=== PATIENT | female | born 1980 | race American Indian/Alaskan Native ===

== ENCOUNTER 2021-07-10 18:32 | Inpatient (IN) | payer SELFPAY ==
[2021-07-10] MEDS ORDERED: SODIUM CHLORIDE 0.9% 1000 ML 1,000 ML IV ONE (22:00)
[2021-07-10] MEDS ORDERED: PANTOPRAZOLE 40 MG INJ IV ONE (22:01)
[2021-07-10] MEDS ORDERED: ONDANSETRON 4 MG/2 ML INJ IV ONE (22:01)
[2021-07-10] MEDS ORDERED: MORPHINE 4 MG/1 ML INJ IV ONE (22:01)
--- NOTE | 2021-07-10 22:06 | Emergency Department Report ---
ED Abdominal Pain HPI - General Stated Complaint: ABD PAIN/VOMITING PUI?: No Time Seen by Provider: 07/10/21 21:55 Source: patient Mode of arrival: Ambulatory Limitations: No Limitations - History of Present Illness Initial Comments: CC: "My stomach hurts. I can't eat anything. It comes right back up." HPI: This is a 41 yo female with hx of COPD, marijuana and alcohol dependence who presents with vomiting and abdominal pain for one week. She is unable to tolerate food. She has moderately severe epigastric pain. Sharp pain worse with eating. +vomiting. No hematemesis. Mild diarrhea. Patient smokes marijuana and drinks alcohol daily. MD Complaint: abdominal pain -: Gradual, week(s) (1 week) Location: epigastric Radiation: none Severity: moderate Severity scale (0 -10): 8 Quality: aching, sharp Consistency: constant Improves With: nothing Worsens With: eating Associated Symptoms: nausea, vomiting, diarrhea - Related Data Home Medications Medication Instructions Recorded Confirmed Last Taken No Known Home Medications [No 09/08/18 09/08/18 Unknown Reported Home Medications] Allergies Allergy/AdvReac Type Severity Reaction Status Date / Time No Known Allergies Allergy Unverified 08/30/18 02:13 ED Review of Systems ROS: Stated complaint: ABD PAIN/VOMITING Other details as noted in HPI Comment: All other systems reviewed and negative Constitutional: malaise. denies: fever Respiratory: denies: cough, shortness of breath Gastrointestinal: abdominal pain, nausea, vomiting, diarrhea Musculoskeletal: denies: back pain ED Past Medical Hx - Past Medical History Previous Medical History?: Yes Hx Heart Attack/AMI: No Hx Liver Disease: No Hx Renal Disease: No Hx Seizures: No Hx Asthma: Yes Hx COPD: Yes (advanced COPD on chest CT) - Surgical History Past Surgical History?: Yes Additional Surgical History: Bronchoscopy - Social History Smoking Status: Current Every Day Smoker Substance Use Type: Alcohol, Marijuana - Medications Home Medications: Home Medications Medication Instructions Recorded Confirmed Last Taken Type No Known Home Medications [No 09/08/18 09/08/18 Unknown History Reported Home Medications] ED Physical Exam - General Limitations: No Limitations General appearance: alert, in no apparent distress, cachectic, other (tearful ) - Head Head exam: Present: atraumatic, normocephalic - Eye Eye exam: Present: normal appearance - ENT ENT exam: Present: mucous membranes moist - Neck Neck exam: Present: normal inspection - Respiratory Respiratory exam: Present: normal lung sounds bilaterally. Absent: respiratory distress, wheezes, rales, rhonchi, stridor - Cardiovascular Cardiovascular Exam: Present: regular rate, normal rhythm, normal heart sounds. Absent: systolic murmur, diastolic murmur, rubs, gallop - GI/Abdominal GI/Abdominal exam: Present: soft, tenderness, normal bowel sounds, other (Epigastric tenderness). Absent: distended, guarding - Extremities Exam Extremities exam: Present: normal inspection - Neurological Exam Neurological exam: Present: alert, oriented X3 - Psychiatric Psychiatric exam: Present: normal affect, normal mood - Skin Skin exam: Present: warm, dry, intact, normal color. Absent: rash ED Medical Decision Making - Lab Data Result diagrams: 07/10/21 22:54 07/10/21 22:54 - Radiology Data Radiology results: report reviewed Patient Name: ARIANNA SANCHEZ Gender: Female Date of : 1980 Referring Provider: YOKASTA MANUEL Organization: [facility] Accession Number: [id number] Requested Date: July 10, 2021 23:55 Report Status: Final Requested Procedure: 1 Procedure Description: CT abdomen pelvis wo con Modality: CT Findings Reporting MD: Quentin Navarro Dictation Time: July 10, 2021 23:15 Machine Stemmer: Not available Electronic Security Technician Date: CT ABDOMEN AND PELVIS WITHOUT CONTRAST HISTORY: Severe Epigastric Abdominal pain, hx of alcohol use.. COMPARISON: None. TECHNIQUE: CT images of the abdomen and pelvis were obtained without administration of intravenous contrast. All CT scans at this location are performed using CT dose reduction for ALARA by means of automated exposure control. FINDINGS: Lungs/bones: There is cavitary process with diffuse opacities within the left lower lung diffuse bronchiectasis is seen. Nodular appearing densities opacities within the right lower lung as well. Abdomen/pelvis: Within limits of a noncontrast exam the liver, spleen, adrenal glands, pancreas and gallbladder appear normal. No bowel obstruction is seen. Kidneys are prominent however unchanged since prior examination. Appendix is not well seen however no CT evidence for appendicitis. No free fluid in the pelvis. Degenerative changes seen throughout spine. IMPRESSION: 1. Marked abnormality within the lower chest. Cavitary process with diffuse opacities within the lower lungs left greater than right. Findings could represent atypical mycobacterial infection, prior infection/inflammation, malignancy cannot be excluded. Nodular densities are seen in the right lower lung. 2. No other acute findings are seen in the abdomen or pelvis. Signer Name: Quentin Navarro MD Signed: 07/10/2021 11:15 PM Workstation Name: [id number] Patient Name: ARIANNA SANCHEZ Gender: Female Date of : 1980 Referring Provider: YOKASTA MANUEL Organization: [facility] Accession Number: [id number] Requested Date: July 11, 2021 02:26 Report Status: Final Requested Procedure: 1 Procedure Description: CT chest w con Modality: CT Findings Reporting MD: Quentin Navarro Dictation Time: July 11, 2021 01:42 Machine Stemmer: Not available Electronic Security Technician Date: CT CHEST WITH CONTRAST INDICATION / CLINICAL INFORMATION: Cavitary lesions in the chest history of Pneumonia. TECHNIQUE: Axial CT images were obtained through the chest after IV contrast. All CT scans at this location are performed using CT dose reduction for ALARA by means of automated exposure control. COMPARISON: None available. FINDINGS: There is diffuse irregularity throughout the chest. Large cavitary lesions are seen in bilateral lungs. These cavitary lesions appear to have thickened barber with increased interstitial prominence and opacities surrounding the cavitary processes and associated bronchograms and bronchiectasis is noted. Chronic interstitial changes seen in bilateral lungs. Some nodular appearing densities are also seen within the lungs bilaterally. Heart and aorta appear normal. There are prominent mediastinal paratracheal nodes and paratracheal nodes measuring up to 1.1 cm. Some soft tissue density and fluid densities in the left lung base near the pleural surfaces IMPRESSION: 1. Diffuse bilateral pulmonary cavitary processes with multiple large cavities which appears thick walled with associated bronchiectasis. There is interstitial prominence with interstitial nodularity and opacities also in bilateral lungs. Differential considerations would include infectious etiology such as fungal,, TB, atypical mycobacterial, bacterial pneumonia. Other noninfectious etiologies such as carcinoma also cannot be excluded. Signer Name: Quentin Navarro MD Signed: 07/11/2021 1:42 AM Workstation Name: [employer] - Medical Decision Making 1. Abdominal pain nausea vomiting: Differential diagnosis includes alcoholic gastritis, cannabinoid hyperemesis syndrome, peptic ulcer disease, irritable bowel syndrome: CT abdomen pelvis ruled out acute inflammatory obstructive process. Anorexia cachexia likely due to lung process which has advanced over the last 3 years. 2. Cavitary lung process: Patient was evaluated for cavitary pneumonia 2018. Patient left AGAINST MEDICAL ADVICE before full evaluation could be completed. Previously in 2018 bronchial washings positive for MRSA and Veronika albicans Differential diagnosis includes tuberculosis, malignancy, Charbel's disease, aspergillus infection, PCP Broad-spectrum antibiotic Zosyn and vancomycin via IV initiated emergency department. Patient admitted to hospital service. Critical care attestation.: If time is entered above; I have spent that time in minutes in the direct care of this critically ill patient, excluding procedure time. ED Disposition Clinical Impression: Cavitary pneumonia, MRSA pneumonia, Abdominal pain Disposition: 09 ADMITTED INPATIENT Is pt being admited?: Yes Does the pt Need Aspirin: No Condition: Fair Instructions: Bacterial Pneumonia (ED) Referrals: PRIMARY CARE, [Primary Care Provider] - 3-5 Days
[2021-07-10 23:36] LABS: Alanine Aminotransferase 5 units/L (7-56); Albumin 2.8 g/dL (3.9-5); Blood Urea Nitrogen 5 mg/dL (7-17); Calcium 7.8 mg/dL (8.4-10.2); Hemolysis Index 13
[2021-07-10 23:37] LABS: BUN/Creatinine Ratio 13; Basophils # (Auto) 0.1 K/mm3 (0.0-0.1); Basophils % (Auto) 1.3 % (0.0-1.8); Bilirubin,Direct < 0.2 mg/dL (0-0.2); Eosinophils % (Auto) 0.4 % (0.0-4.3); Hematocrit 34.2 % (30.3-42.9); Hemoglobin 11.3 gm/dl (10.1-14.3); Lymphocytes # (Auto) 1.5 K/mm3 (1.2-5.4); Lymphocytes % (Auto) 20.6 % (13.4-35.0); Mean Corpuscular HGB Conc 33 % (30-34); Mean Corpuscular Volume 91 fl (79-97); Platelet Count 314 K/mm3 (140-440); Red Blood Count 3.75 M/mm3 (3.65-5.03); Red Cell Distribution Width 16.2 % (13.2-15.2)
--- NOTE | 2021-07-11 00:20 | Cat Scan Report ---
CT ABDOMEN AND PELVIS WITHOUT CONTRAST HISTORY: Severe Epigastric Abdominal pain, hx of alcohol use.. COMPARISON: None. TECHNIQUE: CT images of the abdomen and pelvis were obtained without administration of intravenous co ntrast. All CT scans at this location are performed using CT dose reduction for ALARA by means of au tomated exposure control. FINDINGS: Lungs/bones: There is cavitary process with diffuse opacities within the left lower lung diffuse bro nchiectasis is seen. Nodular appearing densities opacities within the right lower lung as well. Abdomen/pelvis: Within limits of a noncontrast exam the liver, spleen, adrenal glands, pancreas and gallbladder appear normal. No bowel obstruction is seen. Kidneys are prominent however unchanged sinc e prior examination. Appendix is not well seen however no CT evidence for appendicitis. No free fluid in the pelvis. Degenerative changes seen throughout spine. IMPRESSION: 1. Marked abnormality within the lower chest. Cavitary process with diffuse opacities within the lowe r lungs left greater than right. Findings could represent atypical mycobacterial infection, prior inf ection/inflammation, malignancy cannot be excluded. Nodular densities are seen in the right lower chance g. 2. No other acute findings are seen in the abdomen or pelvis. Signer Name: Quentin Navarro MD Signed: 07/11/2021 12:15 AM Workstation Name: [id number]
[2021-07-11] MEDS ORDERED: ONDANSETRON 4 MG/2 ML INJ IV ONE (01:24)
[2021-07-11] MEDS ORDERED: MORPHINE 4 MG/1 ML INJ IV ONE (01:24)
--- NOTE | 2021-07-11 02:46 | Cat Scan Report ---
CT CHEST WITH CONTRAST INDICATION / CLINICAL INFORMATION: Cavitary lesions in the chest history of Pneumonia. TECHNIQUE: Axial CT images were obtained through the chest after IV contrast. All CT scans at this location are performed using CT dose reduction for ALARA by means of automated exposure control. COMPARISON: None available. FINDINGS: There is diffuse irregularity throughout the chest. Large cavitary lesions are seen in bilateral lung s. These cavitary lesions appear to have thickened barber with increased interstitial prominence and o pacities surrounding the cavitary processes and associated bronchograms and bronchiectasis is noted. Chronic interstitial changes seen in bilateral lungs. Some nodular appearing densities are also seen within the lungs bilaterally. Heart and aorta appear normal. There are prominent mediastinal paratrac heal nodes and paratracheal nodes measuring up to 1.1 cm. Some soft tissue density and fluid densitie s in the left lung base near the pleural surfaces IMPRESSION: 1. Diffuse bilateral pulmonary cavitary processes with multiple large cavities which appears thick wa lled with associated bronchiectasis. There is interstitial prominence with interstitial nodularity an d opacities also in bilateral lungs. Differential considerations would include infectious etiology anderson ch as fungal,, TB, atypical mycobacterial, bacterial pneumonia. Other noninfectious etiologies such a s carcinoma also cannot be excluded. Signer Name: Quentin Navarro MD Signed: 07/11/2021 2:42 AM Workstation Name: [id number]
[2021-07-11] MEDS ORDERED: PIPERACIL/TAZOBACTA 4.5/NS 100 4.5 GM/100 ML VIAL IV ONE (02:57)
[2021-07-11] MEDS ORDERED: VANCOMYCIN/NS 1 GM/250 ML 1 GM/250 ML BAG IV ONE (02:57)
[2021-07-11] MEDS ORDERED: MORPHINE 4 MG/1 ML INJ IV PRN (02:58)
[2021-07-11] MEDS ORDERED: ACETAMINOPHEN 325 MG TAB PO PRN (02:58)
[2021-07-11] MEDS ORDERED: NALOXONE 0.4 MG/1 ML INJ IV PRN (02:58)
[2021-07-11] MEDS ORDERED: ONDANSETRON 4 MG/2 ML INJ IV PRN (02:58)
[2021-07-11] MEDS ORDERED: ALBUTEROL 8.5 GM MDI INHALATION IH PRN (03:48)
--- NOTE | 2021-07-11 03:54 | History and Physical Report ---
History of Present Illness Date of examination: 07/11/21 Date of admission: 07/11/2021 Chief complaint: Acute abdominal pain, nausea, vomiting History of present illness: 41-year-old -[place] female with history of COPD, marijuana and alcohol dependence, who presents [facility] ED with complaints of abdominal pain. Patient reports severe sharp epigastric 9/10 pain accompanied with nausea and vomiting x1 week. The pain is exacerbated with oral intake,and unable to keep anything down at this time. Endorses intermittent diarrhea x1 to 2 days. Reports unintentional weight loss of approximately 30 pounds over the past 1 to 2 months. Review of medical record shows patient was admitted in 2018 with pneumonia, underwent bronchoscopy by Dr. Pedersen, and bronchial washings were sent for culture. Patient left the hospital AMA following the procedure, but returned after being contacted regarding positive cultures and the need for additional treatment for left lower lobe MRSA pneumonia. Patient did start additional treatment however once again left AMA has not returned back to our facility until today. Endorses: Intermittent fever, chills, night sweats, cough with thick greenish sputum production, unintentional weight loss, decreased appetite Denies: Chest pain, shortness of breath, palpitations, constipation, hemoptysis, hematic emesis, melena, loss of smell and taste, generalized weakness, recent sick contacts Past History Past Medical History: COPD, other (PNA with MRSA,) Past Surgical History: Other (Bronchoscopy) Social history: lives with family (Father, uncle and brother), smoking (Daily marijuana use, denies tobacco/nicotine use), alcohol abuse, full code. denies: prescription drug abuse, IV drug use Family history: no significant family history Medications and Allergies Allergies Allergy/AdvReac Type Severity Reaction Status Date / Time No Known Allergies Allergy Unverified 08/30/18 02:13 Home Medications Medication Instructions Recorded Confirmed Last Taken Type No Known Home Medications [No 09/08/18 09/08/18 Unknown History Reported Home Medications] Active Meds: Active Medications Acetaminophen (Acetaminophen 325 Mg Tab) 650 mg PO Q4H PRN PRN Reason: Pain MILD(1-3)/Fever >100.5/[place] Albuterol (Albuterol 8.5 Gm Mdi Inhalation) 2 puff IH Q4HRT PRN PRN Reason: Shortness Of Breath Docusate Sodium (Docusate Sodium 100 Mg Cap) 100 mg PO BID [facility] Heparin Sodium (Porcine) (Heparin 5,000 Unit/1 Ml Vial) 5,000 unit SUB-Q Q12HR [facility] Vancomycin HCl (Vancomycin/Ns 1 Gm/250 Ml) 1 gm in 250 mls @ 167.007 mls/hr IV ONCE ONE; Protocol Stop: 07/11/21 04:26 Piperacillin Sod/Tazobactam Sod (Zosyn/Ns 4.5gm/100ml) 4.5 gm in 100 mls @ 200 mls/hr IV Q8H RAJANI; Protocol Potassium Chloride (Kcl 10meq/100ml) 10 meq in 100 mls @ 100 mls/hr IV Q1H RAJANI Stop: 07/11/21 05:59 Morphine Sulfate (Morphine 2 Mg/1 Ml Inj) 2 mg IV Q4H PRN PRN Reason: Pain, Moderate (4-6) Morphine Sulfate (Morphine 4 Mg/1 Ml Inj) 4 mg IV Q4H PRN PRN Reason: Pain , Severe (7-10) Naloxone HCl (Naloxone 0.4 Mg/1 Ml Inj) 0.1 mg IV Q2MIN PRN PRN Reason: Res Rate </= 8 or 02 SAT < 92% Ondansetron HCl (Ondansetron 4 Mg/2 Ml Inj) 4 mg IV Q6H PRN PRN Reason: Nausea And Vomiting Sodium Chloride (Sodium Chloride 0.9% 10 Ml Flush Syringe) 10 ml IV BID [facility] Sodium Chloride (Sodium Chloride 0.9% 10 Ml Flush Syringe) 10 ml IV PRN PRN PRN Reason: LINE FLUSH Review of Systems All systems: negative (As noted in HPI) Exam - Physical Exam Narrative exam: Physical exam General appearance: Present: Thin appearing, no acute distress, alert and oriented 3, adult female - EENT Eyes: Present: PERRL, EOM intact ENT: hearing intact, poor dentition - Neck Neck: Present: supple, normal ROM - Respiratory Respiratory effort: Non-labored Respiratory: Clear throughout - Cardiovascular Heart rate: 88 (bpm) Rhythm: Sinus Heart Sounds: Present: S1 & S2. Absent: rub, click - Extremities Extremities: no ischemia, pulses intact, - Peripheral Assessment Peripheral Pulses: within normal limits - Abdominal General gastrointestinal: soft, non-tender, normal bowel sounds - Integumentary Integumentary: Present: warm, dry - Musculoskeletal Musculoskeletal: Able to move all extremities -Neurological Neurological: CN II-XII intact - Psychiatric Psychiatric:cooperative HEART Score - HEART Score Troponin: WBC 7.3 K/mm3 (4.5-11.0) 07/10/21 22:54 RBC 3.75 M/mm3 (3.65-5.03) 07/10/21 22:54 Hgb 11.3 gm/dl (10.1-14.3) 07/10/21 22:54 Hct 34.2 % (30.3-42.9) 07/10/21 22:54 MCV 91 fl (79-97) 07/10/21 22:54 MCH 30 pg (28-32) 07/10/21 22:54 MCHC 33 % (30-34) 07/10/21 22:54 RDW 16.2 % (13.2-15.2) H 07/10/21 22:54 Plt Count 314 K/mm3 (140-440) 07/10/21 22:54 Lymph % (Auto) 20.6 % (13.4-35.0) 07/10/21 22:54 Toombs % (Auto) 14.0 % (0.0-7.3) H 07/10/21 22:54 Eos % (Auto) 0.4 % (0.0-4.3) 07/10/21 22:54 Baso % (Auto) 1.3 % (0.0-1.8) 07/10/21 22:54 Lymph # (Auto) 1.5 K/mm3 (1.2-5.4) 07/10/21 22:54 Toombs # (Auto) 1.0 K/mm3 (0.0-0.8) H 07/10/21 22:54 Eos # (Auto) 0.0 K/mm3 (0.0-0.4) 07/10/21 22:54 Baso # (Auto) 0.1 K/mm3 (0.0-0.1) 07/10/21 22:54 Seg Neutrophils % 63.7 % (40.0-70.0) 07/10/21 22:54 Seg Neutrophils # 4.6 K/mm3 (1.8-7.7) 07/10/21 22:54 Sodium 131 mmol/L (137-145) L 07/10/21 22:54 Potassium 3.3 mmol/L (3.6-5.0) L 07/10/21 22:54 Chloride 94.2 mmol/L (98-107) L 07/10/21 22:54 Carbon Dioxide 26 mmol/L (22-30) 07/10/21 22:54 Anion Gap 14 mmol/L 07/10/21 22:54 BUN 5 mg/dL (7-17) L 07/10/21 22:54 Creatinine 0.4 mg/dL (0.6-1.2) L 07/10/21 22:54 Estimated GFR > 60 ml/min 07/10/21 22:54 BUN/Creatinine Ratio 13 % 07/10/21 22:54 Glucose 73 mg/dL (65-100) 07/10/21 22:54 Calcium 7.8 mg/dL (8.4-10.2) L 07/10/21 22:54 Total Bilirubin 0.30 mg/dL (0.1-1.2) 07/10/21 22:54 Direct Bilirubin < 0.2 mg/dL (0-0.2) 07/10/21 22:54 Indirect Bilirubin 0.1 mg/dL 07/10/21 22:54 AST 20 units/L (5-40) 07/10/21 22:54 ALT 5 units/L (7-56) L 07/10/21 22:54 Alkaline Phosphatase 176 units/L (35-129) H 07/10/21 22:54 Total Protein 9.1 g/dL (6.3-8.2) H 07/10/21 22:54 Albumin 2.8 g/dL (3.9-5) L 07/10/21 22:54 Albumin/Globulin Ratio 0.4 % 07/10/21 22:54 Lipase 13 units/L (13-60) 07/10/21 22:54 HCG, Qual Negative (Negative) 07/10/21 22:54 Results - Labs CBC & Chem 7: 07/10/21 22:54 07/10/21 22:54 Labs: Laboratory Last Values WBC 7.3 K/mm3 (4.5-11.0) 07/10/21 22:54 RBC 3.75 M/mm3 (3.65-5.03) 07/10/21 22:54 Hgb 11.3 gm/dl (10.1-14.3) 07/10/21 22:54 Hct 34.2 % (30.3-42.9) 07/10/21 22:54 MCV 91 fl (79-97) 07/10/21 22:54 MCH 30 pg (28-32) 07/10/21 22:54 MCHC 33 % (30-34) 07/10/21 22:54 RDW 16.2 % (13.2-15.2) H 07/10/21 22:54 Plt Count 314 K/mm3 (140-440) 07/10/21 22:54 Lymph % (Auto) 20.6 % (13.4-35.0) 07/10/21 22:54 Toombs % (Auto) 14.0 % (0.0-7.3) H 07/10/21 22:54 Eos % (Auto) 0.4 % (0.0-4.3) 07/10/21 22:54 Baso % (Auto) 1.3 % (0.0-1.8) 07/10/21 22:54 Lymph # (Auto) 1.5 K/mm3 (1.2-5.4) 07/10/21 22:54 Toombs # (Auto) 1.0 K/mm3 (0.0-0.8) H 07/10/21 22:54 Eos # (Auto) 0.0 K/mm3 (0.0-0.4) 07/10/21 22:54 Baso # (Auto) 0.1 K/mm3 (0.0-0.1) 07/10/21 22:54 Seg Neutrophils % 63.7 % (40.0-70.0) 07/10/21 22:54 Seg Neutrophils # 4.6 K/mm3 (1.8-7.7) 07/10/21 22:54 Sodium 131 mmol/L (137-145) L 07/10/21 22:54 Potassium 3.3 mmol/L (3.6-5.0) L 07/10/21 22:54 Chloride 94.2 mmol/L (98-107) L 07/10/21 22:54 Carbon Dioxide 26 mmol/L (22-30) 07/10/21 22:54 Anion Gap 14 mmol/L 07/10/21 22:54 BUN 5 mg/dL (7-17) L 07/10/21 22:54 Creatinine 0.4 mg/dL (0.6-1.2) L 07/10/21 22:54 Estimated GFR > 60 ml/min 07/10/21 22:54 BUN/Creatinine Ratio 13 % 07/10/21 22:54 Glucose 73 mg/dL (65-100) 07/10/21 22:54 Calcium 7.8 mg/dL (8.4-10.2) L 07/10/21 22:54 Total Bilirubin 0.30 mg/dL (0.1-1.2) 07/10/21 22:54 Direct Bilirubin < 0.2 mg/dL (0-0.2) 07/10/21 22:54 Indirect Bilirubin 0.1 mg/dL 07/10/21 22:54 AST 20 units/L (5-40) 07/10/21 22:54 ALT 5 units/L (7-56) L 07/10/21 22:54 Alkaline Phosphatase 176 units/L (35-129) H 07/10/21 22:54 Total Protein 9.1 g/dL (6.3-8.2) H 07/10/21 22:54 Albumin 2.8 g/dL (3.9-5) L 07/10/21 22:54 Albumin/Globulin Ratio 0.4 % 07/10/21 22:54 Lipase 13 units/L (13-60) 07/10/21 22:54 HCG, Qual Negative (Negative) 07/10/21 22:54 - Imaging and Cardiology Imaging and Cardiology: CT Chest: FINDINGS: There is diffuse irregularity throughout the chest. Large cavitary lesions are seen in bilateral lungs. These cavitary lesions appear to have thickened barber with increased interstitial prominence and opacities surrounding the cavitary processes and associated bronchograms and bronchiectasis is noted. Chronic interstitial changes seen in bilateral lungs. Some nodular appearing densities are also seen within the lungs bilaterally. Heart and aorta appear normal. There are prominent mediastinal paratracheal nodes and paratracheal nodes measuring up to 1.1 cm. Some soft tissue density and fluid densities in the left lung base near the pleural surfaces IMPRESSION: 1. Diffuse bilateral pulmonary cavitary processes with multiple large cavities which appears thick walled with associated bronchiectasis. There is interstitial prominence with interstitial nodularity and opacities also in bilateral lungs. Differential considerations would include infectious etiology such as fungal,, TB, atypical mycobacterial, bacterial pneumonia. Other noninfectious etiologies such as carcinoma also cannot be excluded. CT Abd/Pelvis: FINDINGS: Lungs/bones: There is cavitary process with diffuse opacities within the left lower lung diffuse bronchiectasis is seen. Nodular appearing densities opacities within the right lower lung as well. Abdomen/pelvis: Within limits of a noncontrast exam the liver, spleen, adrenal glands, pancreas and gallbladder appear normal. No bowel obstruction is seen. Kidneys are prominent however unchanged since prior examination. Appendix is not well seen however no CT evidence for appendicitis. No free fluid in the pelvis. Degenerative changes seen throughout spine. IMPRESSION: 1. Marked abnormality within the lower chest. Cavitary process with diffuse opacities within the lower lungs left greater than right. Findings could represent atypical mycobacterial infection, prior infection/inflammation, malignancy cannot be excluded. Nodular densities are seen in the right lower lung. 2. No other acute findings are seen in the abdomen or pelvis. Assessment and Plan Assessment and plan: Cavitary pneumonia -CT Chest shows Diffuse bilateral pulmonary cavitary processes with multiple large cavities -On IV Zosyn and Vacomycin -ID and Pulmonary consulted Intractable nausea and vomiting -?? Due to marijuana induced hyperemesis -Diet as tolerated -Antiemetics -On IVF -Supportive care Acute abdominal pain -CT abdomen pelvis negative for acute findings in abdomen or pelvis, -Lower chest cavitary lesions seen on CT, unable to rule out malignancy at this time -?? Related to malignancy -Supportive care Hypokalemia -Moderate -3.3 on admission -Ordered potassium replacement -Continue to monitor replete prn Mild to moderate malnutrition -Albumin 2.8 -Nutrition consult pending History of advanced COPD -Albuterol as needed Marijuana abuse -Reports daily marijuana use -Counseled for cessation EtOH Abuse -Last drink 1-2 days ago -Initiate CIWA protocol -Start Thiamine and Folic Acid -Counseled for cessation abuse DVT PPx -On heparin Advance Directives: No VTE prophylaxis?: Chemical, Mechanical Plan of care discussed with patient/family: Yes
[2021-07-11] MEDS ORDERED: VANCOMYCIN PHARMACY TO DOSE IV SCH (04:00)
[2021-07-11] MEDS ORDERED: SODIUM CHLORIDE 0.9% 1000 ML 1,000 ML IV SCH (04:00)
[2021-07-11] MEDS ORDERED: LORazepam 2 MG/ML VIAL IV PRN (04:10)
[2021-07-11] MEDS ORDERED: diphenhydrAMINE 50 MG/ML VIAL IV ONE (04:46)
[2021-07-11] MEDS: POTASSIUM CHLORIDE 10 MEQ 10 MEQ/100 ML BAG IV SCH ×2 (05:00→05:54)
--- NOTE | 2021-07-11 08:48 | Event Note ---
Date: 07/11/21 41-year-old female with history of COPD, marijuana use, EtOH abuse presented today with abdominal pain described as sharp epigastric severe with nausea vomiting. Patient unable to hold food down. Also associated with 30 pound weight loss over the past several months. Over the past several months patient hospital course been complicated by 2 separate hospitalizations in which she left AMA both times. Most recent patient had bronchoscopy for what was being treated as a pneumonia cavitary lesion. Patient left AMA at that time. Patient returns this time with above complaints and concerns. CT findings upon admission on this visit shows large cavitary lesion throughout lungs. Patient was admitted for cavitary pneumonia. Started on Zosyn and vancomycin ID consult pending. Patient also has abdominal pain CT scan abdomen unremarkable most likely secondary to chronic EtOH use and abuse. Electrolytes are currently being corrected. Patient also was seen dietitian for supplementation malnutrition. Advanced COPD nebulizers and patient being covered CIWA protocol for alcohol abuse
--- NOTE | 2021-07-11 09:38 | Event Note ---
Date: 07/11/21 Chart reviewed along with imaging but unable to pull up CT from 2018. Impressive current CT of chest and patient presented only with abdominal sy mptoms. Per chart denies hemoptysis. She does endorse sputum production of green phelgm and shortness of breath. Had no elevation in white count on admission and no documented fever ( just spoke with nurse who is going to get recent vitals). Given her asymptomatic state, I presume this is residual damage from untreated MRSA 3 years ago. As stated earlier I cannot visualize the old CT, will see if Rads can pull up for me to compare. At this time, I don't feel bronch is warranted. If patient is able to produce sputum can send for culture, gram stain and cytology. Await ID recs but no plans pulm pineda at this time.
[2021-07-11] MEDS: DOCUSATE SODIUM 100 MG CAP PO SCH ×2 (12:11→21:22)
[2021-07-11] MEDS: FOLIC ACID 1 MG TAB PO SCH (12:11)
[2021-07-11] MEDS: HEPARIN 5,000 UNIT/1 ML VIAL SUB-Q SCH ×2 (12:12→21:22)
[2021-07-11] MEDS: THIAMINE 100 MG TAB PO SCH (12:12)
[2021-07-11] MEDS: MULTIVITAMINS ,THERAPEUTIC TAB PO SCH (12:12)
[2021-07-11] MEDS: MORPHINE 2 MG/1 ML INJ IV PRN ×2 (12:36→20:47)
[2021-07-11] MEDS: PIPERACIL/TAZOBACTA 4.5/NS 100 4.5 GM/100 ML VIAL IV SCH ×2 (13:48→20:49)
--- NOTE | 2021-07-11 14:45 | Consultation ---
History of Present Illness - Reason for Consult Consult date: 07/11/21 cavitary pneumonia - History of Present Illness 41-year-old female with history of COPD, marijuana use, alcohol abuse, previous MRSA pneumonia, which was not fully treated, admitted on 07/11/2021 secondary to a month history of worsening cough with green sputum production, weightloss, abdominal pain and nausea. She reports previous HIV test negative. Patient underwent BAL done in August 2018 + for MRSA. Patient left AMA. Reports intermittent diarrhea. On arrival, temperature 98, HR 94, RR 23, O2 sat 97%. Initial WBC 7.3. Hemoglobin 11.3. Platelets 314. Creatinine 0.4. Review of Systems: positive in bold print General: fever, chills, malaise, weight loss about 20L Cutaneous: rash, pruritus Head: headaches or injury Eyes: changes in vision, eye pain, double vision Ears: ear pain, ear discharge, ringing or hearing loss Nose: nose bleeding, stuffiness Mouth & throat: bleeding gums, horseness, no dental problems, or swollen glands Neck: no pain, node enlargement/lumps, tyroid enlargement or tenderness Respiratory: SOB, cough, VALDES, wheezing, sputum, hemoptysis, pleuritic chest pain Cardiovascular: chest pain, leg edema, cyanosis, VALDES, orthopnea Musculoskeletal: edema, deformities, pain Gastrointestinal: nausea, vomiting, hematemesis, diarrhea, constipation, melena, bright red blood in stools, fecal incontinence, jaundice Genitourinary/Reproductive: frequent urination, dysuria, hematuria, incontinence Neurogical: seizures, headaches, weakness, paresthesias, loss of speech or vision; memory loss, vertigo, tremors, numbness Psychiatric: stable mood; excessive anxiety, sadness or moodiness Past History Past Medical History: COPD, other (PNA with MRSA,) Past Surgical History: Other (Bronchoscopy) Social history: lives with family (Father, uncle and brother), smoking (Daily marijuana use, denies tobacco/nicotine use), alcohol abuse, full code. denies: prescription drug abuse, IV drug use Family history: no significant family history Medications and Allergies Allergies Allergy/AdvReac Type Severity Reaction Status Date / Time No Known Allergies Allergy Unverified 08/30/18 02:13 Home Medications Medication Instructions Recorded Confirmed Last Taken Type No Known Home Medications [No 09/08/18 09/08/18 Unknown History Reported Home Medications] Active Meds: Active Medications Acetaminophen (Acetaminophen 325 Mg Tab) 650 mg PO Q4H PRN PRN Reason: Pain MILD(1-3)/Fever >100.5/[place] Albuterol (Albuterol 8.5 Gm Mdi Inhalation) 2 puff IH Q4HRT PRN PRN Reason: Shortness Of Breath Docusate Sodium (Docusate Sodium 100 Mg Cap) 100 mg PO BID [facility] Last Admin: 07/11/21 12:11 Dose: 100 mg Documented by: Folic Acid (Folic Acid 1 Mg Tab) 1 mg PO QDAY [facility] Last Admin: 07/11/21 12:11 Dose: 1 mg Documented by: Heparin Sodium (Porcine) (Heparin 5,000 Unit/1 Ml Vial) 5,000 unit SUB-Q Q12HR [facility] Last Admin: 07/11/21 12:12 Dose: 5,000 unit Documented by: Piperacillin Sod/Tazobactam Sod (Zosyn/Ns 4.5gm/100ml) 4.5 gm in 100 mls @ 200 mls/hr IV Q8H [facility]; Protocol Last Admin: 07/11/21 13:48 Dose: 200 mls/hr Documented by: Vancomycin HCl 750 mg/ Sodium (Chloride) 265 mls @ 166.667 mls/hr IV Q8H [facility] Lorazepam (Lorazepam 2 Mg/Ml Vial) 2 mg IV Q1H PRN PRN Reason: CIWA-Ar 8-15 Morphine Sulfate (Morphine 2 Mg/1 Ml Inj) 2 mg IV Q4H PRN PRN Reason: Pain, Moderate (4-6) Last Admin: 07/11/21 12:36 Dose: 2 mg Documented by: Morphine Sulfate (Morphine 4 Mg/1 Ml Inj) 4 mg IV Q4H PRN PRN Reason: Pain , Severe (7-10) Morphine Sulfate (Morphine 2 Mg/1 Ml Inj) 2 mg IV Q6H PRN PRN Reason: Pain, Moderate (4-6) Multivitamins (Multivitamins ,Therapeutic Tab) 1 each PO QDAY [facility] Last Admin: 07/11/21 12:12 Dose: 1 each Documented by: Naloxone HCl (Naloxone 0.4 Mg/1 Ml Inj) 0.1 mg IV Q2MIN PRN PRN Reason: Res Rate </= 8 or 02 SAT < 92% Ondansetron HCl (Ondansetron 4 Mg/2 Ml Inj) 4 mg IV Q6H PRN PRN Reason: Nausea And Vomiting Sodium Chloride (Sodium Chloride 0.9% 10 Ml Flush Syringe) 10 ml IV BID RAJANI Sodium Chloride (Sodium Chloride 0.9% 10 Ml Flush Syringe) 10 ml IV PRN PRN PRN Reason: LINE FLUSH Thiamine HCl (Thiamine 100 Mg Tab) 100 mg PO QDAY [facility] Last Admin: 07/11/21 12:12 Dose: 100 mg Documented by: Physical Examination - Physical Exam Narrative exam: General appearance: Alert in NAD pleasant Eyes: anicteric sclerae, moist conjunctivae; no lid-lag; PERRLA HENT: Normocephalic, Atraumatic; normal external ears, nares open, oropharynx clear with moist mucous membranes and no oral thrush; normal hard and soft palate. Neck: supple, tracheal midline, no JVD Lungs: Bilateral rhonchi CV: RRR no murmur Abdomen: Soft, non-tender; no masses or hepatosplenomegaly Extremities: no edema, no cyanosis Skin: No rash. Psych: no agitated Neuro: alert and oriented x 3. Moving all extermities - Constitutional Vitals: Vital Signs Temp Pulse Resp BP Pulse Ox 98.0 F 95 H 17 117/67 99 07/11/21 09:55 07/11/21 09:55 07/11/21 09:55 07/11/21 09:55 07/11/21 09:55 Temperature -Last 24 Hours Temperature 98.0 F Results - Labs CBC & Chem 7: 07/10/21 22:54 07/10/21 22:54 Labs: Abnormal lab results 07/10/21 07/10/21 07/11/21 Range/Units 22:54 22:54 05:53 RDW 16.2 H (13.2-15.2) % Greene % (Auto) 14.0 H (0.0-7.3) % Greene # (Auto) 1.0 H (0.0-0.8) K/mm3 Sodium 131 L (137-145) mmol/L Potassium 3.3 L (3.6-5.0) mmol/L Chloride 94.2 L (98-107) mmol/L BUN 5 L (7-17) mg/dL Creatinine 0.4 L (0.6-1.2) mg/dL Calcium 7.8 L (8.4-10.2) mg/dL Magnesium 1.00 L (1.7-2.3) mg/dL ALT 5 L (7-56) units/L Alkaline Phosphatase 176 H (35-129) units/L Total Protein 9.1 H (6.3-8.2) g/dL Albumin 2.8 L (3.9-5) g/dL Assessment and Plan Cultures: Assessment: 41-year-old female with history of COPD, marijuana use, alcohol abuse, previous MRSA pneumonia, which was not fully treated, admitted on 07/11/2021 secondary to a month history of worsening cough with green sputum pr oduction, weightloss, abdominal pain and nause: #Bilaterally cavitary pneumonia: It is possible to be secondary to MRSA, however BAL positive for MRSA was in July 2018. MRSA usually rapidly progressed as it is virulent. Patient complaining of weight loss, marijuana use alcohol use. Suspect tuberculosis. #Significant weight loss: About 20 pounds. Recommendations: Airborne isolation HIV test, verbally consented Sputum AFB x 3 QuantiFERON-TB gold Okay to continue Zosyn and vancomycin for now Will follow. Cathleen Ross MD Infectious Diseases Temporary Help Agency Referral Clerk [facility] ([facility]) M [phone] O [phone]
[2021-07-11] MEDS: VANCOMYCIN 750 MG in SODIUM CHLORIDE 0.9% 250ML 250 ML IV SCH ×2 (15:00→22:06)
[2021-07-12] MEDS: diphenhydrAMINE 50 MG/ML VIAL IV PRN ×2 (00:16→22:06)
[2021-07-12] MEDS: MORPHINE 2 MG/1 ML INJ IV PRN ×4 (02:22→18:29)
[2021-07-12] MEDS: VANCOMYCIN 750 MG in SODIUM CHLORIDE 0.9% 250ML 250 ML IV SCH ×3 (06:51→20:34)
[2021-07-12] MEDS: PIPERACIL/TAZOBACTA 4.5/NS 100 4.5 GM/100 ML VIAL IV SCH (06:51)
--- NOTE | 2021-07-12 08:26 | Progress Note ---
Assessment and Plan - Patient Problems (1) Abdominal pain Current Visit: Yes Status: Acute Plan to address problem: Abdominal pain most likely was secondary to alcohol use versus gastritis. Resolved at this time with PPI. (2) Cavitary pneumonia Current Visit: Yes Status: Acute Plan to address problem: Patient currently being worked up for cavitary lung lesion. ID pulmonology following. Continue empiric antibiotics for potential staph pneumonia. Patient had positive cultures years ago on admission. Currently being ruled out for TB Continue isolation respiratory. At risk for TB given alcohol dependency. And also associated weight loss. (3) Nausea & vomiting Current Visit: No Status: Resolved (4) COPD (chronic obstructive pulmonary disease) Current Visit: Yes Status: Acute Plan to address problem: We will treat empirically with albuterol nebulizers. Currently patient not have any wheezing appears to be chronic COPD. After history most likely gold stage B (5) MRSA (methicillin resistant staphylococcus aureus) pneumonia Current Visit: No Status: Acute Plan to address problem: Unlikely. Patient is not that acutely ill. ID following. (6) Alcohol dependence Current Visit: Yes Status: Acute Plan to address problem: No evidence of withdrawal at this time. Subjective Date of service: 07/12/21 Principal diagnosis: Acute hypoxemic respiratory failure abdominal pain cavitary lung lesi Interval history: 41-year-old female with history of COPD, marijuana use, EtOH abuse presented today with abdominal pain described as sharp epigastric severe with nausea vomiting. Patient unable to hold food down. Also associated with 30 pound weight loss over the past several months. Over the past several months patient hospital course been complicated by 2 separate hospitalizations in which she left AMA both times. Most recent patient had bronchoscopy for what was being treated as a pneumonia cavitary lesion. Patient left AMA at that time. Patient returns this time with above complaints and concerns. CT findings upon admission on this visit shows large cavitary lesion throughout lungs. Patient was admitted for cavitary pneumonia. Started on Zosyn and vancomycin ID consult pending. Patient also has abdominal pain CT scan abdomen unremarkable most likely secondary to chronic EtOH use and abuse. Electrolytes are currently being corrected. Patient also was seen dietitian for supplementation malnutrition. Advanced COPD nebulizers and patient being covered CINH protocol for alcohol abuse 07/12/2021 patient feels better today no abdominal pain. Patient only complains of thick productive cough this afternoon. Currently in isolation room to rule out TB. Patient has completed 1 sputum there in front of me now. Denies any fever chills at this time. Has had 20 pound weight loss in the past. No evidence of DTs at this time. Objective - Constitutional Vitals: Vital Signs - 12hr 07/11/21 07/11/21 07/11/21 20:51 21:00 21:16 Temperature Pulse Rate 111 H 90 80 Respiratory 23 20 18 Rate Blood Pressure 109/76 109/76 109/76 O2 Sat by Pulse 98 98 Oximetry 07/11/21 07/11/21 07/11/21 21:30 21:46 22:00 Temperature Pulse Rate 92 H 95 H 91 H Respiratory 18 16 21 Rate Blood Pressure 106/78 106/78 99/69 O2 Sat by Pulse 100 99 98 Oximetry 07/11/21 07/11/21 07/11/21 22:16 22:30 22:46 Temperature Pulse Rate 87 82 116 H Respiratory 21 19 19 Rate Blood Pressure 99/69 107/67 107/67 O2 Sat by Pulse 98 97 100 Oximetry 07/11/21 07/11/21 07/11/21 23:00 23:16 23:30 Temperature Pulse Rate 75 78 92 H Respiratory 22 21 18 Rate Blood Pressure 112/81 112/81 105/75 O2 Sat by Pulse 100 99 98 Oximetry 07/11/21 07/12/21 07/12/21 23:46 00:00 00:16 Temperature Pulse Rate 78 86 82 Respiratory 16 18 20 Rate Blood Pressure 105/75 108/77 108/77 O2 Sat by Pulse 100 98 100 Oximetry 07/12/21 07/12/21 07/12/21 00:21 00:30 00:46 Temperature Pulse Rate 100 H 92 H Respiratory 21 17 Rate Blood Pressure 121/79 121/79 O2 Sat by Pulse 98 97 99 Oximetry 07/12/21 07/12/21 07/12/21 01:00 01:16 01:30 Temperature Pulse Rate 81 105 H 78 Respiratory 22 24 24 Rate Blood Pressure 116/83 116/83 152/136 O2 Sat by Pulse 99 98 99 Oximetry 07/12/21 07/12/21 07/12/21 01:40 01:50 02:00 Temperature Pulse Rate 86 88 88 Respiratory 25 H 24 24 Rate Blood Pressure 152/136 152/136 93/64 O2 Sat by Pulse 96 98 97 Oximetry 07/12/21 07/12/21 07/12/21 02:10 02:20 02:59 Temperature 98.2 F Pulse Rate 110 H 94 H 89 Respiratory 26 H 19 16 Rate Blood Pressure 93/64 93/64 108/79 O2 Sat by Pulse 96 98 100 Oximetry General appearance: Present: no acute distress, well-nourished, cachectic, other (Thin) - EENT Eyes: PERRL, EOM intact ENT: hearing intact, clear oral mucosa Ears: bilateral: normal - Neck Neck: supple, normal ROM - Respiratory Respiratory effort: normal Respiratory: bilateral: CTA - Breasts Breasts: normal - Cardiovascular Rhythm: regular Heart Sounds: Present: S1 & S2. Absent: gallop, rub Extremities: pulses intact, No edema, normal color, Full ROM - Gastrointestinal General gastrointestinal: Present: soft, non-tender, non-distended, normal bowel sounds - Genitourinary Female genitourinary: normal - Integumentary Integumentary: clear, warm, dry - Musculoskeletal Musculoskeletal: 1, strength equal bilaterally - Neurologic Neurologic: moves all extremities - Psychiatric Psychiatric: memory intact, appropriate mood/affect, intact judgment & insight - Labs CBC & Chem 7: 07/10/21 22:54 07/10/21 22:54
[2021-07-12] MEDS: DOCUSATE SODIUM 100 MG CAP PO SCH ×2 (09:37→22:05)
[2021-07-12] MEDS: FOLIC ACID 1 MG TAB PO SCH (09:38)
[2021-07-12] MEDS: MULTIVITAMINS ,THERAPEUTIC TAB PO SCH (09:38)
[2021-07-12] MEDS: HEPARIN 5,000 UNIT/1 ML VIAL SUB-Q SCH ×2 (09:38→22:06)
[2021-07-12] MEDS: THIAMINE 100 MG TAB PO SCH (09:39)
--- NOTE | 2021-07-12 12:19 | Progress Note ---
Assessment and Plan Cultures: None Assessment: 41-year-old female with history of COPD, marijuana use, alcohol abuse, previous MRSA pneumonia, which was not fully treated, admitted on 07/11/2021 secondary to a month history of worsening cough with green sputum production, weightloss, abdominal pain and nause: #Bilaterally cavitary pneumonia: It is possible to be secondary to MRSA, however BAL positive for MRSA was in July 2018. MRSA usually rapidly progressed as it is virulent. Patient complaining of weight loss, marijuana use alcohol use. Suspect tuberculosis. #Significant weight loss: About 20 pounds. HIV neg. Recommendations: Airborne isolation Sputum AFB x 3 - pending Sputum for regular culture QuantiFERON-TB gold Continue vancomycin with PK consult Stop Zosyn Start cefepime Will follow. Cathleen Ross MD Infectious Diseases Data Entry Processor [facility] ([facility]) M [phone] O [phone] Subjective Date of service: 07/12/21 Principal diagnosis: Acute hypoxemic respiratory failure abdominal pain cavitary lung lesi Interval history: Patient feels okay. Continues to have cough no fever. Objective - Exam Narrative Exam: General appearance: Alert in NAD pleasant Eyes: anicteric sclerae, moist conjunctivae; no lid-lag; PERRLA HENT: Normocephalic, Atraumatic; normal external ears, nares open, oropharynx clear with moist mucous membranes and no oral thrush; normal hard and soft palate. Neck: supple, tracheal midline, no JVD Lungs: Bilateral crackles CV: RRR no murmur Abdomen: Soft, non-tender; no masses or hepatosplenomegaly Extremities: no edema, no cyanosis Skin: No rash. Psych: no agitated Neuro: alert and oriented x 3. Moving all extermities - Constitutional Vitals: Vital Signs Temp Pulse Resp BP Pulse Ox 98.0 F 87 18 107/62 98 07/12/21 09:49 07/12/21 09:49 07/12/21 09:49 07/12/21 09:49 07/12/21 09:49 Temperature -Last 24 Hours Temperature 98.0 F Temperature 98.2 F - Labs CBC & Chem 7: 07/10/21 22:54 07/10/21 22:54
[2021-07-12] MEDS: CEFEPIME/NS 1 GM/100 ML 1 GM/100 ML BAG IV SCH ×2 (15:15→22:05)
[2021-07-13] MEDS: MORPHINE 2 MG/1 ML INJ IV PRN ×4 (00:24→17:59)
[2021-07-13 02:34] LABS: Basophils # (Auto) 0.1 K/mm3 (0.0-0.1); Basophils % (Auto) 0.8 % (0.0-1.8); Eosinophils # (Auto) 0.1 K/mm3 (0.0-0.4); Eosinophils % (Auto) 1.5 % (0.0-4.3); Hematocrit 31.8 % (30.3-42.9); Hemoglobin 10.8 gm/dl (10.1-14.3); Lymphocytes # (Auto) 0.9 K/mm3 (1.2-5.4); Lymphocytes % (Auto) 11.9 % (13.4-35.0); Mean Corpuscular HGB Conc 34 % (30-34); Mean Corpuscular Volume 91 fl (79-97); Monocytes # (Auto) 0.9 K/mm3 (0.0-0.8); Monocytes % (Auto) 11.9 % (0.0-7.3); Platelet Count 287 K/mm3 (140-440); Red Blood Count 3.49 M/mm3 (3.65-5.03); Red Cell Distribution Width 15.5 % (13.2-15.2)
[2021-07-13 02:53] LABS: Albumin 2.3 g/dL (3.9-5); Blood Urea Nitrogen 6 mg/dL (7-17); Calcium 7.6 mg/dL (8.4-10.2); Hemolysis Index 4
[2021-07-13 02:54] LABS: Alanine Aminotransferase < 5 units/L (7-56); BUN/Creatinine Ratio 12
[2021-07-13] MEDS: VANCOMYCIN 750 MG in SODIUM CHLORIDE 0.9% 250ML 250 ML IV SCH (03:14)
[2021-07-13] MEDS: CEFEPIME/NS 1 GM/100 ML 1 GM/100 ML BAG IV SCH ×3 (06:16→22:27)
--- NOTE | 2021-07-13 09:19 | Progress Note ---
Assessment and Plan Assessment and plan: 41-year-old female with history of COPD, marijuana use, EtOH abuse presented today with abdominal pain described as sharp epigastric severe with nausea vomiting. Patient unable to hold food down. Also associated with 30 pound weight loss over the past several months. Over the past several months patient hospital course been complicated by 2 separate hospitalizations in which she left AMA both times. Most recent patient had bronchoscopy for what was being treated as a pneumonia cavitary lesion. Patient left AMA at that time. Patient returns this time with above complaints and concerns. CT findings upon admission on this visit shows large cavitary lesion throughout lungs. Patient was admitted for cavitary pneumonia. Started on Zosyn and vancomycin ID consult pending. Patient also has abdominal pain CT scan abdomen unremarkable most likely secondary to chronic EtOH use and abuse. Electrolytes are currently being corrected. Patient also was seen dietitian for supplementation malnut rition. Advanced COPD nebulizers and patient being covered CIWI protocol for alcohol abuse Acute hypoxic respiratory failure. Bilateral cavitary pneumonia. MRSA Significant weight loss Nausea and vomiting COPD. Compensated EtOH dependence 07/13/2021. Continue airborne isolation. Follow-up sputum culture and AFB sputum x3. Follow QuantiFERON-TB gold. Continue vancomycin per ID recom mendations. ID and pulmonary following History Interval history: No new issues overnight Hospitalist Physical - Constitutional Vitals: Temp Pulse Resp BP Pulse Ox 98.0 F 68 18 140/66 100 07/13/21 07:59 07/13/21 07:59 07/13/21 07:59 07/13/21 07:59 07/13/21 07:59 General appearance: Present: no acute distress, well-nourished, cachectic, other (Thin) - EENT Eyes: Present: PERRL, EOM intact ENT: hearing intact, clear oral mucosa, dentition normal - Neck Neck: Present: supple, normal ROM - Respiratory Respiratory effort: normal Respiratory: bilateral: CTA - Cardiovascular Rhythm: regular Heart Sounds: Present: S1 & S2. Absent: gallop, rub - Extremities Extremities: no ischemia, No edema, Full ROM - Abdominal General gastrointestinal: soft, non-tender, non-distended, normal bowel sounds - Integumentary Integumentary: Present: clear, warm, dry - Neurologic Neurologic: CNII-XII intact, moves all extremities Results - Labs CBC & Chem 7: 07/13/21 02:11 07/13/21 02:11 Labs: Laboratory Last Values WBC 7.3 K/mm3 (4.5-11.0) 07/13/21 02:11 RBC 3.49 M/mm3 (3.65-5.03) L 07/13/21 02:11 Hgb 10.8 gm/dl (10.1-14.3) 07/13/21 02:11 Hct 31.8 % (30.3-42.9) 07/13/21 02:11 MCV 91 fl (79-97) 07/13/21 02:11 MCH 31 pg (28-32) 07/13/21 02:11 MCHC 34 % (30-34) 07/13/21 02:11 RDW 15.5 % (13.2-15.2) H 07/13/21 02:11 Plt Count 287 K/mm3 (140-440) 07/13/21 02:11 Lymph % (Auto) 11.9 % (13.4-35.0) L 07/13/21 02:11 [place] % (Auto) 11.9 % (0.0-7.3) H 07/13/21 02:11 Eos % (Auto) 1.5 % (0.0-4.3) 07/13/21 02:11 Baso % (Auto) 0.8 % (0.0-1.8) 07/13/21 02:11 Lymph # (Auto) 0.9 K/mm3 (1.2-5.4) L 07/13/21 02:11 [place] # (Auto) 0.9 K/mm3 (0.0-0.8) H 07/13/21 02:11 Eos # (Auto) 0.1 K/mm3 (0.0-0.4) 07/13/21 02:11 Baso # (Auto) 0.1 K/mm3 (0.0-0.1) 07/13/21 02:11 Seg Neutrophils % 73.9 % (40.0-70.0) H 07/13/21 02:11 Seg Neutrophils # 5.4 K/mm3 (1.8-7.7) 07/13/21 02:11 Sodium 131 mmol/L (137-145) L 07/13/21 02:11 Potassium 3.6 mmol/L (3.6-5.0) 07/13/21 02:11 Chloride 98.0 mmol/L (98-107) 07/13/21 02:11 Carbon Dioxide 26 mmol/L (22-30) 07/13/21 02:11 Anion Gap 11 mmol/L 07/13/21 02:11 BUN 6 mg/dL (7-17) L 07/13/21 02:11 Creatinine 0.5 mg/dL (0.6-1.2) L 07/13/21 02:11 Estimated GFR > 60 ml/min 07/13/21 02:11 BUN/Creatinine Ratio 12 % 07/13/21 02:11 Glucose 121 mg/dL (65-100) H 07/13/21 02:11 Calcium 7.6 mg/dL (8.4-10.2) L 07/13/21 02:11 Phosphorus 3.00 mg/dL (2.5-4.5) 07/11/21 05:53 Magnesium 1.00 mg/dL (1.7-2.3) L 07/11/21 05:53 Total Bilirubin 0.30 mg/dL (0.1-1.2) 07/13/21 02:11 Direct Bilirubin < 0.2 mg/dL (0-0.2) 07/10/21 22:54 Indirect Bilirubin 0.1 mg/dL 07/10/21 22:54 AST 15 units/L (5-40) 07/13/21 02:11 ALT < 5 units/L (7-56) L 07/13/21 02:11 Alkaline Phosphatase 128 units/L (35-129) 07/13/21 02:11 Total Protein 7.1 g/dL (6.3-8.2) D 07/13/21 02:11 Albumin 2.3 g/dL (3.9-5) L 07/13/21 02:11 Albumin/Globulin Ratio 0.5 % 07/13/21 02:11 Lipase 13 units/L (13-60) 07/10/21 22:54 HCG, Qual Negative (Negative) 07/10/21 22:54 Vancomycin Trough 30.0 ug/mL (5.0-20.0) H 07/13/21 02:11 HIV 1&2 Antibody Rapid Non react (Non React) 07/11/21 19:05 HIV P24 Antigen Non react (Non React) 07/11/21 19:05 Martinez/IV: Voiding Method Toilet Active Medications - Current Medications Current Medications: Generic Name Dose Route Start Last Admin Trade Name Freq PRN Reason Stop Dose Admin Acetaminophen 650 mg 07/11/21 02:58 Acetaminophen 325 Mg Tab PO Q4H PRN Pain MILD(1-3)/Fever >100.5/WILKERSON Albuterol 2 puff 07/11/21 03:48 Albuterol 8.5 Gm Mdi Inhalation IH Q4HRT PRN Shortness Of Breath Diphenhydramine HCl 25 mg 07/11/21 23:57 07/12/21 22:06 Diphenhydramine 50 Mg/Ml Vial IV 25 mg Q6H PRN Administration Itching Docusate Sodium 100 mg 07/11/21 10:00 07/12/21 22:05 Docusate Sodium 100 Mg Cap PO Not Given BID RAJANI Folic Acid 1 mg 07/11/21 10:00 07/12/21 09:38 Folic Acid 1 Mg Tab PO 1 mg QDAY RAJANI Administration Heparin Sodium (Porcine) 5,000 unit 07/11/21 10:00 07/12/21 22:06 Heparin 5,000 Unit/1 Ml Vial SUB-Q Not Given Q12HR RAJANI Cefepime HCl 1 gm in 100 mls @ 200 mls/hr 07/12/21 14:00 07/13/21 06:16 Cefepime/Ns 1 Gm/100 Ml IV 200 mls/hr Q8H RAJANI Administration Protocol Lorazepam 2 mg 07/11/21 04:10 Lorazepam 2 Mg/Ml Vial IV Q1H PRN CIWA-Ar 8-15 Morphine Sulfate 4 mg 07/11/21 02:58 Morphine 4 Mg/1 Ml Inj IV Q4H PRN Pain , Severe (7-10) Morphine Sulfate 2 mg 07/11/21 12:28 07/13/21 06:15 Morphine 2 Mg/1 Ml Inj IV 2 mg Q6H PRN Administration Pain, Moderate (4-6) Multivitamins 1 each 07/11/21 10:00 07/12/21 09:38 Multivitamins ,Therapeutic Tab PO 1 each QDAY RAJANI Administration Naloxone HCl 0.1 mg 07/11/21 02:58 Naloxone 0.4 Mg/1 Ml Inj IV Q2MIN PRN Res Rate </= 8 or 02 SAT < 92% Ondansetron HCl 4 mg 07/11/21 02:58 Ondansetron 4 Mg/2 Ml Inj IV Q6H PRN Nausea And Vomiting Sodium Chloride 10 ml 07/11/21 10:00 07/12/21 22:06 Sodium Chloride 0.9% 10 Ml Flush Syringe IV 10 ml BID RAJANI Administration Sodium Chloride 10 ml 07/11/21 02:58 07/13/21 00:25 Sodium Chloride 0.9% 10 Ml Flush Syringe IV 10 ml PRN PRN Administration LINE FLUSH Thiamine HCl 100 mg 07/11/21 10:00 07/12/21 09:39 Thiamine 100 Mg Tab PO 100 mg QDAY RAJANI Administration Nutrition/Malnutrition Assess - Dietary Evaluation Nutrition/Malnutrition Findings: Nutrition Notes Start: 07/11/21 10:49 Freq: Status: Active Protocol: Document 07/12/21 15:21 (Rec: 07/12/21 15:29 [id number]) Nutrition Notes Need for Assessment generated from: MD Order Initial or Follow up Reassessment Current Diagnosis COPD Other Pertinent Diagnosis EtOH abuse, cavitary pneu Current Diet cardiac,ONS Labs/Tests 07/11 Mag 1 Pertinent Medications reviewed Height 5 ft 3 in Weight 43.3 kg Usual Body Weight 63.63 kg [place] Body Weight (kg) 52.27 BMI 16.9 Intake Prior to Admission Poor Weight change and time frame 21% wt loss in 1-2 months Weight Status Underweight Subjective/Other Information MD consult for poor oral intake. Pt not answering phone . Pt room TB precaution. Pt nurse reports pt is currently eating 50% of meals and 50 % of ONS Burn Absent Trauma Absent Current % PO Fair (50-74%) Minimum of two criteria Yes Energy Intake (severe) < or equal to 50% Estimated Energy Requirement > or equal to 5 days Interpretation of Weight Loss (severe) >7.5% in 3 months #1 Nutrition Diagnosis Malnutrition Etiology abd pain, N/V As Evidenced by Signs and Symptoms >7.5% wt loss in 3 months, <50 % of EER in >5 days Is patient on ventilator? No Is Patient Ambulatory and/or Out of Bed Yes REE-([place]-[facility]. Jeor-ambulatory/OOB) [ 1374.269 NUTR.MSJOOB] Calculation Used for Recommendations [place]-[facility]or Additional Notes Protein: (1.2-1.5g/kg) 60-75g Fluid: 1 ml/kcal or per MD Nutrition Intervention Change Diet Order: continue Add Supplement/Snack (indicate name/kcal Ensure Enlive BID /protein ) Provides kCal: 700 Provides Protein (gm) 40 Goal #1 Meet at least 75% of protein and kcal needs via PO and ONS intakes Goal #2 Weight gain/maintenance Follow-Up By: 07/14/21 Additional Comments F/u: intakes
[2021-07-13] MEDS: THIAMINE 100 MG TAB PO SCH (10:55)
[2021-07-13] MEDS: FOLIC ACID 1 MG TAB PO SCH (10:55)
[2021-07-13] MEDS: MULTIVITAMINS ,THERAPEUTIC TAB PO SCH (10:55)
[2021-07-13] MEDS: DOCUSATE SODIUM 100 MG CAP PO SCH ×2 (10:56→21:16)
[2021-07-13] MEDS: HEPARIN 5,000 UNIT/1 ML VIAL SUB-Q SCH ×2 (11:01→21:16)
--- NOTE | 2021-07-13 16:03 | Progress Note ---
Assessment and Plan Cultures: None Assessment: 41-year-old female with history of COPD, marijuana use, alcohol abuse, previous MRSA pneumonia, which was not fully treated, admitted on 07/11/2021 secondary to a month history of worsening cough with green sputum production, weightloss, abdominal pain and nause: #Bilaterally cavitary pneumonia: It is possible to be secondary to MRSA, however BAL positive for MRSA was in July 2018. MRSA usually rapidly progressed as it is virulent. Patient complaining of weight loss, marijuana use alcohol use. Suspect tuberculosis. #Significant weight loss: About 20 pounds. HIV neg. Recommendations: Airborne isolation Sputum AFB x 3 - 2 of 3 specimen has been sent Sputum for regular culture QuantiFERON-TB gold -pending Continue vancomycin with PK consult Continue cefepime cefepime Keep vancomycin trough 10-20 Patient wants to go home Will follow. Cathleen Ross MD Infectious Diseases Educational Assistant [facility] ([facility]) M [phone] O [phone] Subjective Date of service: 07/13/21 Principal diagnosis: Acute hypoxemic respiratory failure abdominal pain cavitary lung lesi Interval history: feeling much better, wants to go home, no fever. Objective - Exam Narrative Exam: General appearance: Alert in NAD pleasant Eyes: anicteric sclerae, moist conjunctivae; no lid-lag; PERRLA HENT: Normocephalic, Atraumatic; normal external ears, nares open, oropharynx clear Neck: supple, tracheal midline, no JVD Lungs: Bilateral crackles CV: RRR no murmur Abdomen: Soft, non-tender; no masses or hepatosplenomegaly Extremities: no edema, no cyanosis Skin: No rash. Psych: no agitated Neuro: alert and oriented x 3. Moving all extermities - Constitutional Vitals: Vital Signs Temp Pulse Resp BP Pulse Ox 98.1 F 83 16 102/61 97 07/13/21 11:59 07/13/21 11:59 07/13/21 11:59 07/13/21 11:59 07/13/21 11:59 Temperature -Last 24 Hours Temperature 98.1 F Temperature 98.0 F Temperature 99 F Temperature 98.3 F Temperature 98.6 F Temperature 98.2 F - Labs CBC & Chem 7: 07/13/21 02:11 07/13/21 02:11 Labs: Abnormal lab results 07/13/21 07/13/21 07/13/21 Range/Units 02:11 02:11 02:11 RBC 3.49 L (3.65-5.03) M/mm3 RDW 15.5 H (13.2-15.2) % Lymph % (Auto) 11.9 L (13.4-35.0) % [place] % (Auto) 11.9 H (0.0-7.3) % Lymph # (Auto) 0.9 L (1.2-5.4) K/mm3 [place] # (Auto) 0.9 H (0.0-0.8) K/mm3 Seg Neutrophils % 73.9 H (40.0-70.0) % Sodium 131 L (137-145) mmol/L BUN 6 L (7-17) mg/dL Creatinine 0.5 L (0.6-1.2) mg/dL Glucose 121 H (65-100) mg/dL Calcium 7.6 L (8.4-10.2) mg/dL ALT < 5 L (7-56) units/L Albumin 2.3 L (3.9-5) g/dL Vancomycin Trough 30.0 H (5.0-20.0) ug/mL
[2021-07-13] MEDS: diphenhydrAMINE 50 MG/ML VIAL IV PRN (22:34)
[2021-07-14] MEDS: MORPHINE 2 MG/1 ML INJ IV PRN ×4 (01:09→20:38)
[2021-07-14] MEDS: CEFEPIME/NS 1 GM/100 ML 1 GM/100 ML BAG IV SCH ×3 (05:28→21:49)
--- NOTE | 2021-07-14 08:27 | Progress Note ---
Assessment and Plan Assessment and plan: 41-year-old female with history of COPD, marijuana use, EtOH abuse presented today with abdominal pain described as sharp epigastric severe with nausea vomiting. Patient unable to hold food down. Also associated with 30 pound weight loss over the past several months. Over the past several months patient hospital course been complicated by 2 separate hospitalizations in which she left AMA both times. Most recent patient had bronchoscopy for what was being treated as a pneumonia cavitary lesion. Patient left AMA at that time. Patient returns this time with above complaints and concerns. CT findings upon admission on this visit shows large cavitary lesion throughout lungs. Patient was admitted for cavitary pneumonia. Started on Zosyn and vancomycin ID consult pending. Patient also has abdominal pain CT scan abdomen unremarkable most likely secondary to chronic EtOH use and abuse. Electrolytes are currently being corrected. Patient also was seen dietitian for supplementation malnut rition. Advanced COPD nebulizers and patient being covered CIVT protocol for alcohol abuse Acute hypoxic respiratory failure. Bilateral cavitary pneumonia. MRSA Significant weight loss Nausea and vomiting COPD. Compensated EtOH dependence 07/13/2021. Continue airborne isolation. Follow-up sputum culture and AFB sputum x3. Follow QuantiFERON-TB gold. Continue vancomycin per ID recom mendations. ID and pulmonary following 07/14/2021. Continue airborne isolation. Follow-up Sputum AFB x 3 - 2 of 3 specimen has been sent and sputum for regular culture. QuantiFERON-TB gold -pending. Continue vancomycin and cefepime per ID recommendations. History Interval history: No new issues overnight Hospitalist Physical - Constitutional Vitals: Temp Pulse Resp BP Pulse Ox 98.5 F 80 20 109/77 95 07/14/21 08:05 07/14/21 08:05 07/14/21 08:05 07/14/21 08:05 07/14/21 08:05 General appearance: Present: no acute distress, well-nourished, cachectic, other (Thin) - EENT Eyes: Present: PERRL, EOM intact ENT: hearing intact, clear oral mucosa, dentition normal - Neck Neck: Present: supple, normal ROM - Respiratory Respiratory effort: normal Respiratory: bilateral: CTA - Cardiovascular Rhythm: regular Heart Sounds: Present: S1 & S2. Absent: gallop, rub - Extremities Extremities: no ischemia, No edema, Full ROM - Abdominal General gastrointestinal: soft, non-tender, non-distended, normal bowel sounds - Integumentary Integumentary: Present: clear, warm, dry - Neurologic Neurologic: CNII-XII intact, moves all extremities Results - Labs CBC & Chem 7: 07/13/21 02:11 07/13/21 02:11 Labs: Laboratory Last Values WBC 7.3 K/mm3 (4.5-11.0) 07/13/21 02:11 RBC 3.49 M/mm3 (3.65-5.03) L 07/13/21 02:11 Hgb 10.8 gm/dl (10.1-14.3) 07/13/21 02:11 Hct 31.8 % (30.3-42.9) 07/13/21 02:11 MCV 91 fl (79-97) 07/13/21 02:11 MCH 31 pg (28-32) 07/13/21 02:11 MCHC 34 % (30-34) 07/13/21 02:11 RDW 15.5 % (13.2-15.2) H 07/13/21 02:11 Plt Count 287 K/mm3 (140-440) 07/13/21 02:11 Lymph % (Auto) 11.9 % (13.4-35.0) L 07/13/21 02:11 [place] % (Auto) 11.9 % (0.0-7.3) H 07/13/21 02:11 Eos % (Auto) 1.5 % (0.0-4.3) 07/13/21 02:11 Baso % (Auto) 0.8 % (0.0-1.8) 07/13/21 02:11 Lymph # (Auto) 0.9 K/mm3 (1.2-5.4) L 07/13/21 02:11 [place] # (Auto) 0.9 K/mm3 (0.0-0.8) H 07/13/21 02:11 Eos # (Auto) 0.1 K/mm3 (0.0-0.4) 07/13/21 02:11 Baso # (Auto) 0.1 K/mm3 (0.0-0.1) 07/13/21 02:11 Seg Neutrophils % 73.9 % (40.0-70.0) H 07/13/21 02:11 Seg Neutrophils # 5.4 K/mm3 (1.8-7.7) 07/13/21 02:11 Sodium 131 mmol/L (137-145) L 07/13/21 02:11 Potassium 3.6 mmol/L (3.6-5.0) 07/13/21 02:11 Chloride 98.0 mmol/L (98-107) 07/13/21 02:11 Carbon Dioxide 26 mmol/L (22-30) 07/13/21 02:11 Anion Gap 11 mmol/L 07/13/21 02:11 BUN 6 mg/dL (7-17) L 07/13/21 02:11 Creatinine 0.5 mg/dL (0.6-1.2) L 07/13/21 02:11 Estimated GFR > 60 ml/min 07/13/21 02:11 BUN/Creatinine Ratio 12 % 07/13/21 02:11 Glucose 121 mg/dL (65-100) H 07/13/21 02:11 Calcium 7.6 mg/dL (8.4-10.2) L 07/13/21 02:11 Phosphorus 3.00 mg/dL (2.5-4.5) 07/11/21 05:53 Magnesium 1.00 mg/dL (1.7-2.3) L 07/11/21 05:53 Total Bilirubin 0.30 mg/dL (0.1-1.2) 07/13/21 02:11 Direct Bilirubin < 0.2 mg/dL (0-0.2) 07/10/21 22:54 Indirect Bilirubin 0.1 mg/dL 07/10/21 22:54 AST 15 units/L (5-40) 07/13/21 02:11 ALT < 5 units/L (7-56) L 07/13/21 02:11 Alkaline Phosphatase 128 units/L (35-129) 07/13/21 02:11 Total Protein 7.1 g/dL (6.3-8.2) D 07/13/21 02:11 Albumin 2.3 g/dL (3.9-5) L 07/13/21 02:11 Albumin/Globulin Ratio 0.5 % 07/13/21 02:11 Lipase 13 units/L (13-60) 07/10/21 22:54 HCG, Qual Negative (Negative) 07/10/21 22:54 Vancomycin Trough 30.0 ug/mL (5.0-20.0) H 07/13/21 02:11 HIV 1&2 Antibody Rapid Non react (Non React) 07/11/21 19:05 HIV P24 Antigen Non react (Non React) 07/11/21 19:05 AFB Identification Negative 07/12/21 10:00 Martinez/IV: Voiding Method Toilet Active Medications - Current Medications Current Medications: Generic Name Dose Route Start Last Admin Trade Name Freq PRN Reason Stop Dose Admin Acetaminophen 650 mg 07/11/21 02:58 Acetaminophen 325 Mg Tab PO Q4H PRN Pain MILD(1-3)/Fever >100.5/[place]IL[place]ERSON Albuterol 2 puff 07/11/21 03:48 Albuterol 8.5 Gm Mdi Inhalation IH Q4HRT PRN Shortness Of Breath Diphenhydramine HCl 25 mg 07/11/21 23:57 07/13/21 22:34 Diphenhydramine 50 Mg/Ml Vial IV 25 mg Q6H PRN Administration Itching Docusate Sodium 100 mg 07/11/21 10:00 07/13/21 21:16 Docusate Sodium 100 Mg Cap PO Not Given BID RAJANI Folic Acid 1 mg 07/11/21 10:00 07/13/21 10:55 Folic Acid 1 Mg Tab PO 1 mg QDAY RAJANI Administration Heparin Sodium (Porcine) 5,000 unit 07/11/21 10:00 07/13/21 21:16 Heparin 5,000 Unit/1 Ml Vial SUB-Q Not Given Q12HR RAJANI Cefepime HCl 1 gm in 100 mls @ 200 mls/hr 07/12/21 14:00 07/14/21 05:28 Cefepime/Ns 1 Gm/100 Ml IV 200 mls/hr Q8H RAJANI Administration Protocol Lorazepam 2 mg 07/11/21 04:10 Lorazepam 2 Mg/Ml Vial IV Q1H PRN CIWA-Ar 8-15 Morphine Sulfate 4 mg 07/11/21 02:58 Morphine 4 Mg/1 Ml Inj IV Q4H PRN Pain , Severe (7-10) Morphine Sulfate 2 mg 07/11/21 12:28 07/14/21 01:09 Morphine 2 Mg/1 Ml Inj IV 2 mg Q6H PRN Administration Pain, Moderate (4-6) Multivitamins 1 each 07/11/21 10:00 07/13/21 10:55 Multivitamins ,Therapeutic Tab PO 1 each QDAY RAJANI Administration Naloxone HCl 0.1 mg 07/11/21 02:58 Naloxone 0.4 Mg/1 Ml Inj IV Q2MIN PRN Res Rate </= 8 or 02 SAT < 92% Ondansetron HCl 4 mg 07/11/21 02:58 Ondansetron 4 Mg/2 Ml Inj IV Q6H PRN Nausea And Vomiting Sodium Chloride 10 ml 07/11/21 10:00 07/13/21 22:27 Sodium Chloride 0.9% 10 Ml Flush Syringe IV 10 ml BID RAJANI Administration Sodium Chloride 10 ml 07/11/21 02:58 07/14/21 01:10 Sodium Chloride 0.9% 10 Ml Flush Syringe IV 10 ml PRN PRN Administration LINE FLUSH Thiamine HCl 100 mg 07/11/21 10:00 07/13/21 10:55 Thiamine 100 Mg Tab PO 100 mg QDAY RAJANI Administration Nutrition/Malnutrition Assess - Dietary Evaluation Nutrition/Malnutrition Findings: Nutrition Notes Start: 07/11/21 10:49 Freq: Status: Active Protocol: Document 07/12/21 15:21 (Rec: 07/12/21 15:29 [id number]) Nutrition Notes Need for Assessment generated from: MD Order Initial or Follow up Reassessment Current Diagnosis COPD Other Pertinent Diagnosis EtOH abuse, cavitary pneu Current Diet cardiac,ONS Labs/Tests 07/11 Mag 1 Pertinent Medications reviewed Height 5 ft 3 in Weight 43.3 kg Usual Body Weight 63.63 kg [place] Body Weight (kg) 52.27 BMI 16.9 Intake Prior to Admission Poor Weight change and time frame 21% wt loss in 1-2 months Weight Status Underweight Subjective/Other Information MD consult for poor oral intake. Pt not answering phone . Pt room TB precaution. Pt nurse reports pt is currently eating 50% of meals and 50 % of ONS Burn Absent Trauma Absent Current % PO Fair (50-74%) Minimum of two criteria Yes Energy Intake (severe) < or equal to 50% Estimated Energy Requirement > or equal to 5 days Interpretation of Weight Loss (severe) >7.5% in 3 months #1 Nutrition Diagnosis Malnutrition Etiology abd pain, N/V As Evidenced by Signs and Symptoms >7.5% wt loss in 3 months, <50 % of EER in >5 days Is patient on ventilator? No Is Patient Ambulatory and/or Out of Bed Yes REE-([facility]-ambulatory/OOB) [ 1374.269 NUTR.MSJOOB] Calculation Used for Recommendations [facility] Additional Notes Protein: (1.2-1.5g/kg) 60-75g Fluid: 1 ml/kcal or per MD Nutrition Intervention Change Diet Order: continue Add Supplement/Snack (indicate name/kcal Ensure Enlive BID /protein ) Provides kCal: 700 Provides Protein (gm) 40 Goal #1 Meet at least 75% of protein and kcal needs via PO and ONS intakes Goal #2 Weight gain/maintenance Follow-Up By: 07/14/21 Additional Comments F/u: intakes
[2021-07-14] MEDS: MULTIVITAMINS ,THERAPEUTIC TAB PO SCH (10:07)
[2021-07-14] MEDS: DOCUSATE SODIUM 100 MG CAP PO SCH ×2 (10:07→21:42)
[2021-07-14] MEDS: HEPARIN 5,000 UNIT/1 ML VIAL SUB-Q SCH ×2 (10:08→21:42)
[2021-07-14] MEDS: FOLIC ACID 1 MG TAB PO SCH (10:08)
[2021-07-14] MEDS: THIAMINE 100 MG TAB PO SCH (10:08)
[2021-07-14] MEDS: VANCOMYCIN 500 MG in SODIUM CHLORIDE 0.9% 100 ML IV SCH (16:15)
--- NOTE | 2021-07-14 18:16 | Progress Note ---
Assessment and Plan Cultures: AFB x1 - Assessment: 41-year-old female with history of COPD, marijuana use, alcohol abuse, previous MRSA pneumonia, which was not fully treated, admitted on 07/11/2021 secondary to a month history of worsening cough with green sputum production, weightloss, abdominal pain and nause: #Bilaterally cavitary pneumonia: It is possible to be secondary to MRSA, however BAL positive for MRSA was in July 2018. MRSA usually rapidly progressed as it is virulent. Patient complaining of weight loss, marijuana use alcohol use. Suspect tuberculosis. #Significant weight loss: About 20 pounds. HIV neg. Recommendations: Airborne isolation Sputum AFB x 3 discussed with charge nurse Sputum for regular culture QuantiFERON-TB gold -pending Continue vancomycin with PK consult Continue cefepime cefepime Keep vancomycin trough 10-20 Patient wants to go home Will follow. Cathleen Ross MD Infectious Diseases Note [facility] ([facility]) M [phone] O [phone] Subjective Date of service: 07/14/21 Principal diagnosis: Acute hypoxemic respiratory failure abdominal pain cavitary lung lesi Interval history: Patient feels okay. No complaints. No fever. Objective - Exam Narrative Exam: General appearance: Alert in NAD pleasant Eyes: anicteric sclerae, moist conjunctivae; no lid-lag; PERRLA HENT: Normocephalic, Atraumatic; normal external ears, nares open, oropharynx clear Neck: supple, tracheal midline, no JVD Lungs: Bilateral crackles CV: RRR no murmur Abdomen: Soft, non-tender; no masses or hepatosplenomegaly Extremities: no edema, no cyanosis Skin: No rash. Psych: no agitated Neuro: alert and oriented x 3. Moving all extermities - Constitutional Vitals: Vital Signs Temp Pulse Resp BP Pulse Ox 98.5 F 83 18 100/75 98 07/14/21 15:59 07/14/21 15:59 07/14/21 15:59 07/14/21 15:59 07/14/21 15:59 Temperature -Last 24 Hours Temperature 98.5 F Temperature 97.4 F Temperature 98.5 F Temperature 98.2 F Temperature 98.8 F Temperature 97.2 F - Labs CBC & Chem 7: 07/13/21 02:11 07/13/21 02:11
[2021-07-14] MEDS: diphenhydrAMINE 50 MG/ML VIAL IV PRN (22:25)
[2021-07-15] MEDS: VANCOMYCIN 500 MG in SODIUM CHLORIDE 0.9% 100 ML IV SCH ×2 (02:19→13:47)
[2021-07-15] MEDS: MORPHINE 2 MG/1 ML INJ IV PRN ×4 (02:19→21:38)
[2021-07-15] MEDS: CEFEPIME/NS 1 GM/100 ML 1 GM/100 ML BAG IV SCH ×3 (05:50→21:38)
[2021-07-15 06:27] LABS: Hematocrit 30.7 % (30.3-42.9); Hemoglobin 10.4 gm/dl (10.1-14.3); Mean Corpuscular HGB Conc 34 % (30-34); Mean Corpuscular Volume 91 fl (79-97); Platelet Count 303 K/mm3 (140-440); Red Blood Count 3.36 M/mm3 (3.65-5.03); Red Cell Distribution Width 15.2 % (13.2-15.2)
[2021-07-15 06:42] LABS: Blood Urea Nitrogen 9 mg/dL (7-17); Calcium 7.7 mg/dL (8.4-10.2); Hemolysis Index 10
[2021-07-15 07:30] LABS: BUN/Creatinine Ratio 15
[2021-07-15] MEDS: DOCUSATE SODIUM 100 MG CAP PO SCH ×2 (09:29→21:37)
[2021-07-15] MEDS: HEPARIN 5,000 UNIT/1 ML VIAL SUB-Q SCH ×2 (09:30→21:37)
[2021-07-15] MEDS: FOLIC ACID 1 MG TAB PO SCH (09:30)
[2021-07-15] MEDS: THIAMINE 100 MG TAB PO SCH (09:30)
[2021-07-15] MEDS: MULTIVITAMINS ,THERAPEUTIC TAB PO SCH (09:30)
[2021-07-15 10:50] LABS: Total Cells Counted 100
[2021-07-15 10:51] LABS: Platelet Estimate Consistent w Auto; Target Cells Few
--- NOTE | 2021-07-15 10:51 | Progress Note ---
Assessment and Plan - Patient Problems (1) Cavitary pneumonia Current Visit: Yes Status: Acute Plan to address problem: First AFB is negative Continue IV vancomycin and cefepime (2) Alcohol dependence Current Visit: Yes Status: Acute Plan to address problem: Patient on CIWA protocol (3) COPD (chronic obstructive pulmonary disease) Current Visit: Yes Status: Acute Plan to address problem: Continue nebulizers treatments (4) Hypokalemia Current Visit: No Status: Acute Plan to address problem: Resolved (5) Hypocalcemia Current Visit: Yes Status: Acute Plan to address problem: Calcium supplemented (6) DVT prophylaxis Current Visit: Yes Status: Acute Plan to address problem: On anticoagulation and GI prophylaxis Subjective Date of service: 07/15/21 Principal diagnosis: Acute hypoxemic respiratory failure abdominal pain cavitary lung lesi Interval history: 41-year-old female with history of COPD, marijuana use, EtOH abuse presented today with abdominal pain described as sharp epigastric severe with nausea vomiting. Patient unable to hold food down. Also associated with 30 pound weight loss over the past several months. Over the past several months patient hospital course been complicated by 2 separate hospitalizations in which she left AMA both times. Most recent patient had bronchoscopy for what was being treated as a pneumonia cavitary lesion. Patient left AMA at that time. Patient returns this time with above complaints and concerns. CT findings upon admission on this visit shows large cavitary lesion throughout lungs. Patient was admitted for cavitary pneumonia. Started on Zosyn and vancomycin ID consult pending. Patient also has abdominal pain CT scan abdomen unremarkable most likely secondary to chronic EtOH use and abuse. Electrolytes are currently being corrected. Patient also was seen dietitian for supplementation malnutrition. Advanced COPD nebulizers and patient being covered CIWA protocol for alcohol abuse 07/12/2021 patient feels better today no abdominal pain. Patient only complains of thick productive cough this afternoon. Currently in isolation room to rule out TB. Patient has completed 1 sputum there in front of me now. Denies any fever chills at this time. Has had 20 pound weight loss in the past. No kyle dence of DTs at this time. 07/13/2021. Continue airborne isolation. Follow-up sputum culture and AFB sputum x3. Follow QuantiFERON-TB gold. Continue vancomycin per ID recommendations. ID and pulmonary following 07/14/2021. Continue airborne isolation. Follow-up Sputum AFB x 3 - 2 of 3 specimen has been sent and sputum for regular culture. QuantiFERON-TB gold - pending. Continue vancomycin and cefepime per ID recommendations. 07/15/2021 AFB x1 sample negative 2 samples are pending Patient otherwise comfortable Objective - Constitutional Vitals: Vital Signs - 12hr 07/14/21 07/15/21 07/15/21 23:00 03:41 07:20 Temperature 98.2 F 98.4 F Pulse Rate 98 H 90 54 L Respiratory 14 18 18 Rate Blood Pressure 114/82 98/57 111/68 O2 Sat by Pulse 99 99 92 Oximetry 07/15/21 07/15/21 09:30 10:00 Temperature Pulse Rate Respiratory 17 17 Rate Blood Pressure O2 Sat by Pulse Oximetry General appearance: Present: no acute distress, well-nourished - EENT Eyes: PERRL, EOM intact ENT: hearing intact, clear oral mucosa Ears: bilateral: normal - Neck Neck: supple, normal ROM - Respiratory Respiratory effort: normal Respiratory: bilateral: CTA - Breasts Breasts: normal - Cardiovascular Heart rate: 78 Rhythm: regular Heart Sounds: Present: S1 & S2. Absent: gallop, rub Extremities: pulses intact, No edema, normal color, Full ROM - Gastrointestinal General gastrointestinal: Present: soft, non-tender, non-distended, normal bowel sounds - Genitourinary Female genitourinary: normal - Integumentary Integumentary: clear, warm, dry - Musculoskeletal Musculoskeletal: 1, strength equal bilaterally - Neurologic Neurologic: moves all extremities - Psychiatric Psychiatric: memory intact, appropriate mood/affect, intact judgment & insight - Labs CBC & Chem 7: 07/15/21 05:22 07/15/21 05:22 Labs: Abnormal lab results 07/15/21 07/15/21 Range/Units 05:22 05:22 RBC 3.36 L (3.65-5.03) M/mm3 Sodium 130 L (137-145) mmol/L Chloride 95.8 L (98-107) mmol/L Carbon Dioxide 31 H (22-30) mmol/L Calcium 7.7 L (8.4-10.2) mg/dL
[2021-07-15] MEDS: diphenhydrAMINE 50 MG/ML VIAL IV PRN (21:38)
[2021-07-16] MEDS: VANCOMYCIN 500 MG in SODIUM CHLORIDE 0.9% 100 ML IV SCH ×2 (02:00→16:14)
[2021-07-16] MEDS: SODIUM CHLORIDE 0.9% 1000 ML 1,000 ML IV SCH (03:06)
[2021-07-16] MEDS: MORPHINE 2 MG/1 ML INJ IV PRN ×4 (03:10→21:26)
[2021-07-16] MEDS: CEFEPIME/NS 1 GM/100 ML 1 GM/100 ML BAG IV SCH ×3 (05:59→21:37)
[2021-07-16] MEDS: HEPARIN 5,000 UNIT/1 ML VIAL SUB-Q SCH ×2 (09:13→21:26)
[2021-07-16] MEDS: THIAMINE 100 MG TAB PO SCH (09:14)
[2021-07-16] MEDS: MULTIVITAMINS ,THERAPEUTIC TAB PO SCH (09:14)
[2021-07-16] MEDS: DOCUSATE SODIUM 100 MG CAP PO SCH ×2 (09:14→21:25)
[2021-07-16] MEDS: FOLIC ACID 1 MG TAB PO SCH (09:14)
--- NOTE | 2021-07-16 14:21 | Progress Note ---
Assessment and Plan - Patient Problems (1) Cavitary pneumonia Current Visit: Yes Status: Acute Plan to address problem: First AFB is negative Continue IV vancomycin and cefepime (2) Alcohol dependence Current Visit: Yes Status: Acute Plan to address problem: Patient on CIWA protocol (3) COPD (chronic obstructive pulmonary disease) Current Visit: Yes Status: Acute Plan to address problem: Continue nebulizers (4) Hypokalemia Current Visit: No Status: Acute Plan to address problem: Resolved (5) Hypocalcemia Current Visit: Yes Status: Acute Plan to address problem: Calcium supplemented (6) DVT prophylaxis Current Visit: Yes Status: Acute Plan to address problem: On anticoagulation and GI prophylaxis Subjective Date of service: 07/16/21 Principal diagnosis: Acute hypoxemic respiratory failure abdominal pain cavitary lung lesi Interval history: 41-year-old female with history of COPD, marijuana use, EtOH abuse presented today with abdominal pain described as sharp epigastric severe with nausea vomiting. Patient unable to hold food down. Also associated with 30 pound weight loss over the past several months. Over the past several months patient hospital course been complicated by 2 separate hospitalizations in which she left AMA both times. Most recent patient had bronchoscopy for what was being treated as a pneumonia cavitary lesion. Patient left AMA at that time. Patient returns this time with above complaints and concerns. CT findings upon admissi on on this visit shows large cavitary lesion throughout lungs. Patient was admitted for cavitary pneumonia. Started on Zosyn and vancomycin ID consult pending. Patient also has abdominal pain CT scan abdomen unremarkable most likely secondary to chronic EtOH use and abuse. Electrolytes are currently being corrected. Patient also was seen dietitian for supplementation malnutrition. Advanced COPD nebulizers and patient being covered CIWA protocol for alcohol abuse 07/12/2021 patient feels better today no abdominal pain. Patient only complains of thick productive cough this afternoon. Currently in isolation room to rule out TB. Patient has completed 1 sputum there in front of me now. Denies any fever chills at this time. Has had 20 pound weight loss in the past. No evidence of DTs at this time. 07/13/2021. Continue airborne isolation. Follow-up sputum culture and AFB sputum x3. Follow QuantiFERON-TB gold. Continue vancomycin per ID recommendations. ID and pulmonary following 07/14/2021. Continue airborne isolation. Follow-up Sputum AFB x 3 - 2 of 3 specimen has been sent and sputum for regular culture. QuantiFERON-TB gold - pending. Continue vancomycin and cefepime per ID recommendations. 07/15/2021 AFB x1 sample negative 2 samples are pending Patient otherwise comfortable 07/16/2021 AFB samples x2 - Quantiferon test pending Objective - Constitutional Vitals: Vital Signs - 12hr 07/16/21 07/16/21 07/16/21 03:09 04:00 08:25 Temperature 98.5 F 98.8 F Pulse Rate 94 H 106 H Respiratory 18 18 Rate Blood Pressure 110/66 102/79 O2 Sat by Pulse 100 98 99 Oximetry 07/16/21 07/16/21 10:00 12:28 Temperature 98.5 F Pulse Rate 111 H Respiratory 18 18 Rate Blood Pressure 99/71 O2 Sat by Pulse 97 99 Oximetry General appearance: Present: no acute distress, well-nourished - EENT Eyes: PERRL, EOM intact ENT: hearing intact, clear oral mucosa Ears: bilateral: normal - Neck Neck: supple, normal ROM - Respiratory Respiratory effort: normal Respiratory: bilateral: CTA - Breasts Breasts: normal - Cardiovascular Heart rate: 78 Rhythm: regular Heart Sounds: Present: S1 & S2. Absent: gallop, rub Extremities: pulses intact, No edema, normal color, Full ROM - Gastrointestinal General gastrointestinal: Present: soft, non-tender, non-distended, normal bowel sounds - Genitourinary Female genitourinary: normal - Integumentary Integumentary: clear, warm, dry - Musculoskeletal Musculoskeletal: 1, strength equal bilaterally - Neurologic Neurologic: moves all extremities - Psychiatric Psychiatric: memory intact, appropriate mood/affect, intact judgment & insight - Labs CBC & Chem 7: 07/15/21 05:22 07/15/21 05:22
[2021-07-16] MEDS: diphenhydrAMINE 50 MG/ML VIAL IV PRN (21:25)
[2021-07-17] MEDS: VANCOMYCIN 500 MG in SODIUM CHLORIDE 0.9% 100 ML IV SCH (04:24)
[2021-07-17] MEDS: CEFEPIME/NS 1 GM/100 ML 1 GM/100 ML BAG IV SCH ×2 (05:28→13:46)
[2021-07-17 09:35] LABS: Hematocrit 29.9 % (30.3-42.9); Hemoglobin 10.4 gm/dl (10.1-14.3); Mean Corpuscular HGB Conc 35 % (30-34); Mean Corpuscular Volume 89 fl (79-97); Red Blood Count 3.34 M/mm3 (3.65-5.03); Red Cell Distribution Width 15.5 % (13.2-15.2)
[2021-07-17 10:10] LABS: Alanine Aminotransferase 6 units/L (7-56); Albumin 2.4 g/dL (3.9-5); Blood Urea Nitrogen 9 mg/dL (7-17); Calcium 8.1 mg/dL (8.4-10.2); Hemolysis Index 5
[2021-07-17 10:22] LABS: BUN/Creatinine Ratio 18
[2021-07-17] MEDS: FOLIC ACID 1 MG TAB PO SCH (10:23)
[2021-07-17] MEDS: DOCUSATE SODIUM 100 MG CAP PO SCH ×2 (10:23→22:30)
[2021-07-17] MEDS: HEPARIN 5,000 UNIT/1 ML VIAL SUB-Q SCH ×2 (10:23→22:30)
[2021-07-17] MEDS: THIAMINE 100 MG TAB PO SCH (10:23)
[2021-07-17] MEDS: MORPHINE 2 MG/1 ML INJ IV PRN ×3 (10:23→22:32)
[2021-07-17] MEDS: MULTIVITAMINS ,THERAPEUTIC TAB PO SCH (10:23)
--- NOTE | 2021-07-17 10:34 | Progress Note ---
Assessment and Plan Assessment and plan: --Bilateral cavitary pneumonia Current Visit: Yes Status: Acute AFBx2 negative, follow AFB cultures Continue IV vancomycin and cefepime ID following -- chronic alcohol use ; Current Visit: Yes Status: Acute Monitor for alcohol withdrawal symptoms patient on CIWA protocol --Severe protein calorie malnutrition ; Current Visit: Yes Status: Chronic Nutrition supplements, nutrition consult --acute exacerbation COPD (chronic obstructive pulmonary disease) Current Visit: Yes Status: Acute Continue nebulizers Oxygen titrate O2 sats to more than 90% Nebulizers, IV steroids, inhalation steroids. --Hyponatremia; Current Visit: Yes Status: Acute Monitor for alcohol withdrawal symptoms patient on CIWA protocol --Severe protein calorie malnutrition ; Current Visit: Yes Status: Chronic Continue IV normal saline, closely monitor electrolytes --Hypokalemia Current Visit: No Status: Acute Resolved, follow electrolytes --Hypocalcemia Current Visit: Yes Status: Acute Calcium supplemented, monitor electrolytes --DVT prophylaxis Current Visit: Yes Status: Acute On anticoagulation and GI prophylaxis Subjective Date of service: 07/16/21 Principal diagnosis: Acute hypoxemic respiratory failure abdominal pain cavitary lung lesi Interval history: 41-year-old female with history of COPD, marijuana use, EtOH abuse presented today with abdominal pain described as sharp epigastric severe with nausea vomiting. Patient unable to hold food down. Also associated with 30 pound weight loss over the past several months. Over the past several months patient hospital course been complicated by 2 separate hospitalizations in which she left AMA both times. Most recent patient had bronchoscopy for what was being treated as a pneumonia cavitary lesion. Patient left AMA at that time. Patient returns this time with above complaints and concerns. CT findings upon admission on this visit shows large cavitary lesion throughout lungs. Patient was admitted for cavitary pneumonia. Started on Zosyn and vancomycin ID consult pending. Patient also has abdominal pain CT scan abdomen unremarkable most likely secondary to chronic EtOH use and abuse. Electrolytes are currently being corrected. Patient also was seen dietitian for supplementation malnutrition. Advanced COPD nebulizers and patient being covered [facility] protocol for alcohol abuse 07/12/2021 patient feels better today no abdominal pain. Patient only complains of thick productive cough this afternoon. Currently in isolation room to rule out TB. Patient has completed 1 sputum there in front of me now. Denies any fever chills at this time. Has had 20 pound weight loss in the past. No evidence of DTs at this time. 07/13/2021. Continue airborne isolation. Follow-up sputum culture and AFB sputum x3. Follow QuantiFERON-TB gold. Continue vancomycin per ID recommendations. ID and pulmonary following 07/14/2021. Continue airborne isolation. Follow-up Sputum AFB x 3 - 2 of 3 specimen has been sent and sputum for regular culture. QuantiFERON-TB gold - pending. Continue vancomycin and cefepime per ID recommendations. 07/15/2021 AFB x1 sample negative 2 samples are pending Patient otherwise comfortable 07/16/2021 AFB samples x2 - Quantiferon test pending 07/17/2021; work-up in progress ID following History Interval history: I have seen and examined the patient at the bedside this morning Patient is in isolation, to rule out tuberculosis/to evaluate cavitary lung [facility] Hospitalist Physical - Constitutional Vitals: Temp Pulse Resp BP Pulse Ox 98.6 F 68 17 110/64 94 07/17/21 04:30 07/17/21 04:30 07/17/21 10:23 07/17/21 04:30 07/17/21 04:30 General appearance: Present: no acute distress, well-nourished - EENT Eyes: Present: PERRL, EOM intact - Neck Neck: Present: supple, normal ROM - Respiratory Respiratory effort: labored Respiratory: bilateral: diminished, rhonchi, negative: rales, wheezing - Cardiovascular Rhythm: regular Heart Sounds: Present: S1 & S2 - Extremities Extremities: no ischemia, No edema - Abdominal General gastrointestinal: soft, non-tender, non-distended, normal bowel sounds - Integumentary Integumentary: Present: clear, warm - Psychiatric Psychiatric: appropriate mood/affect, cooperative - Neurologic Neurologic: CNII-XII intact, moves all extremities Results - Labs CBC & Chem 7: 07/17/21 08:32 07/17/21 08:32 Labs: Laboratory Last Values WBC 8.6 K/mm3 (4.5-11.0) 07/17/21 08:32 RBC 3.34 M/mm3 (3.65-5.03) L 07/17/21 08:32 Hgb 10.4 gm/dl (10.1-14.3) 07/17/21 08:32 Hct 29.9 % (30.3-42.9) L 07/17/21 08:32 MCV 89 fl (79-97) 07/17/21 08:32 MCH 31 pg (28-32) 07/17/21 08:32 MCHC 35 % (30-34) H 07/17/21 08:32 RDW 15.5 % (13.2-15.2) H 07/17/21 08:32 Plt Count 303 K/mm3 (140-440) 07/15/21 05:22 Lymph % (Auto) 11.9 % (13.4-35.0) L 07/13/21 02:11 [place] % (Auto) President And Chief Operating Officer 07/17/21 08:32 Eos % (Auto) 1.5 % (0.0-4.3) 07/13/21 02:11 Baso % (Auto) 0.8 % (0.0-1.8) 07/13/21 02:11 Lymph # (Auto) 0.9 K/mm3 (1.2-5.4) L 07/13/21 02:11 [place] # (Auto) 0.9 K/mm3 (0.0-0.8) H 07/13/21 02:11 Eos # (Auto) 0.1 K/mm3 (0.0-0.4) 07/13/21 02:11 Baso # (Auto) 0.1 K/mm3 (0.0-0.1) 07/13/21 02:11 Add Manual Diff Complete 07/15/21 05:22 Total Counted 100 07/15/21 05:22 Seg Neutrophils % 73.9 % (40.0-70.0) H 07/13/21 02:11 Seg Neuts % (Manual) 79.0 % (40.0-70.0) H 07/15/21 05:22 Lymphocytes % (Manual) 10.0 % (13.4-35.0) L 07/15/21 05:22 Reactive Lymphs % (Man) 1.0 % 07/15/21 05:22 Monocytes % (Manual) 8.0 % (0.0-7.3) H 07/15/21 05:22 Eosinophils % (Manual) 2.0 % (0.0-4.3) 07/15/21 05:22 Nucleated RBC % Not Reportable 07/15/21 05:22 Seg Neutrophils # 5.4 K/mm3 (1.8-7.7) 07/13/21 02:11 Seg Neutrophils # Man 5.1 K/mm3 (1.8-7.7) 07/15/21 05:22 Band Neutrophils # 0.0 K/mm3 07/15/21 05:22 Lymphocytes # (Manual) 0.7 K/mm3 (1.2-5.4) L 07/15/21 05:22 Abs React Lymphs (Man) 0.1 K/mm3 07/15/21 05:22 Monocytes # (Manual) 0.5 K/mm3 (0.0-0.8) 07/15/21 05:22 Eosinophils # (Manual) 0.1 K/mm3 (0.0-0.4) 07/15/21 05:22 Basophils # (Manual) 0.0 K/mm3 (0.0-0.1) 07/15/21 05:22 Metamyelocytes # 0.0 K/mm3 07/15/21 05:22 Myelocytes # 0.0 K/mm3 07/15/21 05:22 Promyelocytes # 0.0 K/mm3 07/15/21 05:22 Blast Cells # 0.0 K/mm3 07/15/21 05:22 WBC Morphology Not Reportable 07/15/21 05:22 Hypersegmented Neuts Not Reportable 07/15/21 05:22 Hyposegmented Neuts Not Reportable 07/15/21 05:22 Hypogranular Neuts Not Reportable 07/15/21 05:22 Smudge Cells Not Reportable 07/15/21 05:22 Toxic Granulation Not Reportable 07/15/21 05:22 Toxic Vacuolation Not Reportable 07/15/21 05:22 Dohle Bodies Not Reportable 07/15/21 05:22 Pelger-Huet Anomaly Not Reportable 07/15/21 05:22 Perico Rods Not Reportable 07/15/21 05:22 Platelet Estimate Consistent w auto 07/15/21 05:22 Clumped Platelets Not Reportable 07/15/21 05:22 Plt Clumps, EDTA Not Reportable 07/15/21 05:22 Large Platelets Not Reportable 07/15/21 05:22 Giant Platelets Not Reportable 07/15/21 05:22 Platelet Satelliting Not Reportable 07/15/21 05:22 Plt Morphology Comment Not Reportable 07/15/21 05:22 RBC Morphology Not Reportable 07/15/21 05:22 Dimorphic RBCs Not Reportable 07/15/21 05:22 Polychromasia Not Reportable 07/15/21 05:22 Hypochromasia Not Reportable 07/15/21 05:22 Poikilocytosis Not Reportable 07/15/21 05:22 Anisocytosis Not Reportable 07/15/21 05:22 Microcytosis Not Reportable 07/15/21 05:22 Macrocytosis Not Reportable 07/15/21 05:22 Spherocytes Not Reportable 07/15/21 05:22 Pappenheimer Bodies Not Reportable 07/15/21 05:22 Sickle Cells Not Reportable 07/15/21 05:22 Target Cells Few 07/15/21 05:22 Tear Drop Cells Not Reportable 07/15/21 05:22 Ovalocytes Not Reportable 07/15/21 05:22 Helmet Cells Not Reportable 07/15/21 05:22 [place] Bodies Not Reportable 07/15/21 05:22 Suches Rings Not Reportable 07/15/21 05:22 Juda Cells Not Reportable 07/15/21 05:22 Bite Cells Not Reportable 07/15/21 05:22 Crenated Cell Not Reportable 07/15/21 05:22 Elliptocytes Not Reportable 07/15/21 05:22 Acanthocytes (Spur) Not Reportable 07/15/21 05:22 Rouleaux Not Reportable 07/15/21 05:22 Hemoglobin C Crystals Not Reportable 07/15/21 05:22 Schistocytes Not Reportable 07/15/21 05:22 Malaria parasites Not Reportable 07/15/21 05:22 Roel Bodies Not Reportable 07/15/21 05:22 Hem Pathologist Commnt No 07/15/21 05:22 Sodium 131 mmol/L (137-145) L 07/17/21 08:32 Potassium 4.2 mmol/L (3.6-5.0) 07/17/21 08:32 Chloride 96.5 mmol/L (98-107) L 07/17/21 08:32 Carbon Dioxide 25 mmol/L (22-30) 07/17/21 08:32 Anion Gap 14 mmol/L 07/17/21 08:32 BUN 9 mg/dL (7-17) 07/17/21 08:32 Creatinine 0.5 mg/dL (0.6-1.2) L 07/17/21 08:32 Estimated GFR > 60 ml/min 07/17/21 08:32 BUN/Creatinine Ratio 18 % 07/17/21 08:32 Glucose 78 mg/dL (65-100) 07/17/21 08:32 Calcium 8.1 mg/dL (8.4-10.2) L 07/17/21 08:32 Phosphorus 3.00 mg/dL (2.5-4.5) 07/11/21 05:53 Magnesium 1.00 mg/dL (1.7-2.3) L 07/11/21 05:53 Total Bilirubin 0.20 mg/dL (0.1-1.2) 07/17/21 08:32 Direct Bilirubin < 0.2 mg/dL (0-0.2) 07/10/21 22:54 Indirect Bilirubin 0.1 mg/dL 07/10/21 22:54 AST 17 units/L (5-40) 07/17/21 08:32 ALT 6 units/L (7-56) L 07/17/21 08:32 Alkaline Phosphatase 101 units/L (35-129) 07/17/21 08:32 Total Protein 7.4 g/dL (6.3-8.2) 07/17/21 08:32 Albumin 2.4 g/dL (3.9-5) L 07/17/21 08:32 Albumin/Globulin Ratio 0.5 % 07/17/21 08:32 Lipase 13 units/L (13-60) 07/10/21 22:54 HCG, Qual Negative (Negative) 07/10/21 22:54 Vancomycin Trough 11.4 ug/mL (5.0-20.0) 07/16/21 14:08 Random Vancomycin 8.1 ug/mL (0-40.0) 07/14/21 10:13 HIV 1&2 Antibody Rapid Non react (Non React) 07/11/21 19:05 HIV P24 Antigen Non react (Non React) 07/11/21 19:05 AFB Identification 07/13/21 14:00 Martinez/IV: Voiding Method Toilet Active Medications - Current Medications Current Medications: Generic Name Dose Route Start Last Admin Trade Name Freq PRN Reason Stop Dose Admin Acetaminophen 650 mg 07/11/21 02:58 Acetaminophen 325 Mg Tab PO Q4H PRN Pain MILD(1-3)/Fever >100.5/WILKERSON Albuterol 2 puff 07/11/21 03:48 Albuterol 8.5 Gm Mdi Inhalation IH Q4HRT PRN Shortness Of Breath Diphenhydramine HCl 25 mg 07/11/21 23:57 07/16/21 21:25 Diphenhydramine 50 Mg/Ml Vial IV 25 mg Q6H PRN Administration Itching Docusate Sodium 100 mg 07/11/21 10:00 07/17/21 10:23 Docusate Sodium 100 Mg Cap PO Not Given BID RAJANI Folic Acid 1 mg 07/11/21 10:00 07/17/21 10:23 Folic Acid 1 Mg Tab PO 1 mg QDAY RAJANI Administration Heparin Sodium (Porcine) 5,000 unit 07/11/21 10:00 07/17/21 10:23 Heparin 5,000 Unit/1 Ml Vial SUB-Q 5,000 unit Q12HR RAJANI Administration Cefepime HCl 1 gm in 100 mls @ 200 mls/hr 07/12/21 14:00 07/17/21 05:28 Cefepime/Ns 1 Gm/100 Ml IV 200 mls/hr Q8H RAJANI Administration Protocol Vancomycin HCl 500 mg/ Sodium 110 mls @ 66.667 mls/hr 07/14/21 14:00 07/17/21 04:24 Chloride IV 66.667 mls/hr Q12H RAJANI Administration Sodium Chloride 1,000 mls @ 75 mls/hr 07/15/21 11:00 07/16/21 03:06 Nacl 0.9% 1000 Ml IV 75 mls/hr DIRECT RAJANI Administration Lorazepam 2 mg 07/11/21 04:10 Lorazepam 2 Mg/Ml Vial IV Q1H PRN CIWA-Ar 8-15 Morphine Sulfate 4 mg 07/11/21 02:58 07/17/21 04:19 Morphine 4 Mg/1 Ml Inj IV 4 mg Q4H PRN Administration Pain , Severe (7-10) Morphine Sulfate 2 mg 07/11/21 12:28 07/17/21 10:23 Morphine 2 Mg/1 Ml Inj IV 2 mg Q6H PRN Administration Pain, Moderate (4-6) Multivitamins 1 each 07/11/21 10:00 07/17/21 10:23 Multivitamins ,Therapeutic Tab PO 1 each QDAY RAJANI Administration Naloxone HCl 0.1 mg 07/11/21 02:58 Naloxone 0.4 Mg/1 Ml Inj IV Q2MIN PRN Res Rate </= 8 or 02 SAT < 92% Ondansetron HCl 4 mg 07/11/21 02:58 Ondansetron 4 Mg/2 Ml Inj IV Q6H PRN Nausea And Vomiting Sodium Chloride 10 ml 07/11/21 10:00 07/17/21 10:23 Sodium Chloride 0.9% 10 Ml Flush Syringe IV 10 ml BID RAJANI Administration Sodium Chloride 10 ml 07/11/21 02:58 07/16/21 21:26 Sodium Chloride 0.9% 10 Ml Flush Syringe IV 10 ml PRN PRN Administration LINE FLUSH Thiamine HCl 100 mg 07/11/21 10:00 07/17/21 10:23 Thiamine 100 Mg Tab PO 100 mg QDAY RAJANI Administration Nutrition/Malnutrition Assess - Dietary Evaluation Nutrition/Malnutrition Findings: Nutrition Notes Start: 07/11/21 10:49 Freq: Status: Active Protocol: Document 07/14/21 12:20 (Rec: 07/14/21 12:38 [id number]) Nutrition Notes Initial or Follow up Reassessment Current Diagnosis COPD Other Pertinent Diagnosis EtOH abuse, cavitary pneu Current Diet cardiac,ONS Labs/Tests 07/13: Na 131 BUN 6 Cr 0.5 Pertinent Medications Thiamine MVI Folic acid Height 5 ft 3 in Weight 44.8 kg [place] [facility] Body Weight (kg) 52.27 BMI 17.4 Weight Status Underweight Subjective/Other Information RN reports pt is eating well. Percent of energy/protein needs met: 100%/100% Burn Absent Trauma Absent Current % PO Good (75-100%) Minimum of two criteria Yes Energy Intake (severe) < or equal to 50% Estimated Energy Requirement > or equal to 5 days Interpretation of Weight Loss (severe) >7.5% in 3 months #1 Nutrition Diagnosis Malnutrition Diagnosis Progress(for reassessment Continues documentation) Is patient on ventilator? No Is Patient Ambulatory and/or Out of Bed Yes REE-([place]-ambulatory/OOB) [ [id number] [id number]] Calculation Used for Recommendations [facility] Additional Notes Protein: (1.2-1.5g/kg) 60-75g Fluid: 1 ml/kcal or per MD Nutrition Intervention Change Diet Order: continue Add Supplement/Snack (indicate name/kcal Ensure Enlive BID /protein ) Provides kCal: 700 Provides Protein (gm) 40 Goal #1 Meet at least 75% of protein and kcal needs via PO and ONS intakes Goal #2 Weight gain/maintenance Follow-Up By: 07/18/21 Additional Comments F/u: intakes
[2021-07-17 11:54] LABS: Band Neutrophils # (Manual) 0.1 K/mm3; Giant Platelets Rare; Hypochromasia 1+; Platelet Clumps 1+; Platelet Estimate Consistent w Auto; Total Cells Counted 100
[2021-07-17 11:55] LABS: Platelet Count 144 K/mm3 (140-440)
--- NOTE | 2021-07-17 13:41 | Progress Note ---
Assessment and Plan Cultures: AFB x2 neg Assessment: 41-year-old female with history of COPD, marijuana use, alcohol abuse, previous MRSA pneumonia, which was not fully treated, admitted on 07/11/2021 secondary to a month history of worsening cough with green sputum production, weightloss, abdominal pain and nause: #Bilaterally cavitary pneumonia: It is possible to be secondary to MRSA, however BAL positive for MRSA was in July 2018. MRSA usually rapidly progressed as it is virulent. Patient complaining of weight loss, marijuana use alcohol use. Suspect tuberculosis. #Significant weight loss: About 20 pounds. HIV neg. Recommendations: Airborne isolation until AFB x 3 neg, so far x2 neg Sputum AFB x 3 discussed with charge nurse Sputum for regular culture, never sent QuantiFERON-TB gold -pending Stop vancomycin and cefepime start linezolid 600 mg po bid total 14 days until 07/25. Patient is demanding to go home, understandably. Still awaiting for AFB x 3 requested a week ago Will follow. Cathleen Ross MD Infectious Diseases Non Profit Director [facility] ([facility]) M [phone] O [phone] Subjective Date of service: 07/17/21 Principal diagnosis: Acute hypoxemic respiratory failure abdominal pain cavitary lung lesi Interval history: Patient with no new complaints. She is very frustrated she wants to go home. No fever. Objective - Exam Narrative Exam: General appearance: Alert in NAD pleasant Eyes: anicteric sclerae, moist conjunctivae; no lid-lag; PERRLA HENT: Normocephalic, Atraumatic; normal external ears, nares open, oropharynx clear Neck: supple, tracheal midline, no JVD Lungs: Scattered rhonchi sirena CV: RRR no murmur Abdomen: Soft, non-tender; no masses or hepatosplenomegaly Extremities: no edema, no cyanosis Skin: No rash. Psych: no agitated Neuro: alert and oriented x 3. Moving all extermities - Constitutional Vitals: Vital Signs Temp Pulse Resp BP Pulse Ox 98.6 F 68 17 110/64 97 07/17/21 04:30 07/17/21 04:30 07/17/21 11:00 07/17/21 04:30 07/17/21 10:00 Temperature -Last 24 Hours Temperature 98.6 F Temperature 98.4 F Temperature 97.6 F Temperature 98.4 F - Labs CBC & Chem 7: 07/17/21 08:32 07/17/21 08:32 Labs: Abnormal lab results 07/17/2121 Range/Units 08:32 08:32 RBC 3.34 L (3.65-5.03) M/mm3 Hct 29.9 L (30.3-42.9) % MCHC 35 H (30-34) % RDW 15.5 H (13.2-15.2) % Seg Neuts % (Manual) 76.0 H (40.0-70.0) % Lymphocytes % (Manual) 12.0 L (13.4-35.0) % Monocytes % (Manual) 10.0 H (0.0-7.3) % Lymphocytes # (Manual) 1.0 L (1.2-5.4) K/mm3 Monocytes # (Manual) 0.9 H (0.0-0.8) K/mm3 Sodium 131 L (137-145) mmol/L Chloride 96.5 L (98-107) mmol/L Creatinine 0.5 L (0.6-1.2) mg/dL Calcium 8.1 L (8.4-10.2) mg/dL ALT 6 L (7-56) units/L Albumin 2.4 L (3.9-5) g/dL
[2021-07-17] MEDS: LINEZOLID 600 MG TAB PO SCH ×2 (16:12→22:31)
[2021-07-17] MEDS: diphenhydrAMINE 50 MG/ML VIAL IV PRN (23:11)
[2021-07-17] MEDS: SODIUM CHLORIDE 0.9% 1000 ML 1,000 ML IV SCH (23:15)
[2021-07-18] MEDS: MORPHINE 2 MG/1 ML INJ IV PRN ×2 (05:51→11:23)
[2021-07-18 08:31] VITALS: BP 95/73
--- NOTE | 2021-07-18 09:34 | Progress Note ---
Assessment and Plan Assessment and plan: --Bilateral cavitary pneumonia Current Visit: Yes Status: Acute AFBx3 negative, ,, follow AFB cultures.ID following Continue IV vancomycin and cefepime --acute exacerbation COPD (chronic obstructive pulmonary disease) Current Visit: Yes Status: Acute Continue nebulizers Oxygen titrate O2 sats to more than 90% Nebulizers, IV steroids, inhalation steroids. -- chronic alcohol use ; Current Visit: Yes Status: Acute Monitor for alcohol withdrawal symptoms patient on CIWA protocol --Severe protein calorie malnutrition ; Current Visit: Yes Status: Chronic Nutrition supplements, nutrition consult --Hyponatremia; Current Visit: Yes Status: Acute Monitor for alcohol withdrawal symptoms patient on CIWA protocol --Severe protein calorie malnutrition ; Current Visit: Yes Status: Chronic Continue IV normal saline, closely monitor electrolytes --Hypokalemia Current Visit: No Status: Acute Resolved, follow electrolytes --Hypocalcemia Current Visit: Yes Status: Acute Calcium supplemented, monitor electrolytes --DVT prophylaxis Current Visit: Yes Status: Acute On anticoagulation and GI prophylaxis Subjective Date of service: 07/16/21 Principal diagnosis: Acute hypoxemic respiratory failure abdominal pain cavitary lung lesi Interval history: 41-year-old female with history of COPD, marijuana use, EtOH abuse presented today with abdominal pain described as sharp epigastric severe with nausea vomiting. Patient unable to hold food down. Also associated with 30 pound weight loss over the past several months. Over the past several months patient hospital course been complicated by 2 separate hospitalizations in which she left AMA both times. Most recent patient had bronchoscopy for what was being treated as a pneumonia cavitary lesion. Patient left AMA at that time. Patient returns this time with above complaints and concerns. CT findings upon admission on this visit shows large cavitary lesion throughout lungs. Patient was admitted for cavitary pneumonia. Started on Zosyn and vancomycin ID consult pending. Patient also has abdominal pain CT scan abdomen unremarkable most likely secondary to chronic EtOH use and abuse. Electrolytes are currently being corrected. Patient also was seen dietitian for supplementation malnutrition. Advanced COPD nebulizers and patient being covered [facility] protocol for alcohol abuse 07/12/2021 patient feels better today no abdominal pain. Patient only complains of thick productive cough this afternoon. Currently in isolation room to rule out TB. Patient has completed 1 sputum there in front of me now. Denies any fever chills at this time. Has had 20 pound weight loss in the past. No evidence of DTs at this time. 07/13/2021. Continue airborne isolation. Follow-up sputum culture and AFB sputum x3. Follow QuantiFERON-TB gold. Continue vancomycin per ID recommendations. ID and pulmonary following 07/14/2021. Continue airborne isolation. Follow-up Sputum AFB x 3 - 2 of 3 specimen has been sent and sputum for regular culture. QuantiFERON-TB gold - pending. Continue vancomycin and cefepime per ID recommendations. 07/15/2021 AFB x1 sample negative 2 samples are pending Patient otherwise comfortable 07/16/2021 AFB samples x2 - Quantiferon test pending 07/17/2021; work-up in progress ID following 07/18/2021; AFB X3 negative[07/12, 07/13, 07/14] Patient feels better anxious to go home Follow ID recommendations History Interval history: I have seen and examined the patient at the bedside Patient's chart and medications reviewed Patient is in isolation for evaluation of cavitary lesions Work-up in progress Hospitalist Physical - Constitutional Vitals: Temp Pulse Resp BP Pulse Ox 98.2 F 111 H 18 95/73 97 07/18/21 08:02 07/18/21 08:02 07/18/21 08:02 07/18/21 08:02 07/18/21 08:02 General appearance: Present: no acute distress, well-nourished - EENT Eyes: Present: PERRL, EOM intact - Neck Neck: Present: supple, normal ROM - Respiratory Respiratory effort: normal Respiratory: bilateral: diminished, rhonchi, negative: rales, wheezing - Cardiovascular Rhythm: regular Heart Sounds: Present: S1 & S2 - Extremities Extremities: no ischemia, No edema - Abdominal General gastrointestinal: soft, non-tender, non-distended, normal bowel sounds - Integumentary Integumentary: Present: clear, warm - Psychiatric Psychiatric: appropriate mood/affect, cooperative - Neurologic Neurologic: CNII-XII intact, moves all extremities Results - Labs CBC & Chem 7: 07/17/21 08:32 07/17/21 08:32 Labs: Laboratory Last Values WBC 8.6 K/mm3 (4.5-11.0) 07/17/21 08:32 RBC 3.34 M/mm3 (3.65-5.03) L 07/17/21 08:32 Hgb 10.4 gm/dl (10.1-14.3) 07/17/21 08:32 Hct 29.9 % (30.3-42.9) L 07/17/21 08:32 MCV 89 fl (79-97) 07/17/21 08:32 MCH 31 pg (28-32) 07/17/21 08:32 MCHC 35 % (30-34) H 07/17/21 08:32 RDW 15.5 % (13.2-15.2) H 07/17/21 08:32 Plt Count 144 K/mm3 (140-440) 07/17/21 08:32 Lymph % (Auto) 11.9 % (13.4-35.0) L 07/13/21 02:11 Faulk % (Auto) Pocket Operator 07/17/21 08:32 Eos % (Auto) 1.5 % (0.0-4.3) 07/13/21 02:11 Baso % (Auto) 0.8 % (0.0-1.8) 07/13/21 02:11 Lymph # (Auto) 0.9 K/mm3 (1.2-5.4) L 07/13/21 02:11 Faulk # (Auto) 0.9 K/mm3 (0.0-0.8) H 07/13/21 02:11 Eos # (Auto) 0.1 K/mm3 (0.0-0.4) 07/13/21 02:11 Baso # (Auto) 0.1 K/mm3 (0.0-0.1) 07/13/21 02:11 Add Manual Diff Complete 07/17/21 08:32 Total Counted 100 07/17/21 08:32 Seg Neutrophils % 73.9 % (40.0-70.0) H 07/13/21 02:11 Seg Neuts % (Manual) 76.0 % (40.0-70.0) H 07/17/21 08:32 Band Neutrophils % 1.0 % 07/17/21 08:32 Lymphocytes % (Manual) 12.0 % (13.4-35.0) L 07/17/21 08:32 Reactive Lymphs % (Man) 1.0 % 07/15/21 05:22 Monocytes % (Manual) 10.0 % (0.0-7.3) H 07/17/21 08:32 Eosinophils % (Manual) 1.0 % (0.0-4.3) 07/17/21 08:32 Nucleated RBC % Not Reportable 07/17/21 08:32 Seg Neutrophils # 5.4 K/mm3 (1.8-7.7) 07/13/21 02:11 Seg Neutrophils # Man 6.5 K/mm3 (1.8-7.7) 07/17/21 08:32 Band Neutrophils # 0.1 K/mm3 07/17/21 08:32 Lymphocytes # (Manual) 1.0 K/mm3 (1.2-5.4) L 07/17/21 08:32 Abs React Lymphs (Man) 0.0 K/mm3 07/17/21 08:32 Monocytes # (Manual) 0.9 K/mm3 (0.0-0.8) H 07/17/21 08:32 Eosinophils # (Manual) 0.1 K/mm3 (0.0-0.4) 07/17/21 08:32 Basophils # (Manual) 0.0 K/mm3 (0.0-0.1) 07/17/21 08:32 Metamyelocytes # 0.0 K/mm3 07/17/21 08:32 Myelocytes # 0.0 K/mm3 07/17/21 08:32 Promyelocytes # 0.0 K/mm3 07/17/21 08:32 Blast Cells # 0.0 K/mm3 07/17/21 08:32 WBC Morphology Not Reportable 07/17/21 08:32 Hypersegmented Neuts Not Reportable 07/17/21 08:32 Hyposegmented Neuts Not Reportable 07/17/21 08:32 Hypogranular Neuts Not Reportable 07/17/21 08:32 Smudge Cells Not Reportable 07/17/21 08:32 Toxic Granulation Not Reportable 07/17/21 08:32 Toxic Vacuolation Not Reportable 07/17/21 08:32 Dohle Bodies Not Reportable 07/17/21 08:32 Pelger-Huet Anomaly Not Reportable 07/17/21 08:32 Perico Rods Not Reportable 07/17/21 08:32 Platelet Estimate Consistent w auto 07/17/21 08:32 Clumped Platelets 1+ 07/17/21 08:32 Plt Clumps, EDTA Not Reportable 07/17/21 08:32 Large Platelets Not Reportable 07/17/21 08:32 Giant Platelets Rare 07/17/21 08:32 Platelet Satelliting Not Reportable 07/17/21 08:32 Plt Morphology Comment Not Reportable 07/17/21 08:32 RBC Morphology Not Reportable 07/17/21 08:32 Dimorphic RBCs Not Reportable 07/17/21 08:32 Polychromasia Not Reportable 07/17/21 08:32 Hypochromasia 1+ 07/17/21 08:32 Poikilocytosis Not Reportable 07/17/21 08:32 Anisocytosis Not Reportable 07/17/21 08:32 Microcytosis Not Reportable 07/17/21 08:32 Macrocytosis Not Reportable 07/17/21 08:32 Spherocytes Not Reportable 07/17/21 08:32 Pappenheimer Bodies Not Reportable 07/17/21 08:32 Sickle Cells Not Reportable 07/17/21 08:32 Target Cells Not Reportable 07/17/21 08:32 Tear Drop Cells Not Reportable 07/17/21 08:32 Ovalocytes Not Reportable 07/17/21 08:32 Helmet Cells Not Reportable 07/17/21 08:32 Carmona-Warrior Bodies Not Reportable 07/17/21 08:32 [place] Rings Not Reportable 07/17/21 08:32 [place] Cells Not Reportable 07/17/21 08:32 Bite Cells Not Reportable 07/17/21 08:32 Crenated Cell Not Reportable 07/17/21 08:32 Elliptocytes Not Reportable 07/17/21 08:32 Acanthocytes (Spur) Not Reportable 07/17/21 08:32 Rouleaux Not Reportable 07/17/21 08:32 Hemoglobin C Crystals Not Reportable 07/17/21 08:32 Schistocytes Not Reportable 07/17/21 08:32 Malaria parasites Not Reportable 07/17/21 08:32 Roel Bodies Not Reportable 07/17/21 08:32 Hem Pathologist Commnt No 07/17/21 08:32 Sodium 131 mmol/L (137-145) L 07/17/21 08:32 Potassium 4.2 mmol/L (3.6-5.0) 07/17/21 08:32 Chloride 96.5 mmol/L (98-107) L 07/17/21 08:32 Carbon Dioxide 25 mmol/L (22-30) 07/17/21 08:32 Anion Gap 14 mmol/L 07/17/21 08:32 BUN 9 mg/dL (7-17) 07/17/21 08:32 Creatinine 0.5 mg/dL (0.6-1.2) L 07/17/21 08:32 Estimated GFR > 60 ml/min 07/17/21 08:32 BUN/Creatinine Ratio 18 % 07/17/21 08:32 Glucose 78 mg/dL (65-100) 07/17/21 08:32 Calcium 8.1 mg/dL (8.4-10.2) L 07/17/21 08:32 Phosphorus 3.00 mg/dL (2.5-4.5) 07/11/21 05:53 Magnesium 1.00 mg/dL (1.7-2.3) L 07/11/21 05:53 Total Bilirubin 0.20 mg/dL (0.1-1.2) 07/17/21 08:32 Direct Bilirubin < 0.2 mg/dL (0-0.2) 07/10/21 22:54 Indirect Bilirubin 0.1 mg/dL 07/10/21 22:54 AST 17 units/L (5-40) 07/17/21 08:32 ALT 6 units/L (7-56) L 07/17/21 08:32 Alkaline Phosphatase 101 units/L (35-129) 07/17/21 08:32 Total Protein 7.4 g/dL (6.3-8.2) 07/17/21 08:32 Albumin 2.4 g/dL (3.9-5) L 07/17/21 08:32 Albumin/Globulin Ratio 0.5 % 07/17/21 08:32 Lipase 13 units/L (13-60) 07/10/21 22:54 HCG, Qual Negative (Negative) 07/10/21 22:54 Vancomycin Trough 11.4 ug/mL (5.0-20.0) 07/16/21 14:08 Random Vancomycin 8.1 ug/mL (0-40.0) 07/14/21 10:13 HIV 1&2 Antibody Rapid Non react (Non React) 07/11/21 19:05 HIV P24 Antigen Non react (Non React) 07/11/21 19:05 AFB Identification 07/14/21 12:25 Martinez/IV: Voiding Method Toilet Active Medications - Current Medications Current Medications: Generic Name Dose Route Start Last Admin Trade Name Freq PRN Reason Stop Dose Admin Acetaminophen 650 mg 07/11/21 02:58 07/17/21 20:35 Acetaminophen 325 Mg Tab PO 650 mg Q4H PRN Administration Pain MILD(1-3)/Fever >100.5/WILKERSON Albuterol 2 puff 07/11/21 03:48 Albuterol 8.5 Gm Mdi Inhalation IH Q4HRT PRN Shortness Of Breath Diphenhydramine HCl 25 mg 07/11/21 23:57 07/17/21 23:11 Diphenhydramine 50 Mg/Ml Vial IV 25 mg Q6H PRN Administration Itching Docusate Sodium 100 mg 07/11/21 10:00 07/17/21 22:30 Docusate Sodium 100 Mg Cap PO Not Given BID RAJANI Folic Acid 1 mg 07/11/21 10:00 07/17/21 10:23 Folic Acid 1 Mg Tab PO 1 mg QDAY RAJANI Administration Heparin Sodium (Porcine) 5,000 unit 07/11/21 10:00 07/17/21 22:30 Heparin 5,000 Unit/1 Ml Vial SUB-Q Not Given Q12HR RAJANI Sodium Chloride 1,000 mls @ 75 mls/hr 07/15/21 11:00 07/17/21 23:15 Nacl 0.9% 1000 Ml IV 75 mls/hr DIRECT RAJANI Administration Linezolid 600 mg 07/17/21 14:00 07/17/21 22:31 Linezolid 600 Mg Tab PO 07/25/21 22:01 600 mg Q12HR RAJANI Administration Protocol Lorazepam 2 mg 07/11/21 04:10 Lorazepam 2 Mg/Ml Vial IV Q1H PRN CIWA-Ar 8-15 Morphine Sulfate 4 mg 07/11/21 02:58 07/17/21 04:19 Morphine 4 Mg/1 Ml Inj IV 4 mg Q4H PRN Administration Pain , Severe (7-10) Morphine Sulfate 2 mg 07/11/21 12:28 07/18/21 05:51 Morphine 2 Mg/1 Ml Inj IV 2 mg Q6H PRN Administration Pain, Moderate (4-6) Multivitamins 1 each 07/11/21 10:00 07/17/21 10:23 Multivitamins ,Therapeutic Tab PO 1 each QDAY RAJANI Administration Naloxone HCl 0.1 mg 07/11/21 02:58 Naloxone 0.4 Mg/1 Ml Inj IV Q2MIN PRN Res Rate </= 8 or 02 SAT < 92% Sodium Chloride 10 ml 07/11/21 10:00 07/17/21 22:31 Sodium Chloride 0.9% 10 Ml Flush Syringe IV 10 ml BID RAJANI Administration Sodium Chloride 10 ml 07/11/21 02:58 07/16/21 21:26 Sodium Chloride 0.9% 10 Ml Flush Syringe IV 10 ml PRN PRN Administration LINE FLUSH Thiamine HCl 100 mg 07/11/21 10:00 07/17/21 10:23 Thiamine 100 Mg Tab PO 100 mg QDAY RAJANI Administration Nutrition/Malnutrition Assess - Dietary Evaluation Nutrition/Malnutrition Findings: Nutrition Notes Start: 07/11/21 10:49 Freq: Status: Active Protocol: Document 07/14/21 12:20 (Rec: 07/14/21 12:38 [id number]) Nutrition Notes Initial or Follow up Reassessment Current Diagnosis COPD Other Pertinent Diagnosis EtOH abuse, cavitary pneu Current Diet cardiac,ONS Labs/Tests 07/13: Na 131 BUN 6 Cr 0.5 Pertinent Medications Thiamine MVI Folic acid Height 5 ft 3 in Weight 44.8 kg [place] Body Weight (kg) 52.27 BMI 17.4 Weight Status Underweight Subjective/Other Information RN reports pt is eating well. Percent of energy/protein needs met: 100%/100% Burn Absent Trauma Absent Current % PO Good (75-100%) Minimum of two criteria Yes Energy Intake (severe) < or equal to 50% Estimated Energy Requirement > or equal to 5 days Interpretation of Weight Loss (severe) >7.5% in 3 months #1 Nutrition Diagnosis Malnutrition Diagnosis Progress(for reassessment Continues documentation) Is patient on ventilator? No Is Patient Ambulatory and/or Out of Bed Yes [place] [place] [ 1393.769 [id number]] Calculation Used for Recommendations Karina Nima Additional Notes Protein: (1.2-1.5g/kg) 60-75g Fluid: 1 ml/kcal or per MD Nutrition Intervention Change Diet Order: continue Add Supplement/Snack (indicate name/kcal Ensure Enlive BID /protein ) Provides kCal: 700 Provides Protein (gm) 40 Goal #1 Meet at least 75% of protein and kcal needs via PO and ONS intakes Goal #2 Weight gain/maintenance Follow-Up By: 07/18/21 Additional Comments F/u: intakes
[2021-07-18] MEDS: DOCUSATE SODIUM 100 MG CAP PO SCH (11:22)
[2021-07-18] MEDS: HEPARIN 5,000 UNIT/1 ML VIAL SUB-Q SCH (11:23)
[2021-07-18] MEDS: THIAMINE 100 MG TAB PO SCH (11:23)
[2021-07-18] MEDS: FOLIC ACID 1 MG TAB PO SCH (11:23)
[2021-07-18] MEDS: MULTIVITAMINS ,THERAPEUTIC TAB PO SCH (11:23)
[2021-07-18] MEDS: LINEZOLID 600 MG TAB PO SCH (11:27)
[2021-07-18] MEDS ORDERED: guaiFENesin/CODEINE 100-10MG ORAL LIQD 5 ML PO PRN (12:00)
--- NOTE | 2021-07-18 15:35 | Progress Note ---
Assessment and Plan Cultures: AFB x3neg Assessment: 41-year-old female with history of COPD, marijuana use, alcohol abuse, previous MRSA pneumonia, which was not fully treated, admitted on 07/11/2021 secondary to a month history of worsening cough with green sputum production, weightloss, abdominal pain and nause: #Bilaterally cavitary pneumonia: It is possible to be secondary to MRSA, however BAL positive for MRSA was in July 2018. MRSA usually rapidly progressed as it is virulent. Patient complaining of weight loss, marijuana use alcohol use. Suspect tuberculosis. #Significant weight loss: About 20 pounds. HIV neg. Recommendations: QuantiFERON-TB gold -pending Continue linezolid 600 mg po bid total 14 days until 07/25. ID f/u in 2 weeks Pulm f/u Ok to dc Cathleen Ross MD Infectious Diseases Front End Developer [facility] ([facility]) M [phone] O [phone] Subjective Date of service: 07/18/21 Principal diagnosis: Acute hypoxemic respiratory failure abdominal pain cavitary lung lesi Interval history: Feels ok, no complaints. Objective - Exam Narrative Exam: General appearance: Alert in NAD pleasant Eyes: anicteric sclerae, moist conjunctivae; no lid-lag; PERRLA HENT: Normocephalic, Atraumatic; normal external ears, nares open, oropharynx clear Neck: supple, tracheal midline, no JVD Lungs: Scattered rhonchi sirena CV: RRR no murmur Abdomen: Soft, non-tender; no masses or hepatosplenomegaly Extremities: no edema, no cyanosis Skin: No rash. Psych: no agitated Neuro: alert and oriented x 3. Moving all extermities - Constitutional Vitals: Vital Signs Temp Pulse Resp BP Pulse Ox 98.2 F 111 H 14 95/73 97 07/18/21 08:02 07/18/21 08:02 07/18/21 11:53 07/18/21 08:02 07/18/21 10:00 Temperature -Last 24 Hours Temperature 98.2 F Temperature 98.3 F Temperature 98.5 F Temperature 98.6 F - Labs CBC & Chem 7: 07/17/21 08:32 07/17/21 08:32
--- NOTE | 2021-07-18 16:01 | Discharge Summary ---
Providers - Providers Date of Admission: 07/11/21 02:58 Date of discharge: 07/18/21 Attending physician: APGE KHAN 07/11/21 03:03 Consult to Physician [CONS] Routine Comment: Consulting Provider: SATHISH VALADEZ Physician Instructions: Reason For Exam: PNA c cavitary lesion, hx PNA with MRSA 07/11/21 04:08 Consult to Dietitian/Nutrition [CONS] Routine Physician Instructions: Reason For Exam: Reason for Consult: Malnutrition 07/12/21 10:00 Consult to Dietitian/Nutrition [CONS] Routine Physician Instructions: Reason For Exam: Reason for Consult: Poor oral intake Primary care physician: COUNSELING DIRECTOR Hospitalization Reason for admission: Worsening shortness of breath/productive cough/bilateral cavitary pneumonia Condition: Fair Pertinent studies: CT chest: revealed diffuse bilateral pulmonary cavitary process with multiple large cavities which appears thick-walled with associated bronchiectasis There is interstitial prominence with interstitial nodularity and opacities in bilateral lungs differential includes infectious etiology such as fungal TB atypical mycobacterial bacterial pneumonia other noninfectious etiologies such as carcinoma also cannot be excluded CT abdomen and pelvis :marked abnormality within the lower chest cavitary process with diffuse opacities within the lower lungs left greater than the right could represent a nipple atypical mycobacterial infection prior infection inflammation malignancy cannot be excluded no other acute abnormalities and Hospital course: 41-year-old female patient with significant past medical history of COPD marijuana use, chronic alcohol use, ongoing tobacco use with previous history of MRSA pneumonia which was not completely treated was admitted through emergency room on 07/11/2021 with worsening shortness of breath productive cough with greenish sputum and unintentional weight loss abdominal pain and nausea. Initial work-up in the emergency room with CT chest revealed diffuse bilateral pulmonary cavitary process with multiple large cavities which appears thick-walled with associated bronchiectasis There is interstitial prominence with interstitial nodularity and opacities in bilateral lungs differential includes infectious etiology such as fungal TB atypical mycobacterial bacterial pneumonia other noninfectious etiologies such as carcinoma also cannot be excluded CT abdomen and pelvis marked abnormality within the lower chest cavitary process with diffuse opacities within the lower lungs left greater than the right could represent a nipple atypical mycobacterial infection prior infection inflammation malignancy cannot be excluded no other acute abnormalities and a bdominal or pelvis CT scan abdominal pelvis CT scan. Patient was evaluated by ID started on empiric antibiotics as well as evaluation for to rule out pulmonary tuberculosis, however patient's [id number] was negative and TB test gold interferon is still pending Patient was evaluated by pulmonary Dr. Pedersen however felt no pulmonary process at this point and no indication of bronchoscopy Patient was treated with antibiotics for 1 week, showed significant improvement in general condition and patient symptomatology Patient's cough is significantly improved patient remains afebrile Today ID has evaluated the patient and cleared for discharge and recommended total 2 weeks of Zyvox 600 mg of twice a day Stop date 07/25/2021. Patient counseled smoking cessation and advised nicotine patch Patient strongly counseled to quit alcohol intake and advised alcohol rehabilitation program and seek alcohol Anonymous support . Patient verbalized understanding Patient is hemodynamically and clinically stable at discharge Discharge diagnosis: --Bilateral cavitary pneumonia Current Visit: Yes Status: Acute AFBx3 negative, Continue antibiotics per ID Advised to continue Zyvox for 7 more days[total 2 weeks] --H/O incompletely treated MRSA pneumonia: Current Visit: Yes Status: Chronic In 2018 -- chronic alcohol use ; Current Visit: Yes Status: Acute Strongly advised to quit alcohol intake Advised thiamine folic acid, recommend alcohol rehabilitation --Severe protein calorie malnutrition ; Current Visit: Yes Status: Chronic Nutrition supplements, nutrition consult --acute bronchitis Current Visit: Yes Status: Acute Albuterol inhaler, supportive care --Hyponatremia; Current Visit: Yes Status: Acute Resolved --Hypokalemia Current Visit: No Status: Acute Resolved, follow electrolytes --Hypocalcemia Current Visit: Yes Status: Acute Calcium supplemented, monitor electrolytes --Ongoing tobacco use Smoking cessation advised, nicotine patch as needed --DVT prophylaxis Current Visit: Yes Status: Acute On anticoagulation and GI prophylaxis Bilateral cavitary pneumonia Disposition: 01 HOME / SELF CARE / HOMELESS Final Discharge Diagnosis (Prints w/discharge instructions): Bilateral cavitary pneumonia. AFB x3 neg. History of incompletely treated MRSA pneumonia 2018. Acute bronchitis. Ongoing tobacco use. Chronic alcohol use. Severe protein calorie malnutrition. Hypokalemia resolved. Hypocalcemia/improved Time spent for discharge: 35 min Core Measure Documentation - Palliative Care Palliative Care/ Comfort Measures: Not Applicable - Core Measures Any of the following diagnoses?: none Exam - Constitutional Vitals: Temp Pulse Resp BP Pulse Ox 98.2 F 111 H 14 95/73 97 07/18/21 08:02 07/18/21 08:02 07/18/21 11:53 07/18/21 08:02 07/18/21 10:00 General appearance: Present: no acute distress, well-nourished - EENT Eyes: Present: PERRL, EOM intact - Neck Neck: Present: supple, normal ROM - Respiratory Respiratory effort: normal Respiratory: bilateral: diminished, rhonchi, negative: rales, wheezing - Cardiovascular Rhythm: regular Heart Sounds: Present: S1 & S2 - Extremities Extremities: no ischemia, No edema - Abdominal General gastrointestinal: Present: soft, non-tender, non-distended, normal bowel sounds - Integumentary Integumentary: Present: clear, warm - Musculoskeletal Musculoskeletal: strength equal bilaterally, generalized weakness - Psychiatric Psychiatric: appropriate mood/affect, cooperative - Neurologic Neurologic: CNII-XII intact, moves all extremities Plan Activity: no restrictions Diet: regular Special Instructions: smoking cessation, other (Strongly advised to quit alcohol use, advised to seek alcohol rehabilitation) Additional Instructions: Patient strongly advised to comply with medications and follow-up visits. Advised to follow ID Dr. Peña in 2 weeks. Advised to follow pulmonary Dr. Pedersen in 2 weeks. Advised to follow primary care physician within 1 week. If you have worsening symptoms contact MD or go to the nearest emergency room as needed. Smoking cessation counseling done advised to quit Follow up with: PRIMARY CARE, [Primary Care Provider] - 3-5 Days SATHISH VALADEZ MD [Staff Physician] - 14 Days NOHEMI PEDERSEN MD [Staff Physician] - 14 Days Prescriptions: Folic Acid [Folvite] 1 mg PO QDAY #30 tablet Nicotine [Habitrol] 14 mg TD DAILY #30 patch Albuterol Mdi (or & Nicu Only) [ProAir HFA Inhaler] 2 puff IH Q4HRT PRN #1 inha PRN Reason: Shortness Of Breath Benzonatate [Tessalon Perles] 100 mg PO Q8HR #30 capsule Thiamine [Vitamin B-1] 100 mg PO QDAY #30 tablet Linezolid [Zyvox] 600 mg PO Q12HR #15 tablet
== END 2021-07-18 21:54 | disposition home or self-care (01) | DRG 177 ==
LOC: ED 18:32 → 4A 07-11 02:58
PROVIDERS: ADMIT Internal Medicine Geriatric Medicine; ATTEND Internal Medicine
DX: J15.212 Pneumonia due to Methicillin resistant Staphylococcus aureus (principal); E43 Unspecified severe protein-calorie malnutrition; J96.01 Acute respiratory failure with hypoxia; Z68.1 Body mass index [BMI] 19.9 or less, adult; E87.1 Hypo-osmolality and hyponatremia; J44.0 Chronic obstructive pulmonary disease with (acute) lower respiratory infection; F12.10 Cannabis abuse, uncomplicated; F17.200 Nicotine dependence, unspecified, uncomplicated; E87.6 Hypokalemia; Y90.9 Presence of alcohol in blood, level not specified; E83.51 Hypocalcemia; J20.9 Acute bronchitis, unspecified; F10.20 Alcohol dependence, uncomplicated
CPT/HCPCS: 36415; 71260; 74176; 80048; 80053; 80076; 80202; 82164; 83690; 83735; 84100; 84703; 85007; 85025; 87806; 88112; 88312; 94640; G0378; C9113; J0692; J1200; J1644; J2270; J2405; J2543; J3370; J3480; J7030; J7050; Q9967

== ENCOUNTER 2021-08-04 12:47 | Inpatient (IN) | payer SELFPAY ==
[2021-08-04] MEDS ORDERED: MORPHINE 4 MG/1 ML INJ IV ONE (13:02)
[2021-08-04] MEDS ORDERED: ONDANSETRON 4 MG/2 ML INJ IV ONE (13:02)
[2021-08-04] MEDS ORDERED: SODIUM CHLORIDE 0.9% 1000 ML 1,000 ML IV ONE (13:02)
--- NOTE | 2021-08-04 13:40 | Emergency Department Report ---
ED Abdominal Pain HPI - General Chief Complaint: Abdominal Pain Stated Complaint: ABD PAIN Time Seen by Provider: 08/04/21 12:56 Source: patient Mode of arrival: Stretcher Limitations: No Limitations - History of Present Illness Initial Comments: Patient is a 41-year-old female presents emergency room complaints of diffuse abdominal pain that began 2 days ago. She has associated nausea and vomiting. She states that she has been having loose stools. She denies any fever, urinary symptoms, hematochezia, melena, hematemesis. She has a past medical history of UTI. No allergies to medications. She denies any past abdominal surgical history. Patient endorses marijuana use and states that she did smoke marijuana today. Patient states that she has been advised that her abdominal pain could be related to marijuana in the past. Severity scale (0 -10): 10 - Related Data Previous Rx's Medication Instructions Recorded Last Taken Type Albuterol Mdi (or & Nicu Only) 2 puff IH Q4HRT PRN #1 inha 07/18/21 Unknown Rx [ProAir HFA Inhaler] Benzonatate [Tessalon Perles] 100 mg PO Q8HR #30 capsule 07/18/21 Unknown Rx Folic Acid [Folvite] 1 mg PO QDAY #30 tablet 07/18/21 Unknown Rx Linezolid [Zyvox] 600 mg PO Q12HR #15 tablet 07/18/21 Unknown Rx Nicotine [Habitrol] 14 mg TD DAILY #30 patch 07/18/21 Unknown Rx Thiamine [Vitamin B-1] 100 mg PO QDAY #30 tablet 07/18/21 Unknown Rx Allergies Allergy/AdvReac Type Severity Reaction Status Date / Time No Known Allergies Allergy Unverified 08/30/18 02:13 ED Review of Systems ROS: Stated complaint: ABD PAIN Other details as noted in HPI Comment: All other systems reviewed and negative ED Past Medical Hx - Past Medical History Hx Heart Attack/AMI: No Hx Liver Disease: No Hx Renal Disease: No Hx Seizures: No Hx Asthma: Yes Hx COPD: Yes (advanced COPD on chest CT) - Surgical History Additional Surgical History: Bronchoscopy - Social History Smoking Status: Never Smoker Substance Use Type: Marijuana - Medications Home Medications: Home Medications Medication Instructions Recorded Confirmed Last Taken Type Albuterol Mdi (or & Nicu Only) 2 puff IH Q4HRT PRN #1 inha 07/18/21 Unknown Rx [ProAir HFA Inhaler] Benzonatate [Tessalon Perles] 100 mg PO Q8HR #30 capsule 07/18/21 Unknown Rx Folic Acid [Folvite] 1 mg PO QDAY #30 tablet 07/18/21 Unknown Rx Linezolid [Zyvox] 600 mg PO Q12HR #15 tablet 07/18/21 Unknown Rx Nicotine [Habitrol] 14 mg TD DAILY #30 patch 07/18/21 Unknown Rx Thiamine [Vitamin B-1] 100 mg PO QDAY #30 tablet 07/18/21 Unknown Rx ED Physical Exam - General Limitations: No Limitations General appearance: alert, in no apparent distress - Head Head exam: Present: atraumatic, normocephalic - Eye Eye exam: Present: normal appearance - ENT ENT exam: Present: mucous membranes moist - Respiratory Respiratory exam: Present: normal lung sounds bilaterally. Absent: respiratory distress, wheezes, rales, rhonchi, stridor, chest wall tenderness, accessory muscle use, decreased breath sounds, prolonged expiratory - Cardiovascular Cardiovascular Exam: Present: normal rhythm, tachycardia, normal heart sounds. Absent: systolic murmur, diastolic murmur, rubs, gallop - GI/Abdominal GI/Abdominal exam: Present: soft, tenderness (diffuse), guarding (voluntary ), normal bowel sounds. Absent: distended, rebound, rigid - Neurological Exam Neurological exam: Present: alert, oriented X3 - Psychiatric Psychiatric exam: Present: normal affect, normal mood - Skin Skin exam: Present: warm, dry, intact ED Course Vital Signs 08/04/21 08/04/21 08/04/21 12:52 13:06 13:47 Temperature 98.9 F Pulse Rate 125 H 103 H Respiratory 16 18 18 Rate Blood Pressure 126/91 Blood Pressure 136/98 [Left] O2 Sat by Pulse 96 Oximetry 08/04/21 19:00 Temperature Pulse Rate 82 Respiratory 17 Rate Blood Pressure 92/66 Blood Pressure [Left] O2 Sat by Pulse 97 Oximetry - Consultations Consultation #1: 08/04/21 17:[address] Antonio, hospitalist who will accept and resume care of patient, will admit to hospitalist service ED Medical Decision Making - Lab Data Result diagrams: 08/04/21 13:26 08/04/21 14:35 Lab Results 1008/04/21 08/04/21 Range/Units 13:26 13:26 13:26 WBC 8.2 (4.5-11.0) K/mm3 RBC 3.72 (3.65-5.03) M/mm3 Hgb 11.3 (10.1-14.3) gm/dl Hct 33.1 (30.3-42.9) % MCV 89 (79-97) fl MCH 30 (28-32) pg MCHC 34 (30-34) % RDW 15.1 (13.2-15.2) % Plt Count 366 (140-440) K/mm3 Lymph % (Auto) 10.8 L (13.4-35.0) % Callahan % (Auto) 7.4 H (0.0-7.3) % Eos % (Auto) 0.2 (0.0-4.3) % Baso % (Auto) 0.5 (0.0-1.8) % Lymph # (Auto) 0.9 L (1.2-5.4) K/mm3 Callahan # (Auto) 0.6 (0.0-0.8) K/mm3 Eos # (Auto) 0.0 (0.0-0.4) K/mm3 Baso # (Auto) 0.0 (0.0-0.1) K/mm3 Seg Neutrophils % 81.1 H (40.0-70.0) % Seg Neutrophils # 6.7 (1.8-7.7) K/mm3 Sodium 124 L (137-145) mmol/L Potassium TNR Chloride 88.9 L (98-107) mmol/L Carbon Dioxide 20 L (22-30) mmol/L Anion Gap 25 mmol/L BUN 12 (7-17) mg/dL Creatinine 0.7 (0.6-1.2) mg/dL Estimated GFR > 60 ml/min BUN/Creatinine Ratio 17 % Glucose 64 L (65-100) mg/dL Calcium 8.1 L (8.4-10.2) mg/dL Magnesium (1.7-2.3) mg/dL Total Bilirubin 0.60 (0.1-1.2) mg/dL AST 94 H (5-40) units/L ALT < 5 L (7-56) units/L Alkaline Phosphatase 158 H (35-129) units/L Total Protein 10.6 H (6.3-8.2) g/dL Albumin 3.0 L (3.9-5) g/dL Albumin/Globulin Ratio 0.4 % Lipase 20 (13-60) units/L HCG, Qual Negative (Negative) 08/04/21 08/04/21 Range/Units 14:35 15:06 WBC (4.5-11.0) K/mm3 RBC (3.65-5.03) M/mm3 Hgb (10.1-14.3) gm/dl Hct (30.3-42.9) % MCV (79-97) fl MCH (28-32) pg MCHC (30-34) % RDW (13.2-15.2) % Plt Count (140-440) K/mm3 Lymph % (Auto) (13.4-35.0) % Callahan % (Auto) (0.0-7.3) % Eos % (Auto) (0.0-4.3) % Baso % (Auto) (0.0-1.8) % Lymph # (Auto) (1.2-5.4) K/mm3 Callahan # (Auto) (0.0-0.8) K/mm3 Eos # (Auto) (0.0-0.4) K/mm3 Baso # (Auto) (0.0-0.1) K/mm3 Seg Neutrophils % (40.0-70.0) % Seg Neutrophils # (1.8-7.7) K/mm3 Sodium 129 L (137-145) mmol/L Potassium 6.5 H* Chloride 95.2 L (98-107) mmol/L Carbon Dioxide 20 L (22-30) mmol/L Anion Gap 20 mmol/L BUN 12 (7-17) mg/dL Creatinine 0.7 (0.6-1.2) mg/dL Estimated GFR > 60 ml/min BUN/Creatinine Ratio 17 % Glucose 61 L (65-100) mg/dL Calcium 7.5 L (8.4-10.2) mg/dL Magnesium 1.00 L (1.7-2.3) mg/dL Total Bilirubin 0.30 (0.1-1.2) mg/dL AST 30 (5-40) units/L ALT 7 (7-56) units/L Alkaline Phosphatase 158 H (35-129) units/L Total Protein 8.3 H D (6.3-8.2) g/dL Albumin 2.8 L (3.9-5) g/dL Albumin/Globulin Ratio 0.5 % Lipase (13-60) units/L HCG, Qual (Negative) Vital Signs 08/04/21 08/04/21 08/04/21 12:52 13:06 13:47 Temperature 98.9 F Pulse Rate 125 H 103 H Respiratory 16 18 18 Rate Blood Pressure 126/91 Blood Pressure 136/98 [Left] O2 Sat by Pulse 96 Oximetry 08/04/21 19:00 Temperature Pulse Rate 82 Respiratory 17 Rate Blood Pressure 92/66 Blood Pressure [Left] O2 Sat by Pulse 97 Oximetry - Radiology Data Radiology results: report reviewed Ordering Physician: KEVIN GARCIA Date of Service: 08/04/21 Procedure(s): CT abdomen pelvis w con Accession Number(s): [id number] cc: KEVIN GARCIA CT ABDOMEN AND PELVIS WITH CONTRAST INDICATION / CLINICAL INFORMATION: Diffuse abdominal pain. Nausea and vomiting. TECHNIQUE: Axial CT images were obtained through the abdomen and pelvis after Isovue-300, 100 [address] scans at this location are performed using CT dose reduction for ALARA by means of automated exposure control. COMPARISON: None available. FINDINGS: LOWER CHEST: Patchy nodularity at the right base and cavitary infiltrate at the left base remain with mild worsening. LIVER: No significant abnormality. GALLBLADDER: No significant abnormality. BILE DUCTS: No significant abnormality. PANCREAS: No significant abnormality. SPLEEN: No significant abnormality. ADRENALS: No significant abnormality. RIGHT KIDNEY / URETER: No significant abnormality. LEFT KIDNEY / URETER: No significant abnormality. STOMACH / SMALL BOWEL: No significant abnormality. COLON: No significant abnormality. APPENDIX: Nonvisualized. PERITONEUM: No free fluid. No free air. No fluid collection. LYMPH NODES: No significant adenopathy. VASCULAR STRUCTURES: No significant abnormality. URINARY BLADDER: No significant abnormality. REPRODUCTIVE ORGANS: No significant abnormality. ADDITIONAL FINDINGS: None. SKELETAL SYSTEM: No significant abnormality. IMPRESSION: 1. Worsening cavitary infiltrate at the lung bases left greater than right worrisome for atypical infection such as MAC. 2. No active inflammatory process at the abdomen or pelvis. Signer Name: Mohamud Cruz MD Signed: 08/04/2021 4:51 PM Workstation Name: [id number] Transcribed By: ES Dictated By: Mohamud Cruz MD Electronically Authenticated By: Mohamud Cruz MD Signed Date/Time: 08/04/21 1651 DD/ 1635 TD/TT: - Medical Decision Making Patient is a 41-year-old female presents emergency room complaints of diffuse abdominal pain that began 2 days ago. She has associated nausea and vomiting. She states that she has been having loose stools. She denies any fever, urinary symptoms, hematochezia, melena, hematemesis. She has a past medical history of UTI. No allergies to medications. She denies any past abdominal surgical hi story. Patient endorses marijuana use and states that she did smoke marijuana today. Patient states that she has been advised that her abdominal pain could be related to marijuana in the past. Initial vitals with tachycardia, otherwise stable. On exam patient has diffuse abdominal tenderness with voluntary guarding, no rigidity, normal bowel sounds. Labs with dehydration, hyperkalemia, hypoglycemia, hypomagnesium, and decreased bicarb. Chest x-ray: 1. Worsening cavitary infiltrate at the lung bases left greater than right worrisome for atypical infection such as MAC. 2. No active inflammatory process at the abdomen or pelvis. Discussed case with Dr. Ramses Sigala, ER attending who recommended ordering 10 mg albuterol, sodium bicarbonate, ceftriaxone, azithromycin and admit to hospitalist service.Spoke to Dr. Antonio, hospitalist who will accept and resume care of patient, will admit to hospitalist service. Discussed results with patient and she is agreeable with admission. Critical care attestation.: If time is entered above; I have spent that time in minutes in the direct care of this critically ill patient, excluding procedure time. ED Disposition Clinical Impression: Cavitary pneumonia, Hyponatremia, Hyperkalemia, Hypomagnesemia, Hypocalcemia Disposition: ADMITTED INPATIENT Is pt being admited?: Yes Does the pt Need Aspirin: No Condition: Fair Time of Disposition: 17:22
[2021-08-04 13:50] LABS: Basophils % (Auto) 0.5 % (0.0-1.8); Eosinophils % (Auto) 0.2 % (0.0-4.3); Hematocrit 33.1 % (30.3-42.9); Hemoglobin 11.3 gm/dl (10.1-14.3); Lymphocytes # (Auto) 0.9 K/mm3 (1.2-5.4); Lymphocytes % (Auto) 10.8 % (13.4-35.0); Mean Corpuscular HGB Conc 34 % (30-34); Mean Corpuscular Volume 89 fl (79-97); Monocytes # (Auto) 0.6 K/mm3 (0.0-0.8); Monocytes % (Auto) 7.4 % (0.0-7.3); Platelet Count 366 K/mm3 (140-440); Red Blood Count 3.72 M/mm3 (3.65-5.03); Red Cell Distribution Width 15.1 % (13.2-15.2)
[2021-08-04 14:17] LABS: Blood Urea Nitrogen 12 mg/dL (7-17); Calcium 8.1 mg/dL (8.4-10.2); Hemolysis Index 942
[2021-08-04 14:19] LABS: BUN/Creatinine Ratio 17
[2021-08-04 14:37] LABS: Alanine Aminotransferase < 5 units/L (7-56)
[2021-08-04 15:11] LABS: Alanine Aminotransferase 7 units/L (7-56); Albumin 2.8 g/dL (3.9-5); Blood Urea Nitrogen 12 mg/dL (7-17); Calcium 7.5 mg/dL (8.4-10.2); Hemolysis Index 187
[2021-08-04 15:12] LABS: BUN/Creatinine Ratio 17
[2021-08-04] MEDS ORDERED: SODIUM POLYSTYRENE 15 GM/60 ML ORAL LIQD PO ONE (15:34)
[2021-08-04] MEDS ORDERED: CALCIUM GLUCONATE 1,000 MG in SODIUM CHLORIDE 0.9% 100 ML IV ONE (15:39)
[2021-08-04] MEDS ORDERED: MAGNESIUM SULFATE 2 GM/50 ML BAG IV ONE (15:39)
[2021-08-04] MEDS ORDERED: DEXTROSE 50% IN WATER (25GM) 50 ML VIAL IV ONE (15:41)
[2021-08-04] MEDS ORDERED: DEXTROSE 50% IN WATER (25GM) 50 ML SYRINGE IV ONE (16:00)
[2021-08-04] MEDS ORDERED: ALBUTEROL 2.5 MG/3 ML NEBU IH ONE ×2 (16:03→18:16)
[2021-08-04] MEDS ORDERED: SODIUM BICARB 8.4% 50 MEQ/50 ML SYRINGE IV ONE (16:03)
--- NOTE | 2021-08-04 16:55 | Cat Scan Report ---
CT ABDOMEN AND PELVIS WITH CONTRAST INDICATION / CLINICAL INFORMATION: Diffuse abdominal pain. Nausea and vomiting. TECHNIQUE: Axial CT images were obtained through the abdomen and pelvis after Isovue-300, 100 cc IV c ontrast. All CT scans at this location are performed using CT dose reduction for ALARA by means of a utomated exposure control. COMPARISON: None available. FINDINGS: LOWER CHEST: Patchy nodularity at the right base and cavitary infiltrate at the left base remain with mild worsening. LIVER: No significant abnormality. GALLBLADDER: No significant abnormality. BILE DUCTS: No significant abnormality. PANCREAS: No significant abnormality. SPLEEN: No significant abnormality. ADRENALS: No significant abnormality. RIGHT KIDNEY / URETER: No significant abnormality. LEFT KIDNEY / URETER: No significant abnormality. STOMACH / SMALL BOWEL: No significant abnormality. COLON: No significant abnormality. APPENDIX: Nonvisualized. PERITONEUM: No free fluid. No free air. No fluid collection. LYMPH NODES: No significant adenopathy. VASCULAR STRUCTURES: No significant abnormality. URINARY BLADDER: No significant abnormality. REPRODUCTIVE ORGANS: No significant abnormality. ADDITIONAL FINDINGS: None. SKELETAL SYSTEM: No significant abnormality. IMPRESSION: 1. Worsening cavitary infiltrate at the lung bases left greater than right worrisome for atypical inf ection such as MAC. 2. No active inflammatory process at the abdomen or pelvis. Signer Name: Mohamud Cruz MD Signed: 08/04/2021 4:51 PM Workstation Name: [id number]
[2021-08-04] MEDS ORDERED: cefTRIAXone/NS 2 GM/100 ML 2 GM/100 ML BAG IV ONE (17:18)
[2021-08-04] MEDS ORDERED: AZITHROMYCIN/NS 500 MG/250 ML 500 MG/250 ML BAG IV ONE (17:18)
[2021-08-04] MEDS ORDERED: MORPHINE 2 MG/1 ML INJ IV ONE (17:23)
[2021-08-04 19:51] LABS: Bilirubin,Urine NEG (Negative); Blood,Urine MOD (Negative); Color,Urine Straw (Yellow); Protein,Urine <15 mg/dL mg/dL (Negative); Urobilinogen,Urine < 2.0 mg/dL (<2.0)
[2021-08-04] MEDS ORDERED: SENNOSIDES 8.6 MG TAB PO PRN (19:57)
[2021-08-04] MEDS ORDERED: oxyCODONE /ACETAMINOPHEN 5-325MG TAB PO PRN (19:57)
[2021-08-04] MEDS ORDERED: NALOXONE 0.4 MG/1 ML INJ IV PRN (19:57)
[2021-08-04] MEDS ORDERED: ALBUTEROL 2.5 MG/3 ML NEBU IH PRN (19:57)
[2021-08-04] MEDS ORDERED: MAGNESIUM HYDROXIDE (MOM) ORAL LIQD UDC PO PRN (19:57)
[2021-08-04] MEDS ORDERED: MORPHINE 4 MG/1 ML INJ IV PRN (19:57)
[2021-08-04] MEDS ORDERED: ALUM-MAG HYDROXIDE-SIMETHICONE 200-200-20MG/5ML ORAL LIQD 30 ML PO PRN (19:57)
[2021-08-04] MEDS ORDERED: METOCLOPRAMIDE 10 MG/2 ML INJ IV PRN (19:57)
[2021-08-04] MEDS ORDERED: ONDANSETRON 4 MG/2 ML INJ IV PRN (19:57)
--- NOTE | 2021-08-04 20:08 | History and Physical Report ---
History of Present Illness Date of examination: 08/04/21 Date of admission: 08/04/21 17:22 Chief complaint: abdominal pain History of present illness: This is a 41-year-old female seen in Ed at bedside. She presents to emergency room with chief complaints of diffuse abdominal pain that began 2 days ago. She has associated nausea and vomiting. She states that she has been having loose stools. She denies any fever, urinary symptoms, hematochezia, melena, hemate mesis. She has a past medical history of UTI. No allergies to medications. She denies any past abdominal surgical history. Patient endorses marijuana use and states that she did smoke marijuana today. Patient states that she has been advised that her abdominal pain could be related to marijuana and alcohol use. Chest area done-shows worsening cavitation infiltrate both lungs-worse on the right than left lung. Past History Past Medical History: COPD Past Surgical History: No surgical history Social history: lives with family, smoking, alcohol abuse, full code. denies: prescription drug abuse, IV drug use Family history: no significant family history Medications and Allergies Allergies Allergy/AdvReac Type Severity Reaction Status Date / Time No Known Allergies Allergy Unverified 08/30/18 02:13 Home Medications Medication Instructions Recorded Confirmed Last Taken Type Albuterol Mdi (or & Nicu Only) 2 puff IH Q4HRT PRN #1 inha 07/18/21 Unknown Rx [ProAir HFA Inhaler] Benzonatate [Tessalon Perles] 100 mg PO Q8HR #30 capsule 07/18/21 Unknown Rx Folic Acid [Folvite] 1 mg PO QDAY #30 tablet 07/18/21 Unknown Rx Linezolid [Zyvox] 600 mg PO Q12HR #15 tablet 07/18/21 Unknown Rx Nicotine [Habitrol] 14 mg TD DAILY #30 patch 07/18/21 Unknown Rx Thiamine [Vitamin B-1] 100 mg PO QDAY #30 tablet 07/18/21 Unknown Rx Active Meds: Active Medications Acetaminophen (Acetaminophen 325 Mg Tab) 650 mg PO Q4H PRN PRN Reason: Pain MILD(1-3)/Fever >100.5/WILKERSON Al Hydrox/Mg Hydrox/Simethicone (Alum-Mag Hydroxide-Simethicone [id number]/5ml Oral Liqd 30 Ml) 30 ml PO Q4H PRN PRN Reason: Indigestion Albuterol (Albuterol 2.5 Mg/3 Ml Nebu) 2.5 mg IH Q4HRT PRN PRN Reason: Shortness Of Breath Enoxaparin Sodium (Enoxaparin 40 Mg/0.4 Ml Inj) 40 mg SUB-Q QDAY [facility] Famotidine (Famotidine 20 Mg/2 Ml Inj) 20 mg IV BID [facility] Folic Acid (Folic Acid 1 Mg Tab) 1 mg PO QDAY [facility] Azithromycin (Zithromax/Ns) 500 mg in 250 mls @ 250 mls/hr IV Q24H [facility] Ceftriaxone Sodium (Rocephin/Ns 1 Gm/50 Ml) 1 gm in 50 mls @ 100 mls/hr IV Q24H [facility]; Protocol Sodium Chloride (Nacl 0.9% 1000 Ml) 1,000 mls @ 75 mls/hr IV DIRECT RAJANI Magnesium Hydroxide (Magnesium Hydroxide (Mom) Oral Liqd Udc) 30 ml PO Q4H PRN PRN Reason: Constipation Metoclopramide HCl (Metoclopramide 10 Mg/2 Ml Inj) 10 mg IV Q6H PRN PRN Reason: Nausea And Vomiting Morphine Sulfate (Morphine 2 Mg/1 Ml Inj) 2 mg IV Q4H PRN PRN Reason: Pain, Moderate (4-6) Morphine Sulfate (Morphine 4 Mg/1 Ml Inj) 4 mg IV Q4H PRN PRN Reason: Pain , Severe (7-10) Naloxone HCl (Naloxone 0.4 Mg/1 Ml Inj) 0.1 mg IV Q2MIN PRN PRN Reason: Res Rate </= 8 or 02 SAT < 92% Nicotine (Nicotine 14 Mg/24 Hr Patch) 14 mg TD DAILY [facility] Ondansetron HCl (Ondansetron 4 Mg/2 Ml Inj) 4 mg IV Q8H PRN PRN Reason: Nausea And Vomiting Oxycodone/Acetaminophen (Oxycodone /Acetaminophen 5-325mg Tab) 1 tab PO Q6H PRN PRN Reason: Pain, Moderate (4-6) Senna (Sennosides 8.6 Mg Tab) 8.6 mg PO Q12HR PRN PRN Reason: Constipation Sodium Chloride (Sodium Chloride 0.9% 10 Ml Flush Syringe) 10 ml IV BID [facility] Thiamine HCl (Thiamine 100 Mg Tab) 100 mg PO QDAY [facility] Review of Systems Constitutional: anorexia, fatigue, weakness Ears, nose, mouth and throat: no epistaxis, no bleeding gums Respiratory: no wheezing Gastrointestinal: abdominal pain, nausea Musculoskeletal: muscle weakness, no morning stiffness Integumentary: no rash, no pruritis, no redness Neurological: no vertigo Psychiatric: anxiety, depression Hematologic/Lymphatic: no easy bruising, no easy bleeding, no lymphadenopathy, no lymphedema Allergic/Immunologic: no urticaria Exam - Constitutional Vitals: Temp Pulse Resp BP Pulse Ox 98.9 F 103 H 18 126/91 96 08/04/21 12:52 08/04/21 13:06 08/04/21 13:47 08/04/21 13:06 08/04/21 13:06 General appearance: Present: mild distress, well-nourished - EENT Eyes: Present: PERRL ENT: hearing intact, clear oral mucosa - Neck Neck: Present: supple, normal ROM - Respiratory Respiratory effort: normal Respiratory: bilateral: CTA - Cardiovascular Heart Sounds: Present: S1 & S2. Absent: rub, click - Extremities Extremities: pulses symmetrical, No edema Peripheral Pulses: within normal limits - Abdominal General gastrointestinal: Present: soft, non-tender, non-distended, normal bowel sounds Female genitourinary: Present: normal - Integumentary Integumentary: Present: clear, warm, dry - Musculoskeletal Musculoskeletal: gait normal, strength equal bilaterally - Psychiatric Psychiatric: appropriate mood/affect, intact judgment & insight, cooperative - Neurologic Neurologic: CNII-XII intact, moves all extremities - Allied Health Allied health notes reviewed: nursing, PT Results - Labs CBC & Chem 7: 08/04/21 13:26 08/04/21 20:42 Labs: Abnormal lab results 08/04/21 08/04/21 08/04/21 Range/Units 13:26 13:26 14:35 Lymph % (Auto) 10.8 L (13.4-35.0) % [place] % (Auto) 7.4 H (0.0-7.3) % Lymph # (Auto) 0.9 L (1.2-5.4) K/mm3 Seg Neutrophils % 81.1 H (40.0-70.0) % Sodium 124 L 129 L (137-145) mmol/L Potassium 6.5 H* (3.6-5.0) mmol/L Chloride 88.9 L 95.2 L (98-107) mmol/L Carbon Dioxide 20 L 20 L (22-30) mmol/L Glucose 64 L 61 L (65-100) mg/dL Calcium 8.1 L 7.5 L (8.4-10.2) mg/dL Magnesium (1.7-2.3) mg/dL AST 94 H (5-40) units/L ALT < 5 L (7-56) units/L Alkaline Phosphatase 158 H 158 H (35-129) units/L Total Protein 10.6 H 8.3 H D (6.3-8.2) g/dL Albumin 3.0 L 2.8 L (3.9-5) g/dL 08/04/21 Range/Units 15:06 Lymph % (Auto) (13.4-35.0) % [place] % (Auto) (0.0-7.3) % Lymph # (Auto) (1.2-5.4) K/mm3 Seg Neutrophils % (40.0-70.0) % Sodium (137-145) mmol/L Potassium (3.6-5.0) mmol/L Chloride (98-107) mmol/L Carbon Dioxide (22-30) mmol/L Glucose (65-100) mg/dL Calcium (8.4-10.2) mg/dL Magnesium 1.00 L (1.7-2.3) mg/dL AST (5-40) units/L ALT (7-56) units/L Alkaline Phosphatase (35-129) units/L Total Protein (6.3-8.2) g/dL Albumin (3.9-5) g/dL Assessment and Plan - Patient Problems (1) Cavitary pneumonia Current Visit: Yes Status: Acute Plan to address problem: ID /pulmonology following consulted empiric antibiotics . Continue isolation respiratory. At risk for TB given alcohol dependency. Chest x-ray showed worsening cavity infiltrates of the lung-left worse than the right. (2) Hyperkalemia Current Visit: Yes Status: Acute Plan to address problem: [place] given in ED Monitor potassium level (3) Hypomagnesemia Current Visit: Yes Status: Acute Plan to address problem: Relaced in ED Monitor electrolyte and replace PRN (4) Hyponatremia Current Visit: Yes Status: Acute Plan to address problem: Likely 2/2 to dehydration-patient is alcohol user Continue gentle IV hydration Monitor sodium level (5) Abdominal pain Current Visit: No Status: Acute Plan to address problem: Abdominal pain most likely was secondary to alcohol use versus gastritis. Continue PPI. (6) Alcohol dependence Current Visit: No Status: Acute Plan to address problem: Discussed alcohol use cessation No evidence of withdrawal at this time. Monitor for withdrawal (7) COPD (chronic obstructive pulmonary disease) Current Visit: No Status: Acute Plan to address problem: Bronchodialator PRN Oxygen supplement PRN Dividing Machine Operator consult (8) DVT prophylaxis Current Visit: Yes Status: Acute Plan to address problem: scd
[2021-08-04] MEDS: MORPHINE 2 MG/1 ML INJ IV PRN (21:20)
[2021-08-04 21:26] LABS: Blood Urea Nitrogen 14 mg/dL (7-17); Calcium 8.1 mg/dL (8.4-10.2); Hemolysis Index 138
[2021-08-04 21:31] LABS: BUN/Creatinine Ratio 20
[2021-08-04] MEDS: FAMOTIDINE 20 MG/2 ML INJ IV SCH (22:14)
[2021-08-04] MEDS: SODIUM CHLORIDE 0.9% 1000 ML 1,000 ML IV SCH (22:14)
[2021-08-04] MEDS: ACETAMINOPHEN 325 MG TAB PO PRN (22:53)
[2021-08-05] MEDS: MORPHINE 2 MG/1 ML INJ IV PRN ×2 (01:02→06:13)
[2021-08-05] MEDS ORDERED: diphenhydrAMINE 25 MG CAP PO ONE (01:31)
--- NOTE | 2021-08-05 10:07 | Progress Note ---
Assessment and Plan - Patient Problems (1) Cavitary pneumonia Current Visit: Yes Status: Acute Plan to address problem: Infectious disease service consulted, continue medical management. Prior admission records reviewed. Patient reports compliance with outpatient medication as well as outpatient infectious disease follow-up. (2) Severe malnutrition Current Visit: Yes Status: Acute Plan to address problem: Increase protein intake, dietary supplementation. (3) DVT prophylaxis Current Visit: Yes Status: Acute Plan to address problem: SCD to bilateral lower extremities while in bed, patient is ambulatory. History Interval history: 41 YO Female with cavitary lung lesion suspicious for tuberculosis as per infectious disease service. Continue supportive care, patient resting comfortably. Patient denies pain. No reported nursing events overnight. Hospitalist Physical - Constitutional Vitals: Temp Pulse Resp BP Pulse Ox 98 F 81 20 96/55 99 08/05/21 09:15 08/05/21 09:15 08/05/21 09:15 08/05/21 09:15 08/05/21 09:15 General appearance: Present: mild distress, well-nourished - EENT Eyes: Present: PERRL, EOM intact ENT: hearing intact - Neck Neck: Present: supple - Respiratory Respiratory effort: normal Respiratory: bilateral: diminished - Cardiovascular Rhythm: regular Heart Sounds: Present: S1 & S2 Peripheral Pulses: within normal limits - Abdominal General gastrointestinal: soft, non-tender, non-distended - Integumentary Integumentary: Present: clear, dry - Psychiatric Psychiatric: appropriate mood/affect, cooperative - Neurologic Neurologic: CNII-XII intact Results - Labs CBC & Chem 7: 08/04/21 13:26 08/04/21 20:42 Labs: Laboratory Last Values WBC 8.2 K/mm3 (4.5-11.0) 08/04/21 13:26 RBC 3.72 M/mm3 (3.65-5.03) 08/04/21 13:26 Hgb 11.3 gm/dl (10.1-14.3) 08/04/21 13:26 Hct 33.1 % (30.3-42.9) 08/04/21 13:26 MCV 89 fl (79-97) 08/04/21 13:26 MCH 30 pg (28-32) 08/04/21 13:26 MCHC 34 % (30-34) 08/04/21 13:26 RDW 15.1 % (13.2-15.2) 08/04/21 13:26 Plt Count 366 K/mm3 (140-440) 08/04/21 13:26 Lymph % (Auto) 10.8 % (13.4-35.0) L 08/04/21 13:26 [place] % (Auto) 7.4 % (0.0-7.3) H 08/04/21 13:26 Eos % (Auto) 0.2 % (0.0-4.3) 08/04/21 13:26 Baso % (Auto) 0.5 % (0.0-1.8) 08/04/21 13:26 Lymph # (Auto) 0.9 K/mm3 (1.2-5.4) L 08/04/21 13:26 [place] # (Auto) 0.6 K/mm3 (0.0-0.8) 08/04/21 13:26 Eos # (Auto) 0.0 K/mm3 (0.0-0.4) 08/04/21 13:26 Baso # (Auto) 0.0 K/mm3 (0.0-0.1) 08/04/21 13:26 Seg Neutrophils % 81.1 % (40.0-70.0) H 08/04/21 13:26 Seg Neutrophils # 6.7 K/mm3 (1.8-7.7) 08/04/21 13:26 Sodium 135 mmol/L (137-145) L 08/04/21 20:42 Potassium 4.6 mmol/L (3.6-5.0) D 08/04/21 20:42 Chloride 97.1 mmol/L (98-107) L 08/04/21 20:42 Carbon Dioxide 22 mmol/L (22-30) 08/04/21 20:42 Anion Gap 21 mmol/L 08/04/21 20:42 BUN 14 mg/dL (7-17) 08/04/21 20:42 Creatinine 0.7 mg/dL (0.6-1.2) 08/04/21 20:42 Estimated GFR > 60 ml/min 08/04/21 20:42 BUN/Creatinine Ratio 20 % 08/04/21 20:42 Glucose 74 mg/dL (65-100) 08/04/21 20:42 POC Glucose 72 mg/dL (70-105) 08/04/21 17:57 Hemoglobin A1c 5.7 % (4-6) 08/04/21 20:42 Calcium 8.1 mg/dL (8.4-10.2) L 08/04/21 20:42 Phosphorus 3.00 mg/dL (2.5-4.5) 08/04/21 20:42 Magnesium 1.00 mg/dL (1.7-2.3) L 08/04/21 15:06 Total Bilirubin 0.30 mg/dL (0.1-1.2) 08/04/21 14:35 AST 30 units/L (5-40) 08/04/21 14:35 ALT 7 units/L (7-56) 08/04/21 14:35 Alkaline Phosphatase 158 units/L (35-129) H 08/04/21 14:35 Total Protein 8.3 g/dL (6.3-8.2) H D 08/04/21 14:35 Albumin 2.8 g/dL (3.9-5) L 08/04/21 14:35 Albumin/Globulin Ratio 0.5 % 08/04/21 14:35 Lipase 20 units/L (13-60) 08/04/21 13:26 HCG, Qual Negative (Negative) 08/04/21 13:26 Urine Color Straw (Yellow) 08/04/21 Unknown Urine Turbidity Clear (Clear) 08/04/21 Unknown Urine pH 5.0 (5.0-7.0) 08/04/21 Unknown Ur Specific [place] 1.048 (1.003-1.030) H 08/04/21 Unknown Urine Protein <15 mg/dl mg/dL (Negative) 08/04/21 Unknown Urine Glucose (UA) Neg mg/dL (Negative) 08/04/21 Unknown Urine Ketones Neg mg/dL (Negative) 08/04/21 Unknown Urine Blood Mod (Negative) 08/04/21 Unknown Urine Nitrite Neg (Negative) 08/04/21 Unknown Urine Bilirubin Neg (Negative) 08/04/21 Unknown Urine Urobilinogen < 2.0 mg/dL (<2.0) 08/04/21 Unknown Ur Leukocyte Esterase Neg (Negative) 08/04/21 Unknown Urine WBC (Auto) 1.0 /HPF (0.0-6.0) 08/04/21 Unknown Urine RBC (Auto) 2.0 /HPF (0.0-6.0) 08/04/21 Unknown U Epithel Cells (Auto) 6.0 /HPF (0-13.0) 08/04/21 Unknown [place]/IV: Voiding Method Toilet Active Medications - Current Medications Current Medications: Generic Name Dose Route Start Last Admin Trade Name Freq PRN Reason Stop Dose Admin Acetaminophen 650 mg 08/04/21 19:57 08/04/21 22:53 Acetaminophen 325 Mg Tab PO 650 mg Q4H PRN Administration Pain MILD(1-3)/Fever >100.5/WILKERSON Al Hydrox/Mg Hydrox/Simethicone 30 ml 08/04/21 19:57 Alum-Mag Hydroxide-Simethicone [phone]/5ml Oral Liqd 30 Ml PO Q4H PRN Indigestion Albuterol 2.5 mg 08/04/21 19:57 Albuterol 2.5 Mg/3 Ml Nebu IH Q4HRT PRN Shortness Of Breath Enoxaparin Sodium 40 mg 08/05/21 10:00 Enoxaparin 40 Mg/0.4 Ml Inj SUB-Q QDAY [facility] Famotidine 20 mg 08/04/21 22:00 08/04/21 22:14 Famotidine 20 Mg/2 Ml Inj IV 20 mg BID RAJANI Administration Folic Acid 1 mg 08/05/21 10:00 Folic Acid 1 Mg Tab PO QDAY [facility] Azithromycin 500 mg in 250 mls @ 250 mls/hr 08/05/21 18:00 Zithromax/Ns IV Q24H [facility] Ceftriaxone Sodium 1 gm in 50 mls @ 100 mls/hr 08/05/21 18:00 Rocephin/Ns 1 Gm/50 Ml IV Q24H [facility] Protocol Sodium Chloride 1,000 mls @ 75 mls/hr 08/04/21 20:00 08/04/21 22:14 Nacl 0.9% 1000 Ml IV 75 mls/hr DIRECT RAJANI Administration Magnesium Hydroxide 30 ml 08/04/21 19:57 Magnesium Hydroxide (Mom) Oral Liqd Udc PO Q4H PRN Constipation Metoclopramide HCl 10 mg 08/04/21 19:57 Metoclopramide 10 Mg/2 Ml Inj IV Q6H PRN Nausea And Vomiting Morphine Sulfate 2 mg 08/04/21 19:57 08/05/21 06:13 Morphine 2 Mg/1 Ml Inj IV 2 mg Q4H PRN Administration Pain, Moderate (4-6) Naloxone HCl 0.1 mg 08/04/21 19:57 Naloxone 0.4 Mg/1 Ml Inj IV Q2MIN PRN Res Rate </= 8 or 02 SAT < 92% Nicotine 14 mg 08/05/21 10:00 Nicotine 14 Mg/24 Hr Patch TD DAILY [facility] Ondansetron HCl 4 mg 08/04/21 19:57 08/04/21 21:20 Ondansetron 4 Mg/2 Ml Inj IV 4 mg Q8H PRN Administration Nausea And Vomiting Oxycodone/Acetaminophen 1 tab 08/04/21 19:57 Oxycodone /Acetaminophen 5-325mg Tab PO Q6H PRN Pain, Moderate (4-6) Senna 8.6 mg 08/04/21 19:57 Sennosides 8.6 Mg Tab PO Q12HR PRN Constipation Sodium Chloride 10 ml 08/04/21 22:00 08/04/21 22:14 Sodium Chloride 0.9% 10 Ml Flush Syringe IV 10 ml BID [facility]JANI Administration Thiamine HCl 100 mg 08/05/21 10:00 Thiamine 100 Mg Tab PO QDAY [facility]
[2021-08-05] MEDS: FOLIC ACID 1 MG TAB PO SCH (10:11)
[2021-08-05] MEDS: THIAMINE 100 MG TAB PO SCH (10:11)
[2021-08-05] MEDS: ENOXAPARIN 40 MG/0.4 ML INJ SUB-Q SCH (10:12)
[2021-08-05] MEDS: FAMOTIDINE 20 MG/2 ML INJ IV SCH ×2 (10:12→21:42)
[2021-08-05] MEDS: NICOTINE 14 MG/24 HR PATCH TD SCH (10:12)
--- NOTE | 2021-08-05 10:53 | Event Note ---
Date: 08/05/21 Patient known to me as I did her bronch 3 years ago and saw her when she came in with the same complaint of abdominal pain last month. She has no respiratory complaints or symptoms. If ID feels patient needs another bronch, will attempt to arrange for next week. I would suggest making asking GI to see patient and consider EDG given recurrent bouts of nausea and vomiting along with persistent abdominal pain. I know the abdominal CT is benign but something is giving her pain and I doubt the source is the lung. quantiferon gold was negative on last admit. please alert me if bronch is wanted, otherwise will sign off. Patient does not carry a diagnosis of COPD and has no PFT's to prove this.
[2021-08-05] MEDS: SODIUM CHLORIDE 0.9% 1000 ML 1,000 ML IV SCH (15:47)
[2021-08-05] MEDS: ACETAMINOPHEN 325 MG TAB PO PRN ×2 (17:26→21:41)
[2021-08-05] MEDS ORDERED: AZITHROMYCIN/NS 500 MG/250 ML 500 MG/250 ML BAG IV SCH (18:00)
[2021-08-05] MEDS ORDERED: cefTRIAXone/NS 1 GM/50 ML 1 GM/50 ML BAG IV SCH (18:00)
[2021-08-06] MEDS: ACETAMINOPHEN 325 MG TAB PO PRN ×4 (03:08→18:13)
--- NOTE | 2021-08-06 09:24 | Discharge Summary ---
Providers - Providers Date of Admission: 08/04/21 17:22 Attending physician: GIUSEPPE ARTEAGA 08/04/21 19:57 Consult to Physician [CONS] Routine Comment: Consulting Provider: NOHEMI WATSON Physician Instructions: Reason For Exam: acute respiratory failure/pna 08/04/21 20:45 Consult to Physician [CONS] Routine Comment: Consulting Provider: RUBIA CHEN Physician Instructions: Reason For Exam: cavity of the lung Primary care physician: FLIGHT/TRANSPORT NURSE Hospitalization Condition: Fair - Discharge Diagnoses (1) Cavitary pneumonia Status: Acute (2) Severe malnutrition Status: Acute (3) DVT prophylaxis Status: Acute Exam - Constitutional Vitals: Temp Pulse Resp BP Pulse Ox 97.3 F L 102 H 20 107/86 98 08/06/21 04:34 08/06/21 04:34 08/06/21 04:34 08/06/21 04:34 08/06/21 05:00 Plan Follow up with: NAM SALMERON MD [Primary Care Provider] - 3-5 Days
[2021-08-06] MEDS: FAMOTIDINE 20 MG/2 ML INJ IV SCH ×2 (09:25→23:15)
[2021-08-06] MEDS: THIAMINE 100 MG TAB PO SCH (09:25)
[2021-08-06] MEDS: ENOXAPARIN 40 MG/0.4 ML INJ SUB-Q SCH (09:26)
[2021-08-06] MEDS: FOLIC ACID 1 MG TAB PO SCH (09:26)
[2021-08-06] MEDS: NICOTINE 14 MG/24 HR PATCH TD SCH (09:26)
--- NOTE | 2021-08-06 11:28 | Consultation ---
History of Present Illness - Reason for Consult Consult date: 08/06/21 Cavitary pneumonia Requesting physician: GIUSEPPE ARTEAGA - History of Present Illness The patient is a 41-year-old female with COPD, marijuana use, alcohol abuse, previous MRSA pneumonia which was not fully treated, recently seen by ID in June 2021 when admitted with worsening cough, greenish sputum production, weight loss and abdominal pain. Sputum AFB x3 and QuantiFERON gold were negative, she was treated with linezolid for a presumed MRSA pneumonia. She has now been admitted with diffuse abdominal pain. A chest CT on admission has revealed worsening disease and cavitary lesions in both lungs, she has otherwise been afebrile. Infectious diseases was consulted. Still having cough, produces greenish sputum, denies hemoptysis. Review of Systems: As per HPI Past History Past Medical History: COPD Past Surgical History: No surgical history Social history: lives with family, smoking, alcohol abuse, full code. denies: prescription drug abuse, IV drug use Family history: no significant family history Medications and Allergies Allergies Allergy/AdvReac Type Severity Reaction Status Date / Time No Known Allergies Allergy Unverified 08/30/18 02:13 Home Medications Medication Instructions Recorded Confirmed Last Taken Type Albuterol Mdi (or & Nicu Only) 2 puff IH Q4HRT PRN #1 inha 07/18/21 08/05/21 Unknown Rx [ProAir HFA Inhaler] Benzonatate [Tessalon Perles] 100 mg PO Q8HR #30 capsule 07/18/21 08/05/21 Unknown Rx Folic Acid [Folvite] 1 mg PO QDAY #30 tablet 07/18/21 08/05/21 Unknown Rx Linezolid [Zyvox] 600 mg PO Q12HR #15 tablet 07/18/21 08/05/21 Unknown Rx Nicotine [Habitrol] 14 mg TD DAILY #30 patch 07/18/21 08/05/21 Unknown Rx Thiamine [Vitamin B-1] 100 mg PO QDAY #30 tablet 07/18/21 08/05/21 Unknown Rx Active Meds: Active Medications Acetaminophen (Acetaminophen 325 Mg Tab) 650 mg PO Q4H PRN PRN Reason: Pain MILD(1-3)/Fever >100.5/WILKERSON Last Admin: 08/06/21 07:43 Dose: 650 mg Documented by: Al Hydrox/Mg Hydrox/Simethicone (Alum-Mag Hydroxide-Simethicone [phone]/5ml Oral Liqd 30 Ml) 30 ml PO Q4H PRN PRN Reason: Indigestion Albuterol (Albuterol 2.5 Mg/3 Ml Nebu) 2.5 mg IH Q4HRT PRN PRN Reason: Shortness Of Breath Enoxaparin Sodium (Enoxaparin 40 Mg/0.4 Ml Inj) 40 mg SUB-Q QDAY [facility] Last Admin: 08/06/21 09:26 Dose: Not Given Documented by: Famotidine (Famotidine 20 Mg/2 Ml Inj) 20 mg IV BID [facility] Last Admin: 08/06/21 09:25 Dose: 20 mg Documented by: Folic Acid (Folic Acid 1 Mg Tab) 1 mg PO QDAY [facility] Last Admin: 08/06/21 09:26 Dose: 1 mg Documented by: Sodium Chloride (Nacl 0.9% 1000 Ml) 1,000 mls @ 75 mls/hr IV DIRECT [facility] Last Admin: 08/05/21 15:47 Dose: 75 mls/hr Documented by: Magnesium Hydroxide (Magnesium Hydroxide (Mom) Oral Liqd Udc) 30 ml PO Q4H PRN PRN Reason: Constipation Metoclopramide HCl (Metoclopramide 10 Mg/2 Ml Inj) 10 mg IV Q6H PRN PRN Reason: Nausea And Vomiting Naloxone HCl (Naloxone 0.4 Mg/1 Ml Inj) 0.1 mg IV Q2MIN PRN PRN Reason: Res Rate </= 8 or 02 SAT < 92% Nicotine (Nicotine 14 Mg/24 Hr Patch) 14 mg TD DAILY [facility] Last Admin: 08/06/21 09:26 Dose: 14 mg Documented by: Ondansetron HCl (Ondansetron 4 Mg/2 Ml Inj) 4 mg IV Q8H PRN PRN Reason: Nausea And Vomiting Last Admin: 08/04/21 21:20 Dose: 4 mg Documented by: Senna (Sennosides 8.6 Mg Tab) 8.6 mg PO Q12HR PRN PRN Reason: Constipation Sodium Chloride (Sodium Chloride 0.9% 10 Ml Flush Syringe) 10 ml IV BID [facility] Last Admin: 08/06/21 09:25 Dose: 10 ml Documented by: Thiamine HCl (Thiamine 100 Mg Tab) 100 mg PO QDAY [facility] Last Admin: 08/06/21 09:25 Dose: 100 mg Documented by: Physical Examination - Physical Exam Narrative exam: Physical Exam: Constitutional: Alert, cooperative. No acute distress Head, Ears, Nose: Normocephalic, atraumatic. External ears, nose normal Eyes: Conjunctivae/corneas clear. No icterus. No ptosis. Neck: Supple, no meningeal signs Oral: dentition fair, no thrush Cardiovascular: S1, S2 + Respiratory: Good air entry, clear to auscultation bilaterally GI: Soft, non-tender; bowel sounds normal. No peritoneal signs Musculoskeletal: No pedal edema, no cyanosis. Skin: No rash or abscess Hem/Lymphatic: No palpable cervical or supraclavicular nodes. No lymphangitis Psych: Mood ok. Affect normal Neurological: Awake, alert, oriented. No gross abnormality - Constitutional Vitals: Vital Signs Temp Pulse Resp BP Pulse Ox 97.3 F L 102 H 20 107/86 99 08/06/21 04:34 08/06/21 04:34 08/06/21 04:34 08/06/21 04:34 08/06/21 10:00 Temperature -Last 24 Hours Temperature 97.3 F Temperature 122.0 F Temperature 97.3 F Temperature 97.7 F Results - Labs CBC & Chem 7: 08/04/21 13:26 08/04/21 20:42 - Imaging and Cardiology CT scan - abdomen: report reviewed, image reviewed Assessment and Plan Cultures: Previous cultures reviewed, see below A/P: 41-year-old female with COPD, marijuana use, alcohol abuse, previous MRSA pneumonia which was not fully treated, recently seen by ID in June 2021 when admitted with worsening cough, greenish sputum production, weight loss and abdominal pain. Sputum AFB x3 and QuantiFERON gold were negative, she was treated with linezolid for a presumed MRSA pneumonia: #Bilateral cavitary pulmonary lesions with progression on CT: Recent admission in June 2021 with negative AFB smears, negative QuantiFERON gold. However, it does not seem like AFB cultures were obtained during that hospitalization. As per review of her previous cultures, 09/03/2018 BAL AFB culture it seems was positive for AFB in broth culture, however, it does not appear like they were able to identify the organism. HIV negative in June 2021. Considering her COPD, ongoing marijuana smoking and chronicity, differential for the cavitary disease is wide and includes nontuberculous mycobacteria, fungal infections. #Cachexia: ?pulmonary cachexia from advanced COPD/lung disease Recs: -I would recommend a bronchoscopy with BAL, please send cultures for routine Gram stain plus culture, AFB stain plus culture, fungal stain and culture, BAL Aspergillus Galactomannan. Also consider BAL cytology. -No antibiotics at this time -Fungitell and serum Aspergillus Galactomannan ordered Discussed with Dr. Pedersen, he will hopefully bronc the patient in the near future. Discussed with RN to cancel discharge. Mariel Ta MD, FACP [facility] ([facility] O: [phone] F: [phone]
--- NOTE | 2021-08-06 12:22 | Event Note ---
Date: 08/06/21 Called by ID as they wish for bronch to happen. Will call GI lab in the AM to see if this an be done tomorrow. Will make patient NPO for now for bronch with washing tomorrow (potentially) if room on the schedule allows.
[2021-08-06 13:46] LABS: INR 1.15 (0.87-1.13)
[2021-08-06 13:47] LABS: Partial Thromboplastin Time 33.6 Sec. (24.2-36.6)
[2021-08-06] MEDS ORDERED: ZOLPIDEM 5 MG TAB PO ONE (23:00)
[2021-08-06] MEDS: oxyCODONE /ACETAMINOPHEN 5-325MG TAB PO PRN (23:14)
[2021-08-07] MEDS ORDERED: FAMOTIDINE 20 MG TAB PO SCH (10:00)
[2021-08-07] MEDS ORDERED: KETAMINE/STERILE WATER 50 MG/ML SYRINGE ONE (10:23)
[2021-08-07] MEDS ORDERED: MIDAZOLAM 2 MG/2 ML INJ ONE (10:24)
[2021-08-07] MEDS ORDERED: LIDOCAINE MPF (2%) 20 MG/1 ML VIAL 5 ML ONE (10:24)
[2021-08-07] MEDS ORDERED: WATER FOR IRRIG STERILE 1,000 ML BOTTLE ONE (10:25)
[2021-08-07] MEDS ORDERED: WATER FOR IRRIG STERILE 250 ML BOTTLE IR ONE (10:25)
[2021-08-07] MEDS ORDERED: propofoL 200 MG/20 ML VIAL IV ONE (10:25)
[2021-08-07] MEDS ORDERED: LIDOCAINE (1%) 10 MG/1 ML VIAL 20 ML MDV ONE (10:26)
[2021-08-07] MEDS ORDERED: LIDOCAINE (2%) 20 MG/1 ML VIAL 20 ML MDV INFILTRATI ONE (10:26)
[2021-08-07] MEDS ORDERED: BENZOCAINE 20% TOP SPRAY 0.5 ML UNIT DOSE MM ONE (10:26)
[2021-08-07] MEDS ORDERED: EPINEPHrine 1 MG/10 ML SYRINGE ONE (10:27)
[2021-08-07] MEDS ORDERED: GLYCOPYRROLATE 0.4 MG/2 ML INJ ONE (10:30)
[2021-08-07] MEDS ORDERED: LIDOCAINE VISCOUS 2% 15 ML ORAL LIQD ONE (10:44)
--- NOTE | 2021-08-07 10:49 | Anesthesia Consultation ---
Anesthesia Consult and Med Hx Date of service: 08/07/21 - Airway Anesthetic Teeth Evaluation: Poor ROM Head & Neck: Adequate Mental/Hyoid Distance: Adequate Mallampati Class: Class II Intubation Access Assessment: Good - Pulmonary Exam CTA: Yes - Cardiac Exam Cardiac Exam: RRR - Pre-Operative Health Status ASA Pre-Surgery Classification: ASA3 Proposed Anesthetic Plan: MAC - Pulmonary Hx Smoking: Yes (current smoker) Hx Asthma: No Hx Respiratory Symptoms: Yes (cough + sputum) COPD: Yes Hx Pneumonia: No Hx Sleep Apnea: No - Cardiovascular System Hx Heart Attack/AMI: No Hx Angina: Yes (unlikely cardiac etiology) Hx Percutaneous Transluminal Coronary Angioplasty (PTCA): No - Central Nervous System Hx Seizures: No CVA: No Hx Psychiatric Problems: No - Endocrine Hx Renal Disease: No Hx End Stage Renal Disease: No Hx Liver Disease: No Hx Insulin Dependent Diabetes: No Hx Thyroid Disease: No - Hematic Hx Anemia: Yes - Other Systems Hx Alcohol Use: Yes Hx Substance Use: Yes Hx Cancer: No Hx Obesity: No
--- NOTE | 2021-08-07 10:49 | Anesthesia Day of Surgery ---
Anesthesia Day of Surgery - Day of Surgery Patient Examined: Yes Patient H&P Reviewed: Yes Patient is NPO: Yes
--- NOTE | 2021-08-07 10:50 | Electrocardiograph Report ---
[facility] Test Date: 2021-08-04 Test Time: 17:17:17 Pat Name: QUINN SANCHEZ Department: Room: A383 1 Gender: F Vamp Liner: GEETA : 1980 Requested By: JESSICA PINEDA Order Number: [id number] Reading MD: Ld Jernigan Measurements Intervals [place] Rate: 77 P: 73 KS: 144 QRS: 112 QRSD: 81 T: 111 QT: 472 QTc: 536 Interpretive Statements Sinus rhythm LAE, consider biatrial enlargement Probable lateral infarct, age indeterminate non specific st-t No previous ECG available for comparison Electronically Signed On 08-07-2021 10:50:39 EDT by Ld Jernigan
--- NOTE | 2021-08-07 11:16 | Progress Note ---
Assessment and Plan Cultures: Previous cultures reviewed, see below A/P: 41-year-old female with COPD, marijuana use, alcohol abuse, previous MRSA pneumonia which was not fully treated, recently seen by ID in June 2021 when admitted with worsening cough, greenish sputum production, weight loss and abdominal pain. Sputum AFB x3 and QuantiFERON gold were negative, she was treated with linezolid for a presumed MRSA pneumonia: #Bilateral cavitary pulmonary lesions with progression on CT: Recent admission in June 2021 with negative AFB smears, negative QuantiFERON gold. However, it does not seem like AFB cultures were obtained during that hospitalization. As per review of her previous cultures, 09/03/2018 BAL AFB culture it seems was positive for AFB in broth culture, however, it does not appear like they were able to identify the organism. HIV negative in June 2021. Considering her COPD, ongoing marijuana smoking and chronicity, differential for the cavitary disease is wide and includes nontuberculous mycobacteria, fungal infections. #Cachexia: ?pulmonary cachexia from advanced COPD/lung disease Recs: -I would recommend a bronchoscopy with BAL, please send cultures for routine Gram stain plus culture, AFB stain plus culture, fungal stain and culture, BAL Aspergillus Galactomannan. Also consider BAL cytology. -No antibiotics at this time -Fungitell and serum Aspergillus Galactomannan ordered. Could take at least a week to return. Jo Palafox MD [facility] ([facility] O: [phone] F: [phone] Subjective Date of service: 08/07/21 Interval history: Afebrile, normal white count. No acute issues. Objective - Exam Narrative Exam: Constitutional: Alert, cooperative. No acute distress Head, Ears, Nose: Normocephalic, atraumatic. External ears, nose normal Eyes: Conjunctivae/corneas clear. No icterus. No ptosis. Neck: Supple, no meningeal signs Oral: dentition fair, no thrush Cardiovascular: S1, S2 + Respiratory: Good air entry, clear to auscultation bilaterally GI: Soft, non-tender; bowel sounds normal. No peritoneal signs Musculoskeletal: No pedal edema, no cyanosis. Skin: No rash or abscess Hem/Lymphatic: No palpable cervical or supraclavicular nodes. No lymphangitis Psych: Mood ok. Affect normal Neurological: Awake, alert, oriented. No gross abnormality - Constitutional Vitals: Vital Signs Temp Pulse Resp BP Pulse Ox 99.4 F 96 H 20 123/94 99 08/07/21 10:34 08/07/21 10:34 08/07/21 10:34 08/07/21 10:34 08/07/21 10:34 Temperature -Last 24 Hours Temperature 99.4 F Temperature 98.3 F Temperature 98.7 F Temperature 98.3 F - Labs CBC & Chem 7: 08/04/21 13:26 08/04/21 20:42 Labs: Abnormal lab results 08/06/21 Range/Units 13:13 PT 15.2 H (12.2-14.9) Sec. INR 1.15 H (0.87-1.13)
--- NOTE | 2021-08-07 11:25 | Procedure Note ---
Date of procedure: 08/07/21 Pre-op diagnosis: Abnormal CT Post-op diagnosis: same Procedure: Flexibile bronch with washing of left lower lobe After obtaining informed consent, patient taken to endo and prepped supine. Scope passed through right nare without difficulty. Cords seen and lidocaine used. Passed and thick yellow secretions seen in proximal and distal airways. Diverticulum still present on right. Scoped passed into left lower lobe after lidocaine used and washing taken. Cleaned out right side as well. No endobronchial lesions. Tolerated procedure with no issues. Anesthesia: MAC Surgeon: NOHEMI WATSON Estimated blood loss: none Specimen disposition: to lab Condition: stable Disposition: floor
[2021-08-07] MEDS: oxyCODONE /ACETAMINOPHEN 5-325MG TAB PO PRN (13:20)
[2021-08-07] MEDS: THIAMINE 100 MG TAB PO SCH (13:21)
[2021-08-07] MEDS: FOLIC ACID 1 MG TAB PO SCH (13:21)
[2021-08-07] MEDS: NICOTINE 14 MG/24 HR PATCH TD SCH (13:21)
[2021-08-07] MEDS: ENOXAPARIN 40 MG/0.4 ML INJ SUB-Q SCH (13:21)
--- NOTE | 2021-08-07 16:03 | Post Anesthesia Evaluation ---
- Post Anesthesia Evaluation Patient Participated: Yes Airway Patent: Yes Stable Respiratory Function: Yes Nausea/Vomiting: No Temp > 96.8F: Yes Pain Manageable: Yes Adequeate Hydration: Yes Anesthesia Complications: No
--- NOTE | 2021-08-07 17:55 | Progress Note ---
Assessment and Plan Assessment and plan: The patient is a 41-year-old female with COPD, marijuana use, alcohol abuse, previous MRSA pneumonia which was not fully treated, recently seen by ID in June 2021 when admitted with worsening cough, greenish sputum production, weight loss and abdominal pain. Sputum AFB x3 and QuantiFERON gold were negative, she was treated with linezolid for a presumed MRSA pneumonia. She has now been admitted with diffuse abdominal pain. CT on admission has revealed worsening disease and cavitary lesions in both lungs, she has otherwise been afebrile. Infectious diseases was consulted. Still having cough, produces greenish sputum, denies hemoptysis. #Bilateral cavitary pulmonary lesions with progression on CT: Recent admission in June 2021 with negative AFB smears, negative QuantiFERON gold. However, it does not seem like AFB cultures were obtained during that hospitalization. As per review of her previous cultures, 09/03/2018 BAL AFB culture it seems was positive for AFB in broth culture, however, it does not appear like they were able to identify the organism. HIV negative in June 2021. Considering her COPD, ongoing marijuana smoking and chronicity, differential for the cavitary disease is wide and includes nontuberculous mycobacteria, fungal infections. COPD Alcohol abuse #Cachexia: ?pulmonary cachexia from advanced COPD/lung disease ID recommends the following: - bronchoscopy with BAL, please send cultures for routine Gram stain plus culture, AFB stain plus culture, fungal stain and culture, BAL Aspergillus Galactomannan. Also consider BAL cytology. -No antibiotics at this time -Fungitell and serum Aspergillus Galactomannan ordered Patient underwent bronchoscopy by Dr. Pedersen this morning. She is alert and comfortable other than some cough was bronchoscopy. Her discharge was deferred for bronchoscopy yesterday with the plan for going home after bronchoscopy. She will see infectious disease service in 10 days for follow-up. History Interval history: Discharge was deferred yesterday for bronchoscopy and BAL cultures as per ID recommendations. Patient did undergo bronchoscopy earlier this morning. Patient is alert and oriented having frequent brief cough post bronchoscopy. She is to be discharged post-bronchoscopy today. ID recommends no antibiotic therapy until cultures become available. Hospitalist Physical - Constitutional Vitals: Temp Pulse Resp BP Pulse Ox 98.2 F 114 H 18 104/80 97 08/07/21 11:23 08/07/21 11:38 08/07/21 11:38 08/07/21 11:38 08/07/21 13:02 General appearance: Present: no acute distress, disheveled - EENT Eyes: Present: PERRL ENT: clear oral mucosa - Neck Neck: Present: supple - Respiratory Respiratory effort: normal Respiratory: bilateral: diminished - Cardiovascular Rhythm: regular - Extremities Extremities: No edema - Abdominal General gastrointestinal: soft, non-tender - Integumentary Integumentary: Absent: rash - Neurologic Neurologic: moves all extremities Results - Labs CBC & Chem 7: 08/04/21 13:26 08/04/21 20:42 Labs: Laboratory Last Values WBC 8.2 K/mm3 (4.5-11.0) 08/04/21 13:26 RBC 3.72 M/mm3 (3.65-5.03) 08/04/21 13:26 Hgb 11.3 gm/dl (10.1-14.3) 08/04/21 13:26 Hct 33.1 % (30.3-42.9) 08/04/21 13:26 MCV 89 fl (79-97) 08/04/21 13:26 MCH 30 pg (28-32) 08/04/21 13:26 MCHC 34 % (30-34) 08/04/21 13:26 RDW 15.1 % (13.2-15.2) 08/04/21 13:26 Plt Count 366 K/mm3 (140-440) 08/04/21 13:26 Lymph % (Auto) 10.8 % (13.4-35.0) L 08/04/21 13:26 [place] % (Auto) 7.4 % (0.0-7.3) H 08/04/21 13:26 Eos % (Auto) 0.2 % (0.0-4.3) 08/04/21 13:26 Baso % (Auto) 0.5 % (0.0-1.8) 08/04/21 13:26 Lymph # (Auto) 0.9 K/mm3 (1.2-5.4) L 08/04/21 13:26 [place] # (Auto) 0.6 K/mm3 (0.0-0.8) 08/04/21 13:26 Eos # (Auto) 0.0 K/mm3 (0.0-0.4) 08/04/21 13:26 Baso # (Auto) 0.0 K/mm3 (0.0-0.1) 08/04/21 13:26 Seg Neutrophils % 81.1 % (40.0-70.0) H 08/04/21 13:26 Seg Neutrophils # 6.7 K/mm3 (1.8-7.7) 08/04/21 13:26 PT 15.2 Sec. (12.2-14.9) H 08/06/21 13:13 INR 1.15 (0.87-1.13) H 08/06/21 13:13 APTT 33.6 Sec. (24.2-36.6) 08/06/21 13:13 Sodium 135 mmol/L (137-145) L 08/04/21 20:42 Potassium 4.6 mmol/L (3.6-5.0) D 08/04/21 20:42 Chloride 97.1 mmol/L (98-107) L 08/04/21 20:42 Carbon Dioxide 22 mmol/L (22-30) 08/04/21 20:42 Anion Gap 21 mmol/L 08/04/21 20:42 BUN 14 mg/dL (7-17) 08/04/21 20:42 Creatinine 0.7 mg/dL (0.6-1.2) 08/04/21 20:42 Estimated GFR > 60 ml/min 08/04/21 20:42 BUN/Creatinine Ratio 20 % 08/04/21 20:42 Glucose 74 mg/dL (65-100) 08/04/21 20:42 POC Glucose 72 mg/dL (70-105) 08/04/21 17:57 Hemoglobin A1c 5.7 % (4-6) 08/04/21 20:42 Calcium 8.1 mg/dL (8.4-10.2) L 08/04/21 20:42 Phosphorus 3.00 mg/dL (2.5-4.5) 08/04/21 20:42 Magnesium 1.00 mg/dL (1.7-2.3) L 08/04/21 15:06 Total Bilirubin 0.30 mg/dL (0.1-1.2) 08/04/21 14:35 AST 30 units/L (5-40) 08/04/21 14:35 ALT 7 units/L (7-56) 08/04/21 14:35 Alkaline Phosphatase 158 units/L (35-129) H 08/04/21 14:35 Total Protein 8.3 g/dL (6.3-8.2) H D 08/04/21 14:35 Albumin 2.8 g/dL (3.9-5) L 08/04/21 14:35 Albumin/Globulin Ratio 0.5 % 08/04/21 14:35 Lipase 20 units/L (13-60) 08/04/21 13:26 HCG, Qual Negative (Negative) 08/04/21 13:26 Urine Color Straw (Yellow) 08/04/21 Unknown Urine Turbidity Clear (Clear) 08/04/21 Unknown Urine pH 5.0 (5.0-7.0) 08/04/21 Unknown Ur Specific [place] 1.048 (1.003-1.030) H 08/04/21 Unknown Urine Protein <15 mg/dl mg/dL (Negative) 08/04/21 Unknown Urine Glucose (UA) Neg mg/dL (Negative) 08/04/21 Unknown Urine Ketones Neg mg/dL (Negative) 08/04/21 Unknown Urine Blood Mod (Negative) 08/04/21 Unknown Urine Nitrite Neg (Negative) 08/04/21 Unknown Urine Bilirubin Neg (Negative) 08/04/21 Unknown Urine Urobilinogen < 2.0 mg/dL (<2.0) 08/04/21 Unknown Ur Leukocyte Esterase Neg (Negative) 08/04/21 Unknown Urine WBC (Auto) 1.0 /HPF (0.0-6.0) 08/04/21 Unknown Urine RBC (Auto) 2.0 /HPF (0.0-6.0) 08/04/21 Unknown U Epithel Cells (Auto) 6.0 /HPF (0-13.0) 08/04/21 Unknown Microbiology: Microbiology 08/07/21 Unknown Bronchial Washings - Left Lower Lobe Respiratory Culture - Preliminary Martinez/IV: Voiding Method Toilet Active Medications - Current Medications Current Medications: Generic Name Dose Route Start Last Admin Trade Name Freq PRN Reason Stop Dose Admin Acetaminophen 650 mg 08/04/21 19:57 08/06/21 18:13 Acetaminophen 325 Mg Tab PO 650 mg Q4H PRN Administration Pain MILD(1-3)/Fever >100.5/WILKERSON Al Hydrox/Mg Hydrox/Simethicone 30 ml 08/04/21 19:57 Alum-Mag Hydroxide-Simethicone [phone]/5ml Oral Liqd 30 Ml PO Q4H PRN Indigestion Albuterol 2.5 mg 08/04/21 19:57 Albuterol 2.5 Mg/3 Ml Nebu IH Q4HRT PRN Shortness Of Breath Enoxaparin Sodium 40 mg 08/05/21 10:00 08/07/21 13:21 Enoxaparin 40 Mg/0.4 Ml Inj SUB-Q 40 mg QDAY RAJANI Administration Famotidine 20 mg 08/07/21 10:00 08/07/21 13:22 Famotidine 20 Mg Tab PO 20 mg BID RAJANI Administration Folic Acid 1 mg 08/05/21 10:00 08/07/21 13:21 Folic Acid 1 Mg Tab PO 1 mg QDAY RAJANI Administration Sodium Chloride 1,000 mls @ 75 mls/hr 08/04/21 20:00 08/05/21 15:47 Nacl 0.9% 1000 Ml IV 75 mls/hr DIRECT RAJANI Administration Magnesium Hydroxide 30 ml 08/04/21 19:57 Magnesium Hydroxide (Mom) Oral Liqd Udc PO Q4H PRN Constipation Metoclopramide HCl 10 mg 08/04/21 19:57 Metoclopramide 10 Mg/2 Ml Inj IV Q6H PRN Nausea And Vomiting Naloxone HCl 0.1 mg 08/04/21 19:57 Naloxone 0.4 Mg/1 Ml Inj IV Q2MIN PRN Res Rate </= 8 or 02 SAT < 92% Nicotine 14 mg 08/05/21 10:00 08/07/21 13:21 Nicotine 14 Mg/24 Hr Patch TD 14 mg DAILY RAJANI Administration Ondansetron HCl 4 mg 08/04/21 19:57 08/04/21 21:20 Ondansetron 4 Mg/2 Ml Inj IV 4 mg Q8H PRN Administration Nausea And Vomiting Oxycodone/Acetaminophen 1 tab 08/06/21 20:23 08/07/21 13:20 Oxycodone /Acetaminophen 5-325mg Tab PO 1 tab Q6H PRN Administration Pain, Moderate (4-6) Senna 8.6 mg 08/04/21 19:57 Sennosides 8.6 Mg Tab PO Q12HR PRN Constipation Sodium Chloride 10 ml 08/04/21 22:00 08/07/21 13:22 Sodium Chloride 0.9% 10 Ml Flush Syringe IV 10 ml BID RAJANI Administration Thiamine HCl 100 mg 08/05/21 10:00 08/07/21 13:21 Thiamine 100 Mg Tab PO 100 mg QDAY RAJANI Administration Nutrition/Malnutrition Assess - Dietary Evaluation Nutrition/Malnutrition Findings: Nutrition Notes Start: 08/07/21 10:46 Freq: Status: Active Protocol: Document 08/07/21 10:46 GB (Rec: 08/07/21 11:06 GB [id number]) Nutrition Notes Need for Assessment generated from: Low BMI Initial or Follow up Assessment Current Diagnosis COPD Other Pertinent Diagnosis possible bronch procedure , PNA, marijuana use, ETOH abuse Current Diet NPO Labs/Tests 08/04: Na 135, Ca 8.1 Pertinent Medications Folic Acid, Thiamine HCl, NaCl Height 5 ft 3 in Weight 41.12 kg [place] Body Weight (kg) 52.27 BMI 16.0 Intake Prior to Admission Good Weight change and time frame Reported weight change w/ downtrend per MD note Current admit, weight trend is stable. Weight Status Underweight Subjective/Other Information Per MD note: cachexia: r/t pulmonary from advanced COPD/ lung disease 79% IBW Percent of energy/protein needs met: 0% - NPO Burn Absent Trauma Absent GI Symptoms None Food Allergy No Skin Integrity/Comment No reported complications Current % PO Good (75-100%) Minimum of two criteria No #1 Nutrition Diagnosis Underweight Etiology Low BMI As Evidenced by Signs and Symptoms BMI: 16.1 Is patient on ventilator? No Is Patient Ambulatory and/or Out of Bed Yes REE-([facility]-ambulatory/OOB) [ 1345.929 NUTR.[id number]] Kcal/Kg value to use for calculation 35 Approximate Energy Requirements Using 1439 kcal/Kg Calculation Used for Recommendations Kcal/kg Additional Notes Protein: 1-1.5 g/kg @ 41k -62g Fluids: 1ml/kcal or per MD Nutrition Intervention Change Diet Order: Restart on regular Nutrition Support: n/a Add Supplement/Snack (indicate name/kcal n/a /protein ) Goal #1 Diet to restart at Regular by F/U Goal #2 PO intake to maintain at 75% or greater TID daily during LOS Follow-Up By: 08/11/21 Additional Comments F/U: diet restarted, PO intake
[2021-08-07] MEDS: ACETAMINOPHEN 325 MG TAB PO PRN (18:32)
[2021-08-07 19:38] VITALS: BP 104/72
== END 2021-08-07 20:15 | disposition home or self-care (01) | DRG 193 ==
LOC: ED 12:47 → 3A 17:22
PROVIDERS: ADMIT Internal Medicine; ATTEND Internal Medicine
PROC: 0B9J8ZZ Drainage of Left Lower Lung Lobe, Via Natural or Artificial Opening Endoscopic (ICD-10-PCS; principal; 2021-08-07)
DX: J18.9 Pneumonia, unspecified organism (principal); E43 Unspecified severe protein-calorie malnutrition; E87.1 Hypo-osmolality and hyponatremia; Z68.1 Body mass index [BMI] 19.9 or less, adult; E87.5 Hyperkalemia; E83.42 Hypomagnesemia; E83.51 Hypocalcemia; J44.9 Chronic obstructive pulmonary disease, unspecified; F10.20 Alcohol dependence, uncomplicated; Z20.822 Contact with and (suspected) exposure to COVID-19
CPT/HCPCS: 36415; 74177; 80048; 80053; 81001; 82962; 83036; 83690; 83735; 84100; 84703; 85025; 85610; 85730; 87102; 87116; 88112; 88312; 93005; 94640; G0378; J0171; J0456; J0610; J0696; J1650; J2250; J2270; J2405; J2704; J3475; J3490; J7030; Q9967

== ENCOUNTER 2021-10-11 17:54 | Inpatient (IN) | payer SELFPAY ==
[2021-10-11] MEDS ORDERED: SODIUM CHLORIDE 0.9% 1000 ML 1,000 ML IV ONE (19:55)
[2021-10-11] MEDS ORDERED: ONDANSETRON 4 MG/2 ML INJ IV ONE (19:55)
--- NOTE | 2021-10-11 19:55 | Event Note ---
ED Screening Note Date of service: 10/11/21 Time: 19:53 ED Screening Note: 41-year-old female who denies any significant past medical history presents to the ER today with complaints of low abdominal pain and right flank pain with associated chills, productive cough, vomiting, wheezing and shortness of breath. She states that symptoms started about 2 days ago. She states that she has had similar symptoms before, she actually had an endoscopy 1 month ago and that was normal. She states that no one has been able to tell her the problem in the past. She denies any recent travel. She denies any fever at home. She denies any apparent ill contacts. She is not chronic any control. She does smoke. She denies any history of PE or DVTs in the past. This initial assessment/diagnostic orders/clinical plan/treatment(s) is/are subject to change based on patients health status, clinical progression and re- assessment by fellow clinical providers in the ED. Further treatment and workup at subsequent clinical providers discretion. Patient/guardian urged not to elope from the ED as their condition may be serious if not clinically assessed and managed. Initial orders include: EKG, chest x-ray, labs, IV fluids
[2021-10-11 20:54] LABS: Hematocrit 37.5 % (30.3-42.9); Hemoglobin 12.1 gm/dl (10.1-14.3); Mean Corpuscular HGB Conc 32 % (30-34); Mean Corpuscular Volume 91 fl (79-97); Platelet Count 507 K/mm3 (140-440); Red Blood Count 4.15 M/mm3 (3.65-5.03); Red Cell Distribution Width 15.7 % (13.2-15.2)
[2021-10-11 21:12] LABS: Alanine Aminotransferase 560 units/L (7-56); Albumin 3.2 g/dL (3.9-5); Blood Urea Nitrogen 10 mg/dL (7-17); Calcium 9.2 mg/dL (8.4-10.2); Hemolysis Index 8
[2021-10-11 21:15] LABS: BUN/Creatinine Ratio 17
[2021-10-11] MEDS ORDERED: FAMOTIDINE 20 MG/2 ML INJ IV ONE (21:41)
[2021-10-11] MEDS ORDERED: SODIUM CHLORIDE 0.9% 1000 ML IV SOLN IV ONE (21:41)
--- NOTE | 2021-10-11 21:47 | Emergency Department Report ---
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 intake. Patient continues to drink beer approximately four 16 ounce cans daily. Patient has not had alcohol in 3 days due to onset of symptoms. She denies a history of previous alcohol withdrawal tremors or seizures she complains of 20/10 sharp co nstant pain to the upper and lower abdomen that is worse with palpation without alleviating factors. She complains of feeling hot and cold without documented fever. She continues to have ongoing chronic cough productive of greenish sputum with intermittent shortness of breath and wheezing. Patient has been out of an inhaler for the last 2 days and is not currently prescribed a nebulizer. Denies previous abdominal surgeries or dysuria. Patient was admitted here in July for worsening cavitary lesion in the chest incidentally found during abdominal pain CT work-up. Patient has not had a previous endoscopy despite what is mentioned in the medical screening note. She actually had a bron choscopy for reevaluation of these cavitary lesions. She followed up with infectious disease as scheduled. She states they told her to come back to the hospital 1 month ago. She is not currently on antibiotics at this time. - Related Data Previous Rx's Medication Instructions Recorded Last Taken Type Albuterol Mdi (or & Nicu Only) 2 puff IH Q4HRT PRN #1 inha 07/18/21 Unknown Rx [ProAir HFA Inhaler] Allergies Allergy/AdvReac Type Severity Reaction Status Date / Time chocolate flavor Allergy Hives Verified 10/13/21 12:18 ED Review of Systems ROS: Stated complaint: SHORT OF BREATH Other details as noted in HPI Comment: All other systems reviewed and negative ED Past Medical Hx - Past Medical History Hx Heart Attack/AMI: No Hx Congestive Heart Failure: No Hx Diabetes: No Hx Liver Disease: No Hx Renal Disease: No Hx Seizures: No Hx Asthma: No Hx COPD: Yes Hx HIV: No Additional medical history: Cavitary lung lesions - Surgical History Additional Surgical History: Bronchoscopy - Social History Smoking Status: Current Every Day Smoker Substance Use Type: Alcohol (Alcohol abuse, beer day), Marijuana - Medications Home Medications: Home Medications Medication Instructions Recorded Confirmed Last Taken Type Albuterol Mdi (or & Nicu Only) 2 puff IH Q4HRT PRN #1 inha 07/18/21 10/13/21 Unknown Rx [ProAir HFA Inhaler] ED Physical Exam - General Limitations: No Limitations - Other Other exam information: General: No acute distress Head: Atraumatic Eyes: normal appearance ENT: Moist mucous membranes Neck: Normal appearance, no midline tenderness Chest: Clear to auscultation bilaterally CV: Tachycardic regular rhythm Abdomen: Soft, normal bowel sounds, epigastric tenderness, lower abdominal 10, nondistended, no rebound or guarding Back: Normal inspection Extremity: Normal inspection, full range of motion, no calf tenderness or leg Neuro: Alert O x 3, no facial asymmetry, speech clear, no gross motor sensory deficit, no tremor Psych: Appropriate behavior Skin: No rash ED Course Vital Signs 10/11/21 10/12/21 10/12/21 17:56 00:01 01:15 Temperature 98.5 F 98.8 F Pulse Rate 138 H 121 H 121 H Pulse Rate [ Bilateral Throughout] Respiratory 20 24 24 Rate Respiratory Rate [Bilateral Throughout] Blood Pressure Blood Pressure 90/60 105/77 105/77 [Right] O2 Sat by Pulse 99 97 97 Oximetry 10/12/21 10/12/21 10/12/21 01:30 01:45 02:00 Temperature Pulse Rate 118 H 122 H 107 H Pulse Rate [ Bilateral Throughout] Respiratory 18 20 26 H Rate Respiratory Rate [Bilateral Throughout] Blood Pressure Blood Pressure 104/75 99/67 105/71 [Right] O2 Sat by Pulse 95 96 93 Oximetry 10/12/21 10/12/21 10/12/21 02:09 02:15 02:30 Temperature Pulse Rate 108 H 101 H 107 H Pulse Rate [ Bilateral Throughout] Respiratory 19 24 25 H Rate Respiratory Rate [Bilateral Throughout] Blood Pressure Blood Pressure 96/66 103/74 107/71 [Right] O2 Sat by Pulse 96 97 97 Oximetry 10/12/21 10/12/21 10/12/21 05:23 08:10 08:55 Temperature 98.7 F Pulse Rate 98 H 106 H Pulse Rate [ 105 H Bilateral Throughout] Respiratory 20 18 Rate Respiratory 12 Rate [Bilateral Throughout] Blood Pressure Blood Pressure 95/65 100/72 [Right] O2 Sat by Pulse 97 99 Oximetry 10/12/21 10/12/21 10/12/21 10:21 10:24 10:51 Temperature Pulse Rate 81 95 H Pulse Rate [ Bilateral Throughout] Respiratory 22 Rate Respiratory Rate [Bilateral Throughout] Blood Pressure Blood Pressure 92/63 [Right] O2 Sat by Pulse 97 99 Oximetry 10/12/21 10/12/21 10/12/21 15:31 16:01 16:31 Temperature Pulse Rate 99 H 91 H 92 H Pulse Rate [ Bilateral Throughout] Respiratory 22 22 19 Rate Respiratory Rate [Bilateral Throughout] Blood Pressure 100/70 100/70 100/70 Blood Pressure [Right] O2 Sat by Pulse 99 99 100 Oximetry 10/12/21 10/12/21 10/12/21 17:01 17:31 17:41 Temperature Pulse Rate 85 91 H 98 H Pulse Rate [ Bilateral Throughout] Respiratory 19 18 18 Rate Respiratory Rate [Bilateral Throughout] Blood Pressure 121/93 121/93 121/93 Blood Pressure [Right] O2 Sat by Pulse 98 97 94 Oximetry 10/12/21 10/12/21 17:51 18:01 Temperature Pulse Rate 90 86 Pulse Rate [ Bilateral Throughout] Respiratory 14 15 Rate Respiratory Rate [Bilateral Throughout] Blood Pressure 121/93 103/75 Blood Pressure [Right] O2 Sat by Pulse 98 98 Oximetry - Central Line Placement Right Femoral Consent Obtained: written consent Time Out Performed: Yes Patient Placed on Monitor/Pulse Ox: Yes Prep: mask, gown, gloves Central Line Prep: Chlorhexidine scrub, sterile drapes applied Local Anesthesia Used: Lidocaine 1% Amount of Anesthesia Used (mls): 5 Ultrasound Used for Placement: No Central Line Lumen Inserted: triple Reason for Insertion: Emergency Venous Access Bloods Obtained for Lab: Yes Central Line Position: good blood return, all ports aspirated, flus, sutured in place with nyl Dressing Applied: Tegaderm Patient Tolerated Procedure: well, no complications Complications: none - EJ/Peripheral Line Neck L Time Out Performed: Yes Indications: nurses unable to establis Skin Cleansed in Sterile Fashion: Yes Size: 20 Patient Tolerated Procedure: other (unable to flush so removed) Neck R Time Out Performed: Yes Indications: nurses unable to establis Skin Cleansed in Sterile Fashion: No Size: 18 Patient Tolerated Procedure: other (Used 18g long angiocath with ultrasound guidance cannulation of right IJ, unable to flush line despite blood return therefore removed) Additional Comments: Long 18 Angiocath catheter ultrasound-guided cannulation of left and right IJ was also attempted by Dr Guevara who also had blood return however, had difficulty flushing the line and therefore removed. Decision made to move forward with right femoral central line since multiple access attempts have failed. ED Medical Decision Making - Lab Data Result diagrams: 10/13/21 06:00 10/13/21 06:00 Lab Results 10/11/21 10/11/21 10/11/21 Range/Units 20:34 20:34 20:34 WBC 7.6 (4.5-11.0) K/mm3 RBC 4.15 (3.65-5.03) M/mm3 Hgb 12.1 (10.1-14.3) gm/dl Hct 37.5 (30.3-42.9) % MCV 91 (79-97) fl MCH 29 (28-32) pg MCHC 32 (30-34) % RDW 15.7 H (13.2-15.2) % Plt Count 507 H (140-440) K/mm3 Add Manual Diff Complete Total Counted 100 Seg Neuts % (Manual) 87.0 H (40.0-70.0) % Band Neutrophils % 1.0 % Lymphocytes % (Manual) 4.0 L (13.4-35.0) % Monocytes % (Manual) 8.0 H (0.0-7.3) % Nucleated RBC % Not Reportable Seg Neutrophils # Man 6.6 (1.8-7.7) K/mm3 Band Neutrophils # 0.1 K/mm3 Lymphocytes # (Manual) 0.3 L (1.2-5.4) K/mm3 Abs React Lymphs (Man) 0.0 K/mm3 Monocytes # (Manual) 0.6 (0.0-0.8) K/mm3 Eosinophils # (Manual) 0.0 (0.0-0.4) K/mm3 Basophils # (Manual) 0.0 (0.0-0.1) K/mm3 Metamyelocytes # 0.0 K/mm3 Myelocytes # 0.0 K/mm3 Promyelocytes # 0.0 K/mm3 Blast Cells # 0.0 K/mm3 WBC Morphology Not Reportable Hypersegmented Neuts Not Reportable Hyposegmented Neuts Not Reportable Hypogranular Neuts Not Reportable Smudge Cells Not Reportable Toxic Granulation Not Reportable Toxic Vacuolation Not Reportable Dohle Bodies Not Reportable Pelger-Huet Anomaly Not Reportable Perico Rods Not Reportable Platelet Estimate Consistent w auto Clumped Platelets Not Reportable Plt Clumps, EDTA Not Reportable Large Platelets Few Giant Platelets Not Reportable Platelet Satelliting Not Reportable Plt Morphology Comment Not Reportable RBC Morphology Not Reportable Dimorphic RBCs Not Reportable Polychromasia Not Reportable Hypochromasia Not Reportable Poikilocytosis Few Anisocytosis Not Reportable Microcytosis Not Reportable Macrocytosis Not Reportable Spherocytes Not Reportable Pappenheimer Bodies Not Reportable Sickle Cells Not Reportable Target Cells Few Tear Drop Cells Not Reportable Ovalocytes Few Helmet Cells Not Reportable [place] Bodies Not Reportable [place] Rings Not Reportable [place] Cells Not Reportable Bite Cells Not Reportable Crenated Cell Not Reportable Elliptocytes Not Reportable Acanthocytes (Spur) Not Reportable Rouleaux Not Reportable Hemoglobin C Crystals Not Reportable Schistocytes Not Reportable Malaria parasites Not Reportable Roel Bodies Not Reportable Hem Pathologist Commnt No PT (12.2-14.9) Sec. INR (0.87-1.13) APTT (24.2-36.6) Sec. Sodium 129 L (137-145) mmol/L Potassium 4.5 (3.6-5.0) mmol/L Chloride 91.5 L (98-107) mmol/L Carbon Dioxide 23 (22-30) mmol/L Anion Gap 19 mmol/L BUN 10 (7-17) mg/dL Creatinine 0.6 (0.6-1.2) mg/dL Estimated GFR > 60 ml/min BUN/Creatinine Ratio 17 % Glucose 115 H (65-100) mg/dL Lactic Acid (0.7-2.0) mmol/L Calcium 9.2 (8.4-10.2) mg/dL Magnesium (1.7-2.3) mg/dL Total Bilirubin 0.90 (0.1-1.2) mg/dL Direct Bilirubin (0-0.2) mg/dL Indirect Bilirubin mg/dL AST 2172 H (5-40) units/L ALT 560 H (7-56) units/L Alkaline Phosphatase 259 H (35-129) units/L Total Creatine Kinase (30-135) units/L Troponin T (0.00-0.029) ng/mL Total Protein 9.4 H (6.3-8.2) g/dL Albumin 3.2 L (3.9-5) g/dL Albumin/Globulin Ratio 0.5 % Lipase (13-60) units/L HCG, Qual Negative (Negative) Urine Color (Yellow) Urine Turbidity (Clear) Urine pH (5.0-7.0) Ur Specific [place] (1.003-1.030) Urine Protein (Negative) mg/dL Urine Glucose (UA) (Negative) mg/dL Urine Ketones (Negative) mg/dL Urine Blood (Negative) Urine Nitrite (Negative) Urine Bilirubin (Negative) Urine Ictotest (Negative) Urine Urobilinogen (<2.0) mg/dL Ur Leukocyte Esterase (Negative) Urine WBC (Auto) (0.0-6.0) /HPF Urine RBC (Auto) (0.0-6.0) /HPF U Epithel Cells (Auto) (0-13.0) /HPF Urine Bacteria (Auto) (Negative) /HPF Urine Mucus /HPF Urine Yeast (Budding) /HPF Urine Opiates Screen Urine Methadone Screen Acetaminophen (10.0-30.0) ug/mL Ur Barbiturates Screen Ur Phencyclidine Scrn Ur Amphetamines Screen U Benzodiazepines Scrn Urine Cocaine Screen U Marijuana (THC) Screen Drugs of Abuse Note Plasma/Serum Alcohol (0-0.07) % Hepatitis A IgM Ab (NonReactive) Hep Bs Antigen (Negative) Hep B Core IgM Ab (NonReactive) Hepatitis C Antibody (NonReactive) 10/11/21 10/11/21 10/11/21 Range/Units 20:34 22:55 22:55 WBC (4.5-11.0) K/mm3 RBC (3.65-5.03) M/mm3 Hgb (10.1-14.3) gm/dl Hct (30.3-42.9) % MCV (79-97) fl MCH (28-32) pg MCHC (30-34) % RDW (13.2-15.2) % Plt Count (140-440) K/mm3 Add Manual Diff Total Counted Seg Neuts % (Manual) (40.0-70.0) % Band Neutrophils % % Lymphocytes % (Manual) (13.4-35.0) % Monocytes % (Manual) (0.0-7.3) % Nucleated RBC % Seg Neutrophils # Man (1.8-7.7) K/mm3 Band Neutrophils # K/mm3 Lymphocytes # (Manual) (1.2-5.4) K/mm3 Abs React Lymphs (Man) K/mm3 Monocytes # (Manual) (0.0-0.8) K/mm3 Eosinophils # (Manual) (0.0-0.4) K/mm3 Basophils # (Manual) (0.0-0.1) K/mm3 Metamyelocytes # K/mm3 Myelocytes # K/mm3 Promyelocytes # K/mm3 Blast Cells # K/mm3 WBC Morphology Hypersegmented Neuts Hyposegmented Neuts Hypogranular Neuts Smudge Cells Toxic Granulation Toxic Vacuolation Dohle Bodies Pelger-Huet Anomaly Perico Rods Platelet Estimate Clumped Platelets Plt Clumps, EDTA Large Platelets Giant Platelets Platelet Satelliting Plt Morphology Comment RBC Morphology Dimorphic RBCs Polychromasia Hypochromasia Poikilocytosis Anisocytosis Microcytosis Macrocytosis Spherocytes Pappenheimer Bodies Sickle Cells Target Cells Tear Drop Cells Ovalocytes Helmet Cells [place] Bodies [place] Rings [place] Cells Bite Cells Crenated Cell Elliptocytes Acanthocytes (Spur) Rouleaux Hemoglobin C Crystals Schistocytes Malaria parasites Roel Bodies Hem Pathologist Commnt PT (12.2-14.9) Sec. INR (0.87-1.13) APTT (24.2-36.6) Sec. Sodium (137-145) mmol/L Potassium (3.6-5.0) mmol/L Chloride (98-107) mmol/L Carbon Dioxide (22-30) mmol/L Anion Gap mmol/L BUN (7-17) mg/dL Creatinine (0.6-1.2) mg/dL Estimated GFR ml/min BUN/Creatinine Ratio % Glucose (65-100) mg/dL Lactic Acid (0.7-2.0) mmol/L Calcium (8.4-10.2) mg/dL Magnesium (1.7-2.3) mg/dL Total Bilirubin (0.1-1.2) mg/dL Direct Bilirubin (0-0.2) mg/dL Indirect Bilirubin mg/dL AST (5-40) units/L ALT (7-56) units/L Alkaline Phosphatase (35-129) units/L Total Creatine Kinase (30-135) units/L Troponin T (0.00-0.029) ng/mL Total Protein (6.3-8.2) g/dL Albumin (3.9-5) g/dL Albumin/Globulin Ratio % Lipase 15 (13-60) units/L HCG, Qual (Negative) Urine Color [place] (Yellow) Urine Turbidity Slightly-cloudy (Clear) Urine pH 5.0 (5.0-7.0) Ur Specific [place] 1.025 (1.003-1.030) Urine Protein 100 mg/dl (Negative) mg/dL Urine Glucose (UA) Neg (Negative) mg/dL Urine Ketones Tr (Negative) mg/dL Urine Blood Neg (Negative) Urine Nitrite Neg (Negative) Urine Bilirubin Sm (Negative) Urine Ictotest Positive (Negative) Urine Urobilinogen 4.0 (<2.0) mg/dL Ur Leukocyte Esterase Sm (Negative) Urine WBC (Auto) 22.0 H (0.0-6.0) /HPF Urine RBC (Auto) 12.0 (0.0-6.0) /HPF U Epithel Cells (Auto) 36.0 H (0-13.0) /HPF Urine Bacteria (Auto) 2+ (Negative) /HPF Urine Mucus 3+ /HPF Urine Yeast (Budding) 1+ /HPF Urine Opiates Screen Presumptive negative Urine Methadone Screen Presumptive negative Acetaminophen (10.0-30.0) ug/mL Ur Barbiturates Screen Presumptive negative Ur Phencyclidine Scrn Presumptive negative Ur Amphetamines Screen Presumptive negative U Benzodiazepines Scrn Presumptive negative Urine Cocaine Screen Presumptive positive U Marijuana (THC) Screen Presumptive positive Drugs of Abuse Note Disclamer Plasma/Serum Alcohol (0-0.07) % Hepatitis A IgM Ab (NonReactive) Hep Bs Antigen (Negative) Hep B Core IgM Ab (NonReactive) Hepatitis C Antibody (NonReactive) 10/11/21 10/11/21 10/11/21 Range/Units 23:24 23:27 23:27 WBC (4.5-11.0) K/mm3 RBC (3.65-5.03) M/mm3 Hgb (10.1-14.3) gm/dl Hct (30.3-42.9) % MCV (79-97) fl MCH (28-32) pg MCHC (30-34) % RDW (13.2-15.2) % Plt Count (140-440) K/mm3 Add Manual Diff Total Counted Seg Neuts % (Manual) (40.0-70.0) % Band Neutrophils % % Lymphocytes % (Manual) (13.4-35.0) % Monocytes % (Manual) (0.0-7.3) % Nucleated RBC % Seg Neutrophils # Man (1.8-7.7) K/mm3 Band Neutrophils # K/mm3 Lymphocytes # (Manual) (1.2-5.4) K/mm3 Abs React Lymphs (Man) K/mm3 Monocytes # (Manual) (0.0-0.8) K/mm3 Eosinophils # (Manual) (0.0-0.4) K/mm3 Basophils # (Manual) (0.0-0.1) K/mm3 Metamyelocytes # K/mm3 Myelocytes # K/mm3 Promyelocytes # K/mm3 Blast Cells # K/mm3 WBC Morphology Hypersegmented Neuts Hyposegmented Neuts Hypogranular Neuts Smudge Cells Toxic Granulation Toxic Vacuolation Dohle Bodies Pelger-Huet Anomaly Perico Rods Platelet Estimate Clumped Platelets Plt Clumps, EDTA Large Platelets Giant Platelets Platelet Satelliting Plt Morphology Comment RBC Morphology Dimorphic RBCs Polychromasia Hypochromasia Poikilocytosis Anisocytosis Microcytosis Macrocytosis Spherocytes Pappenheimer Bodies Sickle Cells Target Cells Tear Drop Cells Ovalocytes Helmet Cells [place] Bodies [place] Rings [place] Cells Bite Cells Crenated Cell Elliptocytes Acanthocytes (Spur) Rouleaux Hemoglobin C Crystals Schistocytes Malaria parasites Roel Bodies Hem Pathologist Commnt PT (12.2-14.9) Sec. INR (0.87-1.13) APTT (24.2-36.6) Sec. Sodium (137-145) mmol/L Potassium (3.6-5.0) mmol/L Chloride (98-107) mmol/L Carbon Dioxide (22-30) mmol/L Anion Gap mmol/L BUN (7-17) mg/dL Creatinine (0.6-1.2) mg/dL Estimated GFR ml/min BUN/Creatinine Ratio % Glucose (65-100) mg/dL Lactic Acid (0.7-2.0) mmol/L Calcium (8.4-10.2) mg/dL Magnesium 1.20 L (1.7-2.3) mg/dL Total Bilirubin (0.1-1.2) mg/dL Direct Bilirubin (0-0.2) mg/dL Indirect Bilirubin mg/dL AST (5-40) units/L ALT (7-56) units/L Alkaline Phosphatase (35-129) units/L Total Creatine Kinase (30-135) units/L Troponin T (0.00-0.029) ng/mL Total Protein (6.3-8.2) g/dL Albumin (3.9-5) g/dL Albumin/Globulin Ratio % Lipase (13-60) units/L HCG, Qual (Negative) Urine Color (Yellow) Urine Turbidity (Clear) Urine pH (5.0-7.0) Ur Specific [place] (1.003-1.030) Urine Protein (Negative) mg/dL Urine Glucose (UA) (Negative) mg/dL Urine Ketones (Negative) mg/dL Urine Blood (Negative) Urine Nitrite (Negative) Urine Bilirubin (Negative) Urine Ictotest (Negative) Urine Urobilinogen (<2.0) mg/dL Ur Leukocyte Esterase (Negative) Urine WBC (Auto) (0.0-6.0) /HPF Urine RBC (Auto) (0.0-6.0) /HPF U Epithel Cells (Auto) (0-13.0) /HPF Urine Bacteria (Auto) (Negative) /HPF Urine Mucus /HPF Urine Yeast (Budding) /HPF Urine Opiates Screen Urine Methadone Screen Acetaminophen (10.0-30.0) ug/mL Ur Barbiturates Screen Ur Phencyclidine Scrn Ur Amphetamines Screen U Benzodiazepines Scrn Urine Cocaine Screen U Marijuana (THC) Screen Drugs of Abuse Note Plasma/Serum Alcohol < 0.01 (0-0.07) % Hepatitis A IgM Ab Non-reactive (NonReactive) Hep Bs Antigen Nonreactive (Negative) Hep B Core IgM Ab Non-reactive (NonReactive) Hepatitis C Antibody Non-reactive (NonReactive) 10/11/21 10/11/21 10/11/21 Range/Units 23:31 23:31 23:31 WBC (4.5-11.0) K/mm3 RBC (3.65-5.03) M/mm3 Hgb (10.1-14.3) gm/dl Hct (30.3-42.9) % MCV (79-97) fl MCH (28-32) pg MCHC (30-34) % RDW (13.2-15.2) % Plt Count (140-440) K/mm3 Add Manual Diff Total Counted Seg Neuts % (Manual) (40.0-70.0) % Band Neutrophils % % Lymphocytes % (Manual) (13.4-35.0) % Monocytes % (Manual) (0.0-7.3) % Nucleated RBC % Seg Neutrophils # Man (1.8-7.7) K/mm3 Band Neutrophils # K/mm3 Lymphocytes # (Manual) (1.2-5.4) K/mm3 Abs React Lymphs (Man) K/mm3 Monocytes # (Manual) (0.0-0.8) K/mm3 Eosinophils # (Manual) (0.0-0.4) K/mm3 Basophils # (Manual) (0.0-0.1) K/mm3 Metamyelocytes # K/mm3 Myelocytes # K/mm3 Promyelocytes # K/mm3 Blast Cells # K/mm3 WBC Morphology Hypersegmented Neuts Hyposegmented Neuts Hypogranular Neuts Smudge Cells Toxic Granulation Toxic Vacuolation Dohle Bodies Pelger-Huet Anomaly Perico Rods Platelet Estimate Clumped Platelets Plt Clumps, EDTA Large Platelets Giant Platelets Platelet Satelliting Plt Morphology Comment RBC Morphology Dimorphic RBCs Polychromasia Hypochromasia Poikilocytosis Anisocytosis Microcytosis Macrocytosis Spherocytes Pappenheimer Bodies Sickle Cells Target Cells Tear Drop Cells Ovalocytes Helmet Cells [place] Bodies [place] Rings [place] Cells Bite Cells Crenated Cell Elliptocytes Acanthocytes (Spur) Rouleaux Hemoglobin C Crystals Schistocytes Malaria parasites Roel Bodies Hem Pathologist Commnt PT 17.1 H (12.2-14.9) Sec. INR 1.26 H (0.87-1.13) APTT 37.5 H (24.2-36.6) Sec. Sodium (137-145) mmol/L Potassium (3.6-5.0) mmol/L Chloride (98-107) mmol/L Carbon Dioxide (22-30) mmol/L Anion Gap mmol/L BUN (7-17) mg/dL Creatinine (0.6-1.2) mg/dL Estimated GFR ml/min BUN/Creatinine Ratio % Glucose (65-100) mg/dL Lactic Acid (0.7-2.0) mmol/L Calcium (8.4-10.2) mg/dL Magnesium (1.7-2.3) mg/dL Total Bilirubin 1.00 (0.1-1.2) mg/dL Direct Bilirubin 0.5 H (0-0.2) mg/dL Indirect Bilirubin 0.5 mg/dL AST 2177 H (5-40) units/L ALT 538 H (7-56) units/L Alkaline Phosphatase 253 H (35-129) units/L Total Creatine Kinase 51 (30-135) units/L Troponin T (0.00-0.029) ng/mL Total Protein 8.8 H (6.3-8.2) g/dL Albumin 3.2 L (3.9-5) g/dL Albumin/Globulin Ratio 0.6 % Lipase (13-60) units/L HCG, Qual (Negative) Urine Color (Yellow) Urine Turbidity (Clear) Urine pH (5.0-7.0) Ur Specific [place] (1.003-1.030) Urine Protein (Negative) mg/dL Urine Glucose (UA) (Negative) mg/dL Urine Ketones (Negative) mg/dL Urine Blood (Negative) Urine Nitrite (Negative) Urine Bilirubin (Negative) Urine Ictotest (Negative) Urine Urobilinogen (<2.0) mg/dL Ur Leukocyte Esterase (Negative) Urine WBC (Auto) (0.0-6.0) /HPF Urine RBC (Auto) (0.0-6.0) /HPF U Epithel Cells (Auto) (0-13.0) /HPF Urine Bacteria (Auto) (Negative) /HPF Urine Mucus /HPF Urine Yeast (Budding) /HPF Urine Opiates Screen Urine Methadone Screen Acetaminophen 5.0 L (10.0-30.0) ug/mL Ur Barbiturates Screen Ur Phencyclidine Scrn Ur Amphetamines Screen U Benzodiazepines Scrn Urine Cocaine Screen U Marijuana (THC) Screen Drugs of Abuse Note Plasma/Serum Alcohol (0-0.07) % Hepatitis A IgM Ab (NonReactive) Hep Bs Antigen (Negative) Hep B Core IgM Ab (NonReactive) Hepatitis C Antibody (NonReactive) 10/12/21 10/12/21 Range/Units 00:00 01:22 WBC (4.5-11.0) K/mm3 RBC (3.65-5.03) M/mm3 Hgb (10.1-14.3) gm/dl Hct (30.3-42.9) % MCV (79-97) fl MCH (28-32) pg MCHC (30-34) % RDW (13.2-15.2) % Plt Count (140-440) K/mm3 Add Manual Diff Total Counted Seg Neuts % (Manual) (40.0-70.0) % Band Neutrophils % % Lymphocytes % (Manual) (13.4-35.0) % Monocytes % (Manual) (0.0-7.3) % Nucleated RBC % Seg Neutrophils # Man (1.8-7.7) K/mm3 Band Neutrophils # K/mm3 Lymphocytes # (Manual) (1.2-5.4) K/mm3 Abs React Lymphs (Man) K/mm3 Monocytes # (Manual) (0.0-0.8) K/mm3 Eosinophils # (Manual) (0.0-0.4) K/mm3 Basophils # (Manual) (0.0-0.1) K/mm3 Metamyelocytes # K/mm3 Myelocytes # K/mm3 Promyelocytes # K/mm3 Blast Cells # K/mm3 WBC Morphology Hypersegmented Neuts Hyposegmented Neuts Hypogranular Neuts Smudge Cells Toxic Granulation Toxic Vacuolation Dohle Bodies Pelger-Huet Anomaly Perico Rods Platelet Estimate Clumped Platelets Plt Clumps, EDTA Large Platelets Giant Platelets Platelet Satelliting Plt Morphology Comment RBC Morphology Dimorphic RBCs Polychromasia Hypochromasia Poikilocytosis Anisocytosis Microcytosis Macrocytosis Spherocytes Pappenheimer Bodies Sickle Cells Target Cells Tear Drop Cells Ovalocytes Helmet Cells [place] Bodies [place] Rings [place] Cells Bite Cells Crenated Cell Elliptocytes Acanthocytes (Spur) Rouleaux Hemoglobin C Crystals Schistocytes Malaria parasites Roel Bodies Hem Pathologist Commnt PT (12.2-14.9) Sec. INR (0.87-1.13) APTT (24.2-36.6) Sec. Sodium (137-145) mmol/L Potassium (3.6-5.0) mmol/L Chloride (98-107) mmol/L Carbon Dioxide (22-30) mmol/L Anion Gap mmol/L BUN (7-17) mg/dL Creatinine (0.6-1.2) mg/dL Estimated GFR ml/min BUN/Creatinine Ratio % Glucose (65-100) mg/dL Lactic Acid 1.20 (0.7-2.0) mmol/L Calcium (8.4-10.2) mg/dL Magnesium (1.7-2.3) mg/dL Total Bilirubin (0.1-1.2) mg/dL Direct Bilirubin (0-0.2) mg/dL Indirect Bilirubin mg/dL AST (5-40) units/L ALT (7-56) units/L Alkaline Phosphatase (35-129) units/L Total Creatine Kinase (30-135) units/L Troponin T < 0.010 (0.00-0.029) ng/mL Total Protein (6.3-8.2) g/dL Albumin (3.9-5) g/dL Albumin/Globulin Ratio % Lipase (13-60) units/L HCG, Qual (Negative) Urine Color (Yellow) Urine Turbidity (Clear) Urine pH (5.0-7.0) Ur Specific [place] (1.003-1.030) Urine Protein (Negative) mg/dL Urine Glucose (UA) (Negative) mg/dL Urine Ketones (Negative) mg/dL Urine Blood (Negative) Urine Nitrite (Negative) Urine Bilirubin (Negative) Urine Ictotest (Negative) Urine Urobilinogen (<2.0) mg/dL Ur Leukocyte Esterase (Negative) Urine WBC (Auto) (0.0-6.0) /HPF Urine RBC (Auto) (0.0-6.0) /HPF U Epithel Cells (Auto) (0-13.0) /HPF Urine Bacteria (Auto) (Negative) /HPF Urine Mucus /HPF Urine Yeast (Budding) /HPF Urine Opiates Screen Urine Methadone Screen Acetaminophen (10.0-30.0) ug/mL Ur Barbiturates Screen Ur Phencyclidine Scrn Ur Amphetamines Screen U Benzodiazepines Scrn Urine Cocaine Screen U Marijuana (THC) Screen Drugs of Abuse Note Plasma/Serum Alcohol (0-0.07) % Hepatitis A IgM Ab (NonReactive) Hep Bs Antigen (Negative) Hep B Core IgM Ab (NonReactive) Hepatitis C Antibody (NonReactive) - EKG Data -: EKG Interpreted by [place] EKG shows normal: sinus rhythm, intervals (Normal interval), QRS complexes (Normal QRS duration), ST-T waves (No STEMI) Rate: tachycardia (110) - Radiology Data Radiology results: report reviewed XR chest routine 2V INDICATION / CLINICAL INFORMATION: Cough, shortness of breath, tachycardia. COMPARISON: 07/11/2021 FINDINGS: SUPPORT DEVICES: None. HEART /PULMONARY VASCULATURE: No significant abnormality. LUNGS / PLEURA: Stable appearance of the lungs when compared to CT from . Extensive distortion of the lung parenchyma with cavitary changes, most pronounced within the left mid and lower lung and right upper lung. No definite new or increasing airspace consolidation. No pneumothorax. ADDITIONAL FINDINGS: No significant additional findings. IMPRESSION: Stable appearance of the chest with extensive chronic cavitary lung changes. No definite superimposed acute infiltrate. CT chest w con, CT abdomen pelvis w con INDICATION / CLINICAL INFORMATION: Cough and shortness of breath. Abdominal pain TECHNIQUE: Axial CT images were obtained through the chest, abdomen, pelvis after 100 cc of Omnipaque [address] scans at this location are performed using CT dose reduction for ALARA by means of automated exposure control. COMPARISON: CT of the chest dated 07/11/2021. CT of the abdomen and pelvis from 08/04/2021. FINDINGS: CHEST: THORACIC AORTA: No significant abnormality. PULMONARY ARTERIES: No gross pulmonary embolus. HEART: No significant abnormality. MEDIASTINUM / CHRISTIE: Inflammatory changes of the upper mediastinum, as below. No new or increasing thoracic adenopathy. LUNGS/PLEURA: Redemonstration of extensive cavitary lung changes and diffuse interstitial prominence. There are new areas of patchy nodular opacities within the right lower lobe with associated groundglass attenuation. There is also progressive severe consolidation of the left lower lobe. OTHER FINDINGS: Soft tissue inflammation and soft tissue gas extending along the right common carotid artery in the right lower neck. This extends to involve the upper mediastinum. No well organized collection is identified. ABDOMEN/PELVIS: LIVER: No significant abnormality GALLBLADDER/BILIARY TREE: No significant abnormality PANCREAS: No significant abnormality SPLEEN: No significant abnormality ADRENALS: No significant abnormality KIDNEYS / URETER: No significant abnormality URINARY BLADDER: No significant abnormality REPRODUCTIVE ORGANS: No significant abnormality STOMACH / BOWEL: Small hiatal hernia. No significant abnormality. The appendix is normal in caliber. LYMPH NODES: No significant adenopathy. VASCULATURE: No significant abnormality. Right inguinal venous catheter terminates in the right common iliac vein. OTHER: No free air, free fluid, or focal fluid collection is identified. SKELETAL SYSTEM: No acute osseous findings. IMPRESSION: 1. New area of soft tissue inflammation with gas in the right lower neck extending along the right common carotid artery, involving a portion of the upper mediastinum. This could possibly related to recent surgical intervention/catheter placement; however, gas forming soft tissue infection of the neck is the diagnosis of exclusion. Recommend dedicated CT soft tissue neck with contrast, as clinically indicated. No organized collection is identified in the visualized lower neck. 2. Progressive airspace disease within the lung bases with dense airspace consolidation now present within the left lower lobe. Extensive chronic cavitary infiltrate of the lungs appears otherwise unchanged. 3. No acute abnormality of the abdomen or pelvis. - Medical Decision Making 41-year-old female presents to the hospital tachycardia, abdominal pain, nausea, vomiting, diarrhea, and cough. CT report noted. Patient be treated with antibiotics for hospital-acquired pneumonia given recent hospitalizations. UA also appears infected versus contamination. Patient initially hypotensive with significant tachycardia improving with IV fluid hydration. Patient is alcoholic at risk for withdrawals however, no signs of tremor upon ED evaluation. Patient area significant for cocaine and marijuana abuse which may also be the cause of tachycardia. Significant LFT elevation noted. Hepatitis panel normal. CT abdomen pelvis unremarkable for acute pathology in the abdomen. GI consulted. CT chest results regarding air tracking right side and neck noted. This is likely iatrogenic secondary to IV line attempts to cannulate the right IJ with long 18-gauge Angiocath. Patient subsequently required right femoral line placement secondary to lack of peripheral access with persistent hypotension and tachycardia Critical Care Time: Yes Critical care time in (mins) excluding proc time.: 35 Critical care attestation.: If time is entered above; I have spent that time in minutes in the direct care of this critically ill patient, excluding procedure time. ED Disposition Clinical Impression: Alcohol dependence, Abdominal pain, Cavitary pneumonia, Tachycardia, Hypomagnesemia, Elevated LFTs, Nausea vomiting and diarrhea, Cocaine abuse, Marijuana abuse, UTI (urinary tract infection) Disposition: ADMITTED INPATIENT Is pt being admited?: Yes Does the pt Need Aspirin: No Condition: Stable Time of Disposition: 03:27
--- NOTE | 2021-10-11 21:53 | XRay Report ---
XR chest routine 2V INDICATION / CLINICAL INFORMATION: Cough, shortness of breath, tachycardia. COMPARISON: 07/11/2021 FINDINGS: SUPPORT DEVICES: None. HEART /PULMONARY VASCULATURE: No significant abnormality. LUNGS / PLEURA: Stable appearance of the lungs when compared to CT from 07/11/2021. Extensive distorti on of the lung parenchyma with cavitary changes, most pronounced within the left mid and lower lung a nd right upper lung. No definite new or increasing airspace consolidation. No pneumothorax. ADDITIONAL FINDINGS: No significant additional findings. IMPRESSION: Stable appearance of the chest with extensive chronic cavitary lung changes. No definite superimposed acute infiltrate. Signer Name: Pop Monae MD Signed: 10/11/2021 9:48 PM Workstation Name: [id number]
[2021-10-11 22:40] LABS: Band Neutrophils # (Manual) 0.1 K/mm3; Total Cells Counted 100
[2021-10-11 22:41] LABS: Large Platelets Few; Ovalocytes Few; Platelet Estimate Consistent w Auto; Poikilocytosis Few; Target Cells Few
[2021-10-11 23:25] LABS: Amphetamine Screen,Urine PRESUMPTIVE NEGATIVE; Benzodiazepines Screen,Urine PRESUMPTIVE NEGATIVE; Cannabinoid Screen,Urine PRESUMPTIVE POSITIVE; Cocaine Screen,Urine PRESUMPTIVE POSITIVE; Methadone Screen,Urine PRESUMPTIVE NEGATIVE; Opiate Screen,Urine PRESUMPTIVE NEGATIVE
[2021-10-11 23:40] LABS: Bacteria,Urine 2+ /HPF (Negative); Bilirubin,Urine SM (Negative); Blood,Urine NEG (Negative); Color,Urine Amber (Yellow); Mucus,Urine 3+ /HPF
[2021-10-12 00:02] LABS: Hepatitis C Virus Antibody Non-Reactive (NonReactive)
[2021-10-12 00:02] LABS: Albumin 3.2 g/dL (3.9-5); Bilirubin,Direct 0.5 mg/dL (0-0.2)
[2021-10-12 00:07] LABS: INR 1.26 (0.87-1.13)
[2021-10-12 00:08] LABS: Partial Thromboplastin Time 37.5 Sec. (24.2-36.6)
[2021-10-12 00:08] LABS: Hepatitis B Surface Antigen Nonreactive (Negative)
[2021-10-12 00:13] LABS: Ictotest,Urine Positive (Negative)
[2021-10-12] MEDS ORDERED: MAGNESIUM SULFATE 2 GM/50 ML BAG IV ONE (00:18)
--- NOTE | 2021-10-12 01:00 | Cat Scan Report ---
CT chest w con, CT abdomen pelvis w con INDICATION / CLINICAL INFORMATION: Cough and shortness of breath. Abdominal pain TECHNIQUE: Axial CT images were obtained through the chest, abdomen, pelvis after 100 cc of Omnipaque [address] scans at this location are performed using CT dose reduction for ALARA by means of auto mated exposure control. COMPARISON: CT of the chest dated 07/11/2021. CT of the abdomen and pelvis from 08/04/2021. FINDINGS: CHEST: THORACIC AORTA: No significant abnormality. PULMONARY ARTERIES: No gross pulmonary embolus. HEART: No significant abnormality. MEDIASTINUM / CHRISTIE: Inflammatory changes of the upper mediastinum, as below. No new or increasing tho racic adenopathy. LUNGS/PLEURA: Redemonstration of extensive cavitary lung changes and diffuse interstitial prominence. There are new areas of patchy nodular opacities within the right lower lobe with associated groundgl ass attenuation. There is also progressive severe consolidation of the left lower lobe. OTHER FINDINGS: Soft tissue inflammation and soft tissue gas extending along the right common carotid artery in the right lower neck. This extends to involve the upper mediastinum. No well organized col lection is identified. ABDOMEN/PELVIS: LIVER: No significant abnormality GALLBLADDER/BILIARY TREE: No significant abnormality PANCREAS: No significant abnormality SPLEEN: No significant abnormality ADRENALS: No significant abnormality KIDNEYS / URETER: No significant abnormality URINARY BLADDER: No significant abnormality REPRODUCTIVE ORGANS: No significant abnormality STOMACH / BOWEL: Small hiatal hernia. No significant abnormality. The appendix is normal in caliber. LYMPH NODES: No significant adenopathy. VASCULATURE: No significant abnormality. Right inguinal venous catheter terminates in the right commo n iliac vein. OTHER: No free air, free fluid, or focal fluid collection is identified. SKELETAL SYSTEM: No acute osseous findings. IMPRESSION: 1. New area of soft tissue inflammation with gas in the right lower neck extending along the right co mmon carotid artery, involving a portion of the upper mediastinum. This could possibly related to rec ent surgical intervention/catheter placement; however, gas forming soft tissue infection of the neck is the diagnosis of exclusion. Recommend dedicated CT soft tissue neck with contrast, as clinically i ndicated. No organized collection is identified in the visualized lower neck. 2. Progressive airspace disease within the lung bases with dense airspace consolidation now present w ithin the left lower lobe. Extensive chronic cavitary infiltrate of the lungs appears otherwise uncha nged. 3. No acute abnormality of the abdomen or pelvis. Signer Name: Pop Monae MD Signed: 10/12/2021 12:55 AM Workstation Name: [id number]
[2021-10-12] MEDS ORDERED: HYDROmorphone 1 MG/1 ML INJ IV ONE (01:03)
[2021-10-12] MEDS ORDERED: cefTRIAXone/NS 1 GM/50 ML 1 GM/50 ML BAG IV ONE (01:04)
[2021-10-12] MEDS ORDERED: CEFEPIME/NS 2 GM/100 ML 2 GM/100 ML BAG IV ONE (01:09)
[2021-10-12] MEDS ORDERED: SODIUM CHLORIDE 0.9% 1000 ML 1,000 ML IV ONE (01:45)
[2021-10-12] MEDS ORDERED: VANCOMYCIN PHARMACY TO DOSE IV SCH (02:00)
[2021-10-12] MEDS ORDERED: VANCOMYCIN 1,250 MG in SODIUM CHLORIDE 0.9% 500 ML 500 ML IV ONE (02:00)
[2021-10-12] MEDS ORDERED: VANCOMYCIN 1,250 MG in SODIUM CHLORIDE 0.9% 250ML 250 ML IV ONE (02:00)
[2021-10-12] MEDS ORDERED: LORazepam 2 MG/ML VIAL IV PRN ×2 (05:39)
[2021-10-12] MEDS ORDERED: HALOPERIDOL LACTATE 5 MG/1 ML INJ IV PRN (05:39)
[2021-10-12] MEDS ORDERED: ACETAMINOPHEN 325 MG TAB PO PRN (05:39)
[2021-10-12] MEDS ORDERED: ALBUTEROL 2.5 MG/3 ML NEBU IH PRN (05:39)
--- NOTE | 2021-10-12 05:49 | History and Physical Report ---
History of Present Illness Date of examination: 10/12/21 Date of admission: 10/12/21 03:30 Chief complaint: Dyspnea Respiratory distress Abdominal pain History of present illness: 41-year-old female with a past medical history of COPD, marijuana use, alcohol abuse, previous MRSA pneumonia diagnosed in 2018 not fully treated, and recent admission in July for worsening bilateral cavitary lesions with suspected TB (subsequently ruled out) presents to the hospital with complaints of abdominal pain, nausea, vomiting, and diarrhea x 2 days with poor p.o. intake. Patient continues to drink beer approximately four 16 ounce cans daily. Patient has not had alcohol in 3 days due to onset of symptoms. she complains of 20/10 sharp constant pain to the upper and lower abdomen that is worse with palpation without alleviating factors. She complains of feeling hot and cold without documented fever. She continues to have ongoing chronic cough productive of greenish sputum with intermittent shortness of breath and wheezing. Patient has been out of an inhaler for the last 2 days and is not currently prescribed a nebulizer. Denies previous abdominal surgeries or dysuria. Patient was admitted here in July for worsening cavitary lesion in the chest incidentally found during abdominal pain CT work-up. Patient has not had a previous endoscopy despite what is mentioned in the medical screening note. She actually had a bronchoscopy for reevaluation of these cavitary lesions. She followed up with infectious disease as scheduled. She states they told her to come back to the hospital 1 month ago. She is not currently on antibiotics at this time. In the emergency room CT scan of the abdomen pelvis and chest showed 1. New area of soft tissue inflammation with gas in the right lower neck extending along the right common carotid artery, involving a portion of the upper mediastinum. This could possibly related to recent surgical intervention/catheter placement; however, gas forming soft tissue infection of the neck is the diagnosis of exclusion. Recommend dedicated CT soft tissue neck with contrast, as clinically indicated. No organized collection is identified in the visualized lower neck. 2. Progressive airspace disease within the lung bases with dense airspace consolidation now present within the left lower lobe. Extensive chronic cavitary infiltrate of the lungs appears otherwise unchanged. 3. No acute abnormality of the abdomen or pelvis. Also in the emergency room patient's sodium is 129 magnesium is 1.20 AST 2172, ALT 560, alkaline phosphatase 259. We are going to admit the patient to consult GI as well as pulmonary as well as infectious disease for evaluation Med rec is done Past History Past Medical History: COPD, other (Alcohol abuse, cavitary lung lesions tobacco abuser) Medications and Allergies Allergies Allergy/AdvReac Type Severity Reaction Status Date / Time No Known Allergies Allergy Unverified 08/30/18 02:13 Home Medications Medication Instructions Recorded Confirmed Last Taken Type Albuterol Mdi (or & Nicu Only) 2 puff IH Q4HRT PRN #1 inha 07/18/21 08/05/21 Unknown Rx [ProAir HFA Inhaler] Benzonatate [Tessalon Perles] 100 mg PO Q8HR #30 capsule 07/18/21 08/05/21 Unknown Rx Folic Acid [Folvite] 1 mg PO QDAY #30 tablet 07/18/21 08/05/21 Unknown Rx Linezolid [Zyvox] 600 mg PO Q12HR #15 tablet 07/18/21 08/05/21 Unknown Rx Nicotine [Habitrol] 14 mg TD DAILY #30 patch 07/18/21 08/05/21 Unknown Rx Thiamine [Vitamin B-1] 100 mg PO QDAY #30 tablet 07/18/21 08/05/21 Unknown Rx Review of Systems All systems: negative Cardiovascular: shortness of breath, dyspnea on exertion Respiratory: shortness of breath, dyspnea on exertion Gastrointestinal: abdominal pain, nausea, vomiting, diarrhea, other (Poor p.o. intake) Exam - Constitutional Vitals: Temp Pulse Resp BP Pulse Ox 98.7 F 98 H 20 95/65 97 10/12/21 05:23 10/12/21 05:23 10/12/21 05:23 10/12/21 05:23 10/12/21 05:23 General appearance: Present: no acute distress, mild distress, well-nourished - EENT Eyes: Present: PERRL ENT: hearing intact, clear oral mucosa - Neck Neck: Present: supple, normal ROM - Respiratory Respiratory effort: normal Respiratory: bilateral: diminished - Cardiovascular Heart Sounds: Present: S1 & S2. Absent: rub, click - Extremities Extremities: pulses symmetrical, No edema Peripheral Pulses: within normal limits - Abdominal General gastrointestinal: Present: soft, non-tender, non-distended, normal bowel sounds Female genitourinary: Present: normal - Integumentary Integumentary: Present: clear, warm, dry - Musculoskeletal Musculoskeletal: gait normal, strength equal bilaterally - Psychiatric Psychiatric: appropriate mood/affect, intact judgment & insight - Neurologic Neurologic: CNII-XII intact, moves all extremities HEART Score - HEART Score Troponin: Troponin T < 0.010 ng/mL (0.00-0.029) 10/12/21 00:00 Results - Labs CBC & Chem 7: 10/11/21 20:34 10/11/21 20:34 Labs: Laboratory Last Values WBC 7.6 K/mm3 (4.5-11.0) 10/11/21 20:34 RBC 4.15 M/mm3 (3.65-5.03) 10/11/21 20:34 Hgb 12.1 gm/dl (10.1-14.3) 10/11/21 20:34 Hct 37.5 % (30.3-42.9) 10/11/21 20:34 MCV 91 fl (79-97) 10/11/21 20:34 MCH 29 pg (28-32) 10/11/21 20:34 MCHC 32 % (30-34) 10/11/21 20:34 RDW 15.7 % (13.2-15.2) H 10/11/21 20:34 Plt Count 507 K/mm3 (140-440) H 10/11/21 20:34 Add Manual Diff Complete 10/11/21 20:34 Total Counted 100 10/11/21 20:34 Seg Neuts % (Manual) 87.0 % (40.0-70.0) H 10/11/21 20:34 Band Neutrophils % 1.0 % 10/11/21 20:34 Lymphocytes % (Manual) 4.0 % (13.4-35.0) L 10/11/21 20:34 Monocytes % (Manual) 8.0 % (0.0-7.3) H 10/11/21 20:34 Nucleated RBC % Not Reportable 10/11/21 20:34 Seg Neutrophils # Man 6.6 K/mm3 (1.8-7.7) 10/11/21 20:34 Band Neutrophils # 0.1 K/mm3 10/11/21 20:34 Lymphocytes # (Manual) 0.3 K/mm3 (1.2-5.4) L 10/11/21 20:34 Abs React Lymphs (Man) 0.0 K/mm3 10/11/21 20:34 Monocytes # (Manual) 0.6 K/mm3 (0.0-0.8) 10/11/21 20:34 Eosinophils # (Manual) 0.0 K/mm3 (0.0-0.4) 10/11/21 20:34 Basophils # (Manual) 0.0 K/mm3 (0.0-0.1) 10/11/21 20:34 Metamyelocytes # 0.0 K/mm3 10/11/21 20:34 Myelocytes # 0.0 K/mm3 10/11/21 20:34 Promyelocytes # 0.0 K/mm3 10/11/21 20:34 Blast Cells # 0.0 K/mm3 10/11/21 20:34 WBC Morphology Not Reportable 10/11/21 20:34 Hypersegmented Neuts Not Reportable 10/11/21 20:34 Hyposegmented Neuts Not Reportable 10/11/21 20:34 Hypogranular Neuts Not Reportable 10/11/21 20:34 Smudge Cells Not Reportable 10/11/21 20:34 Toxic Granulation Not Reportable 10/11/21 20:34 Toxic Vacuolation Not Reportable 10/11/21 20:34 Dohle Bodies Not Reportable 10/11/21 20:34 Pelger-Huet Anomaly Not Reportable 10/11/21 20:34 Perico Rods Not Reportable 10/11/21 20:34 Platelet Estimate Consistent w auto 10/11/21 20:34 Clumped Platelets Not Reportable 10/11/21 20:34 Plt Clumps, EDTA Not Reportable 10/11/21 20:34 Large Platelets Few 10/11/21 20:34 Giant Platelets Not Reportable 10/11/21 20:34 Platelet Satelliting Not Reportable 10/11/21 20:34 Plt Morphology Comment Not Reportable 10/11/21 20:34 RBC Morphology Not Reportable 10/11/21 20:34 Dimorphic RBCs Not Reportable 10/11/21 20:34 Polychromasia Not Reportable 10/11/21 20:34 Hypochromasia Not Reportable 10/11/21 20:34 Poikilocytosis Few 10/11/21 20:34 Anisocytosis Not Reportable 10/11/21 20:34 Microcytosis Not Reportable 10/11/21 20:34 Macrocytosis Not Reportable 10/11/21 20:34 Spherocytes Not Reportable 10/11/21 20:34 Pappenheimer Bodies Not Reportable 10/11/21 20:34 Sickle Cells Not Reportable 10/11/21 20:34 Target Cells Few 10/11/21 20:34 Tear Drop Cells Not Reportable 10/11/21 20:34 Ovalocytes Few 10/11/21 20:34 Helmet Cells Not Reportable 10/11/21 20:34 [place] Bodies Not Reportable 10/11/21 20:34 [place] Rings Not Reportable 10/11/21 20:34 [place] Cells Not Reportable 10/11/21 20:34 Bite Cells Not Reportable 10/11/21 20:34 Crenated Cell Not Reportable 10/11/21 20:34 Elliptocytes Not Reportable 10/11/21 20:34 Acanthocytes (Spur) Not Reportable 10/11/21 20:34 Rouleaux Not Reportable 10/11/21 20:34 Hemoglobin C Crystals Not Reportable 10/11/21 20:34 Schistocytes Not Reportable 10/11/21 20:34 Malaria parasites Not Reportable 10/11/21 20:34 Roel Bodies Not Reportable 10/11/21 20:34 Hem Pathologist Commnt No 10/11/21 20:34 PT 17.1 Sec. (12.2-14.9) H 10/11/21 23:31 INR 1.26 (0.87-1.13) H 10/11/21 23:31 APTT 37.5 Sec. (24.2-36.6) H 10/11/21 23:31 Sodium 129 mmol/L (137-145) L 10/11/21 20:34 Potassium 4.5 mmol/L (3.6-5.0) 10/11/21 20:34 Chloride 91.5 mmol/L (98-107) L 10/11/21 20:34 Carbon Dioxide 23 mmol/L (22-30) 10/11/21 20:34 Anion Gap 19 mmol/L 10/11/21 20:34 BUN 10 mg/dL (7-17) 10/11/21 20:34 Creatinine 0.6 mg/dL (0.6-1.2) 10/11/21 20:34 Estimated GFR > 60 ml/min 10/11/21 20:34 BUN/Creatinine Ratio 17 % 10/11/21 20:34 Glucose 115 mg/dL (65-100) H 10/11/21 20:34 Lactic Acid 1.20 mmol/L (0.7-2.0) 10/12/21 01:22 Calcium 9.2 mg/dL (8.4-10.2) 10/11/21 20:34 Magnesium 1.20 mg/dL (1.7-2.3) L 10/11/21 23:27 Total Bilirubin 1.00 mg/dL (0.1-1.2) 10/11/21 23:31 Direct Bilirubin 0.5 mg/dL (0-0.2) H 10/11/21 23:31 Indirect Bilirubin 0.5 mg/dL 10/11/21 23:31 AST 2177 units/L (5-40) H 10/11/21 23:31 ALT 538 units/L (7-56) H 10/11/21 23:31 Alkaline Phosphatase 253 units/L (35-129) H 10/11/21 23:31 Total Creatine Kinase 51 units/L (30-135) 10/11/21 23:31 Troponin T < 0.010 ng/mL (0.00-0.029) 10/12/21 00:00 Total Protein 8.8 g/dL (6.3-8.2) H 10/11/21 23:31 Albumin 3.2 g/dL (3.9-5) L 10/11/21 23:31 Albumin/Globulin Ratio 0.6 % 10/11/21 23:31 Lipase 15 units/L (13-60) 10/11/21 20:34 HCG, Qual Negative (Negative) 10/11/21 20:34 Urine Color [place] (Yellow) 10/11/21 22:55 Urine Turbidity Slightly-cloudy (Clear) 10/11/21 22:55 Urine pH 5.0 (5.0-7.0) 10/11/21 22:55 Ur Specific [place] 1.025 (1.003-1.030) 10/11/21 22:55 Urine Protein 100 mg/dl mg/dL (Negative) 10/11/21 22:55 Urine Glucose (UA) Neg mg/dL (Negative) 10/11/21 22:55 Urine Ketones Tr mg/dL (Negative) 10/11/21 22:55 Urine Blood Neg (Negative) 10/11/21 22:55 Urine Nitrite Neg (Negative) 10/11/21 22:55 Urine Bilirubin Sm (Negative) 10/11/21 22:55 Urine Ictotest Positive (Negative) 10/11/21 22:55 Urine Urobilinogen 4.0 mg/dL (<2.0) 10/11/21 22:55 Ur Leukocyte Esterase Sm (Negative) 10/11/21 22:55 Urine WBC (Auto) 22.0 /HPF (0.0-6.0) H 10/11/21 22:55 Urine RBC (Auto) 12.0 /HPF (0.0-6.0) 10/11/21 22:55 U Epithel Cells (Auto) 36.0 /HPF (0-13.0) H 10/11/21 22:55 Urine Bacteria (Auto) 2+ /HPF (Negative) 10/11/21 22:55 Urine Mucus 3+ /HPF 10/11/21 22:55 Urine Yeast (Budding) 1+ /HPF 10/11/21 22:55 Urine Opiates Screen Presumptive negative 10/11/21 22:55 Urine Methadone Screen Presumptive negative 10/11/21 22:55 Acetaminophen 5.0 ug/mL (10.0-30.0) L 10/11/21 23:31 Ur Barbiturates Screen Presumptive negative 10/11/21 22:55 Ur Phencyclidine Scrn Presumptive negative 10/11/21 22:55 Ur Amphetamines Screen Presumptive negative 10/11/21 22:55 U Benzodiazepines Scrn Presumptive negative 10/11/21 22:55 Urine Cocaine Screen Presumptive positive 10/11/21 22:55 U Marijuana (THC) Screen Presumptive positive 10/11/21 22:55 Drugs of Abuse Note Disclamer 10/11/21 22:55 Plasma/Serum Alcohol < 0.01 % (0-0.07) 10/11/21 23:27 Hepatitis A IgM Ab Non-reactive (NonReactive) 10/11/21 23:24 Hep Bs Antigen Nonreactive (Negative) 10/11/21 23:24 Hep B Core IgM Ab Non-reactive (NonReactive) 10/11/21 23:24 Hepatitis C Antibody Non-reactive (NonReactive) 10/11/21 23:24 - Imaging and Cardiology CT scan - abdomen: report reviewed CT scan - chest: report reviewed Assessment and Plan VTE prophylaxis?: Mechanical Plan of care discussed with patient/family: Yes - Patient Problems (1) Alcohol dependence Current Visit: Yes Status: Acute Plan to address problem: Admit the patient to the medical floor. Cardiac diet. We counseled regarding quit drinking and quitting smoking. Folic acid 1 mg p.o. daily. Thiamine 100 mg p.o. daily. Banana bag 1 pack daily. Reconsult GI for evaluation. (2) Abdominal pain Current Visit: Yes Status: Acute Plan to address problem: Pepcid 20 mg IV every 12 hours. Zofran 4 mg IV every 6 hours as needed. Morphine 2 mg IV every 4 hours as needed. Will consult GI for evaluation. Recheck CMP in the morning (3) Cavitary pneumonia Current Visit: Yes Status: Acute Plan to address problem: Oxygen via nasal penetrator per minute. DuoNeb by nebulizer every 4 hours. Rocephin 2 g IV daily. Zithromax 500 mg IV daily. We will do the blood cultures sputum culture. Will consult pulmonary and infectious disease for evaluation (4) Cocaine abuse Current Visit: Yes Status: Acute Plan to address problem: We counseled the patient regarding quit taking cocaine (5) Elevated LFTs Current Visit: Yes Status: Acute Plan to address problem: Pepcid 20 mg IV every 12 hours. Zofran 4 mg IV every 6 hours as needed. Counseled the patient regarding quit drinking. Will consult GI for evaluation. Recheck CMP in the morning (6) Hypomagnesemia Current Visit: Yes Status: Acute Plan to address problem: We are giving 2 g of IV magnesium. Recheck magnesium in the morning (7) Marijuana abuse Current Visit: Yes Status: Acute Plan to address problem: Counseled the patient regarding quit taking marijuana (8) Nausea vomiting and diarrhea Current Visit: Yes Status: Acute Plan to address problem: Pepcid 20 mg IV every 12 hours. Zofran 4 mg IV every 6 hours as needed. Will consult GI for evaluation. Recheck CMP in the morning (9) DVT prophylaxis Current Visit: Yes Status: Acute Plan to address problem: SCD for DVT prophylaxis. Pepcid 20 mg IV every 12 hours for GI prophylaxis. Patient is a full code
[2021-10-12] MEDS ORDERED: THIAMINE 100 MG, FOLIC ACID 1 MG, MULTIPLE VITAMIN INJ, ADULT 10 ML in SODIUM CHLORIDE ... IV ONE (06:30)
[2021-10-12] MEDS ORDERED: MAGNESIUM SULFATE 2 GM/50 ML BAG IV SCH (06:30)
[2021-10-12] MEDS: AZITHROMYCIN/NS 500 MG/250 ML 500 MG/250 ML BAG IV SCH (06:33)
[2021-10-12] MEDS: BENZONATATE 100 MG CAP PO SCH ×3 (06:33→22:03)
[2021-10-12] MEDS: MORPHINE 2 MG/1 ML INJ IV PRN ×2 (06:40→15:19)
[2021-10-12] MEDS: ONDANSETRON 4 MG/2 ML INJ IV PRN (08:29)
[2021-10-12] MEDS: IPRATROPIUM/ALBUTEROL SULFATE 3 ML AMPUL.NEB IH SCH ×3 (08:53→20:38)
[2021-10-12] MEDS ORDERED: LINEZOLID 600 MG TAB PO SCH (10:00)
[2021-10-12] MEDS: FAMOTIDINE 20 MG/2 ML INJ IV SCH ×2 (10:20→22:03)
--- NOTE | 2021-10-12 10:37 | Electrocardiograph Report ---
[facility] Test Date: 2021-10-12 Test Time: 02:54:23 Pat Name: QUINN SANCHEZ Department: Room: [place] [address] Gender: F Manager Administrative: YUE : 1980 Requested By: SHA ELDRIDGE Order Number: [id number] Reading MD: Ld Jernigan Measurements Intervals [place] Rate: 98 P: 66 MN: 173 QRS: 55 QRSD: 80 T: 54 QT: 353 QTc: 451 Interpretive Statements Sinus rhythm Compared to ECG 08/04/2021 17:17:17 Myocardial infarct finding no longer present Electronically Signed On 10-12-2021 10:37:23 EST by Ld Jernigan
--- NOTE | 2021-10-12 11:41 | Gastroenterology Consultation ---
History of Present Illness - Reason for Consult Consult date: 10/12/21 elevated liver enzymes Requesting physician: BETH CHAPPELL - History of Present Illness This is a 41 yo female with known cavitary lung lesion, MRSA pneumonia, and chronic alcohol use presenting with 3 days of abdominal pain, nausea/vomiting, and diarrhea. GI consulted for elevated liver enzymes. Reports having 3-4 days of RUQ pain and nausea/vomiting. Nonbloody diarrhea. CT a/p showed worsening of cavitary lung pneumonia and airspace opacity. Reports drinking alcohol every other day for several years. UDS positive for cocaine and marijauna. No prior h/o liver disease per patient. CT chest revealed progressive airspace disease within the lung bases with dense airspace consolidation in the left lower lobe, extensive chronic cavitary infiltrate of the lungs which is unchanged. CT abdomen and pelvis revealed no acute abnormality. Labs have revealed normal WBC, platelets elevated at 507, INR 1.26, AST ALT are significantly elevated with AST of 2177, ALT 538, alk phos 253 . Urinary toxicology screen was positive for cocaine, marijuana. Prior labs from last admission with normal liver enzymes Medication list reviewed. Past History Past Medical History: COPD, other (Alcohol abuse, cavitary lung lesions tobacco abuser) Medications and Allergies Allergies Allergy/AdvReac Type Severity Reaction Status Date / Time No Known Allergies Allergy Unverified 08/30/18 02:13 Home Medications Medication Instructions Recorded Confirmed Last Taken Type Albuterol Mdi (or & Nicu Only) 2 puff IH Q4HRT PRN #1 inha 07/18/21 08/05/21 Unknown Rx [ProAir HFA Inhaler] Benzonatate [Tessalon Perles] 100 mg PO Q8HR #30 capsule 07/18/21 08/05/21 Unknown Rx Folic Acid [Folvite] 1 mg PO QDAY #30 tablet 07/18/21 08/05/21 Unknown Rx Linezolid [Zyvox] 600 mg PO Q12HR #15 tablet 07/18/21 08/05/21 Unknown Rx Nicotine [Habitrol] 14 mg TD DAILY #30 patch 07/18/21 08/05/21 Unknown Rx Thiamine [Vitamin B-1] 100 mg PO QDAY #30 tablet 07/18/21 08/05/21 Unknown Rx Active Meds: Active Medications Acetaminophen (Acetaminophen 325 Mg Tab) 650 mg PO Q4H PRN PRN Reason: Pain MILD(1-3)/Fever >100.5/[facility] Last Admin: 10/12/21 07:59 Dose: 650 mg Documented by: Albuterol (Albuterol 2.5 Mg/3 Ml Nebu) 2.5 mg IH Q4HRT PRN PRN Reason: Shortness Of Breath Albuterol/Ipratropium (Ipratropium/Albuterol Sulfate 3 Ml Ampul.Neb) 1 ampul IH Q6HRT [facility] Last Admin: 10/12/21 08:53 Dose: 1 ampul Documented by: Benzonatate (Benzonatate 100 Mg Cap) 100 mg PO Q8HR [facility] Last Admin: 10/12/21 06:33 Dose: 100 mg Documented by: Famotidine (Famotidine 20 Mg/2 Ml Inj) 20 mg IV BID [facility] Last Admin: 10/12/21 10:20 Dose: 20 mg Documented by: Folic Acid (Folic Acid 1 Mg Tab) 1 mg PO QDAY [facility] Haloperidol Lactate (Haloperidol Lactate 5 Mg/1 Ml Inj) 5 mg IV Q1H PRN PRN Reason: Unrespon. to mult. doses BZD's Hydromorphone HCl (Hydromorphone 1 Mg/1 Ml Inj) 0.5 mg IV Q3H PRN PRN Reason: Pain , Severe (7-10) Ceftriaxone Sodium (Rocephin/Ns 2 Gm/100 Ml) 2 gm in 100 mls @ 200 mls/hr IV Q24H [facility]; Protocol Azithromycin (Zithromax/Ns) 500 mg in 250 mls @ 250 mls/hr IV Q24H [facility]; Protocol Last Admin: 10/12/21 06:33 Dose: 250 mls/hr Documented by: Lorazepam (Lorazepam 2 Mg/Ml Vial) 2 mg IV Q1H PRN PRN Reason: CIWA-Ar 8-15 Lorazepam (Lorazepam 2 Mg/Ml Vial) 4 mg IV Q1H PRN PRN Reason: CIWA-Ar 16-25 Morphine Sulfate (Morphine 2 Mg/1 Ml Inj) 2 mg IV Q4H PRN PRN Reason: Pain, Moderate (4-6) Last Admin: 10/12/21 06:40 Dose: 2 mg Documented by: Nicotine (Nicotine 14 Mg/24 Hr Patch) 14 mg TD DAILY [facility] Ondansetron HCl (Ondansetron 4 Mg/2 Ml Inj) 4 mg IV Q8H PRN PRN Reason: Nausea And Vomiting Last Admin: 10/12/21 08:29 Dose: 4 mg Documented by: Sodium Chloride (Sodium Chloride 0.9% 10 Ml Flush Syringe) 10 ml IV BID [facility] Last Admin: 10/12/21 10:20 Dose: 10 ml Documented by: Sodium Chloride (Sodium Chloride 0.9% 10 Ml Flush Syringe) 10 ml IV PRN PRN PRN Reason: LINE FLUSH Thiamine HCl (Thiamine 100 Mg Tab) 100 mg PO QDAY [facility] Review of Systems - Review of Systems All systems: negative Constitutional: weight loss, no fever, no chills Cardiovascular: no chest pain Gastrointestinal: abdominal pain, nausea, vomiting, diarrhea, no BRBPR, no melena, no hematochezia Neurological: weakness Psychiatric: no anxiety Hematologic/Lymphatic: no easy bruising Allergic/Immunologic: no wheezing Exam - Constitutional Vital Signs: Temp Pulse Resp BP Pulse Ox 98.7 F 95 H 22 92/63 99 10/12/21 05:23 10/12/21 10:51 10/12/21 10:51 10/12/21 10:51 10/12/21 10:51 General appearance: no acute distress - EENT Eyes: EOM intact - Neck Neck: supple - Cardiovascular Rhythm: regular Heart Sounds: Present: S1 & S2 - Gastrointestinal General gastrointestinal: Present: soft, tender, normal bowel sounds - Integumentary Integumentary: Present: clear, warm - Neurologic Neurological: alert and oriented x3 - Psychiatric Psychiatric: appropriate mood/affect - Labs CBC & Chem 7: 10/11/21 20:34 10/12/21 15:59 Lab Results: Laboratory Results - last 24 hr 10/11/21 10/11/21 10/11/21 20:34 20:34 20:34 WBC 7.6 RBC 4.15 Hgb 12.1 Hct 37.5 MCV 91 MCH 29 MCHC 32 RDW 15.7 H Plt Count 507 H Add Manual Diff Complete Total Counted 100 Seg Neuts % (Manual) 87.0 H Band Neutrophils % 1.0 Lymphocytes % (Manual) 4.0 L Monocytes % (Manual) 8.0 H Nucleated RBC % Not Reportable Seg Neutrophils # Man 6.6 Band Neutrophils # 0.1 Lymphocytes # (Manual) 0.3 L Abs React Lymphs (Man) 0.0 Monocytes # (Manual) 0.6 Eosinophils # (Manual) 0.0 Basophils # (Manual) 0.0 Metamyelocytes # 0.0 Myelocytes # 0.0 Promyelocytes # 0.0 Blast Cells # 0.0 WBC Morphology Not Reportable Hypersegmented Neuts Not Reportable Hyposegmented Neuts Not Reportable Hypogranular Neuts Not Reportable Smudge Cells Not Reportable Toxic Granulation Not Reportable Toxic Vacuolation Not Reportable Dohle Bodies Not Reportable Pelger-Huet Anomaly Not Reportable Perico Rods Not Reportable Platelet Estimate Consistent w auto Clumped Platelets Not Reportable Plt Clumps, EDTA Not Reportable Large Platelets Few Giant Platelets Not Reportable Platelet Satelliting Not Reportable Plt Morphology Comment Not Reportable RBC Morphology Not Reportable Dimorphic RBCs Not Reportable Polychromasia Not Reportable Hypochromasia Not Reportable Poikilocytosis Few Anisocytosis Not Reportable Microcytosis Not Reportable Macrocytosis Not Reportable Spherocytes Not Reportable Pappenheimer Bodies Not Reportable Sickle Cells Not Reportable Target Cells Few Tear Drop Cells Not Reportable Ovalocytes Few Helmet Cells Not Reportable [place] Bodies Not Reportable [place] Rings Not Reportable [place] Cells Not Reportable Bite Cells Not Reportable Crenated Cell Not Reportable Elliptocytes Not Reportable Acanthocytes (Spur) Not Reportable Rouleaux Not Reportable Hemoglobin C Crystals Not Reportable Schistocytes Not Reportable Malaria parasites Not Reportable Roel Bodies Not Reportable Hem Pathologist Commnt No PT INR APTT Sodium 129 L Potassium 4.5 Chloride 91.5 L Carbon Dioxide 23 Anion Gap 19 BUN 10 Creatinine 0.6 Estimated GFR > 60 BUN/Creatinine Ratio 17 Glucose 115 H Lactic Acid Calcium 9.2 Magnesium Total Bilirubin 0.90 Direct Bilirubin Indirect Bilirubin AST 2172 H ALT 560 H Alkaline Phosphatase 259 H Total Creatine Kinase Troponin T Total Protein 9.4 H Albumin 3.2 L Albumin/Globulin Ratio 0.5 Lipase HCG, Qual Negative Urine Color Urine Turbidity Urine pH Ur Specific [place] Urine Protein Urine Glucose (UA) Urine Ketones Urine Blood Urine Nitrite Urine Bilirubin Urine Ictotest Urine Urobilinogen Ur Leukocyte Esterase Urine WBC (Auto) Urine RBC (Auto) U Epithel Cells (Auto) Urine Bacteria (Auto) Urine Mucus Urine Yeast (Budding) Urine Opiates Screen Urine Methadone Screen Acetaminophen Ur Barbiturates Screen Ur Phencyclidine Scrn Ur Amphetamines Screen U Benzodiazepines Scrn Urine Cocaine Screen U Marijuana (THC) Screen Drugs of Abuse Note Plasma/Serum Alcohol Hepatitis A IgM Ab Hep Bs Antigen Hep B Core IgM Ab Hepatitis C Antibody 10/11/21 10/11/21 10/11/21 20:34 22:55 22:55 WBC RBC Hgb Hct MCV MCH MCHC RDW Plt Count Add Manual Diff Total Counted Seg Neuts % (Manual) Band Neutrophils % Lymphocytes % (Manual) Monocytes % (Manual) Nucleated RBC % Seg Neutrophils # Man Band Neutrophils # Lymphocytes # (Manual) Abs React Lymphs (Man) Monocytes # (Manual) Eosinophils # (Manual) Basophils # (Manual) Metamyelocytes # Myelocytes # Promyelocytes # Blast Cells # WBC Morphology Hypersegmented Neuts Hyposegmented Neuts Hypogranular Neuts Smudge Cells Toxic Granulation Toxic Vacuolation Dohle Bodies Pelger-Huet Anomaly Perico Rods Platelet Estimate Clumped Platelets Plt Clumps, EDTA Large Platelets Giant Platelets Platelet Satelliting Plt Morphology Comment RBC Morphology Dimorphic RBCs Polychromasia Hypochromasia Poikilocytosis Anisocytosis Microcytosis Macrocytosis Spherocytes Pappenheimer Bodies Sickle Cells Target Cells Tear Drop Cells Ovalocytes Helmet Cells [place] Bodies [place] Rings [place] Cells Bite Cells Crenated Cell Elliptocytes Acanthocytes (Spur) Rouleaux Hemoglobin C Crystals Schistocytes Malaria parasites Roel Bodies Hem Pathologist Commnt PT INR APTT Sodium Potassium Chloride Carbon Dioxide Anion Gap BUN Creatinine Estimated GFR BUN/Creatinine Ratio Glucose Lactic Acid Calcium Magnesium Total Bilirubin Direct Bilirubin Indirect Bilirubin AST ALT Alkaline Phosphatase Total Creatine Kinase Troponin T Total Protein Albumin Albumin/Globulin Ratio Lipase 15 HCG, Qual Urine Color [place] Urine Turbidity Slightly-cloudy Urine pH 5.0 Ur Specific [place] 1.025 Urine Protein 100 mg/dl Urine Glucose (UA) Neg Urine Ketones Tr Urine Blood Neg Urine Nitrite Neg Urine Bilirubin Sm Urine Ictotest Positive Urine Urobilinogen 4.0 Ur Leukocyte Esterase Sm Urine WBC (Auto) 22.0 H Urine RBC (Auto) 12.0 U Epithel Cells (Auto) 36.0 H Urine Bacteria (Auto) 2+ Urine Mucus 3+ Urine Yeast (Budding) 1+ Urine Opiates Screen Presumptive negative Urine Methadone Screen Presumptive negative Acetaminophen Ur Barbiturates Screen Presumptive negative Ur Phencyclidine Scrn Presumptive negative Ur Amphetamines Screen Presumptive negative U Benzodiazepines Scrn Presumptive negative Urine Cocaine Screen Presumptive positive U Marijuana (THC) Screen Presumptive positive Drugs of Abuse Note Disclamer Plasma/Serum Alcohol Hepatitis A IgM Ab Hep Bs Antigen Hep B Core IgM Ab Hepatitis C Antibody 10/11/21 10/11/21 10/11/21 23:24 23:27 23:27 WBC RBC Hgb Hct MCV MCH MCHC RDW Plt Count Add Manual Diff Total Counted Seg Neuts % (Manual) Band Neutrophils % Lymphocytes % (Manual) Monocytes % (Manual) Nucleated RBC % Seg Neutrophils # Man Band Neutrophils # Lymphocytes # (Manual) Abs React Lymphs (Man) Monocytes # (Manual) Eosinophils # (Manual) Basophils # (Manual) Metamyelocytes # Myelocytes # Promyelocytes # Blast Cells # WBC Morphology Hypersegmented Neuts Hyposegmented Neuts Hypogranular Neuts Smudge Cells Toxic Granulation Toxic Vacuolation Dohle Bodies Pelger-Huet Anomaly Perico Rods Platelet Estimate Clumped Platelets Plt Clumps, EDTA Large Platelets Giant Platelets Platelet Satelliting Plt Morphology Comment RBC Morphology Dimorphic RBCs Polychromasia Hypochromasia Poikilocytosis Anisocytosis Microcytosis Macrocytosis Spherocytes Pappenheimer Bodies Sickle Cells Target Cells Tear Drop Cells Ovalocytes Helmet Cells [place] Bodies [place] Rings Carmen Cells Bite Cells Crenated Cell Elliptocytes Acanthocytes (Spur) Rouleaux Hemoglobin C Crystals Schistocytes Malaria parasites Roel Bodies Hem Pathologist Commnt PT INR APTT Sodium Potassium Chloride Carbon Dioxide Anion Gap BUN Creatinine Estimated GFR BUN/Creatinine Ratio Glucose Lactic Acid Calcium Magnesium 1.20 L Total Bilirubin Direct Bilirubin Indirect Bilirubin AST ALT Alkaline Phosphatase Total Creatine Kinase Troponin T Total Protein Albumin Albumin/Globulin Ratio Lipase HCG, Qual Urine Color Urine Turbidity Urine pH Ur Specific [place] Urine Protein Urine Glucose (UA) Urine Ketones Urine Blood Urine Nitrite Urine Bilirubin Urine Ictotest Urine Urobilinogen Ur Leukocyte Esterase Urine WBC (Auto) Urine RBC (Auto) U Epithel Cells (Auto) Urine Bacteria (Auto) Urine Mucus Urine Yeast (Budding) Urine Opiates Screen Urine Methadone Screen Acetaminophen Ur Barbiturates Screen Ur Phencyclidine Scrn Ur Amphetamines Screen U Benzodiazepines Scrn Urine Cocaine Screen U Marijuana (THC) Screen Drugs of Abuse Note Plasma/Serum Alcohol < 0.01 Hepatitis A IgM Ab Non-reactive Hep Bs Antigen Nonreactive Hep B Core IgM Ab Non-reactive Hepatitis C Antibody Non-reactive 10/11/21 10/11/21 10/11/21 23:31 23:31 23:31 WBC RBC Hgb Hct MCV MCH MCHC RDW Plt Count Add Manual Diff Total Counted Seg Neuts % (Manual) Band Neutrophils % Lymphocytes % (Manual) Monocytes % (Manual) Nucleated RBC % Seg Neutrophils # Man Band Neutrophils # Lymphocytes # (Manual) Abs React Lymphs (Man) Monocytes # (Manual) Eosinophils # (Manual) Basophils # (Manual) Metamyelocytes # Myelocytes # Promyelocytes # Blast Cells # WBC Morphology Hypersegmented Neuts Hyposegmented Neuts Hypogranular Neuts Smudge Cells Toxic Granulation Toxic Vacuolation Dohle Bodies Pelger-Huet Anomaly Perico Rods Platelet Estimate Clumped Platelets Plt Clumps, EDTA Large Platelets Giant Platelets Platelet Satelliting Plt Morphology Comment RBC Morphology Dimorphic RBCs Polychromasia Hypochromasia Poikilocytosis Anisocytosis Microcytosis Macrocytosis Spherocytes Pappenheimer Bodies Sickle Cells Target Cells Tear Drop Cells Ovalocytes Helmet Cells [place] Bodies [place] Rings [place] Cells Bite Cells Crenated Cell Elliptocytes Acanthocytes (Spur) Rouleaux Hemoglobin C Crystals Schistocytes Malaria parasites Roel Bodies Hem Pathologist Commnt PT 17.1 H INR 1.26 H APTT 37.5 H Sodium Potassium Chloride Carbon Dioxide Anion Gap BUN Creatinine Estimated GFR BUN/Creatinine Ratio Glucose Lactic Acid Calcium Magnesium Total Bilirubin 1.00 Direct Bilirubin 0.5 H Indirect Bilirubin 0.5 AST 2177 H ALT 538 H Alkaline Phosphatase 253 H Total Creatine Kinase 51 Troponin T Total Protein 8.8 H Albumin 3.2 L Albumin/Globulin Ratio 0.6 Lipase HCG, Qual Urine Color Urine Turbidity Urine pH Ur Specific [place] Urine Protein Urine Glucose (UA) Urine Ketones Urine Blood Urine Nitrite Urine Bilirubin Urine Ictotest Urine Urobilinogen Ur Leukocyte Esterase Urine WBC (Auto) Urine RBC (Auto) U Epithel Cells (Auto) Urine Bacteria (Auto) Urine Mucus Urine Yeast (Budding) Urine Opiates Screen Urine Methadone Screen Acetaminophen 5.0 L Ur Barbiturates Screen Ur Phencyclidine Scrn Ur Amphetamines Screen U Benzodiazepines Scrn Urine Cocaine Screen U Marijuana (THC) Screen Drugs of Abuse Note Plasma/Serum Alcohol Hepatitis A IgM Ab Hep Bs Antigen Hep B Core IgM Ab Hepatitis C Antibody 10/12/21 10/12/21 10/12/21 00:00 01:22 05:17 WBC RBC Hgb Hct MCV MCH MCHC RDW Plt Count Add Manual Diff Total Counted Seg Neuts % (Manual) Band Neutrophils % Lymphocytes % (Manual) Monocytes % (Manual) Nucleated RBC % Seg Neutrophils # Man Band Neutrophils # Lymphocytes # (Manual) Abs React Lymphs (Man) Monocytes # (Manual) Eosinophils # (Manual) Basophils # (Manual) Metamyelocytes # Myelocytes # Promyelocytes # Blast Cells # WBC Morphology Hypersegmented Neuts Hyposegmented Neuts Hypogranular Neuts Smudge Cells Toxic Granulation Toxic Vacuolation Dohle Bodies Pelger-Huet Anomaly Perico Rods Platelet Estimate Clumped Platelets Plt Clumps, EDTA Large Platelets Giant Platelets Platelet Satelliting Plt Morphology Comment RBC Morphology Dimorphic RBCs Polychromasia Hypochromasia Poikilocytosis Anisocytosis Microcytosis Macrocytosis Spherocytes Pappenheimer Bodies Sickle Cells Target Cells Tear Drop Cells Ovalocytes Helmet Cells [place] Bodies [place] Rings Carm[place] Cells Bite Cells Crenated Cell Elliptocytes Acanthocytes (Spur) Rouleaux Hemoglobin C Crystals Schistocytes Malaria parasites Roel Bodies Hem Pathologist Commnt PT INR APTT Sodium Potassium Chloride Carbon Dioxide Anion Gap BUN Creatinine Estimated GFR BUN/Creatinine Ratio Glucose Lactic Acid 1.20 1.60 Calcium Magnesium Total Bilirubin Direct Bilirubin Indirect Bilirubin AST ALT Alkaline Phosphatase Total Creatine Kinase Troponin T < 0.010 Total Protein Albumin Albumin/Globulin Ratio Lipase HCG, Qual Urine Color Urine Turbidity Urine pH Ur Specific [place] Urine Protein Urine Glucose (UA) Urine Ketones Urine Blood Urine Nitrite Urine Bilirubin Urine Ictotest Urine Urobilinogen Ur Leukocyte Esterase Urine WBC (Auto) Urine RBC (Auto) U Epithel Cells (Auto) Urine Bacteria (Auto) Urine Mucus Urine Yeast (Budding) Urine Opiates Screen Urine Methadone Screen Acetaminophen Ur Barbiturates Screen Ur Phencyclidine Scrn Ur Amphetamines Screen U Benzodiazepines Scrn Urine Cocaine Screen U Marijuana (THC) Screen Drugs of Abuse Note Plasma/Serum Alcohol Hepatitis A IgM Ab Hep Bs Antigen Hep B Core IgM Ab Hepatitis C Antibody - Imaging CT Scan: report reviewed Assessment and Plan # Elevated liver enzymes - suspect multifactorial. acute alcoholic hepatitis vs 2/2 sepsis vs ischemia. - CT chest revealed progressive airspace disease within the lung bases with dense airspace consolidation in the left lower lobe, extensive chronic cavitary infiltrate of the lungs which is unchanged. CT abdomen and pelvis revealed no acute abnormality. Labs have revealed normal WBC, platelets elevated at 507, INR 1.26, AST ALT are significantly elevated with AST of 2177, ALT 538, alk phos 253. Urinary toxicology screen was positive for cocaine, marijuana. Rec - monitor CMP and INR - not a candidate for steroids given pulmonary TB. - supportive care - avoid hepatotoxins. - will follow.
[2021-10-12] MEDS: HYDROmorphone 1 MG/1 ML INJ IV PRN ×2 (11:54→20:43)
--- NOTE | 2021-10-12 13:47 | Consultation ---
History of Present Illness - Reason for Consult Consult date: 10/12/21 Cavitary lung lesions, pneumonia Requesting physician: BETH CHAPPELL - History of Present Illness The patient is a 41-year-old female with COPD, marijuana use, alcohol abuse, previous MRSA pneumonia, cavitary lesions in both lungs worked up during her previous hospitalizations, has not followed up in the ID clinic since her bronchoscopy and BAL done in July 2021 was admitted to the hospital with abdominal pain, nausea, vomiting and diarrhea. She continues to have heavy alcohol consumption in the form of beer. Now found to have significant transaminitis. CT chest revealed progressive airspace disease within the lung bases with dense airspace consolidation in the left lower lobe, extensive chronic cavitary infiltrate of the lungs which is unchanged. CT abdomen and pelvis revealed no acute abnormality. Labs have revealed normal WBC, platelets elevated at 507, INR 1.26, AST ALT are significantly elevated with AST of 2177, ALT 538, alk phos 253. Urinary toxicology screen was positive for cocaine, marijuana. Review of Systems: as above Past History Past Medical History: COPD, other (Alcohol abuse, cavitary lung lesions tobacco abuser) Medications and Allergies Allergies Allergy/AdvReac Type Severity Reaction Status Date / Time No Known Allergies Allergy Unverified 08/30/18 02:13 Home Medications Medication Instructions Recorded Confirmed Last Taken Type Albuterol Mdi (or & Nicu Only) 2 puff IH Q4HRT PRN #1 inha 07/18/21 08/05/21 Unknown Rx [ProAir HFA Inhaler] Benzonatate [Tessalon Perles] 100 mg PO Q8HR #30 capsule 07/18/21 08/05/21 Unknown Rx Folic Acid [Folvite] 1 mg PO QDAY #30 tablet 07/18/21 08/05/21 Unknown Rx Linezolid [Zyvox] 600 mg PO Q12HR #15 tablet 07/18/21 08/05/21 Unknown Rx Nicotine [Habitrol] 14 mg TD DAILY #30 patch 07/18/21 08/05/21 Unknown Rx Thiamine [Vitamin B-1] 100 mg PO QDAY #30 tablet 07/18/21 08/05/21 Unknown Rx Active Meds: Active Medications Acetaminophen (Acetaminophen 325 Mg Tab) 650 mg PO Q4H PRN PRN Reason: Pain MILD(1-3)/Fever >100.5/[place]ILKERSON Last Admin: 10/12/21 07:59 Dose: 650 mg Documented by: Albuterol (Albuterol 2.5 Mg/3 Ml Nebu) 2.5 mg IH Q4HRT PRN PRN Reason: Shortness Of Breath Albuterol/Ipratropium (Ipratropium/Albuterol Sulfate 3 Ml Ampul.Neb) 1 ampul IH Q6HRT [facility] Last Admin: 10/12/21 08:53 Dose: 1 ampul Documented by: Benzonatate (Benzonatate 100 Mg Cap) 100 mg PO Q8HR [facility] Last Admin: 10/12/21 06:33 Dose: 100 mg Documented by: Famotidine (Famotidine 20 Mg/2 Ml Inj) 20 mg IV BID [facility] Last Admin: 10/12/21 10:20 Dose: 20 mg Documented by: Folic Acid (Folic Acid 1 Mg Tab) 1 mg PO QDAY [facility] Haloperidol Lactate (Haloperidol Lactate 5 Mg/1 Ml Inj) 5 mg IV Q1H PRN PRN Reason: Unrespon. to mult. doses BZD's Hydromorphone HCl (Hydromorphone 1 Mg/1 Ml Inj) 0.5 mg IV Q3H PRN PRN Reason: Pain , Severe (7-10) Last Admin: 10/12/21 11:54 Dose: 0.5 mg Documented by: Ceftriaxone Sodium (Rocephin/Ns 2 Gm/100 Ml) 2 gm in 100 mls @ 200 mls/hr IV Q24H [facility]; Protocol Azithromycin (Zithromax/Ns) 500 mg in 250 mls @ 250 mls/hr IV Q24H RAJANI; Protocol Last Admin: 10/12/21 06:33 Dose: 250 mls/hr Documented by: Lorazepam (Lorazepam 2 Mg/Ml Vial) 2 mg IV Q1H PRN PRN Reason: CIWA-Ar 8-15 Lorazepam (Lorazepam 2 Mg/Ml Vial) 4 mg IV Q1H PRN PRN Reason: CIWA-Ar 16-25 Morphine Sulfate (Morphine 2 Mg/1 Ml Inj) 2 mg IV Q4H PRN PRN Reason: Pain, Moderate (4-6) Last Admin: 10/12/21 06:40 Dose: 2 mg Documented by: Nicotine (Nicotine 14 Mg/24 Hr Patch) 14 mg TD DAILY [facility] Ondansetron HCl (Ondansetron 4 Mg/2 Ml Inj) 4 mg IV Q8H PRN PRN Reason: Nausea And Vomiting Last Admin: 10/12/21 08:29 Dose: 4 mg Documented by: Sodium Chloride (Sodium Chloride 0.9% 10 Ml Flush Syringe) 10 ml IV BID [facility] Last Admin: 10/12/21 10:20 Dose: 10 ml Documented by: Sodium Chloride (Sodium Chloride 0.9% 10 Ml Flush Syringe) 10 ml IV PRN PRN PRN Reason: LINE FLUSH Thiamine HCl (Thiamine 100 Mg Tab) 100 mg PO QDAY [facility] Physical Examination - Physical Exam Narrative exam: Constitutional: Alert, cooperative. No acute distress Head, Ears, Nose: Normocephalic, atraumatic. External ears, nose normal Eyes: Conjunctivae/corneas clear. No icterus. No ptosis. Neck: Supple, no meningeal signs Cardiovascular: S1, S2 + Respiratory: b/l rhonchi GI: tenderness +; bowel sounds normal. No peritoneal signs Musculoskeletal: No pedal edema, no cyanosis. Skin: No rash or abscess Hem/Lymphatic: No palpable cervical or supraclavicular nodes. No lymphangitis Psych: Mood ok. Affect normal Neurological: Awake, alert, oriented. No gross abnormality - Constitutional Vitals: Vital Signs Temp Pulse Resp BP Pulse Ox 98.7 F 95 H 22 92/63 99 10/12/21 05:23 10/12/21 10:51 10/12/21 10:51 10/12/21 10:51 10/12/21 10:51 Temperature -Last 24 Hours Temperature 98.7 F Temperature 98.8 F Temperature 98.5 F Results - Labs CBC & Chem 7: 10/11/21 20:34 10/11/21 20:34 Labs: Abnormal lab results 10/11/21 10/11/21 10/11/21 Range/Units 20:34 20:34 22:55 RDW 15.7 H (13.2-15.2) % Plt Count 507 H (140-440) K/mm3 Seg Neuts % (Manual) 87.0 H (40.0-70.0) % Lymphocytes % (Manual) 4.0 L (13.4-35.0) % Monocytes % (Manual) 8.0 H (0.0-7.3) % Lymphocytes # (Manual) 0.3 L (1.2-5.4) K/mm3 PT (12.2-14.9) Sec. INR (0.87-1.13) APTT (24.2-36.6) Sec. Sodium 129 L (137-145) mmol/L Chloride 91.5 L (98-107) mmol/L Glucose 115 H (65-100) mg/dL Magnesium (1.7-2.3) mg/dL Direct Bilirubin (0-0.2) mg/dL AST 2172 H (5-40) units/L ALT 560 H (7-56) units/L Alkaline Phosphatase 259 H (35-129) units/L Total Protein 9.4 H (6.3-8.2) g/dL Albumin 3.2 L (3.9-5) g/dL Urine WBC (Auto) 22.0 H (0.0-6.0) /HPF U Epithel Cells (Auto) 36.0 H (0-13.0) /HPF Acetaminophen (10.0-30.0) ug/mL 10/11/21 10/11/21 10/11/21 Range/Units 23:27 23:31 23:31 RDW (13.2-15.2) % Plt Count (140-440) K/mm3 Seg Neuts % (Manual) (40.0-70.0) % Lymphocytes % (Manual) (13.4-35.0) % Monocytes % (Manual) (0.0-7.3) % Lymphocytes # (Manual) (1.2-5.4) K/mm3 PT 17.1 H (12.2-14.9) Sec. INR 1.26 H (0.87-1.13) APTT 37.5 H (24.2-36.6) Sec. Sodium (137-145) mmol/L Chloride (98-107) mmol/L Glucose (65-100) mg/dL Magnesium 1.20 L (1.7-2.3) mg/dL Direct Bilirubin 0.5 H (0-0.2) mg/dL AST 2177 H (5-40) units/L ALT 538 H (7-56) units/L Alkaline Phosphatase 253 H (35-129) units/L Total Protein 8.8 H (6.3-8.2) g/dL Albumin 3.2 L (3.9-5) g/dL Urine WBC (Auto) (0.0-6.0) /HPF U Epithel Cells (Auto) (0-13.0) /HPF Acetaminophen (10.0-30.0) ug/mL 10/11/21 Range/Units 23:31 RDW (13.2-15.2) % Plt Count (140-440) K/mm3 Seg Neuts % (Manual) (40.0-70.0) % Lymphocytes % (Manual) (13.4-35.0) % Monocytes % (Manual) (0.0-7.3) % Lymphocytes # (Manual) (1.2-5.4) K/mm3 PT (12.2-14.9) Sec. INR (0.87-1.13) APTT (24.2-36.6) Sec. Sodium (137-145) mmol/L Chloride (98-107) mmol/L Glucose (65-100) mg/dL Magnesium (1.7-2.3) mg/dL Direct Bilirubin (0-0.2) mg/dL AST (5-40) units/L ALT (7-56) units/L Alkaline Phosphatase (35-129) units/L Total Protein (6.3-8.2) g/dL Albumin (3.9-5) g/dL Urine WBC (Auto) (0.0-6.0) /HPF U Epithel Cells (Auto) (0-13.0) /HPF Acetaminophen 5.0 L (10.0-30.0) ug/mL - Imaging and Cardiology CT scan - chest: report reviewed, image reviewed (Extensive cavitary changes and airspace disease in the lungs) Assessment and Plan Cultures: 10/11/2021 blood culture: No growth Cultures from previous hospitalizations reviewed A/P: 41-year-old female with COPD, marijuana use, alcohol abuse, previous MRSA pneumonia, cavitary lesions in both lungs worked up during her previous hospitalizations, has not followed up in the ID clinic since her bronchoscopy and BAL done in July 2021 was admitted to the hospital with abdominal pain: #Extensive, progressive cavitary as well as consolidation changes in the lungs: BAL 08/07/2025 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 TB QuantiFERON gold was negative during previous admission. BAL fungal culture, BAL respiratory culture showed no growth. #Elevated LFTs: GI following, suspected alcoholic hepatitis. Transaminitis appears quite severe - AST 2177, ALT 538 #Reactive thrombocytosis #Polysubstance abuse which includes marijuana, alcohol, cocaine Recs: - considering her ongoing polysubstance abuse, severe transaminitis, she is not a candidate for the several months to years of 3 drug (Azithromycin, Rifampin, Ethambutol) treatment needed for pulmonary Mycobacterium avium infection - Extremely poor prognosis was discussed with the patient Mariel Ta MD, FACP, [facility] ([facility] O: [phone] F: [phone]
[2021-10-12] MEDS: NICOTINE 14 MG/24 HR PATCH TD SCH (15:21)
--- NOTE | 2021-10-12 15:41 | Progress Note ---
Assessment and Plan Assessment and plan: Tests and reports: CT chest with contrast: soft tissue inflammation with gas in the right lower neck extending along the right common carotid artery involving portion of the upper mediastinum probably secondary to recent surgical intervention catheter placement rule out gas-forming soft tissue infection of the neck recommend CT soft tissue neck with contrast no organized collection progressive airspace disease within the lung bases consolidation, extensive chronic cavitary infiltrates of the lungs appears otherwise unchanged CT abdomen and pelvis; no acute abnormality noted Chest x-ray; stable appearing chest with extensive chronic cavitary lung lesion most pronounced within the left mid and lower lung and right upper lung no pneumothorax --Acute alcoholic hepatitis: Current Visit: Yes Status: Acute Very high transaminases Normal bilirubin levels Chronic alcohol use, partly due to sepsis Closely monitor LFTs, avoid hepatotoxiNS Monitor INR, ammonia levels GI evaluation noted and appreciated --Bilateral cavitary pneumonia Current Visit: Yes Status: Acute AFBx3 negative, , Continue antibiotics per ID Advised to continue Zyvox for 7 more days[total 2 weeks] -- chronic alcohol use ; Current Visit: Yes Status: Acute Strongly advised to quit alcohol intake Advised thiamine folic acid, recommend alcohol rehabilitation --Moderate protein calorie malnutrition ; Current Visit: Yes Status: Chronic Nutrition supplements, nutrition consult --Hyponatremia; Current Visit: Yes Status: Acute Closely monitor electrolytes --Hypomagnesemia; Replenished per protocol and monitor electrolytes --Polysubstance abuse; tobacco, alcohol, marijuana, cocaine Current Visit: Yes Status: Chronic Counseling strongly advised to quit recreational drug use, alcohol use Smoking cessation advised, nicotine patch as needed --DVT prophylaxis Current Visit: Yes Status: Acute On anticoagulation and GI prophylaxis GI, ID evaluation recommendations noted and appreciated Pending pulmonary evaluation Closely monitor the patient and adjust the management as needed Plan of care reviewed with the patient and his nurse Patient is critically ill, will monitor closely Prolonged care time 35 minutes Brief history; and daily hospital course 41-year-old female patient with with past medical history of bilateral lung cavitary lesions , extensively worked up in the past including bronchoscopy and BAL evaluation , COPD , polysubstance abuse tobacco, alcohol, recreational drug use , MRSA pneumonia, noncompliant with medications and follow-up visits, was admitted through emergency room With abdominal pain, nausea vomiting and diarrhea, found to have severe transaminitis and progressive airspace disease and extensively chronic cavitary infiltrates of both lungs on CT, CT abdomen pelvis negative for acute abnormality, critically ill 10/12/2021; GI and ID evaluation noted and appreciated, pending pulmonary evaluation. History Interval history: I have seen and examined the patient in ER awaiting bed assignment Patient's chart and medications reviewed Patient complains of mild shortness of breath No tremulousness or agitation Vital signs reviewed Hospitalist Physical - Constitutional Vitals: Temp Pulse Resp BP Pulse Ox 98.7 F 95 H 22 92/63 99 10/12/21 05:23 10/12/21 10:51 10/12/21 10:51 10/12/21 10:51 10/12/21 10:51 General appearance: Present: no acute distress, mild distress, well-nourished - EENT Eyes: Present: PERRL, EOM intact - Neck Neck: Present: supple, normal ROM - Respiratory Respiratory effort: normal Respiratory: bilateral: diminished, rhonchi - Cardiovascular Rhythm: regular Heart Sounds: Present: S1 & S2 - Extremities Extremities: no ischemia, No edema Peripheral Pulses: within normal limits - Abdominal General gastrointestinal: soft, non-tender, non-distended, normal bowel sounds - Integumentary Integumentary: Present: clear, warm - Psychiatric Psychiatric: appropriate mood/affect, cooperative - Neurologic Neurologic: CNII-XII intact, moves all extremities HEART Score - HEART Score Troponin: Troponin T < 0.010 ng/mL (0.00-0.029) 10/12/21 00:00 Results - Labs CBC & Chem 7: 10/11/21 20:34 10/12/21 15:59 Labs: Laboratory Last Values WBC 7.6 K/mm3 (4.5-11.0) 10/11/21 20:34 RBC 4.15 M/mm3 (3.65-5.03) 10/11/21 20:34 Hgb 12.1 gm/dl (10.1-14.3) 10/11/21 20:34 Hct 37.5 % (30.3-42.9) 10/11/21 20:34 MCV 91 fl (79-97) 10/11/21 20:34 MCH 29 pg (28-32) 10/11/21 20:34 MCHC 32 % (30-34) 10/11/21 20:34 RDW 15.7 % (13.2-15.2) H 10/11/21 20:34 Plt Count 507 K/mm3 (140-440) H 10/11/21 20:34 Add Manual Diff Complete 10/11/21 20:34 Total Counted 100 10/11/21 20:34 Seg Neuts % (Manual) 87.0 % (40.0-70.0) H 10/11/21 20:34 Band Neutrophils % 1.0 % 10/11/21 20:34 Lymphocytes % (Manual) 4.0 % (13.4-35.0) L 10/11/21 20:34 Monocytes % (Manual) 8.0 % (0.0-7.3) H 10/11/21 20:34 Nucleated RBC % Not Reportable 10/11/21 20:34 Seg Neutrophils # Man 6.6 K/mm3 (1.8-7.7) 10/11/21 20:34 Band Neutrophils # 0.1 K/mm3 10/11/21 20:34 Lymphocytes # (Manual) 0.3 K/mm3 (1.2-5.4) L 10/11/21 20:34 Abs React Lymphs (Man) 0.0 K/mm3 10/11/21 20:34 Monocytes # (Manual) 0.6 K/mm3 (0.0-0.8) 10/11/21 20:34 Eosinophils # (Manual) 0.0 K/mm3 (0.0-0.4) 10/11/21 20:34 Basophils # (Manual) 0.0 K/mm3 (0.0-0.1) 10/11/21 20:34 Metamyelocytes # 0.0 K/mm3 10/11/21 20:34 Myelocytes # 0.0 K/mm3 10/11/21 20:34 Promyelocytes # 0.0 K/mm3 10/11/21 20:34 Blast Cells # 0.0 K/mm3 10/11/21 20:34 WBC Morphology Not Reportable 10/11/21 20:34 Hypersegmented Neuts Not Reportable 10/11/21 20:34 Hyposegmented Neuts Not Reportable 10/11/21 20:34 Hypogranular Neuts Not Reportable 10/11/21 20:34 Smudge Cells Not Reportable 10/11/21 20:34 Toxic Granulation Not Reportable 10/11/21 20:34 Toxic Vacuolation Not Reportable 10/11/21 20:34 Dohle Bodies Not Reportable 10/11/21 20:34 Pelger-Huet Anomaly Not Reportable 10/11/21 20:34 Perico Rods Not Reportable 10/11/21 20:34 Platelet Estimate Consistent w auto 10/11/21 20:34 Clumped Platelets Not Reportable 10/11/21 20:34 Plt Clumps, EDTA Not Reportable 10/11/21 20:34 Large Platelets Few 10/11/21 20:34 Giant Platelets Not Reportable 10/11/21 20:34 Platelet Satelliting Not Reportable 10/11/21 20:34 Plt Morphology Comment Not Reportable 10/11/21 20:34 RBC Morphology Not Reportable 10/11/21 20:34 Dimorphic RBCs Not Reportable 10/11/21 20:34 Polychromasia Not Reportable 10/11/21 20:34 Hypochromasia Not Reportable 10/11/21 20:34 Poikilocytosis Few 10/11/21 20:34 Anisocytosis Not Reportable 10/11/21 20:34 Microcytosis Not Reportable 10/11/21 20:34 Macrocytosis Not Reportable 10/11/21 20:34 Spherocytes Not Reportable 10/11/21 20:34 Pappenheimer Bodies Not Reportable 10/11/21 20:34 Sickle Cells Not Reportable 10/11/21 20:34 Target Cells Few 10/11/21 20:34 Tear Drop Cells Not Reportable 10/11/21 20:34 Ovalocytes Few 10/11/21 20:34 Helmet Cells Not Reportable 10/11/21 20:[address] [place] Bodies Not Reportable 10/11/21 20:34 [place] Rings Not Reportable 10/11/21 20:34 Gasquet Cells Not Reportable 10/11/21 20:34 Bite Cells Not Reportable 10/11/21 20:34 Crenated Cell Not Reportable 10/11/21 20:34 Elliptocytes Not Reportable 10/11/21 20:34 Acanthocytes (Spur) Not Reportable 10/11/21 20:34 Rouleaux Not Reportable 10/11/21 20:34 Hemoglobin C Crystals Not Reportable 10/11/21 20:34 Schistocytes Not Reportable 10/11/21 20:34 Malaria parasites Not Reportable 10/11/21 20:34 Roel Bodies Not Reportable 10/11/21 20:34 Hem Pathologist Commnt No 10/11/21 20:34 PT 17.1 Sec. (12.2-14.9) H 10/11/21 23:31 INR 1.26 (0.87-1.13) H 10/11/21 23:31 APTT 37.5 Sec. (24.2-36.6) H 10/11/21 23:31 Sodium 129 mmol/L (137-145) L 10/11/21 20:34 Potassium 4.5 mmol/L (3.6-5.0) 10/11/21 20:34 Chloride 91.5 mmol/L (98-107) L 10/11/21 20:34 Carbon Dioxide 23 mmol/L (22-30) 10/11/21 20:34 Anion Gap 19 mmol/L 10/11/21 20:34 BUN 10 mg/dL (7-17) 10/11/21 20:34 Creatinine 0.6 mg/dL (0.6-1.2) 10/11/21 20:34 Estimated GFR > 60 ml/min 10/11/21 20:34 BUN/Creatinine Ratio 17 % 10/11/21 20:34 Glucose 115 mg/dL (65-100) H 10/11/21 20:34 Lactic Acid 1.60 mmol/L (0.7-2.0) 10/12/21 05:17 Calcium 9.2 mg/dL (8.4-10.2) 10/11/21 20:34 Magnesium 1.20 mg/dL (1.7-2.3) L 10/11/21 23:27 Total Bilirubin 1.00 mg/dL (0.1-1.2) 10/11/21 23:31 Direct Bilirubin 0.5 mg/dL (0-0.2) H 10/11/21 23:31 Indirect Bilirubin 0.5 mg/dL 10/11/21 23:31 AST 2177 units/L (5-40) H 10/11/21 23:31 ALT 538 units/L (7-56) H 10/11/21 23:31 Alkaline Phosphatase 253 units/L (35-129) H 10/11/21 23:31 Total Creatine Kinase 51 units/L (30-135) 10/11/21 23:31 Troponin T < 0.010 ng/mL (0.00-0.029) 10/12/21 00:00 Total Protein 8.8 g/dL (6.3-8.2) H 10/11/21 23:31 Albumin 3.2 g/dL (3.9-5) L 10/11/21 23:31 Albumin/Globulin Ratio 0.6 % 10/11/21 23:31 Lipase 15 units/L (13-60) 10/11/21 20:34 HCG, Qual Negative (Negative) 10/11/21 20:34 Urine Color [place] (Yellow) 10/11/21 22:55 Urine Turbidity Slightly-cloudy (Clear) 10/11/21 22:55 Urine pH 5.0 (5.0-7.0) 10/11/21 22:55 Ur Specific [place] 1.025 (1.003-1.030) 10/11/21 22:55 Urine Protein 100 mg/dl mg/dL (Negative) 10/11/21 22:55 Urine Glucose (UA) Neg mg/dL (Negative) 10/11/21 22:55 Urine Ketones Tr mg/dL (Negative) 10/11/21 22:55 Urine Blood Neg (Negative) 10/11/21 22:55 Urine Nitrite Neg (Negative) 10/11/21 22:55 Urine Bilirubin Sm (Negative) 10/11/21 22:55 Urine Ictotest Positive (Negative) 10/11/21 22:55 Urine Urobilinogen 4.0 mg/dL (<2.0) 10/11/21 22:55 Ur Leukocyte Esterase Sm (Negative) 10/11/21 22:55 Urine WBC (Auto) 22.0 /HPF (0.0-6.0) H 10/11/21 22:55 Urine RBC (Auto) 12.0 /HPF (0.0-6.0) 10/11/21 22:55 U Epithel Cells (Auto) 36.0 /HPF (0-13.0) H 10/11/21 22:55 Urine Bacteria (Auto) 2+ /HPF (Negative) 10/11/21 22:55 Urine Mucus 3+ /HPF 10/11/21 22:55 Urine Yeast (Budding) 1+ /HPF 10/11/21 22:55 Urine Opiates Screen Presumptive negative 10/11/21 22:55 Urine Methadone Screen Presumptive negative 10/11/21 22:55 Acetaminophen 5.0 ug/mL (10.0-30.0) L 10/11/21 23:31 Ur Barbiturates Screen Presumptive negative 10/11/21 22:55 Ur Phencyclidine Scrn Presumptive negative 10/11/21 22:55 Ur Amphetamines Screen Presumptive negative 10/11/21 22:55 U Benzodiazepines Scrn Presumptive negative 10/11/21 22:55 Urine Cocaine Screen Presumptive positive 10/11/21 22:55 U Marijuana (THC) Screen Presumptive positive 10/11/21 22:55 Drugs of Abuse Note Disclamer 10/11/21 22:55 Plasma/Serum Alcohol < 0.01 % (0-0.07) 10/11/21 23:27 Hepatitis A IgM Ab Non-reactive (NonReactive) 10/11/21 23:24 Hep Bs Antigen Nonreactive (Negative) 10/11/21 23:24 Hep B Core IgM Ab Non-reactive (NonReactive) 10/11/21 23:24 Hepatitis C Antibody Non-reactive (NonReactive) 10/11/21 23:24 Microbiology: Microbiology 10/11/21 23:31 Peripheral/Venous Blood Culture - Preliminary Culture in Progress 10/12/21 00:00 Peripheral/Venous Blood Culture - Preliminary Culture in Progress Active Medications - Current Medications Current Medications: Generic Name Dose Route Start Last Admin Trade Name Freq PRN Reason Stop Dose Admin Acetaminophen 650 mg 10/12/21 05:39 10/12/21 07:59 Acetaminophen 325 Mg Tab PO 650 mg Q4H PRN Administration Pain MILD(1-3)/Fever >100.5/WILKERSON Albuterol 2.5 mg 10/12/21 05:39 Albuterol 2.5 Mg/3 Ml Nebu IH Q4HRT PRN Shortness Of Breath Albuterol/Ipratropium 1 ampul 10/12/21 08:00 10/12/21 14:20 Ipratropium/Albuterol Sulfate 3 Ml Ampul.Neb IH Not Given Q6HRT RAJANI Benzonatate 100 mg 10/12/21 06:00 10/12/21 13:50 Benzonatate 100 Mg Cap PO 100 mg Q8HR RAJANI Administration Famotidine 20 mg 10/12/21 10:00 10/12/21 10:20 Famotidine 20 Mg/2 Ml Inj IV 20 mg BID RAJANI Administration Folic Acid 1 mg 10/13/21 10:00 Folic Acid 1 Mg Tab PO QDAY [facility] Haloperidol Lactate 5 mg 10/12/21 05:39 Haloperidol Lactate 5 Mg/1 Ml Inj IV Q1H PRN Unrespon. to mult. doses BZD's Hydromorphone HCl 0.5 mg 10/12/21 05:39 10/12/21 11:54 Hydromorphone 1 Mg/1 Ml Inj IV 0.5 mg Q3H PRN Administration Pain , Severe (7-10) Ceftriaxone Sodium 2 gm in 100 mls @ 200 mls/hr 10/13/21 06:00 Rocephin/Ns 2 Gm/100 Ml IV Q24H [facility] Protocol Azithromycin 500 mg in 250 mls @ 250 mls/hr 10/12/21 06:00 10/12/21 06:33 Zithromax/Ns IV 250 mls/hr Q24H [facility] Administration Protocol Lorazepam 2 mg 10/12/21 05:39 Lorazepam 2 Mg/Ml Vial IV Q1H PRN CIWA-Ar 8-15 Lorazepam 4 mg 10/12/21 05:39 Lorazepam 2 Mg/Ml Vial IV Q1H PRN CIWA-Ar 16-25 Morphine Sulfate 2 mg 10/12/21 05:39 10/12/21 15:19 Morphine 2 Mg/1 Ml Inj IV 2 mg Q4H PRN Administration Pain, Moderate (4-6) Nicotine 14 mg 10/12/21 10:00 10/12/21 15:21 Nicotine 14 Mg/24 Hr Patch TD Not Given DAILY [facility] Ondansetron HCl 4 mg 10/12/21 05:39 10/12/21 08:29 Ondansetron 4 Mg/2 Ml Inj IV 4 mg Q8H PRN Administration Nausea And Vomiting Sodium Chloride 10 ml 10/12/21 10:00 10/12/21 10:20 Sodium Chloride 0.9% 10 Ml Flush Syringe IV 10 ml BID RAJANI Administration Sodium Chloride 10 ml 10/12/21 05:39 Sodium Chloride 0.9% 10 Ml Flush Syringe IV PRN PRN LINE FLUSH Thiamine HCl 100 mg 10/13/21 10:00 Thiamine 100 Mg Tab PO QDAY [facility]
[2021-10-12 16:48] LABS: Alanine Aminotransferase 478 units/L (7-56); Albumin 2.3 g/dL (3.9-5); Blood Urea Nitrogen 7 mg/dL (7-17); Calcium 7.8 mg/dL (8.4-10.2); Hemolysis Index 5; INR 1.38 (0.87-1.13)
[2021-10-12 16:52] LABS: BUN/Creatinine Ratio 12
[2021-10-13] MEDS: IPRATROPIUM/ALBUTEROL SULFATE 3 ML AMPUL.NEB IH SCH ×5 (02:28→21:09)
[2021-10-13] MEDS: MORPHINE 2 MG/1 ML INJ IV PRN ×5 (04:26→22:26)
[2021-10-13] MEDS: cefTRIAXone/NS 2 GM/100 ML 2 GM/100 ML BAG IV SCH (05:28)
[2021-10-13] MEDS: BENZONATATE 100 MG CAP PO SCH ×3 (05:29→21:45)
[2021-10-13] MEDS: AZITHROMYCIN/NS 500 MG/250 ML 500 MG/250 ML BAG IV SCH (05:29)
[2021-10-13 07:28] LABS: Alanine Aminotransferase 393 units/L (7-56); BUN/Creatinine Ratio 10; Blood Urea Nitrogen 5 mg/dL (7-17); Calcium 8.4 mg/dL (8.4-10.2); Hematocrit 28.9 % (30.3-42.9); Hemoglobin 9.3 gm/dl (10.1-14.3); Red Blood Count 3.12 M/mm3 (3.65-5.03)
[2021-10-13 07:29] LABS: Albumin 2.5 g/dL (3.9-5); Basophils % (Auto) 0.9 % (0.0-1.8); Eosinophils # (Auto) 0.2 K/mm3 (0.0-0.4); Eosinophils % (Auto) 3.7 % (0.0-4.3); Hemolysis Index 0; INR 1.18 (0.87-1.13); Lymphocytes # (Auto) 0.8 K/mm3 (1.2-5.4); Mean Corpuscular HGB Conc 32 % (30-34); Mean Corpuscular Volume 93 fl (79-97); Monocytes # (Auto) 0.7 K/mm3 (0.0-0.8); Monocytes % (Auto) 11.8 % (0.0-7.3); Platelet Count 329 K/mm3 (140-440); Red Cell Distribution Width 15.7 % (13.2-15.2)
[2021-10-13] MEDS: FAMOTIDINE 20 MG/2 ML INJ IV SCH (09:03)
[2021-10-13] MEDS: THIAMINE 100 MG TAB PO SCH (09:04)
[2021-10-13] MEDS: NICOTINE 14 MG/24 HR PATCH TD SCH ×2 (09:04→18:38)
[2021-10-13] MEDS: FOLIC ACID 1 MG TAB PO SCH (09:04)
--- NOTE | 2021-10-13 09:49 | Progress Note ---
Assessment and Plan Assessment and plan: Tests and reports: CT chest with contrast: soft tissue inflammation with gas in the right lower neck extending along the right common carotid artery involving portion of the upper mediastinum probably secondary to recent surgical intervention catheter placement rule out gas-forming soft tissue infection of the neck recommend CT soft tissue neck with contrast no organized collection progressive airspace disease within the lung bases consolidation, extensive chronic cavitary infiltrates of the lungs appears otherwise unchanged CT abdomen and pelvis; no acute abnormality noted Chest x-ray; stable appearing chest with extensive chronic cavitary lung lesion most pronounced within the left mid and lower lung and right upper lung no pneumothorax --Acute alcoholic hepatitis: Current Visit: Yes Status: Acute Very high transaminases Normal bilirubin levels Chronic alcohol use, partly due to sepsis Closely monitor LFTs, avoid hepatotoxiNS Monitor INR, ammonia levels GI evaluation noted and appreciated --Bilateral cavitary pneumonia Current Visit: Yes Status: Acute AFBx3 negative, , Continue antibiotics per ID Advised to continue Zyvox for 7 more days[total 2 weeks] -- chronic alcohol use ; Current Visit: Yes Status: Acute Strongly advised to quit alcohol intake Advised thiamine folic acid, recommend alcohol rehabilitation --Moderate protein calorie malnutrition ; Current Visit: Yes Status: Chronic Nutrition supplements, nutrition consult --Hyponatremia; Current Visit: Yes Status: Acute Closely monitor electrolytes --Hypomagnesemia; Replenished per protocol and monitor electrolytes --Polysubstance abuse; tobacco, alcohol, marijuana, cocaine Current Visit: Yes Status: Chronic Counseling strongly advised to quit recreational drug use, alcohol use Smoking cessation advised, nicotine patch as needed --DVT prophylaxis Current Visit: Yes Status: Acute On anticoagulation and GI prophylaxis GI, ID evaluation recommendations noted and appreciated Pending pulmonary evaluation Closely monitor the patient and adjust the management as needed Plan of care reviewed with the patient and his nurse Patient is critically ill, will monitor closely Prolonged care time 35 minutes Brief history; and daily hospital course 41-year-old female patient with with past medical history of bilateral lung cavitary lesions , extensively worked up in the past including bronchoscopy and BAL evaluation , COPD , polysubstance abuse tobacco, alcohol, recreational drug use , MRSA pneumonia, noncompliant with medications and follow-up visits, was admitted through emergency room With abdominal pain, nausea vomiting and diarrhea, found to have severe transaminitis and progressive airspace disease and extensively chronic cavitary infiltrates of both lungs on CT, CT abdomen pelvis negative for acute abnormality, critically ill 10/12/2021; GI and ID evaluation noted and appreciated, pending pulmonary evaluation. 10/13/2021; LFTs trending down, pulmonary recommendations noted and appreciated History Interval history: I seen and examined the patient at the bedside Patient's chart and medications reviewed Patient's LFTs are trending down No new complaints Hospitalist Physical - Constitutional Vitals: Temp Pulse Resp BP Pulse Ox 99.3 F 114 H 18 96/59 95 10/13/21 08:01 10/13/21 08:01 10/13/21 08:01 10/13/21 08:01 10/13/21 08:01 General appearance: Present: no acute distress, mild distress, well-nourished - EENT Eyes: Present: PERRL, EOM intact - Neck Neck: Present: supple, normal ROM - Respiratory Respiratory effort: normal Respiratory: bilateral: diminished, rhonchi, negative: rales, wheezing - Cardiovascular Rhythm: regular Heart Sounds: Present: S1 & S2 - Extremities Extremities: no ischemia, No edema - Abdominal General gastrointestinal: soft, non-tender, normal bowel sounds - Integumentary Integumentary: Present: clear, warm - Psychiatric Psychiatric: appropriate mood/affect, cooperative - Neurologic Neurologic: moves all extremities HEART Score - HEART Score Troponin: Troponin T < 0.010 ng/mL (0.00-0.029) 10/12/21 00:00 Results - Labs CBC & Chem 7: 10/13/21 06:00 10/13/21 06:00 Labs: Laboratory Last Values WBC 5.6 K/mm3 (4.5-11.0) 10/13/21 06:00 RBC 3.12 M/mm3 (3.65-5.03) L 10/13/21 06:00 Hgb 9.3 gm/dl (10.1-14.3) L 10/13/21 06:00 Hct 28.9 % (30.3-42.9) L D 10/13/21 06:00 MCV 93 fl (79-97) 10/13/21 06:00 MCH 30 pg (28-32) 10/13/21 06:00 MCHC 32 % (30-34) 10/13/21 06:00 RDW 15.7 % (13.2-15.2) H 10/13/21 06:00 Plt Count 329 K/mm3 (140-440) 10/13/21 06:00 Lymph % (Auto) 14.0 % (13.4-35.0) 10/13/21 06:00 [place] % (Auto) 11.8 % (0.0-7.3) H 10/13/21 06:00 Eos % (Auto) 3.7 % (0.0-4.3) 10/13/21 06:00 Baso % (Auto) 0.9 % (0.0-1.8) 10/13/21 06:00 Lymph # (Auto) 0.8 K/mm3 (1.2-5.4) L 10/13/21 06:00 [place] # (Auto) 0.7 K/mm3 (0.0-0.8) 10/13/21 06:00 Eos # (Auto) 0.2 K/mm3 (0.0-0.4) 10/13/21 06:00 Baso # (Auto) 0.0 K/mm3 (0.0-0.1) 10/13/21 06:00 Add Manual Diff Complete 10/11/21 20:34 Total Counted 100 10/11/21 20:34 Seg Neutrophils % 69.7 % (40.0-70.0) 10/13/21 06:00 Seg Neuts % (Manual) 87.0 % (40.0-70.0) H 10/11/21 20:34 Band Neutrophils % 1.0 % 10/11/21 20:34 Lymphocytes % (Manual) 4.0 % (13.4-35.0) L 10/11/21 20:34 Monocytes % (Manual) 8.0 % (0.0-7.3) H 10/11/21 20:34 Nucleated RBC % Not Reportable 10/11/21 20:34 Seg Neutrophils # 3.9 K/mm3 (1.8-7.7) 10/13/21 06:00 Seg Neutrophils # Man 6.6 K/mm3 (1.8-7.7) 10/11/21 20:34 Band Neutrophils # 0.1 K/mm3 10/11/21 20:34 Lymphocytes # (Manual) 0.3 K/mm3 (1.2-5.4) L 10/11/21 20:34 Abs React Lymphs (Man) 0.0 K/mm3 10/11/21 20:34 Monocytes # (Manual) 0.6 K/mm3 (0.0-0.8) 10/11/21 20:34 Eosinophils # (Manual) 0.0 K/mm3 (0.0-0.4) 10/11/21 20:34 Basophils # (Manual) 0.0 K/mm3 (0.0-0.1) 10/11/21 20:34 Metamyelocytes # 0.0 K/mm3 10/11/21 20:34 Myelocytes # 0.0 K/mm3 10/11/21 20:34 Promyelocytes # 0.0 K/mm3 10/11/21 20:34 Blast Cells # 0.0 K/mm3 10/11/21 20:34 WBC Morphology Not Reportable 10/11/21 20:34 Hypersegmented Neuts Not Reportable 10/11/21 20:34 Hyposegmented Neuts Not Reportable 10/11/21 20:34 Hypogranular Neuts Not Reportable 10/11/21 20:34 Smudge Cells Not Reportable 10/11/21 20:34 Toxic Granulation Not Reportable 10/11/21 20:34 Toxic Vacuolation Not Reportable 10/11/21 20:34 Dohle Bodies Not Reportable 10/11/21 20:34 Pelger-Huet Anomaly Not Reportable 10/11/21 20:34 Perico Rods Not Reportable 10/11/21 20:34 Platelet Estimate Consistent w auto 10/11/21 20:34 Clumped Platelets Not Reportable 10/11/21 20:34 Plt Clumps, EDTA Not Reportable 10/11/21 20:34 Large Platelets Few 10/11/21 20:34 Giant Platelets Not Reportable 10/11/21 20:34 Platelet Satelliting Not Reportable 10/11/21 20:34 Plt Morphology Comment Not Reportable 10/11/21 20:34 RBC Morphology Not Reportable 10/11/21 20:34 Dimorphic RBCs Not Reportable 10/11/21 20:34 Polychromasia Not Reportable 10/11/21 20:34 Hypochromasia Not Reportable 10/11/21 20:34 Poikilocytosis Few 10/11/21 20:34 Anisocytosis Not Reportable 10/11/21 20:34 Microcytosis Not Reportable 10/11/21 20:34 Macrocytosis Not Reportable 10/11/21 20:34 Spherocytes Not Reportable 10/11/21 20:34 Pappenheimer Bodies Not Reportable 10/11/21 20:34 Sickle Cells Not Reportable 10/11/21 20:34 Target Cells Few 10/11/21 20:34 Tear Drop Cells Not Reportable 10/11/21 20:34 Ovalocytes Few 10/11/21 20:34 Helmet Cells Not Reportable 10/11/21 20:34 [place] Bodies Not Reportable 10/11/21 20:34 [place] Rings Not Reportable 10/11/21 20:34 [place] Cells Not Reportable 10/11/21 20:34 Bite Cells Not Reportable 10/11/21 20:34 Crenated Cell Not Reportable 10/11/21 20:34 Elliptocytes Not Reportable 10/11/21 20:34 Acanthocytes (Spur) Not Reportable 10/11/21 20:34 Rouleaux Not Reportable 10/11/21 20:34 Hemoglobin C Crystals Not Reportable 10/11/21 20:34 Schistocytes Not Reportable 10/11/21 20:34 Malaria parasites Not Reportable 10/11/21 20:34 Roel Bodies Not Reportable 10/11/21 20:34 Hem Pathologist Commnt No 10/11/21 20:34 PT 16.3 Sec. (12.2-14.9) H 10/13/21 06:00 INR 1.18 (0.87-1.13) H 10/13/21 06:00 APTT 37.5 Sec. (24.2-36.6) H 10/11/21 23:31 Sodium 128 mmol/L (137-145) L 10/13/21 06:00 Potassium 3.8 mmol/L (3.6-5.0) 10/13/21 06:00 Chloride 96.5 mmol/L (98-107) L 10/13/21 06:00 Carbon Dioxide 23 mmol/L (22-30) 10/13/21 06:00 Anion Gap 12 mmol/L 10/13/21 06:00 BUN 5 mg/dL (7-17) L 10/13/21 06:00 Creatinine 0.5 mg/dL (0.6-1.2) L 10/13/21 06:00 Estimated GFR > 60 ml/min 10/13/21 06:00 BUN/Creatinine Ratio 10 % 10/13/21 06:00 Glucose 85 mg/dL (65-100) 10/13/21 06:00 Lactic Acid 1.60 mmol/L (0.7-2.0) 10/12/21 05:17 Calcium 8.4 mg/dL (8.4-10.2) 10/13/21 06:00 Phosphorus 3.80 mg/dL (2.5-4.5) 10/13/21 06:00 Magnesium 1.40 mg/dL (1.7-2.3) L 10/13/21 06:00 Total Bilirubin 0.40 mg/dL (0.1-1.2) 10/13/21 06:00 Direct Bilirubin 0.5 mg/dL (0-0.2) H 10/11/21 23:31 Indirect Bilirubin 0.5 mg/dL 10/11/21 23:31 AST 1025 units/L (5-40) H 10/13/21 06:00 ALT 393 units/L (7-56) H 10/13/21 06:00 Alkaline Phosphatase 192 units/L (35-129) H 10/13/21 06:00 Ammonia 24.0 umol/L (25-60) L 10/13/21 06:00 Total Creatine Kinase 51 units/L (30-135) 10/11/21 23:31 Troponin T < 0.010 ng/mL (0.00-0.029) 10/12/21 00:00 Total Protein 7.4 g/dL (6.3-8.2) 10/13/21 06:00 Albumin 2.5 g/dL (3.9-5) L 10/13/21 06:00 Albumin/Globulin Ratio 0.5 % 10/13/21 06:00 Lipase 15 units/L (13-60) 10/11/21 20:34 HCG, Qual Negative (Negative) 10/11/21 20:34 Urine Color [place] (Yellow) 10/11/21 22:55 Urine Turbidity Slightly-cloudy (Clear) 10/11/21 22:55 Urine pH 5.0 (5.0-7.0) 10/11/21 22:55 Ur Specific [place] 1.025 (1.003-1.030) 10/11/21 22:55 Urine Protein 100 mg/dl mg/dL (Negative) 10/11/21 22:55 Urine Glucose (UA) Neg mg/dL (Negative) 10/11/21 22:55 Urine Ketones Tr mg/dL (Negative) 10/11/21 22:55 Urine Blood Neg (Negative) 10/11/21 22:55 Urine Nitrite Neg (Negative) 10/11/21 22:55 Urine Bilirubin Sm (Negative) 10/11/21 22:55 Urine Ictotest Positive (Negative) 10/11/21 22:55 Urine Urobilinogen 4.0 mg/dL (<2.0) 10/11/21 22:55 Ur Leukocyte Esterase Sm (Negative) 10/11/21 22:55 Urine WBC (Auto) 22.0 /HPF (0.0-6.0) H 10/11/21 22:55 Urine RBC (Auto) 12.0 /HPF (0.0-6.0) 10/11/21 22:55 U Epithel Cells (Auto) 36.0 /HPF (0-13.0) H 10/11/21 22:55 Urine Bacteria (Auto) 2+ /HPF (Negative) 10/11/21 22:55 Urine Mucus 3+ /HPF 10/11/21 22:55 Urine Yeast (Budding) 1+ /HPF 10/11/21 22:55 Urine Opiates Screen Presumptive negative 10/11/21 22:55 Urine Methadone Screen Presumptive negative 10/11/21 22:55 Acetaminophen 5.0 ug/mL (10.0-30.0) L 10/11/21 23:31 Ur Barbiturates Screen Presumptive negative 10/11/21 22:55 Ur Phencyclidine Scrn Presumptive negative 10/11/21 22:55 Ur Amphetamines Screen Presumptive negative 10/11/21 22:55 U Benzodiazepines Scrn Presumptive negative 10/11/21 22:55 Urine Cocaine Screen Presumptive positive 10/11/21 22:55 U Marijuana (THC) Screen Presumptive positive 10/11/21 22:55 Drugs of Abuse Note Disclamer 10/11/21 22:55 Plasma/Serum Alcohol < 0.01 % (0-0.07) 10/11/21 23:27 Hepatitis A IgM Ab Non-reactive (NonReactive) 10/11/21 23:24 Hep Bs Antigen Nonreactive (Negative) 10/11/21 23:24 Hep B Core IgM Ab Non-reactive (NonReactive) 10/11/21 23:24 Hepatitis C Antibody Non-reactive (NonReactive) 10/11/21 23:24 Microbiology: Microbiology 10/11/21 23:31 Peripheral/Venous Blood Culture - Preliminary NO GROWTH AFTER 24 HOURS 10/12/21 00:00 Peripheral/Venous Blood Culture - Preliminary NO GROWTH AFTER 24 HOURS Martinez/IV: Voiding Method Toilet Active Medications - Current Medications Current Medications: Generic Name Dose Route Start Last Admin Trade Name Freq PRN Reason Stop Dose Admin Acetaminophen 650 mg 10/12/21 05:39 10/12/21 07:59 Acetaminophen 325 Mg Tab PO 650 mg Q4H PRN Administration Pain MILD(1-3)/Fever >100.5/WILKERSON Albuterol 2.5 mg 10/12/21 05:39 Albuterol 2.5 Mg/3 Ml Nebu IH Q4HRT PRN Shortness Of Breath Albuterol/Ipratropium 1 ampul 10/12/21 08:00 10/13/21 08:32 Ipratropium/Albuterol Sulfate 3 Ml Ampul.Neb IH 1 ampul Q6HRT RAJANI Administration Azithromycin 500 mg 10/14/21 10:00 Azithromycin 250 Mg Tab PO 10/16/21 10:01 QDAY RAJANI Protocol Benzonatate 100 mg 10/12/21 06:00 10/13/21 05:29 Benzonatate 100 Mg Cap PO 100 mg Q8HR RAJANI Administration Famotidine 20 mg 10/12/21 10:00 10/13/21 09:03 Famotidine 20 Mg/2 Ml Inj IV 20 mg BID RAJANI Administration Folic Acid 1 mg 10/13/21 10:00 10/13/21 09:04 Folic Acid 1 Mg Tab PO 1 mg QDAY RAJANI Administration Haloperidol Lactate 5 mg 10/12/21 05:39 Haloperidol Lactate 5 Mg/1 Ml Inj IV Q1H PRN Unrespon. to mult. doses BZD's Hydromorphone HCl 0.5 mg 10/12/21 05:39 10/12/21 20:43 Hydromorphone 1 Mg/1 Ml Inj IV 0.5 mg Q3H PRN Administration Pain , Severe (7-10) Ceftriaxone Sodium 2 gm in 100 mls @ 200 mls/hr 10/13/21 06:00 10/13/21 05:28 Rocephin/Ns 2 Gm/100 Ml IV 10/17/21 06:29 200 mls/hr Q24H RAJANI Administration Protocol Lorazepam 2 mg 10/12/21 05:39 10/12/21 22:03 Lorazepam 2 Mg/Ml Vial IV 2 mg Q1H PRN Administration CIWA-Ar 8-15 Lorazepam 4 mg 10/12/21 05:39 Lorazepam 2 Mg/Ml Vial IV Q1H PRN CIWA-Ar 16-25 Morphine Sulfate 2 mg 10/12/21 05:39 10/13/21 09:04 Morphine 2 Mg/1 Ml Inj IV 2 mg Q4H PRN Administration Pain, Moderate (4-6) Nicotine 14 mg 10/12/21 10:00 10/13/21 09:04 Nicotine 14 Mg/24 Hr Patch TD Not Given DAILY RAJANI Ondansetron HCl 4 mg 10/12/21 05:39 10/12/21 08:29 Ondansetron 4 Mg/2 Ml Inj IV 4 mg Q8H PRN Administration Nausea And Vomiting Pneumococcal Polyvalent Vaccine 0.5 ml 10/13/21 12:00 Pneumococcal 23 Valent 0.5 Ml Vial IM 10/13/21 12:01 .ONCE ONE Sodium Chloride 10 ml 10/12/21 10:00 10/13/21 09:05 Sodium Chloride 0.9% 10 Ml Flush Syringe IV 10 ml BID RAJANI Administration Sodium Chloride 10 ml 10/12/21 05:39 Sodium Chloride 0.9% 10 Ml Flush Syringe IV PRN PRN LINE FLUSH Thiamine HCl 100 mg 10/13/21 10:00 10/13/21 09:04 Thiamine 100 Mg Tab PO 100 mg QDAY RAJANI Administration
[2021-10-13] MEDS ORDERED: PNEUMOCOCCAL 23 Valent 0.5 ML VIAL IM ONE (12:00)
[2021-10-13] MEDS ORDERED: FLU VACC QUAD 2021-22(6MOS UP)/PF 60 MCG/0.5 ML SYRINGE IM ONE (12:00)
[2021-10-13] MEDS ORDERED: MAGNESIUM SULFATE 3 GM in SODIUM CHLORIDE 0.9% 100 ML IV ONE (12:00)
--- NOTE | 2021-10-13 12:24 | Progress Note ---
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 TB QuantiFERON gold was negative during previous admission. BAL fungal culture, BAL respiratory culture showed no growth. #Elevated LFTs: GI following, suspected alcoholic hepatitis. Transaminitis on admission was quite severe - AST 2177, ALT 538 #Reactive thrombocytosis #Polysubstance abuse which includes marijuana, alcohol, cocaine Recs: - considering her ongoing polysubstance abuse, severe transaminitis, she is not a candidate for the several months to years of 3 drug (Azithromycin, Rifampin, Ethambutol) treatment needed for pulmonary Mycobacterium avium infection - No other antibiotics indicated, ceftriaxone discontinued - Extremely poor prognosis has been discussed with the patient Mariel Ta MD, FACP, [facility] ([facility] O: [phone] F: [phone] Subjective Date of service: 10/13/21 Interval history: No fever. Abdominal pain continues. Reports 2 episodes of loose stools. Objective - Exam Narrative Exam: Constitutional: Alert, cooperative. No acute distress Head, Ears, Nose: Normocephalic, atraumatic. External ears, nose normal Eyes: Conjunctivae/corneas clear. No icterus. No ptosis. Neck: Supple, no meningeal signs Cardiovascular: S1, S2 + Respiratory: b/l rhonchi GI: tenderness +; bowel sounds normal. No peritoneal signs Musculoskeletal: No pedal edema, no cyanosis. Skin: No rash or abscess Hem/Lymphatic: No palpable cervical or supraclavicular nodes. No lymphangitis Psych: Mood ok. Affect normal Neurological: Awake, alert, oriented. No gross abnormality - Constitutional Vitals: Vital Signs Temp Pulse Resp BP Pulse Ox 99.3 F 114 H 18 96/59 95 10/13/21 08:01 10/13/21 08:01 10/13/21 08:01 10/13/21 08:01 10/13/21 08:01 Temperature -Last 24 Hours Temperature 99.3 F Temperature 97.9 F Temperature 98.7 F Temperature 98.1 F Temperature 97.4 F - Labs CBC & Chem 7: 10/13/21 06:00 10/13/21 06:00 Labs: Abnormal lab results 10/12/21 10/12/21 10/13/21 Range/Units 15:59 15:59 06:00 RBC 3.12 L (3.65-5.03) M/mm3 Hgb 9.3 L (10.1-14.3) gm/dl Hct 28.9 L D (30.3-42.9) % RDW 15.7 H (13.2-15.2) % [place] % (Auto) 11.8 H (0.0-7.3) % Lymph # (Auto) 0.8 L (1.2-5.4) K/mm3 PT 18.4 H (12.2-14.9) Sec. INR 1.38 H (0.87-1.13) Sodium 130 L (137-145) mmol/L Chloride (98-107) mmol/L Carbon Dioxide 21 L (22-30) mmol/L BUN (7-17) mg/dL Creatinine (0.6-1.2) mg/dL Calcium 7.8 L D (8.4-10.2) mg/dL Magnesium (1.7-2.3) mg/dL AST 1614 H (5-40) units/L ALT 478 H (7-56) units/L Alkaline Phosphatase 191 H (35-129) units/L Ammonia (25-60) umol/L Albumin 2.3 L (3.9-5) g/dL 10/13/21 10/13/21 10/13/21 Range/Units 06:00 06:00 06:00 RBC (3.65-5.03) M/mm3 Hgb (10.1-14.3) gm/dl Hct (30.3-42.9) % RDW (13.2-15.2) % [place] % (Auto) (0.0-7.3) % Lymph # (Auto) (1.2-5.4) K/mm3 PT 16.3 H (12.2-14.9) Sec. INR 1.18 H (0.87-1.13) Sodium 128 L (137-145) mmol/L Chloride 96.5 L (98-107) mmol/L Carbon Dioxide (22-30) mmol/L BUN 5 L (7-17) mg/dL Creatinine 0.5 L (0.6-1.2) mg/dL Calcium (8.4-10.2) mg/dL Magnesium 1.40 L (1.7-2.3) mg/dL AST 1025 H (5-40) units/L ALT 393 H (7-56) units/L Alkaline Phosphatase 192 H (35-129) units/L Ammonia 24.0 L (25-60) umol/L Albumin 2.5 L (3.9-5) g/dL
--- NOTE | 2021-10-13 14:41 | Event Note ---
Date: 10/13/21 Patient very well known to me as I have been consulted everytime she has been admitted. Her chief compliant is abdominal as it has been in the past. She has had a bronch before and all studies have been negative. She is always on room air and has not been hypoxic. At this time, from a pulmonary standpoint, no further work up. Reviewed ID note. Worst case scenario, could ask IR for biopsy of lung but not sure what the yield would be. Will sign off call if questions.
[2021-10-13] MEDS: oxyCODONE /ACETAMINOPHEN 5-325MG TAB PO PRN ×2 (15:02→21:45)
--- NOTE | 2021-10-13 15:22 | Gastroenterology Progress Note ---
Assessment and Plan # Elevated liver enzymes - suspect multifactorial. acute alcoholic hepatitis vs 2/2 sepsis vs ischemia. - CT chest revealed progressive airspace disease within the lung bases with dense airspace consolidation in the left lower lobe, extensive chronic cavitary infiltrate of the lungs which is unchanged. CT abdomen and pelvis revealed no acute abnormality. Labs have revealed normal WBC, platelets elevated at 507, INR 1.26, AST ALT are significantly elevated with AST of 2177, ALT 538, alk phos 253. Urinary toxicology screen was positive for cocaine, marijuana. - LFTs trending down as well as INR. Rec - monitor CMP and INR - not a candidate for steroids given pulmonary TB. - supportive care - avoid hepatotoxins. - will not see her in person but will follow labs peripherally. Please call with questions. Subjective Date of service: 10/13/21 Interval history: No complaints. Tolerating diet. Objective - Constitutional Vitals: Temp Pulse Resp BP Pulse Ox 99.3 F 117 H 20 96/59 95 10/13/21 08:01 10/13/21 13:28 10/13/21 13:28 10/13/21 08:01 10/13/21 08:32 General appearance: no acute distress - EENT ENT: hearing intact - Respiratory Respiratory effort: normal - Cardiovascular Rhythm: regular Heart Sounds: Present: S1 & S2 - Gastrointestinal General gastrointestinal: Present: soft, non-tender, non-distended - Neurologic Neurological: alert and oriented x3 - Labs CBC & Chem 7: 10/13/21 06:00 10/13/21 06:00 Labs: Laboratory Results - last 24 hr 10/12/21 10/12/21 10/13/21 15:59 15:59 05:00 WBC RBC Hgb Hct MCV MCH MCHC RDW Plt Count Lymph % (Auto) [place] % (Auto) Eos % (Auto) Baso % (Auto) Lymph # (Auto) [place] # (Auto) Eos # (Auto) Baso # (Auto) Seg Neutrophils % Seg Neutrophils # PT 18.4 H INR 1.38 H Sodium 130 L Potassium 3.8 Chloride 98.6 Carbon Dioxide 21 L Anion Gap 14 BUN 7 Creatinine 0.6 Estimated GFR > 60 BUN/Creatinine Ratio 12 Glucose 75 Calcium 7.8 L D Phosphorus Magnesium Total Bilirubin 0.40 AST 1614 H ALT 478 H Alkaline Phosphatase 191 H Ammonia Total Protein 7.1 Albumin 2.3 L Albumin/Globulin Ratio 0.5 Nasal Screen MRSA (PCR) Negative 10/13/21 10/13/21 10/13/21 06:00 06:00 06:00 WBC 5.6 RBC 3.12 L Hgb 9.3 L Hct 28.9 L D MCV 93 MCH 30 MCHC 32 RDW 15.7 H Plt Count 329 Lymph % (Auto) 14.0 [place] % (Auto) 11.8 H Eos % (Auto) 3.7 Baso % (Auto) 0.9 Lymph # (Auto) 0.8 L [place] # (Auto) 0.7 Eos # (Auto) 0.2 Baso # (Auto) 0.0 Seg Neutrophils % 69.7 Seg Neutrophils # 3.9 PT INR Sodium 128 L Potassium 3.8 Chloride 96.5 L Carbon Dioxide 23 Anion Gap 12 BUN 5 L Creatinine 0.5 L Estimated GFR > 60 BUN/Creatinine Ratio 10 Glucose 85 Calcium 8.4 Phosphorus 3.80 Magnesium 1.40 L Total Bilirubin 0.40 AST 1025 H ALT 393 H Alkaline Phosphatase 192 H Ammonia 24.0 L Total Protein 7.4 Albumin 2.5 L Albumin/Globulin Ratio 0.5 Nasal Screen MRSA (PCR) 10/13/21 06:00 WBC RBC Hgb Hct MCV MCH MCHC RDW Plt Count Lymph % (Auto) [place] % (Auto) Eos % (Auto) Baso % (Auto) Lymph # (Auto) [place] # (Auto) Eos # (Auto) Baso # (Auto) Seg Neutrophils % Seg Neutrophils # PT 16.3 H INR 1.18 H Sodium Potassium Chloride Carbon Dioxide Anion Gap BUN Creatinine Estimated GFR BUN/Creatinine Ratio Glucose Calcium Phosphorus Magnesium Total Bilirubin AST ALT Alkaline Phosphatase Ammonia Total Protein Albumin Albumin/Globulin Ratio Nasal Screen MRSA (PCR)
[2021-10-13] MEDS: FAMOTIDINE 20 MG TAB PO SCH (21:45)
[2021-10-13] MEDS: ONDANSETRON 4 MG/2 ML INJ IV PRN (22:33)
[2021-10-14] MEDS ORDERED: diphenhydrAMINE 25 MG/10 ML ORAL LIQUID PO ONE (01:31)
[2021-10-14] MEDS: IPRATROPIUM/ALBUTEROL SULFATE 3 ML AMPUL.NEB IH SCH ×4 (02:24→19:38)
[2021-10-14] MEDS: MORPHINE 2 MG/1 ML INJ IV PRN ×4 (02:37→15:58)
[2021-10-14] MEDS: cefTRIAXone/NS 2 GM/100 ML 2 GM/100 ML BAG IV SCH (05:57)
[2021-10-14] MEDS: BENZONATATE 100 MG CAP PO SCH ×3 (05:59→21:14)
--- NOTE | 2021-10-14 08:54 | Progress Note ---
Assessment and Plan Assessment and plan: Tests and reports: CT chest with contrast: soft tissue inflammation with gas in the right lower neck extending along the right common carotid artery involving portion of the upper mediastinum probably secondary to recent surgical intervention catheter placement rule out gas-forming soft tissue infection of the neck recommend CT soft tissue neck with contrast no organized collection progressive airspace disease within the lung bases consolidation, extensive chronic cavitary infiltrates of the lungs appears otherwise unchanged CT abdomen and pelvis; no acute abnormality noted Chest x-ray; stable appearing chest with extensive chronic cavitary lung lesion most pronounced within the left mid and lower lung and right upper lung no pneumothorax --Acute alcoholic hepatitis: Current Visit: Yes Status: Acute Very high transaminases Normal bilirubin levels Chronic alcohol use, partly due to sepsis Closely monitor LFTs, avoid hepatotoxiNS Monitor INR, ammonia levels GI evaluation noted and appreciated --Bilateral cavitary pneumonia Current Visit: Yes Status: Acute AFBx3 negative, , Continue antibiotics per ID Advised to continue Zyvox for 7 more days[total 2 weeks] -- chronic alcohol use ; Current Visit: Yes Status: Acute Strongly advised to quit alcohol intake Advised thiamine folic acid, recommend alcohol rehabilitation --Moderate protein calorie malnutrition ; Current Visit: Yes Status: Chronic Nutrition supplements, nutrition consult --Hyponatremia; Current Visit: Yes Status: Acute Closely monitor electrolytes --Hypomagnesemia; Replenished per protocol and monitor electrolytes --Polysubstance abuse; tobacco, alcohol, marijuana, cocaine Current Visit: Yes Status: Chronic Counseling strongly advised to quit recreational drug use, alcohol use Smoking cessation advised, nicotine patch as needed --DVT prophylaxis Current Visit: Yes Status: Acute On anticoagulation and GI prophylaxis GI, ID evaluation recommendations noted and appreciated Pending pulmonary evaluation Closely monitor the patient and adjust the management as needed Plan of care reviewed with the patient and his nurse Patient is critically ill, will monitor closely Brief history; and daily hospital course 41-year-old female patient with with past medical history of bilateral lung cavitary lesions , extensively worked up in the past including bronchoscopy and BAL evaluation , COPD , polysubstance abuse tobacco, alcohol, recreational drug use , MRSA pneumonia, noncompliant with medications and follow-up visits, was admitted through emergency room With abdominal pain, nausea vomiting and diarrhea, found to have severe transaminitis and progressive airspace disease and extensively chronic cavitary infiltrates of both lungs on CT, CT abdomen pelvis negative for acute abnormality, critically ill 10/12/2021; GI and ID evaluation noted and appreciated, pending pulmonary evaluation. 10/13/2021; LFTs trending down, pulmonary recommendations noted and appreciated 10/14/2021; continue current management, closely monitor LFTs, consultants and recommendations noted and appreciated History Interval history: I have seen and examined the patient at the bedside Patient's chart and medications reviewed Patient feels slightly better No alcohol withdrawal symptoms Vital signs noted Hospitalist Physical - Constitutional Vitals: Temp Pulse Resp BP Pulse Ox 98.1 F 120 H 18 117/81 92 10/14/21 07:54 10/14/21 07:54 10/14/21 07:54 10/14/21 07:54 10/14/21 07:54 General appearance: Present: no acute distress, mild distress, well-nourished - EENT Eyes: Present: PERRL, EOM intact - Neck Neck: Present: supple, normal ROM - Respiratory Respiratory effort: normal Respiratory: bilateral: diminished, negative: rales, rhonchi, wheezing - Cardiovascular Rhythm: regular Heart Sounds: Present: S1 & S2 - Extremities Extremities: no ischemia, No edema - Abdominal General gastrointestinal: soft, non-tender, non-distended, normal bowel sounds - Integumentary Integumentary: Present: clear, warm - Psychiatric Psychiatric: appropriate mood/affect, cooperative - Neurologic Neurologic: CNII-XII intact, moves all extremities HEART Score - HEART Score Troponin: Troponin T < 0.010 ng/mL (0.00-0.029) 10/12/21 00:00 Results - Labs CBC & Chem 7: 10/13/21 06:00 10/13/21 06:00 Labs: Laboratory Last Values WBC 5.6 K/mm3 (4.5-11.0) 10/13/21 06:00 RBC 3.12 M/mm3 (3.65-5.03) L 10/13/21 06:00 Hgb 9.3 gm/dl (10.1-14.3) L 10/13/21 06:00 Hct 28.9 % (30.3-42.9) L D 10/13/21 06:00 MCV 93 fl (79-97) 10/13/21 06:00 MCH 30 pg (28-32) 10/13/21 06:00 MCHC 32 % (30-34) 10/13/21 06:00 RDW 15.7 % (13.2-15.2) H 10/13/21 06:00 Plt Count 329 K/mm3 (140-440) 10/13/21 06:00 Lymph % (Auto) 14.0 % (13.4-35.0) 10/13/21 06:00 Love % (Auto) 11.8 % (0.0-7.3) H 10/13/21 06:00 Eos % (Auto) 3.7 % (0.0-4.3) 10/13/21 06:00 Baso % (Auto) 0.9 % (0.0-1.8) 10/13/21 06:00 Lymph # (Auto) 0.8 K/mm3 (1.2-5.4) L 10/13/21 06:00 Love # (Auto) 0.7 K/mm3 (0.0-0.8) 10/13/21 06:00 Eos # (Auto) 0.2 K/mm3 (0.0-0.4) 10/13/21 06:00 Baso # (Auto) 0.0 K/mm3 (0.0-0.1) 10/13/21 06:00 Add Manual Diff Complete 10/11/21 20:34 Total Counted 100 10/11/21 20:34 Seg Neutrophils % 69.7 % (40.0-70.0) 10/13/21 06:00 Seg Neuts % (Manual) 87.0 % (40.0-70.0) H 10/11/21 20:34 Band Neutrophils % 1.0 % 10/11/21 20:34 Lymphocytes % (Manual) 4.0 % (13.4-35.0) L 10/11/21 20:34 Monocytes % (Manual) 8.0 % (0.0-7.3) H 10/11/21 20:34 Nucleated RBC % Not Reportable 10/11/21 20:34 Seg Neutrophils # 3.9 K/mm3 (1.8-7.7) 10/13/21 06:00 Seg Neutrophils # Man 6.6 K/mm3 (1.8-7.7) 10/11/21 20:34 Band Neutrophils # 0.1 K/mm3 10/11/21 20:34 Lymphocytes # (Manual) 0.3 K/mm3 (1.2-5.4) L 10/11/21 20:34 Abs React Lymphs (Man) 0.0 K/mm3 10/11/21 20:34 Monocytes # (Manual) 0.6 K/mm3 (0.0-0.8) 10/11/21 20:34 Eosinophils # (Manual) 0.0 K/mm3 (0.0-0.4) 10/11/21 20:34 Basophils # (Manual) 0.0 K/mm3 (0.0-0.1) 10/11/21 20:34 Metamyelocytes # 0.0 K/mm3 10/11/21 20:34 Myelocytes # 0.0 K/mm3 10/11/21 20:34 Promyelocytes # 0.0 K/mm3 10/11/21 20:34 Blast Cells # 0.0 K/mm3 10/11/21 20:34 WBC Morphology Not Reportable 10/11/21 20:34 Hypersegmented Neuts Not Reportable 10/11/21 20:34 Hyposegmented Neuts Not Reportable 10/11/21 20:34 Hypogranular Neuts Not Reportable 10/11/21 20:34 Smudge Cells Not Reportable 10/11/21 20:34 Toxic Granulation Not Reportable 10/11/21 20:34 Toxic Vacuolation Not Reportable 10/11/21 20:34 Dohle Bodies Not Reportable 10/11/21 20:34 Pelger-Huet Anomaly Not Reportable 10/11/21 20:34 Perico Rods Not Reportable 10/11/21 20:34 Platelet Estimate Consistent w auto 10/11/21 20:34 Clumped Platelets Not Reportable 10/11/21 20:34 Plt Clumps, EDTA Not Reportable 10/11/21 20:34 Large Platelets Few 10/11/21 20:34 Giant Platelets Not Reportable 10/11/21 20:34 Platelet Satelliting Not Reportable 10/11/21 20:34 Plt Morphology Comment Not Reportable 10/11/21 20:34 RBC Morphology Not Reportable 10/11/21 20:34 Dimorphic RBCs Not Reportable 10/11/21 20:34 Polychromasia Not Reportable 10/11/21 20:34 Hypochromasia Not Reportable 10/11/21 20:34 Poikilocytosis Few 10/11/21 20:34 Anisocytosis Not Reportable 10/11/21 20:34 Microcytosis Not Reportable 10/11/21 20:34 Macrocytosis Not Reportable 10/11/21 20:34 Spherocytes Not Reportable 10/11/21 20:34 Pappenheimer Bodies Not Reportable 10/11/21 20:34 Sickle Cells Not Reportable 10/11/21 20:34 Target Cells Few 10/11/21 20:34 Tear Drop Cells Not Reportable 10/11/21 20:34 Ovalocytes Few 10/11/21 20:34 Helmet Cells Not Reportable 10/11/21 20:34 [place] Bodies Not Reportable 10/11/21 20:34 [place] Rings Not Reportable 10/11/21 20:34 Carm[place] Cells Not Reportable 10/11/21 20:34 Bite Cells Not Reportable 10/11/21 20:34 Crenated Cell Not Reportable 10/11/21 20:34 Elliptocytes Not Reportable 10/11/21 20:34 Acanthocytes (Spur) Not Reportable 10/11/21 20:34 Rouleaux Not Reportable 10/11/21 20:34 Hemoglobin C Crystals Not Reportable 10/11/21 20:34 Schistocytes Not Reportable 10/11/21 20:34 Malaria parasites Not Reportable 10/11/21 20:34 Roel Bodies Not Reportable 10/11/21 20:34 Hem Pathologist Commnt No 10/11/21 20:34 PT 16.3 Sec. (12.2-14.9) H 10/13/21 06:00 INR 1.18 (0.87-1.13) H 10/13/21 06:00 APTT 37.5 Sec. (24.2-36.6) H 10/11/21 23:31 Sodium 128 mmol/L (137-145) L 10/13/21 06:00 Potassium 3.8 mmol/L (3.6-5.0) 10/13/21 06:00 Chloride 96.5 mmol/L (98-107) L 10/13/21 06:00 Carbon Dioxide 23 mmol/L (22-30) 10/13/21 06:00 Anion Gap 12 mmol/L 10/13/21 06:00 BUN 5 mg/dL (7-17) L 10/13/21 06:00 Creatinine 0.5 mg/dL (0.6-1.2) L 10/13/21 06:00 Estimated GFR > 60 ml/min 10/13/21 06:00 BUN/Creatinine Ratio 10 % 10/13/21 06:00 Glucose 85 mg/dL (65-100) 10/13/21 06:00 Lactic Acid 1.60 mmol/L (0.7-2.0) 10/12/21 05:17 Calcium 8.4 mg/dL (8.4-10.2) 10/13/21 06:00 Phosphorus 3.80 mg/dL (2.5-4.5) 10/13/21 06:00 Magnesium 1.40 mg/dL (1.7-2.3) L 10/13/21 06:00 Total Bilirubin 0.40 mg/dL (0.1-1.2) 10/13/21 06:00 Direct Bilirubin 0.5 mg/dL (0-0.2) H 10/11/21 23:31 Indirect Bilirubin 0.5 mg/dL 10/11/21 23:31 AST 1025 units/L (5-40) H 10/13/21 06:00 ALT 393 units/L (7-56) H 10/13/21 06:00 Alkaline Phosphatase 192 units/L (35-129) H 10/13/21 06:00 Ammonia 24.0 umol/L (25-60) L 10/13/21 06:00 Total Creatine Kinase 51 units/L (30-135) 10/11/21 23:31 Troponin T < 0.010 ng/mL (0.00-0.029) 10/12/21 00:00 Total Protein 7.4 g/dL (6.3-8.2) 10/13/21 06:00 Albumin 2.5 g/dL (3.9-5) L 10/13/21 06:00 Albumin/Globulin Ratio 0.5 % 10/13/21 06:00 Lipase 15 units/L (13-60) 10/11/21 20:34 HCG, Qual Negative (Negative) 10/11/21 20:34 Urine Color [place] (Yellow) 10/11/21 22:55 Urine Turbidity Slightly-cloudy (Clear) 10/11/21 22:55 Urine pH 5.0 (5.0-7.0) 10/11/21 22:55 Ur Specific [place] 1.025 (1.003-1.030) 10/11/21 22:55 Urine Protein 100 mg/dl mg/dL (Negative) 10/11/21 22:55 Urine Glucose (UA) Neg mg/dL (Negative) 10/11/21 22:55 Urine Ketones Tr mg/dL (Negative) 10/11/21 22:55 Urine Blood Neg (Negative) 10/11/21 22:55 Urine Nitrite Neg (Negative) 10/11/21 22:55 Urine Bilirubin Sm (Negative) 10/11/21 22:55 Urine Ictotest Positive (Negative) 10/11/21 22:55 Urine Urobilinogen 4.0 mg/dL (<2.0) 10/11/21 22:55 Ur Leukocyte Esterase Sm (Negative) 10/11/21 22:55 Urine WBC (Auto) 22.0 /HPF (0.0-6.0) H 10/11/21 22:55 Urine RBC (Auto) 12.0 /HPF (0.0-6.0) 10/11/21 22:55 U Epithel Cells (Auto) 36.0 /HPF (0-13.0) H 10/11/21 22:55 Urine Bacteria (Auto) 2+ /HPF (Negative) 10/11/21 22:55 Urine Mucus 3+ /HPF 10/11/21 22:55 Urine Yeast (Budding) 1+ /HPF 10/11/21 22:55 Nasal Screen MRSA (PCR) Negative (Negative) 10/13/21 05:00 Urine Opiates Screen Presumptive negative 10/11/21 22:55 Urine Methadone Screen Presumptive negative 10/11/21 22:55 Acetaminophen 5.0 ug/mL (10.0-30.0) L 10/11/21 23:31 Ur Barbiturates Screen Presumptive negative 10/11/21 22:55 Ur Phencyclidine Scrn Presumptive negative 10/11/21 22:55 Ur Amphetamines Screen Presumptive negative 10/11/21 22:55 U Benzodiazepines Scrn Presumptive negative 10/11/21 22:55 Urine Cocaine Screen Presumptive positive 10/11/21 22:55 U Marijuana (THC) Screen Presumptive positive 10/11/21 22:55 Drugs of Abuse Note Disclamer 10/11/21 22:55 Plasma/Serum Alcohol < 0.01 % (0-0.07) 10/11/21 23:27 Hepatitis A IgM Ab Non-reactive (NonReactive) 10/11/21 23:24 Hep Bs Antigen Nonreactive (Negative) 10/11/21 23:24 Hep B Core IgM Ab Non-reactive (NonReactive) 10/11/21 23:24 Hepatitis C Antibody Non-reactive (NonReactive) 10/11/21 23:24 Microbiology: Microbiology 10/11/21 23:31 Peripheral/Venous Blood Culture - Preliminary NO GROWTH AFTER 48 HOURS 10/12/21 00:00 Peripheral/Venous Blood Culture - Preliminary NO GROWTH AFTER 48 HOURS 10/11/21 22:55 Urine,Clean Catch Urine Culture - Preliminary [place]/IV: Voiding Method Toilet Active Medications - Current Medications Current Medications: Generic Name Dose Route Start Last Admin Trade Name Freq PRN Reason Stop Dose Admin Acetaminophen 650 mg 10/12/21 05:39 10/12/21 07:59 Acetaminophen 325 Mg Tab PO 650 mg Q4H PRN Administration Pain MILD(1-3)/Fever >100.5/WIL[place]ERSON Albuterol 2.5 mg 10/12/21 05:39 Albuterol 2.5 Mg/3 Ml Nebu IH Q4HRT PRN Shortness Of Breath Albuterol/Ipratropium 1 ampul 10/12/21 08:00 10/14/21 02:24 Ipratropium/Albuterol Sulfate 3 Ml Ampul.Neb IH 1 ampul Q6HRT RAJANI Administration Azithromycin 500 mg 10/14/21 10:00 Azithromycin 250 Mg Tab PO 10/16/21 10:01 QDAY RAJANI Protocol Benzonatate 100 mg 10/12/21 06:00 10/14/21 05:59 Benzonatate 100 Mg Cap PO 100 mg Q8HR RAJANI Administration Famotidine 20 mg 10/13/21 22:00 10/13/21 21:45 Famotidine 20 Mg Tab PO 20 mg BID RAJANI Administration Folic Acid 1 mg 10/13/21 10:00 10/13/21 09:04 Folic Acid 1 Mg Tab PO 1 mg QDAY RAJANI Administration Haloperidol Lactate 5 mg 10/12/21 05:39 Haloperidol Lactate 5 Mg/1 Ml Inj IV Q1H PRN Unrespon. to mult. doses BZD's Ceftriaxone Sodium 2 gm in 100 mls @ 200 mls/hr 10/13/21 06:00 10/14/21 05:57 Rocephin/Ns 2 Gm/100 Ml IV 10/17/21 06:29 200 mls/hr Q24H RAJANI Administration Protocol Lorazepam 2 mg 10/12/21 05:39 10/12/21 22:03 Lorazepam 2 Mg/Ml Vial IV 2 mg Q1H PRN Administration CIWA-Ar 8-15 Lorazepam 4 mg 10/12/21 05:39 Lorazepam 2 Mg/Ml Vial IV Q1H PRN CIWA-Ar 16-25 Morphine Sulfate 2 mg 10/12/21 05:39 10/14/21 05:59 Morphine 2 Mg/1 Ml Inj IV 2 mg Q4H PRN Administration Pain, Moderate (4-6) Nicotine 14 mg 10/12/21 10:00 10/13/21 18:38 Nicotine 14 Mg/24 Hr Patch TD 14 mg DAILY RAJANI Administration Ondansetron HCl 4 mg 10/12/21 05:39 10/13/21 22:33 Ondansetron 4 Mg/2 Ml Inj IV 4 mg Q8H PRN Administration Nausea And Vomiting Oxycodone/Acetaminophen 1 tab 10/13/21 15:00 10/13/21 21:45 Oxycodone /Acetaminophen 5-325mg Tab PO 1 tab Q6H PRN Administration Pain, Moderate (4-6) Sodium Chloride 10 ml 10/12/21 10:00 10/13/21 21:48 Sodium Chloride 0.9% 10 Ml Flush Syringe IV 10 ml BID RAJANI Administration Sodium Chloride 10 ml 10/12/21 05:39 Sodium Chloride 0.9% 10 Ml Flush Syringe IV PRN PRN LINE FLUSH Thiamine HCl 100 mg 10/13/21 10:00 10/13/21 09:04 Thiamine 100 Mg Tab PO 100 mg QDAY RAJANI Administration
[2021-10-14] MEDS: AZITHROMYCIN 250 MG TAB PO SCH (09:19)
[2021-10-14] MEDS: FOLIC ACID 1 MG TAB PO SCH (09:19)
[2021-10-14] MEDS: oxyCODONE /ACETAMINOPHEN 5-325MG TAB PO PRN ×3 (09:20→20:16)
[2021-10-14] MEDS: NICOTINE 14 MG/24 HR PATCH TD SCH (09:20)
[2021-10-14] MEDS: THIAMINE 100 MG TAB PO SCH (09:20)
[2021-10-14] MEDS: FAMOTIDINE 20 MG TAB PO SCH ×2 (09:20→21:13)
[2021-10-14] MEDS ORDERED: diphenhydrAMINE 25 MG CAP PO PRN (12:36)
[2021-10-15] MEDS: MORPHINE 2 MG/1 ML INJ IV PRN ×3 (00:44→14:43)
[2021-10-15] MEDS: oxyCODONE /ACETAMINOPHEN 5-325MG TAB PO PRN ×3 (03:39→16:12)
[2021-10-15] MEDS: IPRATROPIUM/ALBUTEROL SULFATE 3 ML AMPUL.NEB IH SCH ×3 (04:41→14:51)
[2021-10-15] MEDS: cefTRIAXone/NS 2 GM/100 ML 2 GM/100 ML BAG IV SCH (05:00)
[2021-10-15] MEDS: BENZONATATE 100 MG CAP PO SCH ×2 (05:00→13:23)
[2021-10-15 05:25] VITALS: BP 102/73
[2021-10-15 06:37] LABS: Alanine Aminotransferase 191 units/L (7-56); Albumin 2.6 g/dL (3.9-5); Blood Urea Nitrogen 5 mg/dL (7-17); Calcium 8.4 mg/dL (8.4-10.2); Hemolysis Index 3
[2021-10-15 07:14] LABS: BUN/Creatinine Ratio 13
[2021-10-15] MEDS: AZITHROMYCIN 250 MG TAB PO SCH (09:48)
[2021-10-15] MEDS: FAMOTIDINE 20 MG TAB PO SCH (09:49)
[2021-10-15] MEDS: NICOTINE 14 MG/24 HR PATCH TD SCH (09:49)
[2021-10-15] MEDS: FOLIC ACID 1 MG TAB PO SCH (09:49)
[2021-10-15] MEDS: THIAMINE 100 MG TAB PO SCH (09:50)
--- NOTE | 2021-10-15 14:43 | Progress Note ---
Assessment and Plan Assessment and plan: Tests and reports: CT chest with contrast: soft tissue inflammation with gas in the right lower neck extending along the right common carotid artery involving portion of the upper mediastinum probably secondary to recent surgical intervention catheter placement rule out gas-forming soft tissue infection of the neck recommend CT soft tissue neck with contrast no organized collection progressive airspace disease within the lung bases consolidation, extensive chronic cavitary infiltrates of the lungs appears otherwise unchanged CT abdomen and pelvis; no acute abnormality noted Chest x-ray; stable appearing chest with extensive chronic cavitary lung lesion most pronounced within the left mid and lower lung and right upper lung no pneumothorax --Acute alcoholic hepatitis: Current Visit: Yes Status: Acute Very high transaminases Normal bilirubin levels Chronic alcohol use, partly due to sepsis Closely monitor LFTs, avoid hepatotoxiNS Monitor INR, ammonia levels GI evaluation noted and appreciated --Bilateral cavitary pneumonia Current Visit: Yes Status: Acute BAL 08/07/2021 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 During previous admission. Patient did not follow-up with ID Not compliant with medication, polysubstance abuse not a candidate for several months to years of 3 drug azithromycin rifampin albuterol treatment that is needed for Mycobacterium AVM pulmonary infection. No other antibiotic available per ID, Continue supportive care -- chronic alcohol use ; Current Visit: Yes Status: Acute Strongly advised to quit alcohol intake Advised thiamine folic acid, recommend alcohol rehabilitation --Moderate protein calorie malnutrition ; Current Visit: Yes Status: Chronic Nutrition supplements, nutrition consult --Hyponatremia; Current Visit: Yes Status: Acute Closely monitor electrolytes --Hypomagnesemia; Replenished per protocol and monitor electrolytes --Polysubstance abuse; tobacco, alcohol, marijuana, cocaine Current Visit: Yes Status: Chronic Counseling strongly advised to quit recreational drug use, alcohol use Smoking cessation advised, nicotine patch as needed --DVT prophylaxis Current Visit: Yes Status: Acute On anticoagulation and GI prophylaxis GI, ID evaluation recommendations noted and appreciated Pending pulmonary evaluation Closely monitor the patient and adjust the management as needed Plan of care reviewed with the patient and his nurse Patient is critically ill, will monitor closely Brief history; and daily hospital course 41-year-old female patient with with past medical history of bilateral lung cavitary lesions , extensively worked up in the past including bronchoscopy and BAL evaluation , COPD , polysubstance abuse tobacco, alcohol, recreational drug use , MRSA pneumonia, noncompliant with medications and follow-up visits, was admitted through emergency room With abdominal pain, nausea vomiting and diarrhea, found to have severe transaminitis and progressive airspace disease and extensively chronic cavitary infiltrates of both lungs on CT, CT abdomen pelvis negative for acute abnormality, critically ill 10/12/2021; GI and ID evaluation noted and appreciated, pending pulmonary evaluation. 10/13/2021; LFTs trending down, pulmonary recommendations noted and appreciated 10/14/2021; continue current management, closely monitor LFTs, consultants and recommendations noted and appreciated Hospitalist Physical - Constitutional Vitals: Temp Pulse Resp BP Pulse Ox 99.0 F 120 H 20 102/73 98 10/15/21 03:27 10/15/21 09:17 10/15/21 09:17 10/15/21 03:27 10/15/21 07:02 General appearance: Present: no acute distress, mild distress, well-nourished HEART Score - HEART Score Troponin: Troponin T < 0.010 ng/mL (0.00-0.029) 10/12/21 00:00 Results - Labs CBC & Chem 7: 10/13/21 06:00 10/15/21 05:24 Labs: Laboratory Last Values WBC 5.6 K/mm3 (4.5-11.0) 10/13/21 06:00 RBC 3.12 M/mm3 (3.65-5.03) L 10/13/21 06:00 Hgb 9.3 gm/dl (10.1-14.3) L 10/13/21 06:00 Hct 28.9 % (30.3-42.9) L D 10/13/21 06:00 MCV 93 fl (79-97) 10/13/21 06:00 MCH 30 pg (28-32) 10/13/21 06:00 MCHC 32 % (30-34) 10/13/21 06:00 RDW 15.7 % (13.2-15.2) H 10/13/21 06:00 Plt Count 329 K/mm3 (140-440) 10/13/21 06:00 Lymph % (Auto) 14.0 % (13.4-35.0) 10/13/21 06:00 [place] % (Auto) 11.8 % (0.0-7.3) H 10/13/21 06:00 Eos % (Auto) 3.7 % (0.0-4.3) 10/13/21 06:00 Baso % (Auto) 0.9 % (0.0-1.8) 10/13/21 06:00 Lymph # (Auto) 0.8 K/mm3 (1.2-5.4) L 10/13/21 06:00 [place] # (Auto) 0.7 K/mm3 (0.0-0.8) 10/13/21 06:00 Eos # (Auto) 0.2 K/mm3 (0.0-0.4) 10/13/21 06:00 Baso # (Auto) 0.0 K/mm3 (0.0-0.1) 10/13/21 06:00 Add Manual Diff Complete 10/11/21 20:34 Total Counted 100 10/11/21 20:34 Seg Neutrophils % 69.7 % (40.0-70.0) 10/13/21 06:00 Seg Neuts % (Manual) 87.0 % (40.0-70.0) H 10/11/21 20:34 Band Neutrophils % 1.0 % 10/11/21 20:34 Lymphocytes % (Manual) 4.0 % (13.4-35.0) L 10/11/21 20:34 Monocytes % (Manual) 8.0 % (0.0-7.3) H 10/11/21 20:34 Nucleated RBC % Not Reportable 10/11/21 20:34 Seg Neutrophils # 3.9 K/mm3 (1.8-7.7) 10/13/21 06:00 Seg Neutrophils # Man 6.6 K/mm3 (1.8-7.7) 10/11/21 20:34 Band Neutrophils # 0.1 K/mm3 10/11/21 20:34 Lymphocytes # (Manual) 0.3 K/mm3 (1.2-5.4) L 10/11/21 20:34 Abs React Lymphs (Man) 0.0 K/mm3 10/11/21 20:34 Monocytes # (Manual) 0.6 K/mm3 (0.0-0.8) 10/11/21 20:34 Eosinophils # (Manual) 0.0 K/mm3 (0.0-0.4) 10/11/21 20:34 Basophils # (Manual) 0.0 K/mm3 (0.0-0.1) 10/11/21 20:34 Metamyelocytes # 0.0 K/mm3 10/11/21 20:34 Myelocytes # 0.0 K/mm3 10/11/21 20:34 Promyelocytes # 0.0 K/mm3 10/11/21 20:34 Blast Cells # 0.0 K/mm3 10/11/21 20:34 WBC Morphology Not Reportable 10/11/21 20:34 Hypersegmented Neuts Not Reportable 10/11/21 20:34 Hyposegmented Neuts Not Reportable 10/11/21 20:34 Hypogranular Neuts Not Reportable 10/11/21 20:34 Smudge Cells Not Reportable 10/11/21 20:34 Toxic Granulation Not Reportable 10/11/21 20:34 Toxic Vacuolation Not Reportable 10/11/21 20:34 Dohle Bodies Not Reportable 10/11/21 20:34 Pelger-Huet Anomaly Not Reportable 10/11/21 20:34 Perico Rods Not Reportable 10/11/21 20:34 Platelet Estimate Consistent w auto 10/11/21 20:34 Clumped Platelets Not Reportable 10/11/21 20:34 Plt Clumps, EDTA Not Reportable 10/11/21 20:34 Large Platelets Few 10/11/21 20:34 Giant Platelets Not Reportable 10/11/21 20:34 Platelet Satelliting Not Reportable 10/11/21 20:34 Plt Morphology Comment Not Reportable 10/11/21 20:34 RBC Morphology Not Reportable 10/11/21 20:34 Dimorphic RBCs Not Reportable 10/11/21 20:34 Polychromasia Not Reportable 10/11/21 20:34 Hypochromasia Not Reportable 10/11/21 20:34 Poikilocytosis Few 10/11/21 20:34 Anisocytosis Not Reportable 10/11/21 20:34 Microcytosis Not Reportable 10/11/21 20:34 Macrocytosis Not Reportable 10/11/21 20:34 Spherocytes Not Reportable 10/11/21 20:34 Pappenheimer Bodies Not Reportable 10/11/21 20:34 Sickle Cells Not Reportable 10/11/21 20:34 Target Cells Few 10/11/21 20:34 Tear Drop Cells Not Reportable 10/11/21 20:34 Ovalocytes Few 10/11/21 20:34 Helmet Cells Not Reportable 10/11/21 20:34 Carmona-Udell Bodies Not Reportable 10/11/21 20:34 Ducor Rings Not Reportable 10/11/21 20:34 Carmen Cells Not Reportable 10/11/21 20:34 Bite Cells Not Reportable 10/11/21 20:34 Crenated Cell Not Reportable 10/11/21 20:34 Elliptocytes Not Reportable 10/11/21 20:34 Acanthocytes (Spur) Not Reportable 10/11/21 20:34 Rouleaux Not Reportable 10/11/21 20:34 Hemoglobin C Crystals Not Reportable 10/11/21 20:34 Schistocytes Not Reportable 10/11/21 20:34 Malaria parasites Not Reportable 10/11/21 20:34 Roel Bodies Not Reportable 10/11/21 20:34 Hem Pathologist Commnt No 10/11/21 20:34 PT 16.3 Sec. (12.2-14.9) H 10/13/21 06:00 INR 1.18 (0.87-1.13) H 10/13/21 06:00 APTT 37.5 Sec. (24.2-36.6) H 10/11/21 23:31 Sodium 126 mmol/L (137-145) L 10/15/21 05:24 Potassium 4.5 mmol/L (3.6-5.0) 10/15/21 05:24 Chloride 91.1 mmol/L (98-107) L 10/15/21 05:24 Carbon Dioxide 26 mmol/L (22-30) 10/15/21 05:24 Anion Gap 13 mmol/L 10/15/21 05:24 BUN 5 mg/dL (7-17) L 10/15/21 05:24 Creatinine 0.4 mg/dL (0.6-1.2) L 10/15/21 05:24 Estimated GFR > 60 ml/min 10/15/21 05:24 BUN/Creatinine Ratio 13 % 10/15/21 05:24 Glucose 77 mg/dL (65-100) 10/15/21 05:24 Lactic Acid 1.60 mmol/L (0.7-2.0) 10/12/21 05:17 Calcium 8.4 mg/dL (8.4-10.2) 10/15/21 05:24 Phosphorus 3.80 mg/dL (2.5-4.5) 10/13/21 06:00 Magnesium 1.40 mg/dL (1.7-2.3) L 10/13/21 06:00 Total Bilirubin 0.40 mg/dL (0.1-1.2) 10/15/21 05:24 Direct Bilirubin 0.5 mg/dL (0-0.2) H 10/11/21 23:31 Indirect Bilirubin 0.5 mg/dL 10/11/21 23:31 AST 127 units/L (5-40) H 10/15/21 05:24 ALT 191 units/L (7-56) H 10/15/21 05:24 Alkaline Phosphatase 189 units/L (35-129) H 10/15/21 05:24 Ammonia 24.0 umol/L (25-60) L 10/13/21 06:00 Total Creatine Kinase 51 units/L (30-135) 10/11/21 23:31 Troponin T < 0.010 ng/mL (0.00-0.029) 10/12/21 00:00 Total Protein 7.4 g/dL (6.3-8.2) 10/15/21 05:24 Albumin 2.6 g/dL (3.9-5) L 10/15/21 05:24 Albumin/Globulin Ratio 0.5 % 10/15/21 05:24 Lipase 15 units/L (13-60) 10/11/21 20:34 HCG, Qual Negative (Negative) 10/11/21 20:34 Urine Color [place] (Yellow) 10/11/21 22:55 Urine Turbidity Slightly-cloudy (Clear) 10/11/21 22:55 Urine pH 5.0 (5.0-7.0) 10/11/21 22:55 Ur Specific [place] 1.025 (1.003-1.030) 10/11/21 22:55 Urine Protein 100 mg/dl mg/dL (Negative) 10/11/21 22:55 Urine Glucose (UA) Neg mg/dL (Negative) 10/11/21 22:55 Urine Ketones Tr mg/dL (Negative) 10/11/21 22:55 Urine Blood Neg (Negative) 10/11/21 22:55 Urine Nitrite Neg (Negative) 10/11/21 22:55 Urine Bilirubin Sm (Negative) 10/11/21 22:55 Urine Ictotest Positive (Negative) 10/11/21 22:55 Urine Urobilinogen 4.0 mg/dL (<2.0) 10/11/21 22:55 Ur Leukocyte Esterase Sm (Negative) 10/11/21 22:55 Urine WBC (Auto) 22.0 /HPF (0.0-6.0) H 10/11/21 22:55 Urine RBC (Auto) 12.0 /HPF (0.0-6.0) 10/11/21 22:55 U Epithel Cells (Auto) 36.0 /HPF (0-13.0) H 10/11/21 22:55 Urine Bacteria (Auto) 2+ /HPF (Negative) 10/11/21 22:55 Urine Mucus 3+ /HPF 10/11/21 22:55 Urine Yeast (Budding) 1+ /HPF 10/11/21 22:55 Nasal Screen MRSA (PCR) Negative (Negative) 10/13/21 05:00 Urine Opiates Screen Presumptive negative 10/11/21 22:55 Urine Methadone Screen Presumptive negative 10/11/21 22:55 Acetaminophen 5.0 ug/mL (10.0-30.0) L 10/11/21 23:31 Ur Barbiturates Screen Presumptive negative 10/11/21 22:55 Ur Phencyclidine Scrn Presumptive negative 10/11/21 22:55 Ur Amphetamines Screen Presumptive negative 10/11/21 22:55 U Benzodiazepines Scrn Presumptive negative 10/11/21 22:55 Urine Cocaine Screen Presumptive positive 10/11/21 22:55 U Marijuana (THC) Screen Presumptive positive 10/11/21 22:55 Drugs of Abuse Note Disclamer 10/11/21 22:55 Plasma/Serum Alcohol < 0.01 % (0-0.07) 10/11/21 23:27 Hepatitis A IgM Ab Non-reactive (NonReactive) 10/11/21 23:24 Hep Bs Antigen Nonreactive (Negative) 10/11/21 23:24 Hep B Core IgM Ab Non-reactive (NonReactive) 10/11/21 23:24 Hepatitis C Antibody Non-reactive (NonReactive) 10/11/21 23:24 Microbiology: Microbiology 10/11/21 23:31 Peripheral/Venous Blood Culture - Preliminary NO GROWTH AFTER 72 HOURS 10/12/21 00:00 Peripheral/Venous Blood Culture - Preliminary NO GROWTH AFTER 72 HOURS 10/11/21 22:55 Urine,Clean Catch Urine Culture - Final Martinez/IV: Voiding Method Toilet Active Medications - Current Medications Current Medications: Generic Name Dose Route Start Last Admin Trade Name Freq PRN Reason Stop Dose Admin Acetaminophen 650 mg 10/12/21 05:39 10/12/21 07:59 Acetaminophen 325 Mg Tab PO 650 mg Q4H PRN Administration Pain MILD(1-3)/Fever >100.5/WILKERSON Albuterol 2.5 mg 10/12/21 05:39 Albuterol 2.5 Mg/3 Ml Nebu IH Q4HRT PRN Shortness Of Breath Albuterol/Ipratropium 1 ampul 10/12/21 08:00 10/15/21 09:17 Ipratropium/Albuterol Sulfate 3 Ml Ampul.Neb IH 1 ampul Q6HRT RAJANI Administration Azithromycin 500 mg 10/14/21 10:00 10/15/21 09:48 Azithromycin 250 Mg Tab PO 10/16/21 10:01 500 mg QDAY RAJANI Administration Protocol Benzonatate 100 mg 10/12/21 06:00 10/15/21 13:23 Benzonatate 100 Mg Cap PO 100 mg Q8HR RAJANI Administration Diphenhydramine HCl 25 mg 10/14/21 12:36 10/14/21 20:15 Diphenhydramine 25 Mg Cap PO 25 mg Q8H PRN Administration Itching Famotidine 20 mg 10/13/21 22:00 10/15/21 09:49 Famotidine 20 Mg Tab PO 20 mg BID RAJANI Administration Folic Acid 1 mg 10/13/21 10:00 10/15/21 09:49 Folic Acid 1 Mg Tab PO 1 mg QDAY RAJANI Administration Haloperidol Lactate 5 mg 10/12/21 05:39 Haloperidol Lactate 5 Mg/1 Ml Inj IV Q1H PRN Unrespon. to mult. doses BZD's Ceftriaxone Sodium 2 gm in 100 mls @ 200 mls/hr 10/13/21 06:00 10/15/21 05:00 Rocephin/Ns 2 Gm/100 Ml IV 10/17/21 06:29 200 mls/hr Q24H RAJANI Administration Protocol Lorazepam 2 mg 10/12/21 05:39 10/12/21 22:03 Lorazepam 2 Mg/Ml Vial IV 2 mg Q1H PRN Administration CIWA-Ar 8-15 Lorazepam 4 mg 10/12/21 05:39 Lorazepam 2 Mg/Ml Vial IV Q1H PRN CIWA-Ar 16-25 Morphine Sulfate 2 mg 10/12/21 05:39 10/15/21 07:53 Morphine 2 Mg/1 Ml Inj IV 2 mg Q4H PRN Administration Pain, Moderate (4-6) Nicotine 14 mg 10/12/21 10:00 10/15/21 09:49 Nicotine 14 Mg/24 Hr Patch TD 14 mg DAILY RAJANI Administration Ondansetron HCl 4 mg 10/12/21 05:39 10/13/21 22:33 Ondansetron 4 Mg/2 Ml Inj IV 4 mg Q8H PRN Administration Nausea And Vomiting Oxycodone/Acetaminophen 1 tab 10/13/21 15:00 10/15/21 09:49 Oxycodone /Acetaminophen 5-325mg Tab PO 1 tab Q6H PRN Administration Pain, Moderate (4-6) Sodium Chloride 10 ml 10/12/21 10:00 10/15/21 09:49 Sodium Chloride 0.9% 10 Ml Flush Syringe IV 10 ml BID RAJANI Administration Sodium Chloride 10 ml 10/12/21 05:39 Sodium Chloride 0.9% 10 Ml Flush Syringe IV PRN PRN LINE FLUSH Thiamine HCl 100 mg 10/13/21 10:00 10/15/21 09:50 Thiamine 100 Mg Tab PO Not Given QDAY RAJANI
--- NOTE | 2021-10-15 16:01 | Discharge Summary ---
Providers - Providers Date of Admission: 10/12/21 03:30 Date of discharge: 10/15/21 Attending physician: PAGE KHAN 10/12/21 02:43 Consult to Physician [CONS] Urgent Comment: Consulting Provider: JUNIOR PIZARRO Physician Instructions: Reason For Exam: elevated lft, abd pain, n,v 10/12/21 05:39 Consult to Physician [CONS] Routine Comment: Consulting Provider: DANIKA FINNEGAN Physician Instructions: Reason For Exam: Cavitary lung lesion Primary care physician: XIANG HINSON MD Hospitalization Condition: Stable Pertinent studies: Chest CT CT abdomen and pelvis Chest x-ray Hospital course: Acute alcoholic hepatitis acute transaminitis mild improvement Bilateral cavitary pneumonia[extensive work-up done in the past] Patient received 3 days of Rocephin and Zithromax. History of chronic alcohol use Moderate protein calorie malnutrition Hyponatremia improved Polysubstance abuse[tobacco, alcohol, marijuana, cocaine Disposition: 01 HOME / SELF CARE / HOMELESS Final Discharge Diagnosis (Prints w/discharge instructions): Acute alcoholic hepatitis. acute transaminitis mild improvement. Bilateral cavitary pneumonia[extensive work-up done in the past]. Patient received 3 days of Rocephin and Zithromax. History of chronic alcohol use. Moderate protein calorie malnutrition. Hyponatremia improved. Polysubstance abuse[tobacco, alcohol, marijuana, cocaine Time spent for discharge: 35 min Core Measure Documentation - Palliative Care Palliative Care/ Comfort Measures: Not Applicable - Core Measures Any of the following diagnoses?: none Exam - Constitutional Vitals: Temp Pulse Resp BP Pulse Ox 99.0 F 119 H 22 102/73 98 10/15/21 03:27 10/15/21 14:51 10/15/21 14:51 10/15/21 03:27 10/15/21 07:02 General appearance: Present: no acute distress, well-nourished - EENT Eyes: Present: PERRL, EOM intact - Neck Neck: Present: supple, normal ROM - Respiratory Respiratory effort: normal Respiratory: bilateral: diminished, negative: rales, rhonchi, wheezing - Cardiovascular Rhythm: regular Heart Sounds: Present: S1 & S2 - Extremities Extremities: no ischemia, No edema - Integumentary Integumentary: Present: clear, warm - Musculoskeletal Musculoskeletal: strength equal bilaterally - Psychiatric Psychiatric: appropriate mood/affect, cooperative - Neurologic Neurologic: moves all extremities Plan Activity: advance as tolerated, fall precautions Diet: other (Cardiac diet/hepatic diet) Special Instructions: smoking cessation Additional Instructions: Advised to quit recreational drug use cocaine marijuana. Advised to quit alcohol intake. Smoking cessation counseling, nicotine patch as needed. If you have worsening symptoms contact MD or go to the nearest emergency room. Follow private GI and ID physician per schedule Follow up with: XIANG HINSON MD [Primary Care Provider] - 7 Days ESTIVEN ROSA MD [Staff Physician] - 10 Days RUBIA CHEN MD [Staff Physician] - 14 Days Prescriptions: diphenhydrAMINE [Benadryl CAP] 25 mg PO Q8H PRN #15 capsule PRN Reason: Itching Folic Acid [Folvite] 1 mg PO QDAY #30 tablet Nicotine [Habitrol] 14 mg TD DAILY #30 patch Famotidine [Pepcid] 20 mg PO BID #30 tablet Albuterol Mdi (or & Nicu Only) [ProAir HFA Inhaler] 2 puff IH Q4HRT PRN #1 inha PRN Reason: Shortness Of Breath Benzonatate [Tessalon Perles] 100 mg PO Q8HR #15 capsule traMADoL [Ultram 50 MG tab] 50 mg PO BID PRN #6 tablet PRN Reason: Pain , Severe (7-10) Thiamine [Vitamin B-1] 100 mg PO QDAY #30 tablet
== END 2021-10-15 17:50 | disposition home or self-care (01) | DRG 432 ==
LOC: ED 17:54 → 4A 10-12 03:30
PROVIDERS: ADMIT Hospitalist; ATTEND Internal Medicine
DX: K70.10 Alcoholic hepatitis without ascites (principal); J18.8 Other pneumonia, unspecified organism; J44.0 Chronic obstructive pulmonary disease with (acute) lower respiratory infection; N39.0 Urinary tract infection, site not specified; E87.1 Hypo-osmolality and hyponatremia; E44.0 Moderate protein-calorie malnutrition; F10.20 Alcohol dependence, uncomplicated; E83.42 Hypomagnesemia; F14.10 Cocaine abuse, uncomplicated; Z68.24 Body mass index [BMI] 24.0-24.9, adult; Z20.822 Contact with and (suspected) exposure to COVID-19
CPT/HCPCS: 36415; 71046; 71260; 74177; 80053; 80074; 80076; 80307; 80320; 81001; 82140; 82550; 83690; 83735; 84100; 84484; 84703; 85007; 85025; 85610; 85730; 87040; 87086; 87641; 90686; 93005; 94640; 99291; 99406; G0378; J3490; Q0162; G0480; J0456; J0692; J0696; J1170; J2060; J2270; J2405; J3370; J3411; J3475; J7030; J7040; J7050; Q0163; Q9967

== ENCOUNTER 2021-12-16 12:41 | Emergency (ER) | payer SELFPAY ==
[2021-12-16 13:13] VITALS: BP 143/102
[2021-12-16] MEDS ORDERED: PANTOPRAZOLE 40 MG INJ IV ONE (15:18)
[2021-12-16] MEDS ORDERED: MORPHINE 4 MG/1 ML INJ IV ONE ×2 (15:18→19:26)
[2021-12-16] MEDS ORDERED: diphenhydrAMINE 50 MG/ML VIAL IV ONE (15:18)
[2021-12-16] MEDS ORDERED: METOCLOPRAMIDE 10 MG/2 ML INJ IV ONE (15:18)
[2021-12-16] MEDS ORDERED: SODIUM CHLORIDE 0.9% 1000 ML 1,000 ML IV ONE (15:18)
--- NOTE | 2021-12-16 15:24 | Event Note ---
ED Screening Note Date of service: 12/16/21 Time: 15:21 ED Screening Note: Patient presents with complaints of abdominal pain and nausea and vomiting x yesterday History of COPD and alcohol dependence Patient admitted the last 3 visits for atypical pneumonia Actively vomiting in room This initial assessment/diagnostic orders/clinical plan/treatment(s) is/are subject to change based on patients health status, clinical progression and re- assessment by fellow clinical providers in the ED. Further treatment and workup at subsequent clinical providers discretion. Patient/guardian urged not to elope from the ED as their condition may be serious if not clinically assessed and managed. Initial orders include: Meds Labs CT abdomen
[2021-12-16 15:58] LABS: Bilirubin,Urine SM (Negative); Blood,Urine NEG (Negative); Color,Urine Yellow (Yellow); Mucus,Urine FEW /HPF; Urobilinogen,Urine < 2.0 mg/dL (<2.0)
[2021-12-16 16:12] LABS: Albumin 3.5 g/dL (3.9-5); Blood Urea Nitrogen 8 mg/dL (7-17); Calcium 9.7 mg/dL (8.4-10.2); Hemolysis Index 5
[2021-12-16 16:17] LABS: Ictotest,Urine Negative (Negative)
[2021-12-16 16:26] LABS: Alanine Aminotransferase < 5 units/L (7-56); BUN/Creatinine Ratio 13
[2021-12-16 16:28] LABS: Hematocrit 38.4 % (30.3-42.9); Hemoglobin 12.6 gm/dl (10.1-14.3); Mean Corpuscular HGB Conc 33 % (30-34); Mean Corpuscular Volume 89 fl (79-97); Platelet Count 413 K/mm3 (140-440); Red Blood Count 4.29 M/mm3 (3.65-5.03)
--- NOTE | 2021-12-16 18:05 | Cat Scan Report ---
CT CHEST, ABDOMEN, AND PELVIS WITH CONTRAST INDICATION / CLINICAL INFORMATION: Chest/abdominal pain. TECHNIQUE: Axial CT images were obtained through the chest, abdomen, and pelvis after Omnipaque 300, 100 cc IV contrast. All [address] scans at this location are performed using CT dose reduction for ALARA by means of automated exposure control. COMPARISON: CT chest, abdomen and pelvis 10/11/2021 FINDINGS: HEART/VASCULAR STRUCTUES: No significant abnormality. MEDIASTINUM / CHRISTIE: No significant abnormality. PLEURA: No pleural effusion. No pneumothorax. LUNGS: Extensive cavitary changes remain throughout both lungs. Superimposed nodularity persists with overall mild improvement. Dense consolidation remains at the left base. No new parenchymal abnormali ty. ADDITIONAL CHEST FINDINGS: None. LIVER: No significant abnormality. GALLBLADDER: No significant abnormality. BILE DUCTS: No significant abnormality. PANCREAS: No significant abnormality. SPLEEN: No significant abnormality. ADRENALS: No significant abnormality. RIGHT KIDNEY / URETER: No significant abnormality. LEFT KIDNEY / URETER: No significant abnormality. STOMACH and SMALL BOWEL: No significant abnormality. COLON: No significant abnormality. APPENDIX: Nonvisualized. PERITONEUM: No free fluid. No free air. No fluid collection. LYMPH NODES: No significant adenopathy. VASCULAR STRUCTURES: No significant abnormality. URINARY BLADDER: No significant abnormality. REPRODUCTIVE ORGANS: No significant abnormality. ADDITIONAL FINDINGS: None. SKELETAL SYSTEM: No significant abnormality. IMPRESSION: 1. Chronic cavitary changes of the lungs with superimposed consolidation and nodularity remain. The n odularity is overall mildly improved. No new abnormality. 2. Negative for obstruction or localized inflammation at the abdomen or pelvis. Signer Name: Mohamud Cruz MD Signed: 12/16/2021 6:01 PM Workstation Name: [id number]
--- NOTE | 2021-12-16 21:54 | Emergency Department Report ---
ED Abdominal Pain HPI - General Chief Complaint: Abdominal Pain Stated Complaint: NAUSEA/VOMITING/ABD PAIN Time Seen by Provider: 12/16/21 14:52 Source: patient Mode of arrival: Wheelchair Limitations: No Limitations - History of Present Illness Initial Comments: Patient is 41 years old female with history of COPD. Patient presented to the ER complaining of abdominal pain, diffuse, associated with nausea and vomiting. Patient stated this started yesterday. Patient denied any fever or chills. MD Complaint: abdominal pain -: days(s) Location: diffuse Migration to: no migration Severity scale (0 -10): 6 - Related Data Previous Rx's Medication Instructions Recorded Last Taken Type Albuterol Mdi (or & Nicu Only) 2 puff IH Q4HRT PRN #1 inha 10/15/21 Unknown Rx [ProAir HFA Inhaler] Benzonatate [Tessalon Perles] 100 mg PO Q8HR #15 capsule 10/15/21 Unknown Rx Famotidine [Pepcid] 20 mg PO BID #30 tablet 10/15/21 Unknown Rx Folic Acid [Folvite] 1 mg PO QDAY #30 tablet 10/15/21 Unknown Rx Nicotine [Habitrol] 14 mg TD DAILY #30 patch 10/15/21 Unknown Rx Thiamine [Vitamin B-1] 100 mg PO QDAY #30 tablet 10/15/21 Unknown Rx diphenhydrAMINE [Benadryl CAP] 25 mg PO Q8H PRN #15 capsule 10/15/21 Unknown Rx traMADoL [Ultram 50 MG tab] 50 mg PO BID PRN #6 tablet 10/15/21 Unknown Rx Metoclopramide [Reglan] 10 mg PO TID PRN #20 tab 12/16/21 Unknown Rx Ondansetron [Zofran Odt] 4 mg PO Q8HR PRN #14 tab.rapdis 12/16/21 Unknown Rx traMADoL [Ultram 50 MG tab] 50 mg PO Q4HR PRN #14 tablet 12/16/21 Unknown Rx Allergies Allergy/AdvReac Type Severity Reaction Status Date / Time chocolate flavor Allergy Hives Verified 12/16/21 13:14 ED Review of Systems ROS: Stated complaint: NAUSEA/VOMITING/ABD PAIN Other details as noted in HPI Comment: All other systems reviewed and negative Constitutional: denies: chills, fever Respiratory: denies: cough, shortness of breath, SOB with exertion Gastrointestinal: abdominal pain, nausea, vomiting Musculoskeletal: denies: back pain Neurological: denies: headache, weakness ED Past Medical Hx - Past Medical History Hx Heart Attack/AMI: No Hx Congestive Heart Failure: No Hx Diabetes: No Hx Liver Disease: No Hx Renal Disease: No Hx Seizures: No Hx Asthma: No Hx COPD: Yes Hx HIV: No Additional medical history: Cavitary lung lesions - Surgical History Past Surgical History?: No Additional Surgical History: Bronchoscopy - Social History Smoking Status: Current Every Day Smoker Substance Use Type: Alcohol (Alcohol abuse, beer day), Marijuana - Medications Home Medications: Home Medications Medication Instructions Recorded Confirmed Last Taken Type Albuterol Mdi (or & Nicu Only) 2 puff IH Q4HRT PRN #1 inha 10/15/21 Unknown Rx [ProAir HFA Inhaler] Benzonatate [Tessalon Perles] 100 mg PO Q8HR #15 capsule 10/15/21 Unknown Rx Famotidine [Pepcid] 20 mg PO BID #30 tablet 10/15/21 Unknown Rx Folic Acid [Folvite] 1 mg PO QDAY #30 tablet 10/15/21 Unknown Rx Nicotine [Habitrol] 14 mg TD DAILY #30 patch 10/15/21 Unknown Rx Thiamine [Vitamin B-1] 100 mg PO QDAY #30 tablet 10/15/21 Unknown Rx diphenhydrAMINE [Benadryl CAP] 25 mg PO Q8H PRN #15 capsule 10/15/21 Unknown Rx traMADoL [Ultram 50 MG tab] 50 mg PO BID PRN #6 tablet 10/15/21 Unknown Rx Metoclopramide [Reglan] 10 mg PO TID PRN #20 tab 12/16/21 Unknown Rx Ondansetron [Zofran Odt] 4 mg PO Q8HR PRN #14 tab.rapdis 12/16/21 Unknown Rx traMADoL [Ultram 50 MG tab] 50 mg PO Q4HR PRN #14 tablet 12/16/21 Unknown Rx ED Physical Exam - General Limitations: No Limitations General appearance: alert, other (Actively vomiting) - Eye Eye exam: Present: normal appearance - ENT ENT exam: Present: mucous membranes dry - Neck Neck exam: Present: normal inspection, full ROM. Absent: tenderness, meningismus - Respiratory Respiratory exam: Present: normal lung sounds bilaterally - Cardiovascular Cardiovascular Exam: Present: regular rate, normal rhythm, normal heart sounds - GI/Abdominal GI/Abdominal exam: Present: soft, normal bowel sounds. Absent: distended, tenderness, guarding, rebound, rigid, organomegaly, mass, bruit, pulsatile mass, hernia - Extremities Exam Extremities exam: Present: normal inspection, full ROM, normal capillary refill. Absent: tenderness - Back Exam Back exam: Present: normal inspection, full ROM. Absent: CVA tenderness (R), CVA tenderness (L) - Neurological Exam Neurological exam: Present: alert, oriented X3, CN II-XII intact, normal gait, reflexes normal. Absent: motor sensory deficit - Psychiatric Psychiatric exam: Present: normal mood - Skin Skin exam: Present: warm, intact, normal color ED Course Vital Signs 12/16/21 12/16/21 13:10 19:29 Temperature 98.9 F Pulse Rate 102 H Respiratory 16 14 Rate Blood Pressure 143/102 [Left] O2 Sat by Pulse 98 Oximetry ED Medical Decision Making - Lab Data Result diagrams: 12/16/21 15:36 12/16/21 15:36 - Radiology Data Radiology results: report reviewed - Medical Decision Making Patient is 41 years old female with history of COPD. Patient presented to the ER complaining of abdominal pain, diffuse, associated with nausea and vomiting. Patient stated this started yesterday. Patient denied any fever or chills. Patient received Reglan, Zofran, morphine and normal saline. Patient stated that she is feeling much better. Labs reviewed and unremarkable. CT abdomen and pelvis is negative for acute finding. Patient given prescription for tramadol, Zofran and Reglan and advised to follow-up with her primary doctor in the next 2 to 3 days and to return to the ER if she develop any new symptoms. Critical care attestation.: If time is entered above; I have spent that time in minutes in the direct care of this critically ill patient, excluding procedure time. ED Disposition Clinical Impression: Acute abdominal pain, Acute nausea with nonbilious vomiting Disposition: HOME / SELF CARE / HOMELESS Is pt being admited?: No Condition: Stable Instructions: Abdominal Pain, Adult, [id number], Vomiting, Adult, Abdominal Pain (ED) Prescriptions: Metoclopramide [Reglan] 10 mg PO TID PRN #20 tab PRN Reason: Vomiting traMADoL [Ultram 50 MG tab] 50 mg PO Q4HR PRN #14 tablet PRN Reason: Pain Ondansetron [Zofran Odt] 4 mg PO Q8HR PRN #14 tab.rapdis PRN Reason: Nausea And Vomiting Referrals: PRIMARY CARE,MD [Primary Care Provider] - 3-5 Days
[2021-12-16] MEDS ORDERED: ONDANSETRON 4 MG/2 ML INJ IV ONE ×2 (22:49→22:51)
== END 2021-12-16 23:00 | disposition home or self-care (01) ==
LOC: ED 12:41
DX: R10.9 Unspecified abdominal pain (principal); R11.2 Nausea with vomiting, unspecified; Z91.018 Allergy to other foods; F17.200 Nicotine dependence, unspecified, uncomplicated; F10.20 Alcohol dependence, uncomplicated; F12.90 Cannabis use, unspecified, uncomplicated
CPT/HCPCS: 36415; 71260; 74177; 80053; 81001; 82140; 83690; 84703; 85025; 96361; 96374; 96375; 96376; 99284; C9113; J1200; J2270; J2405; J2765; J7030; Q9967; Q0162

== ENCOUNTER 2021-12-22 13:14 | Emergency (ER) | payer SELFPAY ==
[2021-12-22] MEDS ORDERED: methylPREDNISolone Sod Succinate 125 MG/2 ML INJ IV ONE (13:15)
[2021-12-22] MEDS ORDERED: SODIUM CHLORIDE 0.9% 1000 ML 1,000 ML IV ONE (13:15)
[2021-12-22] MEDS ORDERED: IPRATROPIUM 0.02% NEBU 2.5 ML IH ONE (13:15)
[2021-12-22] MEDS ORDERED: ALBUTEROL 2.5 MG/3 ML NEBU IH ONE (13:15)
--- NOTE | 2021-12-22 13:49 | XRay Report ---
CHEST 1 VIEW INDICATION: Dyspnea. COMPARISON: 10/11/2021 FINDINGS: Support devices: None. Heart: Within normal limits. Lungs/Pleura: There is extensive pleural-parenchymal disease throughout the left lung. Similar appear ing parenchymal scarring and nodularity is seen in the right upper lobe. No large pleural effusion or pneumothorax. Additional findings: None. 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 No acute process is noted. Signer Name: Bill Lim Jr, MD Signed: 12/22/2021 1:44 PM Workstation Name: [id number]
[2021-12-22 15:29] LABS: Creatine Kinase MB 2.6 ng/mL (0.0-4.0)
[2021-12-22 15:44] LABS: Alanine Aminotransferase 127 units/L (7-56); Albumin 3.1 g/dL (3.9-5); BUN/Creatinine Ratio 19; Blood Urea Nitrogen 13 mg/dL (7-17)
[2021-12-22 15:45] LABS: Hemolysis Index 188
[2021-12-22 15:58] LABS: Bilirubin,Urine SM (Negative); Blood,Urine NEG (Negative); Color,Urine Amber (Yellow)
[2021-12-22 16:04] VITALS: BP 96/58
[2021-12-22 16:05] LABS: Benzodiazepines Screen,Urine Negative; Cocaine Screen,Urine Negative; Methadone Screen,Urine Negative; Opiate Screen,Urine Negative
[2021-12-22 16:32] LABS: Hemoglobin 12.6 gm/dl (10.1-14.3); Mean Corpuscular HGB Conc 33 % (30-34); Mean Corpuscular Volume 91 fl (79-97); Red Blood Count 4.18 M/mm3 (3.65-5.03)
[2021-12-22 16:33] LABS: Amphetamine Screen,Urine Positive; Cannabinoid Screen,Urine Positive
--- NOTE | 2021-12-22 16:45 | Emergency Department Report ---
ED Shortness of Breath HPI - General Chief Complaint: Dyspnea/Respdistress Stated Complaint: shortness of breath Time Seen by Provider: 12/22/21 13:15 Source: EMS Mode of arrival: Stretcher Limitations: No Limitations - History of Present Illness Initial Comments: Pt [place] in by EMS with c/o SOB secondary to COPD, pt was given 2.5mg albuterol in route with relief. MD Complaint: shortness of breath -: Gradual, days(s) Pain Scale: 1 Quality: dull Consistency: constant Improves With: nothing Worsens With: nothing Context: recent URI - Related Data Home Oxygen Therapy: No Previous Rx's Medication Instructions Recorded Last Taken Type Albuterol Mdi (or & Nicu Only) 2 puff IH Q4HRT PRN #1 inha 10/15/21 Unknown Rx [ProAir HFA Inhaler] Benzonatate [Tessalon Perles] 100 mg PO Q8HR #15 capsule 10/15/21 Unknown Rx Famotidine [Pepcid] 20 mg PO BID #30 tablet 10/15/21 Unknown Rx Folic Acid [Folvite] 1 mg PO QDAY #30 tablet 10/15/21 Unknown Rx Nicotine [Habitrol] 14 mg TD DAILY #30 patch 10/15/21 Unknown Rx Thiamine [Vitamin B-1] 100 mg PO QDAY #30 tablet 10/15/21 Unknown Rx diphenhydrAMINE [Benadryl CAP] 25 mg PO Q8H PRN #15 capsule 10/15/21 Unknown Rx traMADoL [Ultram 50 MG tab] 50 mg PO BID PRN #6 tablet 10/15/21 Unknown Rx Metoclopramide [Reglan] 10 mg PO TID PRN #20 tab 12/16/21 Unknown Rx Ondansetron [Zofran Odt] 4 mg PO Q8HR PRN #14 tab.rapdis 12/16/21 Unknown Rx traMADoL [Ultram 50 MG tab] 50 mg PO Q4HR PRN #14 tablet 12/16/21 Unknown Rx Allergies Allergy/AdvReac Type Severity Reaction Status Date / Time chocolate flavor Allergy Hives Verified 12/16/21 13:14 ED Review of Systems ROS: Stated complaint: shortness of breath Other details as noted in HPI Constitutional: denies: chills, fever Eyes: denies: eye pain, eye discharge, vision change ENT: denies: ear pain, throat pain Respiratory: denies: cough, shortness of breath, wheezing Cardiovascular: denies: chest pain, palpitations Endocrine: no symptoms reported Gastrointestinal: denies: abdominal pain, nausea, diarrhea Genitourinary: denies: urgency, dysuria, discharge Musculoskeletal: denies: back pain, joint swelling, arthralgia Skin: denies: rash, lesions Neurological: denies: headache, weakness, paresthesias Psychiatric: denies: anxiety, depression Hematological/Lymphatic: denies: easy bleeding, easy bruising ED Past Medical Hx - Past Medical History Hx Heart Attack/AMI: No Hx Congestive Heart Failure: No Hx Diabetes: No Hx Liver Disease: No Hx Renal Disease: No Hx Seizures: No Hx Asthma: No Hx COPD: Yes Hx HIV: No Additional medical history: Cavitary lung lesions - Surgical History Additional Surgical History: Bronchoscopy - Social History Smoking Status: Current Every Day Smoker Substance Use Type: Alcohol (Alcohol abuse, beer day), Marijuana - Medications Home Medications: Home Medications Medication Instructions Recorded Confirmed Last Taken Type Albuterol Mdi (or & Nicu Only) 2 puff IH Q4HRT PRN #1 inha 10/15/21 Unknown Rx [ProAir HFA Inhaler] Benzonatate [Tessalon Perles] 100 mg PO Q8HR #15 capsule 10/15/21 Unknown Rx Famotidine [Pepcid] 20 mg PO BID #30 tablet 10/15/21 Unknown Rx Folic Acid [Folvite] 1 mg PO QDAY #30 tablet 10/15/21 Unknown Rx Nicotine [Habitrol] 14 mg TD DAILY #30 patch 10/15/21 Unknown Rx Thiamine [Vitamin B-1] 100 mg PO QDAY #30 tablet 10/15/21 Unknown Rx diphenhydrAMINE [Benadryl CAP] 25 mg PO Q8H PRN #15 capsule 10/15/21 Unknown Rx traMADoL [Ultram 50 MG tab] 50 mg PO BID PRN #6 tablet 10/15/21 Unknown Rx Metoclopramide [Reglan] 10 mg PO TID PRN #20 tab 12/16/21 Unknown Rx Ondansetron [Zofran Odt] 4 mg PO Q8HR PRN #14 tab.rapdis 12/16/21 Unknown Rx traMADoL [Ultram 50 MG tab] 50 mg PO Q4HR PRN #14 tablet 12/16/21 Unknown Rx ED Physical Exam - General Limitations: No Limitations General appearance: alert, cachectic - Head Head exam: Present: normocephalic - Eye Eye exam: Present: normal appearance - ENT ENT exam: Present: mucous membranes moist - Neck Neck exam: Present: normal inspection - Respiratory Respiratory exam: Present: wheezes, decreased breath sounds. Absent: respiratory distress - Cardiovascular Cardiovascular Exam: Present: regular rate, normal rhythm. Absent: systolic murmur, diastolic murmur, rubs, gallop - GI/Abdominal GI/Abdominal exam: Present: soft, normal bowel sounds - Extremities Exam Extremities exam: Present: normal inspection - Back Exam Back exam: Present: normal inspection - Neurological Exam Neurological exam: Present: alert, oriented X3 - Psychiatric Psychiatric exam: Present: normal affect, normal mood - Skin Skin exam: Present: warm, dry, intact, normal color. Absent: rash ED Course Vital Signs 12/22/21 12/22/21 12/22/21 13:17 15:14 15:15 Temperature 98.8 F Pulse Rate 69 130 H 132 H Respiratory 16 21 22 Rate Blood Pressure Blood Pressure 83/65 [Right] O2 Sat by Pulse 100 100 Oximetry 12/22/21 12/22/21 15:31 15:45 Temperature Pulse Rate 136 H 137 H Respiratory 24 26 H Rate Blood Pressure 96/66 96/58 Blood Pressure [Right] O2 Sat by Pulse 100 100 Oximetry - Reevaluation(s) Reevaluation #1: 12/22/21 16:43 x ray shwoed ILD , not changed from before o2 sat 98 on RA no distress, work up not changed from before steriod nd albutero given ED Medical Decision Making - Lab Data Result diagrams: 12/22/21 15:02 12/22/21 15:02 Critical care attestation.: If time is entered above; I have spent that time in minutes in the direct care of this critically ill patient, excluding procedure time. ED Disposition Clinical Impression: Shortness of breath, COPD (chronic obstructive pulmonary disease), Interstitial lung disease, UTI (urinary tract infection) Disposition: 01 HOME / SELF CARE / HOMELESS Is pt being admited?: No Does the pt Need Aspirin: No Condition: Stable Instructions: Chronic Obstructive Pulmonary Disease (ED), Shortness of Breath, Adult, [id number], Pulmonary Fibrosis, Form - COPD Action Plan Referrals: PRIMARY CARE,MD [Primary Care Provider] - 3-5 Days
[2021-12-22 16:51] LABS: Ictotest,Urine Positive (Negative)
[2021-12-22 18:57] LABS: Basophils % (Auto) 1.1 % (0.0-1.8); Eosinophils % (Auto) 0.1 % (0.0-4.3); Lymphocytes # (Auto) 1.1 K/mm3 (1.2-5.4); Lymphocytes % (Auto) 8.2 % (13.4-35.0); Monocytes # (Auto) 0.8 K/mm3 (0.0-0.8); Monocytes % (Auto) 6.4 % (0.0-7.3)
[2021-12-22 18:58] LABS: Basophils # (Auto) 0.1 K/mm3 (0.0-0.1); Platelet Count 392 K/mm3 (140-440)
== END 2021-12-22 15:19 | disposition home or self-care (01) ==
LOC: ED 13:14
DX: J44.9 Chronic obstructive pulmonary disease, unspecified (principal); N39.0 Urinary tract infection, site not specified; J84.9 Interstitial pulmonary disease, unspecified; F17.200 Nicotine dependence, unspecified, uncomplicated; F12.90 Cannabis use, unspecified, uncomplicated; Z72.89 Other problems related to lifestyle; Z91.018 Allergy to other foods; Z79.899 Other long term (current) drug therapy
CPT/HCPCS: 36415; 71045; 80053; 80307; 81001; 82550; 82553; 83880; 84484; 85025; 87086; 94640; 96361; 96374; 99284; J2930; J7030; Q0162